=== PATIENT | male | born 1955 | race Caucasian/White ===

== ENCOUNTER 2018-07-11 18:06 | Inpatient (IN) | payer MEDICARE, MEDICAID ==
[2018-07-11 19:40] LABS: % BASOPHILS 0.4 % (0.0-2.0); % EOSINOPHILS 0.9 % (0.0-5.0); % LYMPHOCYTES 12.8 % (20.0-50.0); % MONOCYTES 5.5 % (2.0-10.0); % NEUTROPHILS 80.4 % (40.0-80.0); BASOPHILE ABSOLUTE 0.1 Th/cumm (0-0.2); EOSINOPHILE ABSOLUTE 0.1 Th/cmm (0.1-0.4); HEMOGLOBIN 13.6 gm/dL (12-16); MEAN CELL VOLUME 93.2 fl (80-99); MEAN CORPUSCULAR HEMOGLOBIN 30.8 pg (26.0-30.0); MEAN CORPUSCULAR HGB CONC 33.1 pg (28.0-36.0); MEAN PLATELET VOLUME 8.3 fl; MONOCYTE ABSOLUTE 0.9 Th/cmm (0.3-1.0); NEUTROPHILE ABSOLUTE 12.6 Th/cmm (1.8-8.0); PLATELET COUNT 205 Th/cmm (150-400); RED CELL DISTRIBUTION WIDTH 12.5 % (11.5-20.0)
[2018-07-11 19:54] LABS: WHITE BLOOD COUNT 15.7 Th/cmm (4.8-10.8)
--- NOTE | 2018-07-11 19:55 | ED Physician Chart ---
ED Chief Complaint/HPI - Patient Information Date Seen:: 07/11/18 Time Seen:: 18:45 Chief Complaint:: G-Tube Dysfunction History of Present Illness:: onset x one day of G-Tube Dysfunction with fever, cough, and congestion; Hx of COPD and Dyspagia; no report of trauma, LOC, ALOC, AMS, H/As, S/T, neck pain, C/ P, SOB, Abd. Pain, A/N/V/D/C, chills, or urinary s/s Allergies:: Allergies Allergy/AdvReac Type Severity Reaction Status Date / Time divalproex sodium Allergy Verified 07/11/18 18:46 [[facility] Vitals:: Vital Signs - 8 hr 07/11/18 07/11/18 18:46 19:36 Temp 97.3 F 98.9 F HR 107 69 RR 17 21 BP 134/72 115/64 O2 Sat % 94 98 Historian:: Patient, EMS Review:: Nurse's Note Reviewed, Old Chart Reviewed, EMS run form Reviewed ED Review of Systems - Review of Systems General/Constitutional: Fever, No chills, No weight loss, No weakness, No diaphoresis, No edema, No loss of appetite Skin: No skin lesions, No rash, No bruising Head: No headache, No light-headedness Eyes: No loss of vision, No pain, No diplopia ENT: No earache, Nasal drainage, No sore throat, No tinnitus Neck: No neck pain, No swelling, No thyromegaly, No stiffness, No mass noted Cardio Vascular: No chest pain, No palpitations, No PND, No orthopnea, No edema Pulmonary: SOB, Cough, No sputum, No wheezing GI: Nausea, Vomiting, Diarrhea, Pain, No melena, No hematochezia, No constipation, No hematemesis G/U: No dysuria, No frequency, No hematuria, No nacturia Musculoskeletal: No bone or joint pain, No back pain, No muscle pain Endocrine: No polyuria, No polydipsia Psychiatric: Prior psych history, Depression, Anxiety, No suicidal ideation, No homicidal ideation, No auditory hallucination, No visual hallucination Hematopoietic: No bruising, No lymphadenopathy Allergic/Immuno: No urticaria, No angioedema Neurological: No syncope, No focal symptoms, No weakness, No paresthesia, No headache, Seizure, No dizziness, Confusion, No vertigo ED Past Medical History - Past Medical History Obtainable: Yes Past Medical History: HTN, Asthma/COPD, PUD/GERD, Seizures, Thyroid disorder, Dementia Family History: HTN Social History: Non Smoker, No Alcohol, No Drug Use, Single, Care Facility Surgical History: PEG/GTube Psychiatricy History: Depression, Bipolar, Dementia Medication: Reviewed Family Medical History - Family Member Mother History Unknown: Yes ED Physical Exam - Physical Examination General/Constitutional: Awake, Well-developed, well-nourished, Alert, No distress, GCS 15, Non-toxic appearing, Ambulatory Head: Atraumatic Eyes: Lids, conjuctiva normal, PERRL, EOMI Skin: Nl inspection, No rash, No skin lesions, No ecchymosis, Well hydrated, No lymphadenopathy ENMT: External ears, nose nl, TM canals nl, Nasal exam nl, Lips, teeth, gums nl , Oropharynx nl, Tonsils nl Neck: Nontender, Full ROM w/o pain, No JVD, No nuchal rigidity, No bruit, No mass, No stridor Respiratory: Nl effort/Exclusion Other Respiratory comments:: Lungs: + Rales and Rhonchi Cardio Vascular: RRR, No murmur, gallop, rubs, NL S1 S2, Carotid/Femoral/Distal pulses equal bilaterally GI: No tenderness/rebounding/guarding, No organomegaly, No hernia, Normal BS's, Nondistended, No mass/bruits, No McBurney tenderness, Rectum exam nl Other GI comments:: + G-Tube Malfunction; no pulsatile masses : No CVA tenderness Extremities: No tenderness or effusion, Full ROM, normal strength in all extremities, No edema, Normal digits & nails Neuro/Psych: Alert/oriented, DTR's symmetric, Normal sensory exam, Normal motor strength, Judgement/insight normal, Mood normal, Normal gait, No focal deficits Misc: Normal back, No paraspinal tenderness ED Labs/Radiology/EKG Results - Lab Results Comments:: Reviewed - Radiology Results Comments:: CXR: + COPD; + Patchy Infiltrates ED Septic Shock - . Is Septic Shock (SBP<90, OR Lactate>4 mmol\L) present?: No - <6hrs of presentation: Vital Signs: Vital Signs - 8 hr 07/11/18 07/11/18 18:46 19:36 Temp 97.3 F 98.9 F HR 107 69 RR 17 21 BP 134/72 115/64 O2 Sat % 94 98 ED Reassessment (Disposition) - Reassessment Reassessment Condition:: Improved - Diagnosis Diagnosis:: G-Tube Dysfunction; Tachycardia; Leukocytosis; PNA; Sepsis; Hypercalcemia - Aftercare/Follow up Instructions Aftercare/Follow-Up Instructions:: Counseled pt regarding lab results/diagnosis & need follow up, Counseled pt & family regarding lab results/diagnosis & need follow up - Patient Disposition Discharge/Transfer:: Acute Care w/in this hosp Accepting Physician:: Dr. Nelson Time Called:: 2034 Time Responded:: 20:35 Admitted to:: Telemetry Spoke to:: Dr. Nelson Admitting Medical Physician:: Dr. Nelson Condition at Disposition:: Stable, Improved
[2018-07-11 19:58] LABS: ALB/GLOB RATIO 1.1 (1.0-1.8); ALBUMIN 3.7 gm/dL (4.2-5.5); ALKALINE PHOSPHATASE 76 U/L (34-104); ANION GAP 9.8 (7.0-16.0); BILIRUBIN,TOTAL 0.5 mg/dL (0.3-1.0); BUN - UREA NITROGEN 21 mg/dL (7-25); CALCIUM SERUM 11.7 mg/dL (8.6-10.3); CARBON DIOXIDE 25.8 mEq/L (21.0-31.0); CHLORIDE 113 mEq/L (98-107); CREATININE - SERUM 0.7 mg/dL (0.7-1.3); GFR AFRICAN-AMERICAN > 60.0 ml/min (>90); GFR NON AFRICAN-AMERICAN > 60.0 ml/min; GLUCOSE 90 mg/dL (70-105); POTASSIUM SERUM 3.6 mEq/L (3.5-5.1); SGOT 12 U/L (13-39); SGPT/ALT 12 U/L (7-52); SODIUM SERUM 145 mEq/L (136-145); TOTAL PROTEIN,SERUM 7.2 gm/dL (6.0-8.3)
[2018-07-11] MEDS ORDERED: Levofloxacin 500mg/100mL 500 MG/100 ML BAG IV ONE ×2 (20:08→20:23)
[2018-07-11] MEDS ORDERED: Sodium Chloride 0.9% 1,000 ML IV ONE (20:13)
[2018-07-11 20:30] LABS: URINE SOURCE CATH
[2018-07-11 20:32] LABS: URINE BILIRUBIN NEGATIVE (NEGATIVE); URINE BLOOD NEGATIVE (NEGATIVE); URINE GLUCOSE (UA) NEGATIVE (NEGATIVE); URINE KETONE NEGATIVE (NEGATIVE); URINE LEUKOCYTE ESTERASE NEGATIVE (NEGATIVE); URINE NITRATE NEGATIVE (NEGATIVE); URINE PROTEIN NEGATIVE (NEGATIVE); URINE UROBILINOGEN 0.2 E.U./dL (0.2 - 1.0)
[2018-07-11 20:46] LABS: URINE CLARITY CLEAR (CLEAR); URINE COLOR YELLOW; URINE MICROSCOPIC INDICATED? NO
[2018-07-11] MEDS ORDERED: Magnesium Hydroxide (MOM) 30 mL UDC GT PRN (21:00)
[2018-07-11] MEDS ORDERED: Non-Formulary Item 1 EA (Acetaminophen [Tylenol] 650 MG) GT PRN (21:00)
[2018-07-11] MEDS ORDERED: POLYETHYLENE GLYCOL 17 GM GT PRN (21:00)
[2018-07-11] MEDS ORDERED: Fleet Enema 135 mL RC PRN (21:00)
[2018-07-11] MEDS ORDERED: THIORIDAZINE HCL GT SCH (21:00)
[2018-07-11] MEDS ORDERED: guaiFENesin 200 MG/10 ML UDC PO PRN (21:02)
--- NOTE | 2018-07-11 21:58 | History & Physical ---
ADMIT DATE: 07/12/2018 CHIEF COMPLAINT: Malfunctioning G-tube, ingestion. HISTORY OF PRESENT ILLNESS: This is a 61-year-old male with history of COPD, dysphagia with G-tube, seizure disorder, hypertension, thyroid disorder, dementia, admitted from nursing facility secondary to report of clotted G-tube. The patient was also to be congested. The patient was evaluated by Dr. Tavares in the Emergency Room and noted to have elevated white count and also chest x-ray consistent with infiltrate. The patient is being admitted for further management. PAST MEDICAL HISTORY: As mentioned in history present illness. PAST SURGICAL HISTORY: G-tube. ALLERGIES: DEPAKOTE. MEDICATIONS: Tylenol, albuterol, Benadryl, Proscar, Robinul, Keppra, Synthroid, milk of magnesia, Zyprexa, MiraLax, Topamax. FAMILY HISTORY: Noncontributory. SOCIAL HISTORY: The patient is a snf patient. REVIEW OF SYSTEMS: This is limited secondary to the patient's current mental state. We will try to obtain more detailed review of system at a later date from family members as well as from the primary care physician at rehabilitation. PHYSICAL EXAMINATION: VITAL SIGNS: Blood pressure ____ 134/70, respirations 17, pulse 107, temperature 97.3, ____. GENERAL: Elderly male, appears stated age, appears chronically ill. NECK: Supple. LUNGS: Equal breath sounds, few rhonchi. HEART: Regular rate and rhythm without appreciable murmur. ABDOMEN: Soft, globular, positive. EXTREMITIES: Positive excoriation. NEUROLOGIC: Limited. LABORATORY DATA: Noted WBC 15, hemoglobin 13, platelets 507. Sodium 140, potassium 3.6, BUN 21, creatinine 0.7, blood sugar 127. Albumin 3.7. UA is negative. ASSESSMENT AND PLAN: Possible pneumonia, G-tube malfunction, leukocytosis, possible sepsis, hyperglycemia, chronic obstructive pulmonary disease, dysphagia with G-tube, seizure, BPH, hypertension, dementia. PLAN: We will continue the patient on oxygen and bronchodilator treatment. We will send for sputum Gram stain and C and S. We will follow the patient's blood culture. We will review the patient's chest x-ray. We will have GI to also take a look at a G-tube with report of malfunctioning. We will monitor the patient closely in the telemetry unit. JOB# [id number]
[2018-07-11] MEDS: D5-0.9%NS 1,000 ML IV SCH (22:10)
[2018-07-12 02:05] VITALS: BP 119/67
[2018-07-12] MEDS: methylPREDNISolone SS 40 mg Vial IVP SCH ×3 (06:07→21:21)
[2018-07-12] MEDS: Albuterol Nebulizer 2.5mg/3mL HHN SCH ×4 (07:16→19:37)
[2018-07-12] MEDS: Ipratropium Neb 0.5 mg/2.5 mL UD HHN SCH ×4 (07:16→19:37)
[2018-07-12] MEDS ORDERED: POLYETHYLENE GLYCOL 3350 17 GM PACK PO PRN (08:04)
[2018-07-12] MEDS ORDERED: TOPIRAMATE 200 MG GT SCH (09:00)
[2018-07-12] MEDS: Levothyroxine 0.05 Mg Tab GT SCH (09:36)
--- NOTE | 2018-07-12 10:33 | Diagnostic Imaging Report ---
Portable chest x-ray HISTORY: Cough Heart size is normal. Suggestion of faint infiltrate within the left lower lobe. Pneumonia cannot be excluded. Clinical correlation needed. No hilar or mediastinal abnormalities. Severe chronic deformity about the left humeral head and proximal shaft. IMPRESSION: 1. Faint left lower lobe infiltrate. Findings suggest pneumonia. Clinical correlation is needed.
--- NOTE | 2018-07-12 13:20 | Internal Medicine Prog Note ---
Internal Medicine Subjective - Subjective Patient seen and examined:: with staff, chart reviewed, other (caretake r at bedside) Patient is:: awake, verbal, interactive, in bed, talking, agitated, confused Per staff patient has:: no adverse event, no episodes of fall, gagging, agitated , tolerating meds Internal Medicine Objective - Results Result Diagrams: 07/11/18 19:30 07/11/18 19: Recent Labs: Laboratory Last Values WBC 15.7 Th/cmm (4.8-10.8) H 07/11/18: RBC 4.40 Mil/cmm (4.30-5.70) 07/11/18: Hgb 13.6 gm/dL (12-16) 07/11/18: Hct 41.0 % (41.0-60) 07/11/18: MCV 93.2 fl (80-99) 07/11/18: MCH 30.8 pg (26.0-30.0) H 07/11/18 MCHC Differential 33.1 pg (28.0-36.0) 07/11/18: RDW 12.5 % (11.5-20.0) 07/11/18: Plt Count 205 Th/cmm (150-400) 07/11/18: MPV 8.3 fl 07/11/18: Neutrophils % 80.4 % (40.0-80.0) H 07/11/18: Lymphocytes % 12.8 % (20.0-50.0) L 07/11/18: Monocytes % 5.5 % (2.0-10.0) 07/11/18: Eosinophils % 0.9 % (0.0-5.0) 07/11/18: Basophils % 0.4 % (0.0-2.0) 07/11/18: Sodium 145 mEq/L (136-145) 07/11/18: Potassium 3.6 mEq/L (3.5-5.1) 07/11/18: Chloride 113 mEq/L (98-107) H 07/11/18: Carbon Dioxide 25.8 mEq/L (21.0-31.0) 07/11/18 19:30 Anion Gap 9.8 (7.0-16.0) 07/11/18 19:30 BUN 21 mg/dL (7-25) 07/11/18 19:30 Creatinine 0.7 mg/dL (0.7-1.3) 07/11/18 19:30 Est GFR ( Amer) > 60.0 ml/min (>90) 07/11/18 19:30 Est GFR (Non-Af Amer) > 60.0 ml/min 07/11/18 19:30 BUN/Creatinine Ratio 30.0 07/11/18 19:30 Glucose 90 mg/dL (70-105) 07/11/18 19:30 Whole Bld Lactic Acid 0.88 mmol/L (0.60-1.99) 07/11/18 19:30 Calcium 11.7 mg/dL (8.6-10.3) H 07/11/18 19:30 Total Bilirubin 0.5 mg/dL (0.3-1.0) 07/11/18 19:30 AST 12 U/L (13-39) L 07/11/18 19:30 ALT 12 U/L (7-52) 07/11/18 19:30 Alkaline Phosphatase 76 U/L (34-104) 07/11/18 19:30 Total Protein 7.2 gm/dL (6.0-8.3) 07/11/18 19:30 Albumin 3.7 gm/dL (4.2-5.5) L 07/11/18 19:30 Globulin 3.5 gm/dL 07/11/18 19:30 Albumin/Globulin Ratio 1.1 (1.0-1.8) 07/11/18 19:30 Urine Source CATH 07/11/18 20:15 Urine Color YELLOW 07/11/18 20:15 Urine Clarity CLEAR (CLEAR) 07/11/18 20:15 Urine pH 6.0 (4.6 - 8.0) 07/11/18 20:15 Ur Specific [place] 1.015 (1.005-1.030) 07/11/18 20:15 Urine Protein NEGATIVE mg/dL (NEGATIVE) 07/11/18 20:15 Urine Glucose (UA) NEGATIVE mg/dL (NEGATIVE) 07/11/18 20:15 Urine Ketones NEGATIVE mg/dL (NEGATIVE) 07/11/18 20:15 Urine Blood NEGATIVE (NEGATIVE) 07/11/18 20:15 Urine Nitrate NEGATIVE (NEGATIVE) 07/11/18 20:15 Urine Bilirubin NEGATIVE (NEGATIVE) 07/11/18 20:15 Urine Urobilinogen 0.2 E.U./dL (0.2 - 1.0) 07/11/18 20:15 Ur Leukocyte Esterase NEGATIVE (NEGATIVE) 07/11/18 20:15 - Physical Exam Vitals and I&O: Vital Signs Temp 98.6 F 07/12/18 12:00 Pulse 83 07/12/18 12:00 Resp 18 07/12/18 12:00 BP 104/62 07/12/18 12:00 Pulse Ox 97 07/12/18 12:00 Intake & Output 07/11/18 07/12/18 07/12/18 18:59 06:59 18:59 Intake Total 50 400 Balance 50 400 Weight (lbs) 70.307 kg 51.211 kg 51.211 kg Intake: Intake, IV Amount 50 Cefepime 1 gm In Dextrose 50 5% 50 ml @ 100 mls/hr IV Q12H [facility] Rx#:[id number] Oral 0 Tube Feeding 400 Other: # Voids 1 2 # Bowel Movements 0 Weight Source Estimated Bedscale Bedscale Active Medications: Current Medications Acetaminophen (Tylenol) 650 mg PO Q4H PRN PRN Reason: Pain Or Fever above 101 Stop: 09/09/18 21:01 Last Admin: 07/12/18 09:56 Dose: 650 mg Acetaminophen (Tylenol) 650 mg PO Q6H PRN PRN Reason: PAIN Stop: 09/10/18 08:02 Albuterol Sulfate (Albuterol 2.5mg/3ml Neb Ud) 2.5 mg HHN QIDRT [facility] Stop: 09/10/18 06:59 Last Admin: 07/12/18 10:51 Dose: 2.5 mg Bisacodyl (Dulcolax 10 Mg Supp) 10 mg RC DAILY PRN PRN Reason: IF MOM INEFFECTIVE Stop: 09/09/18 20:59 Finasteride (Proscar) 5 mg GT DAILY [facility]; Protocol Stop: 09/10/18 08:59 Last Admin: 07/12/18 09:36 Dose: 5 mg Glycopyrrolate (Robinul) 2 mg GT TID [facility] Stop: 09/09/18 20:59 Last Admin: 07/12/18 09:35 Dose: Not Given Guaifenesin (Robitussin) 200 mg PO Q4HR PRN PRN Reason: Cough or Congestion Stop: 09/09/18 21:01 Heparin Sodium (Porcine) (Heparin) 5,000 units SUBQ Q12HR [facility] Stop: 09/10/18 08:59 Last Admin: 07/12/18 09:35 Dose: 5,000 units Cefepime HCl 1 gm/ Dextrose 50 mls @ 100 mls/hr IV Q12H [facility] Stop: 09/09/18 21:14 Last Admin: 07/12/18 09:35 Dose: 100 mls/hr Dextrose/Sodium Chloride (D5-0.9%Ns) 1,000 mls @ 80 mls/hr IV .[id number] [facility] Stop: 09/09/18 21:14 Last Admin: 07/11/18 22:10 Dose: 80 mls/hr Ipratropium [place] (Atrovent Neb 0.5mg/2.5ml) 0.5 mg HHN QIDRT [facility] Stop: 09/10/18 06:59 Last Admin: 07/12/18 10:51 Dose: 0.5 mg Levetiracetam (Keppra) 750 mg PO HS [facility] Stop: 09/09/18 20:59 Last Admin: 07/11/18 22:04 Dose: 750 mg Levothyroxine Sodium (Synthroid) 0.05 mg GT DAILY [facility] Stop: 09/10/18 08:59 Last Admin: 07/12/18 09:36 Dose: 0.05 mg Lorazepam (Ativan) 0.5 mg GT Q6H PRN; Protocol PRN Reason: Anxiety Stop: 09/09/18 20:59 Lorazepam (Ativan) 1 mg IV Q4H PRN; Protocol PRN Reason: Seizure Stop: 09/09/18 21:01 Magnesium Hydroxide (Milk Of Magnesia) 30 ml GT DAILY PRN PRN Reason: Constipation Stop: 09/09/18 20:59 Methylprednisolone Sodium Succinate (Solu-Medrol) 80 mg IVP Q8HR [facility] Stop: 09/10/18 04:59 Last Admin: 07/12/18 06:07 Dose: Not Given Mirtazapine (Remeron) 15 mg GT HS [facility]; Protocol Stop: 09/09/18 20:59 Olanzapine (Zyprexa) 15 mg PO HS [facility] Stop: 09/10/18 20:59 Ondansetron HCl (Zofran) 4 mg IV Q8H PRN PRN Reason: Nausea / Vomiting Stop: 09/09/18 21:01 Phenobarbital (Phenobarbital) 129.6 mg GT [facility] Stop: 09/09/18 20:59 Last Admin: 07/11/18 22:04 Dose: 129.6 mg Polyethylene Glycol (Miralax) 17 gm PO DAILY PRN PRN Reason: STOMACH Stop: 09/10/18 08:03 Sodium Phosphate (Fleet Enema) 135 ml RC DAILY PRN PRN Reason: IF DULCOLAX INEFFECTIVE Stop: 09/09/18 20:59 Tamsulosin HCl (Flomax) 0.4 mg GT QPM [facility] Stop: 09/10/18 16:59 Thioridazine HCl (Mellaril) 50 mg PO [facility] Stop: 09/10/18 20:59 Topiramate (Topamax) 100 mg GT [facility] Stop: 09/09/18 20:59 Last Admin: 07/11/18 22:04 Dose: 100 mg Topiramate (Topamax) 200 mg GT BID [facility] Stop: 09/10/18 08:59 Last Admin: 07/12/18 09:36 Dose: 200 mg General: congested, demented, bilateral temporal wasting, cachectic, appears older HEENT: NC/AT, PERRLA, EOMI, thinning hair, poor dentition Neck: Supple, No JVD, deformity Lungs: congested, rales, ronchi Cardiovascular: RRR, Normal S1, Normal S2, without murmur Abdomen: soft, globular, non-distended, +GT, positive bowel sound Extremities: excoriation, contracture, deformity - Procedures Procedures: Procedures Procedure Code Date BARIUM SWALLOW 87.61 04/05/95 C.A.T. SCAN OF HEAD 87.03 04/05/95 CLOSURE SKIN & SUBCUTANEOUS NEC 86.59 04/05/95 ELECTROENCEPHALOGRAM 89.14 04/05/95 HEAD SOFT TISS X-RAY NEC 87.09 04/05/95 LINEAR REP LID LACER 08.81 11/06/95 RPR F/E/E/N/L/M 2.5 CM/< 16481 11/06/95 Internal Medicine Assmt/Plan - Assessment Assessment: ASSESSMENT AND PLAN: Possible pneumonia, G-tube malfunction, leukocytosis, possible sepsis, hyperglycemia, chronic obstructive pulmonary disease, dysphagia with G-tube, seizure, BPH, hypertension, dementia. - Plan Plan: PLAN: We will continue the patient on oxygen and bronchodilator treatment. We will send for sputum Gram stain and C and S. We will follow the patient's blood culture. We will review the patient's chest x-ray. We will have GI to also take a look at a G-tube with report of malfunctioning. We will monitor the patient closely in the telemetry unit. ronal gomez and dylan
--- NOTE | 2018-07-12 13:56 | Diagnostic Imaging Report ---
Upper GI (Limited) HISTORY: Gastrostomy tube placement Water-soluble contrast was instilled through patient's gastrostomy tube. The exam demonstrates opacification of the gastric lumen. IMPRESSION: 1. Confirmation of gastrostomy tube within the gastric lumen
[2018-07-12] MEDS: Thioridazine Hydrochloride 25 MG TAB PO SCH (21:35)
--- NOTE | 2018-07-13 00:02 | Consultation ---
DATE OF CONSULTATION: 07/12/2018 PSYCHIATRIC CONSULTATION CHIEF COMPLAINT: Psychotic illness. HISTORY OF PRESENT ILLNESS: The patient is a 63-year-old male with a history of mental retardation, schizoaffective disorder, seen at his senior living facility [facility], was anxious, agitated, striking out. The patient also has a possible infection around his G-tube. He was sent to the ER, now he is admitted on medical floor. The patient was seen and he had his caregiver from his long-term by the bedside. The patient most of the time is nonverbal, was smiling as long as his caregiver was next to him. The patient is absent on episodes of agitation. The patient is not communicating well. The patient, however, is awake. PAST PSYCHIATRIC HISTORY: Schizoaffective disorder and mental retardation. PAST MEDICAL HISTORY: Refer to H and P. PSYCHOSOCIAL HISTORY: The patient resides in a long-term, requires care. MENTAL STATUS EXAMINATION: The patient is superficial, made fair eye contact, responding to internal stimuli. Insight is poor. Judgment is impaired. The patient is somewhat irritable at times. ASSESSMENT: Schizoaffective disorder and mental retardation. PLAN: We will continue lorazepam p.r.n. Continue mirtazapine, olanzapine. Monitor condition closely. The patient is also on Mellaril and Topamax. The patient has been on these medications for a while. We will follow while in the medical floor. Thank you for the consultation. JOB# [id number]
--- NOTE | 2018-07-13 02:24 | Consultation ---
DATE OF CONSULTATION: 07/12/2018 GASTROINTESTINAL CONSULTATION REFERRING PHYSICIAN: Dr. Nelson. REASON FOR CONSULTATION: Malfunctioning G-tube. HISTORY OF PRESENT ILLNESS: This is a 63-year-old male who was brought to the hospital because his G-tube was malfunctioning. Therefore, I was asked to see the patient. The patient is not a good historian. He has underlying history of COPD, dysphagia. He apparently had a G-tube that was placed approximately 6 days ago over at [facility] by Dr. Hoskins. PAST MEDICAL HISTORY: Dysphagia, seizure disorder, hypertension, thyroid disorder, dementia. PAST SURGICAL HISTORY: PEG tube placement. FAMILY HISTORY: Noncontributory. SOCIAL HISTORY: Resident of [facility] facility. ALLERGIES: Depakote. CURRENT MEDICATIONS: Tylenol, cefepime, Proscar, Robinul, Robitussin, heparin, Keppra, Synthroid, Ativan, milk of magnesia, Solu-Medrol, Remeron, Zyprexa, Zofran, phenobarbital, MiraLax, Flomax, Topamax. REVIEW OF SYSTEMS: Unobtainable. PHYSICAL EXAMINATION: VITAL SIGNS: Temperature is 98.6, breathing 18, pulse of 83, blood pressure 104/62, satting 97%. GENERAL: In no apparent distress. EYES: Anicteric. Normal conjunctivae. HEENT: Normocephalic, atraumatic. Moist mucous membranes. NECK: Soft, supple. CHEST: Clear. No effort. CARDIOVASCULAR: Regular rate and rhythm. ABDOMEN: Soft, nontender, nondistended with a G-tube. SKIN: Warm, dry. EXTREMITIES: Reveal no cyanosis. PSYCHOLOGICAL: Awake. LABORATORY DATA: Show hemoglobin 13.6, platelets of 205. LFTs within normal limits. IMPRESSION: A 63-year-old male with dysphagia, has a G-tube that was placed approximately 6 days ago, apparently was malfunctioning, it was clogged and looking at it, the G-tube looks remarkably new, clean and intact, does not appear to be any defects and the nurse at bedside was able to flush it and it is now working. Therefore, I do not think that it needs to be changed, especially since it was recently placed. They should flush it regularly and they may begin using it. PLAN: 1. Check a KUB to confirm adequate placement of the G-tube. 2. If it is in good place, may flush every 6 hours with 50 mL of water once it is in use. 3. Check residual every 6 hours and hold if greater than 100 mL. Thank you for allowing me to participate. Please call me if any questions. JOB# [id number]
[2018-07-13] MEDS: methylPREDNISolone SS 40 mg Vial IVP SCH ×3 (04:51→21:23)
[2018-07-13 05:52] LABS: % BASOPHILS 0.1 % (0.0-2.0); % EOSINOPHILS 0.2 % (0.0-5.0); % LYMPHOCYTES 10.6 % (20.0-50.0); % MONOCYTES 3.8 % (2.0-10.0); % NEUTROPHILS 85.3 % (40.0-80.0); HEMATOCRIT 37.4 % (41.0-60); HEMOGLOBIN 12.7 gm/dL (12-16); LYMPHOCYTE ABSOLUTE 0.7 Th/cmm (1.5-3.0); MEAN CELL VOLUME 92.5 fl (80-99); MEAN CORPUSCULAR HEMOGLOBIN 31.5 pg (26.0-30.0); MEAN PLATELET VOLUME 8.1 fl; MONOCYTE ABSOLUTE 0.2 Th/cmm (0.3-1.0); NEUTROPHILE ABSOLUTE 5.4 Th/cmm (1.8-8.0); PLATELET COUNT 173 Th/cmm (150-400); RED BLOOD COUNT 4.04 Mil/cmm (4.30-5.70); WHITE BLOOD COUNT 6.3 Th/cmm (4.8-10.8)
[2018-07-13 06:01] LABS: ANION GAP 9.7 (7.0-16.0); BUN - UREA NITROGEN 17 mg/dL (7-25); CALCIUM SERUM 11.4 mg/dL (8.6-10.3); CARBON DIOXIDE 24.9 mEq/L (21.0-31.0); CHLORIDE 115 mEq/L (98-107); CREATININE - SERUM 0.7 mg/dL (0.7-1.3); GFR AFRICAN-AMERICAN > 60.0 ml/min (>90); GFR NON AFRICAN-AMERICAN > 60.0 ml/min; GLUCOSE 163 mg/dL (70-105); MAGNESIUM 2.4 mg/dL (1.9-2.7); POTASSIUM SERUM 3.6 mEq/L (3.5-5.1); SODIUM SERUM 146 mEq/L (136-145)
[2018-07-13] MEDS: Ipratropium Neb 0.5 mg/2.5 mL UD HHN SCH ×4 (07:06→19:05)
[2018-07-13] MEDS: Albuterol Nebulizer 2.5mg/3mL HHN SCH ×4 (07:06→19:05)
[2018-07-13] MEDS: Levothyroxine 0.05 Mg Tab GT SCH (08:48)
--- NOTE | 2018-07-13 10:34 | GI Progress Note ---
Subjective - Review of Systems Subjective: SHIVAM TUBE FEEDS Objective - Results Result Diagrams: 07/13/18 05:33 07/13/18 05:33 Recent Labs: Laboratory Last Values WBC 6.3 Th/cmm (4.8-10.8) 07/13/18 05:33 RBC 4.04 Mil/cmm (4.30-5.70) L 07/13/18 05:33 Hgb 12.7 gm/dL (12-16) 07/13/18 05:33 Hct 37.4 % (41.0-60) L 07/13/18 05:33 MCV 92.5 fl (80-99) 07/13/18 05:33 MCH 31.5 pg (26.0-30.0) H 07/13/18 05:33 MCHC Differential 34.0 pg (28.0-36.0) 07/13/18 05:33 RDW 13.0 % (11.5-20.0) 07/13/18 05:33 Plt Count 173 Th/cmm (150-400) 07/13/18 05:33 MPV 8.1 fl 07/13/18 05:33 Neutrophils % 85.3 % (40.0-80.0) H 07/13/18 05:33 Lymphocytes % 10.6 % (20.0-50.0) L 07/13/18 05:33 Monocytes % 3.8 % (2.0-10.0) 07/13/18 05:33 Eosinophils % 0.2 % (0.0-5.0) 07/13/18 05:33 Basophils % 0.1 % (0.0-2.0) 07/13/18 05:33 Sodium 146 mEq/L (136-145) H 07/13/18 05:33 Potassium 3.6 mEq/L (3.5-5.1) 07/13/18 05:33 Chloride 115 mEq/L (98-107) H 07/13/18 05:33 Carbon Dioxide 24.9 mEq/L (21.0-31.0) 07/13/18 05:33 Anion Gap 9.7 (7.0-16.0) 07/13/18 05:33 BUN 17 mg/dL (7-25) 07/13/18 05:33 Creatinine 0.7 mg/dL (0.7-1.3) 07/13/18 05:33 Est GFR ( Amer) > 60.0 ml/min (>90) 07/13/18 05:33 Est GFR (Non-Af Amer) > 60.0 ml/min 07/13/18 05:33 BUN/Creatinine Ratio 24.3 07/13/18 05:33 Glucose 163 mg/dL (70-105) H 07/13/18 05:33 Whole Bld Lactic Acid 0.88 mmol/L (0.60-1.99) 07/11/18 19:30 Calcium 11.4 mg/dL (8.6-10.3) H 07/13/18 05:33 Magnesium 2.4 mg/dL (1.9-2.7) 07/13/18 05:33 Total Bilirubin 0.5 mg/dL (0.3-1.0) 07/11/18 19:30 AST 12 U/L (13-39) L 07/11/18 19:30 ALT 12 U/L (7-52) 07/11/18 19:30 Alkaline Phosphatase 76 U/L (34-104) 07/11/18 19:30 Total Protein 7.2 gm/dL (6.0-8.3) 07/11/18 19:30 Albumin 3.7 gm/dL (4.2-5.5) L 07/11/18 19:30 Globulin 3.5 gm/dL 07/11/18 19:30 Albumin/Globulin Ratio 1.1 (1.0-1.8) 07/11/18 19:30 Urine Source CATH 07/11/18 20:15 Urine Color YELLOW 07/11/18 20:15 Urine Clarity CLEAR (CLEAR) 07/11/18 20:15 Urine pH 6.0 (4.6 - 8.0) 07/11/18 20:15 Ur Specific [place] 1.015 (1.005-1.030) 07/11/18 20:15 Urine Protein NEGATIVE mg/dL (NEGATIVE) 07/11/18 20:15 Urine Glucose (UA) NEGATIVE mg/dL (NEGATIVE) 07/11/18 20:15 Urine Ketones NEGATIVE mg/dL (NEGATIVE) 07/11/18 20:15 Urine Blood NEGATIVE (NEGATIVE) 07/11/18 20:15 Urine Nitrate NEGATIVE (NEGATIVE) 07/11/18 20:15 Urine Bilirubin NEGATIVE (NEGATIVE) 07/11/18 20:15 Urine Urobilinogen 0.2 E.U./dL (0.2 - 1.0) 07/11/18 20:15 Ur Leukocyte Esterase NEGATIVE (NEGATIVE) 07/11/18 20:15 - Physical Exam Vitals and I&O: Vital Signs Temp 98.5 F 07/13/18 08:27 Pulse 77 07/13/18 08:27 Resp 20 07/13/18 10:10 BP 130/72 07/13/18 08:27 Pulse Ox 99 07/13/18 08:27 Intake & Output 07/12/18 07/13/18 07/13/18 18:59 06:59 18:59 Intake Total 450 650 Balance 450 650 Weight (lbs) 51.211 kg 50.712 kg Intake: Intake, IV Amount 50 50 Cefepime 1 gm In Dextrose 50 50 5% 50 ml @ 100 mls/hr IV Q12H [facility] Rx#:[id number] Oral 0 Tube Feeding 400 600 Other: # Voids 2 2 # Bowel Movements 0 Weight Source Bedscale Bedscale Active Medications: Current Medications Acetaminophen (Tylenol) 650 mg PO Q4H PRN PRN Reason: Pain Or Fever above 101 Stop: 09/09/18 21:01 Last Admin: 07/12/18 09:56 Dose: 650 mg Acetaminophen (Tylenol) 650 mg PO Q6H PRN PRN Reason: PAIN Stop: 09/10/18 08:02 Albuterol Sulfate (Albuterol 2.5mg/3ml Neb Ud) 2.5 mg HHN QIDRT [facility] Stop: 09/10/18 06:59 Last Admin: 07/13/18 07:06 Dose: 2.5 mg Bisacodyl (Dulcolax 10 Mg Supp) 10 mg RC DAILY PRN PRN Reason: IF MOM INEFFECTIVE Stop: 09/09/18 20:59 Finasteride (Proscar) 5 mg GT DAILY [facility]; Protocol Stop: 09/10/18 08:59 Last Admin: 07/13/18 08:49 Dose: 5 mg Glycopyrrolate (Robinul) 2 mg GT TID [facility] Stop: 09/09/18 20:59 Last Admin: 07/13/18 08:45 Dose: 2 mg Guaifenesin (Robitussin) 200 mg PO Q4HR PRN PRN Reason: Cough or Congestion Stop: 09/09/18 21:01 Heparin Sodium (Porcine) (Heparin) 5,000 units SUBQ Q12HR [facility] Stop: 09/10/18 08:59 Last Admin: 07/13/18 08:51 Dose: 5,000 units Cefepime HCl 1 gm/ Dextrose 50 mls @ 100 mls/hr IV Q12H [facility] Stop: 09/09/18 21:14 Last Admin: 07/13/18 08:49 Dose: 100 mls/hr Dextrose/Sodium Chloride (D5-0.9%Ns) 1,000 mls @ 80 mls/hr IV .[id number] [facility] Stop: 09/09/18 21:14 Last Admin: 07/11/18 22:10 Dose: 80 mls/hr Ipratropium [place] (Atrovent Neb 0.5mg/2.5ml) 0.5 mg HHN QIDRT [facility] Stop: 09/10/18 06:59 Last Admin: 07/13/18 07:06 Dose: 0.5 mg Levetiracetam (Keppra) 750 mg PO HS [facility] Stop: 09/09/18 20:59 Last Admin: 07/12/18 21:21 Dose: 750 mg Levothyroxine Sodium (Synthroid) 0.05 mg GT DAILY [facility] Stop: 09/10/18 08:59 Last Admin: 07/13/18 08:48 Dose: 0.05 mg Lorazepam (Ativan) 0.5 mg GT Q6H PRN; Protocol PRN Reason: Anxiety Stop: 09/09/18 20:59 Lorazepam (Ativan) 1 mg IV Q4H PRN; Protocol PRN Reason: Seizure Stop: 09/09/18 21:01 Last Admin: 07/12/18 17:18 Dose: 1 mg Magnesium Hydroxide (Milk Of Magnesia) 30 ml GT DAILY PRN PRN Reason: Constipation Stop: 09/09/18 20:59 Methylprednisolone Sodium Succinate (Solu-Medrol) 80 mg IVP Q8HR [facility] Stop: 09/11/18 12:59 Mirtazapine (Remeron) 15 mg GT HS [facility]; Protocol Stop: 09/09/18 20:59 Last Admin: 07/12/18 21:21 Dose: 15 mg Mupirocin (Bactroban Oint) 1 appl NS BID [facility] Stop: 07/17/18 17:01 Last Admin: 07/13/18 09:59 Dose: 1 appl Olanzapine (Zyprexa) 15 mg PO HS [facility] Stop: 09/10/18 20:59 Last Admin: 07/12/18 21:21 Dose: 15 mg Ondansetron HCl (Zofran) 4 mg IV Q8H PRN PRN Reason: Nausea / Vomiting Stop: 09/09/18 21:01 Phenobarbital (Phenobarbital) 129.6 mg GT [facility] Stop: 09/09/18 20:59 Last Admin: 07/12/18 21:21 Dose: 129.6 mg Polyethylene Glycol (Miralax) 17 gm PO DAILY PRN PRN Reason: STOMACH Stop: 09/10/18 08:03 Sodium Phosphate (Fleet Enema) 135 ml RC DAILY PRN PRN Reason: IF DULCOLAX INEFFECTIVE Stop: 09/09/18 20:59 Tamsulosin HCl (Flomax) 0.4 mg GT QPM [facility] Stop: 09/10/18 16:59 Last Admin: 07/12/18 17:18 Dose: 0.4 mg Thioridazine HCl (Mellaril) 50 mg PO [facility] Stop: 09/10/18 20:59 Last Admin: 07/12/18 21:35 Dose: 50 mg Topiramate (Topamax) 100 mg GT [facility] Stop: 09/09/18 20:59 Last Admin: 07/12/18 21:21 Dose: 100 mg Topiramate (Topamax) 200 mg GT BID [facility] Stop: 09/10/18 08:59 Last Admin: 07/13/18 08:48 Dose: 200 mg - Procedures Procedures: Procedures Procedure Code Date BARIUM SWALLOW 87.61 04/05/95 C.A.T. SCAN OF HEAD 87.03 04/05/95 CLOSURE SKIN & SUBCUTANEOUS NEC 86.59 04/05/95 ELECTROENCEPHALOGRAM 89.14 04/05/95 HEAD SOFT TISS X-RAY NEC 87.09 04/05/95 LINEAR REP LID LACER 08.81 11/06/95 RPR F/E/E/N/L/M 2.5 CM/< 87085 11/06/95 Assessment/Plan - Problem List Patient Problems: All Active Problems GASTRIC FEEDING TUBE MALFUNCTION (Acute) - Assessment Assessment: 63 YO MALE WITH RECENT PEG DONE ELSEWHERE KUB SHOWS THE GT IN THE STOMACH SHIVAM TUBE FEEDS 1.CONT TUBE FEEDS 2.CONT SUPP CARE 3.WILL SEE NEEDED; CALL IF QUESTIONS
[2018-07-13] MEDS: D5-0.9%NS 1,000 ML IV SCH (11:58)
--- NOTE | 2018-07-13 12:32 | Internal Medicine Prog Note ---
Internal Medicine Subjective - Subjective Patient seen and examined:: with staff, chart reviewed, other (cardiac technologist at bedside) Patient is:: awake, verbal, interactive, in bed, talking, agitated, confused Per staff patient has:: no adverse event, no episodes of fall, gagging, agitated , tolerating meds Internal Medicine Objective - Results Result Diagrams: 07/13/18 05:33 07/13/18 05:33 Recent Labs: Laboratory Last Values WBC 6.3 Th/cmm (4.8-10.8) 07/13/18 05:33 RBC 4.04 Mil/cmm (4.30-5.70) L 07/13/18 05:33 Hgb 12.7 gm/dL (12-16) 07/13/18 05:33 Hct 37.4 % (41.0-60) L 07/13/18 05:33 MCV 92.5 fl (80-99) 07/13/18 05:33 MCH 31.5 pg (26.0-30.0) H 07/13/18 05:33 MCHC Differential 34.0 pg (28.0-36.0) 07/13/18 05:33 RDW 13.0 % (11.5-20.0) 07/13/18 05:33 Plt Count 173 Th/cmm (150-400) 07/13/18 05:33 MPV 8.1 fl 07/13/18 05:33 Neutrophils % 85.3 % (40.0-80.0) H 07/13/18 05:33 Lymphocytes % 10.6 % (20.0-50.0) L 07/13/18 05:33 Monocytes % 3.8 % (2.0-10.0) 07/13/18 05:33 Eosinophils % 0.2 % (0.0-5.0) 07/13/18 05:33 Basophils % 0.1 % (0.0-2.0) 07/13/18 05:33 Sodium 146 mEq/L (136-145) H 07/13/18 05:33 Potassium 3.6 mEq/L (3.5-5.1) 07/13/18 05:33 Chloride 115 mEq/L (98-107) H 07/13/18 05:33 Carbon Dioxide 24.9 mEq/L (21.0-31.0) 07/13/18 05:33 Anion Gap 9.7 (7.0-16.0) 07/13/18 05:33 BUN 17 mg/dL (7-25) 07/13/18 05:33 Creatinine 0.7 mg/dL (0.7-1.3) 07/13/18 05:33 Est GFR ( Amer) > 60.0 ml/min (>90) 07/13/18 05:33 Est GFR (Non-Af Amer) > 60.0 ml/min 07/13/18 05:33 BUN/Creatinine Ratio 24.3 07/13/18 05:33 Glucose 163 mg/dL (70-105) H 07/13/18 05:33 Whole Bld Lactic Acid 0.88 mmol/L (0.60-1.99) 07/11/18 19:30 Calcium 11.4 mg/dL (8.6-10.3) H 07/13/18 05:33 Magnesium 2.4 mg/dL (1.9-2.7) 07/13/18 05:33 Total Bilirubin 0.5 mg/dL (0.3-1.0) 07/11/18 19:30 AST 12 U/L (13-39) L 07/11/18 19:30 ALT 12 U/L (7-52) 07/11/18 19:30 Alkaline Phosphatase 76 U/L (34-104) 07/11/18 19:30 Total Protein 7.2 gm/dL (6.0-8.3) 07/11/18 19:30 Albumin 3.7 gm/dL (4.2-5.5) L 07/11/18 19:30 Globulin 3.5 gm/dL 07/11/18 19:30 Albumin/Globulin Ratio 1.1 (1.0-1.8) 07/11/18 19:30 Urine Source CATH 07/11/18 20:15 Urine Color YELLOW 07/11/18 20:15 Urine Clarity CLEAR (CLEAR) 07/11/18 20:15 Urine pH 6.0 (4.6 - 8.0) 07/11/18 20:15 Ur Specific [place] 1.015 (1.005-1.030) 07/11/18 20:15 Urine Protein NEGATIVE mg/dL (NEGATIVE) 07/11/18 20:15 Urine Glucose (UA) NEGATIVE mg/dL (NEGATIVE) 07/11/18 20:15 Urine Ketones NEGATIVE mg/dL (NEGATIVE) 07/11/18 20:15 Urine Blood NEGATIVE (NEGATIVE) 07/11/18 20:15 Urine Nitrate NEGATIVE (NEGATIVE) 07/11/18 20:15 Urine Bilirubin NEGATIVE (NEGATIVE) 07/11/18 20:15 Urine Urobilinogen 0.2 E.U./dL (0.2 - 1.0) 07/11/18 20:15 Ur Leukocyte Esterase NEGATIVE (NEGATIVE) 07/11/18 20:15 - Physical Exam Vitals and I&O: Vital Signs Temp 97.8 F 07/13/18 11:35 Pulse 82 07/13/18 11:46 Resp 18 07/13/18 11:46 BP 124/56 07/13/18 11:35 Pulse Ox 98 07/13/18 11:46 Intake & Output 07/12/18 07/13/18 07/13/18 18:59 06:59 18:59 Intake Total 1450 650 Balance 1450 650 Weight (lbs) 51.211 kg 50.712 kg Intake: Intake, IV Amount 1050 50 Cefepime 1 gm In Dextrose 50 50 5% 50 ml @ 100 mls/hr IV Q12H [facility] Rx#:[id number] D5-0.9%Ns 1,000 ml @ 80 1000 mls/hr IV .[id number] [facility] Rx #:[id number] Oral 0 Tube Feeding 400 600 Other: # Voids 2 2 # Bowel Movements 0 Weight Source Bedscale Bedscale Active Medications: Current Medications Acetaminophen (Tylenol) 650 mg PO Q4H PRN PRN Reason: Pain Or Fever above 101 Stop: 09/09/18 21:01 Last Admin: 07/12/18 09:56 Dose: 650 mg Acetaminophen (Tylenol) 650 mg PO Q6H PRN PRN Reason: PAIN Stop: 09/10/18 08:02 Albuterol Sulfate (Albuterol 2.5mg/3ml Neb Ud) 2.5 mg HHN QIDRT [facility] Stop: 09/10/18 06:59 Last Admin: 07/13/18 11:43 Dose: 2.5 mg Bisacodyl (Dulcolax 10 Mg Supp) 10 mg RC DAILY PRN PRN Reason: IF MOM INEFFECTIVE Stop: 09/09/18 20:59 Finasteride (Proscar) 5 mg GT DAILY [facility]; Protocol Stop: 09/10/18 08:59 Last Admin: 07/13/18 08:49 Dose: 5 mg Glycopyrrolate (Robinul) 2 mg GT TID [facility] Stop: 09/09/18 20:59 Last Admin: 07/13/18 08:45 Dose: 2 mg Guaifenesin (Robitussin) 200 mg PO Q4HR PRN PRN Reason: Cough or Congestion Stop: 09/09/18 21:01 Heparin Sodium (Porcine) (Heparin) 5,000 units SUBQ Q12HR [facility] Stop: 09/10/18 08:59 Last Admin: 07/13/18 08:51 Dose: 5,000 units Cefepime HCl 1 gm/ Dextrose 50 mls @ 100 mls/hr IV Q12H [facility] Stop: 09/09/18 21:14 Last Admin: 07/13/18 08:49 Dose: 100 mls/hr Dextrose/Sodium Chloride (D5-0.45ns) 1,000 mls @ 60 mls/hr IV .[id number] [facility] Stop: 09/11/18 12:29 Ipratropium [place] (Atrovent Neb 0.5mg/2.5ml) 0.5 mg HHN QIDRT [facility] Stop: 09/10/18 06:59 Last Admin: 07/13/18 11:43 Dose: 0.5 mg Levetiracetam (Keppra) 750 mg PO HS [facility] Stop: 09/09/18 20:59 Last Admin: 07/12/18 21:21 Dose: 750 mg Levothyroxine Sodium (Synthroid) 0.05 mg GT DAILY [facility] Stop: 09/10/18 08:59 Last Admin: 07/13/18 08:48 Dose: 0.05 mg Lorazepam (Ativan) 0.5 mg GT Q6H PRN; Protocol PRN Reason: Anxiety Stop: 09/09/18 20:59 Lorazepam (Ativan) 1 mg IV Q4H PRN; Protocol PRN Reason: Seizure Stop: 09/09/18 21:01 Last Admin: 07/12/18 17:18 Dose: 1 mg Magnesium Hydroxide (Milk Of Magnesia) 30 ml GT DAILY PRN PRN Reason: Constipation Stop: 09/09/18 20:59 Mirtazapine (Remeron) 15 mg GT [facility]; Protocol Stop: 09/09/18 20:59 Last Admin: 07/12/18 21:21 Dose: 15 mg Mupirocin (Bactroban Oint) 1 appl NS BID [facility] Stop: 07/17/18 17:01 Last Admin: 07/13/18 09:59 Dose: 1 appl Olanzapine (Zyprexa) 15 mg PO [facility] Stop: 09/10/18 20:59 Last Admin: 07/12/18 21:21 Dose: 15 mg Ondansetron HCl (Zofran) 4 mg IV Q8H PRN PRN Reason: Nausea / Vomiting Stop: 09/09/18 21:01 Phenobarbital (Phenobarbital) 129.6 mg GT [facility] Stop: 09/09/18 20:59 Last Admin: 07/12/18 21:21 Dose: 129.6 mg Polyethylene Glycol (Miralax) 17 gm PO DAILY PRN PRN Reason: STOMACH Stop: 09/10/18 08:03 Sodium Phosphate (Fleet Enema) 135 ml RC DAILY PRN PRN Reason: IF DULCOLAX INEFFECTIVE Stop: 09/09/18 20:59 Tamsulosin HCl (Flomax) 0.4 mg GT QPM [facility] Stop: 09/10/18 16:59 Last Admin: 07/12/18 17:18 Dose: 0.4 mg Thioridazine HCl (Mellaril) 50 mg PO [facility] Stop: 09/10/18 20:59 Last Admin: 07/12/18 21:35 Dose: 50 mg Topiramate (Topamax) 100 mg GT [facility] Stop: 09/09/18 20:59 Last Admin: 07/12/18 21:21 Dose: 100 mg Topiramate (Topamax) 200 mg GT BID [facility] Stop: 09/10/18 08:59 Last Admin: 07/13/18 08:48 Dose: 200 mg General: congested, demented, bilateral temporal wasting, cachectic, appears older HEENT: NC/AT, PERRLA, EOMI, thinning hair, poor dentition Neck: Supple, No JVD, deformity Lungs: congested, rales, ronchi Cardiovascular: RRR, Normal S1, Normal S2, without murmur Abdomen: soft, globular, non-distended, +GT, positive bowel sound Extremities: excoriation, contracture, deformity - Procedures Procedures: Procedures Procedure Code Date BARIUM SWALLOW 87.61 04/05/95 C.A.T. SCAN OF HEAD 87.03 04/05/95 CLOSURE SKIN & SUBCUTANEOUS NEC 86.59 04/05/95 ELECTROENCEPHALOGRAM 89.14 04/05/95 HEAD SOFT TISS X-RAY NEC 87.09 04/05/95 LINEAR REP LID LACER 08.81 11/06/95 RPR F/E/E/N/L/M 2.5 CM/< 44445 11/06/95 Internal Medicine Assmt/Plan - Assessment Assessment: ASSESSMENT AND PLAN: Possible pneumonia, G-tube malfunction, leukocytosis, possible sepsis, hyperglycemia, chronic obstructive pulmonary disease, dysphagia with G-tube, seizure, BPH, hypertension, dementia. - Plan Plan: PLAN: We will continue the patient on oxygen and bronchodilator treatment. We will send for sputum Gram stain and C and S. We will follow the patient's blood culture. We will review the patient's chest x-ray. We will have GI to also take a look at a G-tube with report of malfunctioning. We will monitor the patient closely in the telemetry unit. ronal gomez and rn Nutritional Asmnt/Malnutr-PDOC - Dietary Evaluation Malnutrition Findings (Please click <Entered> for more info): Nutritional Asmnt/Malnutrition Start: 07/12/18 14: 12 Text: Status: Active Freq: Protocol: Document 07/12/18 14:12 [email or web address] (Rec: 07/12/18 14:31 [email or web address]) Nutritional Asmnt/Malnutrition Patient General Information Nutritional Screening High Risk Diagnosis pneumonia, g-tube malfunction Pertinent Medical Hx/Surgical Hx g-tube, seizure, HTN, thyroid disorder, dementia Subjective Information Pt was seen resting in bed at time of visit, currently NPO. Previous TF order found in chart was Jevity 1.2 at 60ml/ hr x20hrs, providing 1200ml, 1440 kcal, 66g protein. Ok to use Gtube if upper GI series comes back normal, per nurse note. Current Diet Order/ Nutrition Support NPO Pertinent Medications d5-0.9%ns, heparin, synthroid, remeron, zofran, miralax, sodium phosphate Pertinent Labs 07/11 cl 113, alb 3.7 Nutritional Hx/Data Height 1.78 m Height (Calculated Centimeters) 177.8 Current Weight (lbs) 50.802 kg Weight (Calculated Kilograms) 50.8 Weight (Calculated Grams) 45313.3 [place] Body Weight 166 Body Mass Index (BMI) 16.0 Weight Status Underweight GI Symptoms GI Symptoms None Last BM not indicated Difficult in: None Food Allergies No Skin Integrity/Comment: pressure area to ernesto evans 14 Estimated Nutritional Goals BEE in Kcals: Using Current wt Calories/Kcals/Kg 30-35 Kcals Calculated 9003-5186 Protein: Using Current wt Protein g/k.2-1.4 Protein Calculated 61-72 Fluid: ml 3992-5028 (1ml/kcal) Nutritional Problem No current Nutrition Prob Problem N/A Malnutrition Alert Is there a minimum of two criteria No selected? Query Text:Check all the applicable criteria. A minimum of two criteria are recommended for diagnosis of either severe or non-severe malnutrition. Malnutrition Related to Morbid Obesity Malnutrition related to morbid obesity No Intervention/Recommendation Comments 1. Resume Jevity 1.2 at 60ml/ hr x20 hrs when medically appropriate. It provides 1440kcal, 66g protein, 968ml free water, meeting 94% of calorie needs and 100% of protein needs. 2. Monitor TF rate, tolerance, wt, skin integrity and labs 3. F/U as high risk in 2-3 days Expected Outcomes/Goals Expected Outcomes/Goals 1. Pt to meet at least 90% of nutritional needs via nutrition support with tolerance 2. Wt stability, skin to remain intact, labs to approach WNL. Reviewed by Hetal Bonner RD
[2018-07-13] MEDS: D5-0.45NS 1,000 ML IV SCH (13:12)
[2018-07-13] MEDS: Thioridazine Hydrochloride 25 MG TAB PO SCH (21:21)
[2018-07-14] MEDS: D5-0.45NS 1,000 ML IV SCH (03:41)
[2018-07-14] MEDS: methylPREDNISolone SS 40 mg Vial IVP SCH (04:38)
[2018-07-14 06:40] LABS: HEMATOCRIT 34.4 % (41.0-60); HEMOGLOBIN 11.6 gm/dL (12-16); MEAN CELL VOLUME 94.7 fl (80-99); MEAN CORPUSCULAR HEMOGLOBIN 31.8 pg (26.0-30.0); MEAN CORPUSCULAR HGB CONC 33.6 pg (28.0-36.0); MEAN PLATELET VOLUME 8.2 fl; PLATELET COUNT 187 Th/cmm (150-400); RED BLOOD COUNT 3.63 Mil/cmm (4.30-5.70); RED CELL DISTRIBUTION WIDTH 12.8 % (11.5-20.0); WHITE BLOOD COUNT 11.2 Th/cmm (4.8-10.8)
[2018-07-14 06:55] LABS: ANION GAP 7.7 (7.0-16.0); BUN - UREA NITROGEN 16 mg/dL (7-25); CALCIUM SERUM 10.7 mg/dL (8.6-10.3); CARBON DIOXIDE 27.4 mEq/L (21.0-31.0); CHLORIDE 119 mEq/L (98-107); CREATININE - SERUM 0.6 mg/dL (0.7-1.3); GFR AFRICAN-AMERICAN > 60.0 ml/min (>90); GFR NON AFRICAN-AMERICAN > 60.0 ml/min; GLUCOSE 117 mg/dL (70-105); POTASSIUM SERUM 4.1 mEq/L (3.5-5.1); SODIUM SERUM 150 mEq/L (136-145)
[2018-07-14 07:31] LABS: BAND NEUTROPHILE 0 % (0-10); BASOPHIL 0 % (0-3); EOSINOPHIL 0 % (0-5); LYMPHOCYTE 6 % (20-50); MONOCYTE 2 % (2-10); NEUTROPHILS 92 % (40-80)
[2018-07-14] MEDS: Albuterol Nebulizer 2.5mg/3mL HHN SCH ×4 (07:41→19:30)
[2018-07-14] MEDS: Ipratropium Neb 0.5 mg/2.5 mL UD HHN SCH ×4 (07:41→19:30)
[2018-07-14] MEDS: Levothyroxine 0.05 Mg Tab GT SCH (09:19)
--- NOTE | 2018-07-14 10:19 | Internal Medicine Prog Note ---
Internal Medicine Subjective - Subjective Patient seen and examined:: with staff, chart reviewed Patient is:: awake, verbal, interactive, in bed, talking, agitated, confused Per staff patient has:: no adverse event, no episodes of fall, gagging, agitated , tolerating meds Internal Medicine Objective - Results Result Diagrams: 07/14/18 06:24 07/14/18 06:24 Recent Labs: Laboratory Last Values WBC 11.2 Th/cmm (4.8-10.8) H 07/14/18 06:24 RBC 3.63 Mil/cmm (4.30-5.70) L 07/14/18 06:24 Hgb 11.6 gm/dL (12-16) L 07/14/18 06:24 Hct 34.4 % (41.0-60) L 07/14/18 06:24 MCV 94.7 fl (80-99) 07/14/18 06:24 MCH 31.8 pg (26.0-30.0) H 07/14/18 06:24 MCHC Differential 33.6 pg (28.0-36.0) 07/14/18 06:24 RDW 12.8 % (11.5-20.0) 07/14/18 06:24 Plt Count 187 Th/cmm (150-400) 07/14/18 06:24 MPV 8.2 fl 07/14/18 06:24 Add Manual Diff YES 07/14/18 06:24 Neutrophils % 85.3 % (40.0-80.0) H 07/13/18 05:33 Band Neutrophils % 0 % (0-10) 07/14/18 06:24 Lymphocytes % 10.6 % (20.0-50.0) L 07/13/18 05:33 Monocytes % 3.8 % (2.0-10.0) 07/13/18 05:33 Eosinophils % 0.2 % (0.0-5.0) 07/13/18 05:33 Basophils % 0.1 % (0.0-2.0) 07/13/18 05:33 Neutrophils (Manual) 92 % (40-80) H 07/14/18 06:24 Lymphocytes 6 % (20-50) L 07/14/18 06:24 Monocytes 2 % (2-10) 07/14/18 06:24 Eosinophils 0 % (0-5) 07/14/18 06:24 Basophils 0 % (0-3) 07/14/18 06:24 Sodium 150 mEq/L (136-145) H 07/14/18 06:24 Potassium 4.1 mEq/L (3.5-5.1) 07/14/18 06:24 Chloride 119 mEq/L (98-107) H 07/14/18 06:24 Carbon Dioxide 27.4 mEq/L (21.0-31.0) 07/14/18 06:24 Anion Gap 7.7 (7.0-16.0) 07/14/18 06:24 BUN 16 mg/dL (7-25) 07/14/18 06:24 Creatinine 0.6 mg/dL (0.7-1.3) L 07/14/18 06:24 Est GFR ( Amer) > 60.0 ml/min (>90) 07/14/18 06:24 Est GFR (Non-Af Amer) > 60.0 ml/min 07/14/18 06:24 BUN/Creatinine Ratio 26.7 07/14/18 06:24 Glucose 117 mg/dL (70-105) H 07/14/18 06:24 Whole Bld Lactic Acid 0.88 mmol/L (0.60-1.99) 07/11/18 19:30 Calcium 10.7 mg/dL (8.6-10.3) H 07/14/18 06:24 Magnesium 2.4 mg/dL (1.9-2.7) 07/13/18 05:33 Total Bilirubin 0.5 mg/dL (0.3-1.0) 07/11/18 19:30 AST 12 U/L (13-39) L 07/11/18 19:30 ALT 12 U/L (7-52) 07/11/18 19:30 Alkaline Phosphatase 76 U/L (34-104) 07/11/18 19:30 B-Natriuretic Peptide 23.8 pg/mL (5.0-100.0) 07/14/18 06:24 Total Protein 7.2 gm/dL (6.0-8.3) 07/11/18 19:30 Albumin 3.7 gm/dL (4.2-5.5) L 07/11/18 19:30 Globulin 3.5 gm/dL 07/11/18 19:30 Albumin/Globulin Ratio 1.1 (1.0-1.8) 07/11/18 19:30 Urine Source CATH 07/11/18 20:15 Urine Color YELLOW 07/11/18 20:15 Urine Clarity CLEAR (CLEAR) 07/11/18 20:15 Urine pH 6.0 (4.6 - 8.0) 07/11/18 20:15 Ur Specific [place] 1.015 (1.005-1.030) 07/11/18 20:15 Urine Protein NEGATIVE mg/dL (NEGATIVE) 07/11/18 20:15 Urine Glucose (UA) NEGATIVE mg/dL (NEGATIVE) 07/11/18 20:15 Urine Ketones NEGATIVE mg/dL (NEGATIVE) 07/11/18 20:15 Urine Blood NEGATIVE (NEGATIVE) 07/11/18 20:15 Urine Nitrate NEGATIVE (NEGATIVE) 07/11/18 20:15 Urine Bilirubin NEGATIVE (NEGATIVE) 07/11/18 20:15 Urine Urobilinogen 0.2 E.U./dL (0.2 - 1.0) 07/11/18 20:15 Ur Leukocyte Esterase NEGATIVE (NEGATIVE) 07/11/18 20:15 - Physical Exam Vitals and I&O: Vital Signs Temp 98.3 F 07/14/18 08:29 Pulse 86 07/14/18 08:29 Resp 18 07/14/18 08:29 BP 102/57 07/14/18 08:29 Pulse Ox 95 07/14/18 08:29 Intake & Output 07/13/18 07/14/18 07/14/18 18:59 06:59 18:59 Intake Total 930 1799 Balance 930 1799 Weight (lbs) 50.712 kg 54.885 kg Intake: Intake, IV Amount 50 919 Cefepime 1 gm In Dextrose 50 50 5% 50 ml @ 100 mls/hr IV Q12H [facility] Rx#:[id number] D5-0.45NS 1,000 ml @ 60 869 mls/hr IV .[id number] [facility]LLERMO Rx #:[id number] Oral 0 Tube Feeding 780 780 Albumin 100 Other 100 Other: # Voids 3 1 # Bowel Movements 1 0 Stool Characteristics Soft Formed Weight Source Bedscale Bedscale Active Medications: Current Medications Acetaminophen (Tylenol) 650 mg PO Q4H PRN PRN Reason: Pain Or Fever above 101 Stop: 09/09/18 21:01 Last Admin: 07/12/18 09:56 Dose: 650 mg Acetaminophen (Tylenol) 650 mg PO Q6H PRN PRN Reason: PAIN Stop: 09/10/18 08:02 Albuterol Sulfate (Albuterol 2.5mg/3ml Neb Ud) 2.5 mg HHN QIDRT [facility] Stop: 09/10/18 06:59 Last Admin: 07/14/18 07:41 Dose: 2.5 mg Bisacodyl (Dulcolax 10 Mg Supp) 10 mg RC DAILY PRN PRN Reason: IF MOM INEFFECTIVE Stop: 09/09/18 20:59 Finasteride (Proscar) 5 mg GT DAILY [facility]; Protocol Stop: 09/10/18 08:59 Last Admin: 07/14/18 09:19 Dose: 5 mg Glycopyrrolate (Robinul) 2 mg GT TID [facility] Stop: 09/09/18 20:59 Last Admin: 07/14/18 09:18 Dose: 2 mg Guaifenesin (Robitussin) 200 mg PO Q4HR PRN PRN Reason: Cough or Congestion Stop: 09/09/18 21:01 Heparin Sodium (Porcine) (Heparin) 5,000 units SUBQ Q12HR [facility] Stop: 09/10/18 08:59 Last Admin: 07/14/18 09:20 Dose: 5,000 units Cefepime HCl 1 gm/ Dextrose 50 mls @ 100 mls/hr IV Q12H [facility] Stop: 09/09/18 21:14 Last Admin: 07/14/18 09:18 Dose: 100 mls/hr Dextrose (D5w) 1,000 mls @ 75 mls/hr IV .[id number] [facility] Stop: 09/12/18 10:29 Ipratropium [place] (Atrovent Neb 0.5mg/2.5ml) 0.5 mg N QIDRT [facility] Stop: 09/10/18 06:59 Last Admin: 07/14/18 07:41 Dose: 0.5 mg Levetiracetam (Keppra) 750 mg PO HS [facility] Stop: 09/09/18 20:59 Last Admin: 07/13/18 21:29 Dose: 750 mg Levothyroxine Sodium (Synthroid) 0.05 mg GT DAILY [facility] Stop: 09/10/18 08:59 Last Admin: 07/14/18 09:19 Dose: 0.05 mg Lorazepam (Ativan) 0.5 mg GT Q6H PRN; Protocol PRN Reason: Anxiety Stop: 09/09/18 20:59 Last Admin: 07/13/18 16:34 Dose: 0.5 mg Lorazepam (Ativan) 1 mg IV Q4H PRN; Protocol PRN Reason: Seizure Stop: 09/09/18 21:01 Last Admin: 07/13/18 17:14 Dose: 1 mg Magnesium Hydroxide (Milk Of Magnesia) 30 ml GT DAILY PRN PRN Reason: Constipation Stop: 09/09/18 20:59 Methylprednisolone Sodium Succinate (Solu-Medrol) 40 mg IVP Q12HR [facility] Stop: 09/12/18 20:59 Mirtazapine (Remeron) 15 mg GT HS [facility]; Protocol Stop: 09/09/18 20:59 Last Admin: 07/13/18 21:22 Dose: 15 mg Mupirocin (Bactroban Oint) 1 appl NS BID [facility] Stop: 07/17/18 17:01 Last Admin: 07/14/18 09:19 Dose: 1 appl Olanzapine (Zyprexa) 15 mg PO HS [facility] Stop: 09/10/18 20:59 Last Admin: 07/13/18 21:23 Dose: 15 mg Ondansetron HCl (Zofran) 4 mg IV Q8H PRN PRN Reason: Nausea / Vomiting Stop: 09/09/18 21:01 Phenobarbital (Phenobarbital) 129.6 mg GT HS [facility] Stop: 09/09/18 20:59 Last Admin: 07/13/18 21:30 Dose: 129.6 mg Polyethylene Glycol (Miralax) 17 gm PO DAILY PRN PRN Reason: STOMACH Stop: 09/10/18 08:03 Sodium Phosphate (Fleet Enema) 135 ml RC DAILY PRN PRN Reason: IF DULCOLAX INEFFECTIVE Stop: 09/09/18 20:59 Tamsulosin HCl (Flomax) 0.4 mg GT QPM [facility] Stop: 09/10/18 16:59 Last Admin: 07/13/18 16:34 Dose: 0.4 mg Thioridazine HCl (Mellaril) 50 mg PO HS [facility] Stop: 09/10/18 20:59 Last Admin: 07/13/18 21:21 Dose: 50 mg Topiramate (Topamax) 100 mg GT HS [facility] Stop: 09/09/18 20:59 Last Admin: 07/13/18 21:22 Dose: 100 mg Topiramate (Topamax) 200 mg GT BID [facility] Stop: 09/10/18 08:59 Last Admin: 07/14/18 09:19 Dose: 200 mg General: congested, demented, bilateral temporal wasting, cachectic, appears older HEENT: NC/AT, PERRLA, EOMI, thinning hair, poor dentition Neck: Supple, No JVD, deformity Lungs: congested, rales, ronchi Cardiovascular: RRR, Normal S1, Normal S2, without murmur Abdomen: soft, globular, non-distended, +GT, positive bowel sound Extremities: excoriation, contracture, deformity - Procedures Procedures: Procedures Procedure Code Date BARIUM SWALLOW 87.61 04/05/95 C.A.T. SCAN OF HEAD 87.03 04/05/95 CLOSURE SKIN & SUBCUTANEOUS NEC 86.59 04/05/95 ELECTROENCEPHALOGRAM 89.14 04/05/95 HEAD SOFT TISS X-RAY NEC 87.09 04/05/95 LINEAR REP LID LACER 08.81 11/06/95 RPR F/E/E/N/L/M 2.5 CM/< 18358 11/06/95 Internal Medicine Assmt/Plan - Assessment Assessment: ASSESSMENT AND PLAN: Possible pneumonia, G-tube malfunction, leukocytosis, possible sepsis, hyperglycemia, chronic obstructive pulmonary disease, dysphagia with G-tube, seizure, BPH, hypertension, dementia. hypernatremia - Plan Plan: PLAN: We will continue the patient on oxygen and bronchodilator treatment. We will send for sputum Gram stain and C and S. We will follow the patient's blood culture. We will review the patient's chest x-ray. We will have GI to also take a look at a G-tube with report of malfunctioning. We will monitor the patient closely in the telemetry unit. ronal gomez and rn Nutritional Asmnt/Malnutr-PDOC - Dietary Evaluation Malnutrition Findings (Please click <Entered> for more info): Nutritional Asmnt/Malnutrition Start: 07/12/18 14: 12 Text: Status: Active Freq: Protocol: Document 07/12/18 14:12 [email or web address] (Rec: 07/12/18 14:31 [email or web address]) Nutritional Asmnt/Malnutrition Patient General Information Nutritional Screening High Risk Diagnosis pneumonia, g-tube malfunction Pertinent Medical Hx/Surgical Hx g-tube, seizure, HTN, thyroid disorder, dementia Subjective Information Pt was seen resting in bed at time of visit, currently NPO. Previous TF order found in chart was Jevity 1.2 at 60ml/ hr x20hrs, providing 1200ml, 1440 kcal, 66g protein. Ok to use Gtube if upper GI series comes back normal, per nurse note. Current Diet Order/ Nutrition Support NPO Pertinent Medications d5-0.9%ns, heparin, synthroid, remeron, zofran, miralax, sodium phosphate Pertinent Labs 07/11 cl 113, alb 3.7 Nutritional Hx/Data Height 1.78 m Height (Calculated Centimeters) 177.8 Current Weight (lbs) 50.802 kg Weight (Calculated Kilograms) 50.8 Weight (Calculated Grams) 32759.3 [place] Body Weight 166 Body Mass Index (BMI) 16.0 Weight Status Underweight GI Symptoms GI Symptoms None Last BM not indicated Difficult in: None Food Allergies No Skin Integrity/Comment: pressure area to ernesto evans 14 Estimated Nutritional Goals BEE in Kcals: Using Current wt Calories/Kcals/Kg 30-35 Kcals Calculated 6424-2654 Protein: Using Current wt Protein g/k.2-1.4 Protein Calculated 61-72 Fluid: ml 5849-4275 (1ml/kcal) Nutritional Problem No current Nutrition Prob Problem N/A Malnutrition Alert Is there a minimum of two criteria No selected? Query Text:Check all the applicable criteria. A minimum of two criteria are recommended for diagnosis of either severe or non-severe malnutrition. Malnutrition Related to Morbid Obesity Malnutrition related to morbid obesity No Intervention/Recommendation Comments 1. Resume Jevity 1.2 at 60ml/ hr x20 hrs when medically appropriate. It provides 1440kcal, 66g protein, 968ml free water, meeting 94% of calorie needs and 100% of protein needs. 2. Monitor TF rate, tolerance, wt, skin integrity and labs 3. F/U as high risk in 2-3 days Expected Outcomes/Goals Expected Outcomes/Goals 1. Pt to meet at least 90% of nutritional needs via nutrition support with tolerance 2. Wt stability, skin to remain intact, labs to approach WNL. Reviewed by Hetal Bonner RD
--- NOTE | 2018-07-14 10:34 | Diagnostic Imaging Report ---
Portable chest x-ray HISTORY: Cough The heart size is normal. No parenchymal density seen within the left lung base. Pneumonia cannot be excluded. Clinical correlation is needed. No hilar or mediastinal abnormalities. IMPRESSION: 1. New parenchymal density left lower lobe. Pneumonia cannot be excluded. Clinical correlation is needed.
[2018-07-14] MEDS: Dextrose 5% 1,000 ML IV SCH (12:32)
[2018-07-14] MEDS ORDERED: Probiotic Screen MC PRN (15:08)
--- NOTE | 2018-07-14 15:13 | Consultation ---
DATE OF CONSULTATION: 07/14/2018 REQUESTING PHYSICIAN: Dr. Nelson. REASON FOR CONSULTATION: Agitation and aggressive behavior towards the staff. HISTORY OF PRESENT ILLNESS: This patient is a 63-year-old male resident of [facility]. Information directly obtained by interviewing the patient as well as talking to the staff members. The patient at this time is selectively mute and is not providing much of information and the patient has been reported to have been getting out of control, screaming and yelling and trying to be combative towards the staff. Review of the chart indicates the patient is currently on Zyprexa and has been able to tolerate the medication. The patient has initially been admitted for a malfunction of the G-tube. The patient has multiple medical problems such as COPD, dysphagia with G-tube, seizure disorder, hypertension, thyroid disorder and the patient could not be able to ____ and the patient has been reluctant to comply with the treatment and hence the patient has been admitted over here for stabilization. PAST PSYCHIATRIC HISTORY: Details are not known. SOCIAL HISTORY: The patient is a resident of the [facility]. MENTAL STATUS EXAMINATION: The patient is a 63-year-old, looking his stated age, superficially cooperative. Eye contact is poor. Mood is noted to be irritable. Affect is constricted. The patient is getting easily agitated when I am asking questions. The patient is not able to provide much of any information. The patient, however, is noted to be alert and awake. DIAGNOSTIC IMPRESSION: AXIS I: Psychotic disorder, not otherwise specified. PLAN: To continue the patient with Zyprexa and follow the patient up as needed. Thank you, Dr. Nelson for allowing me to participate in the care of the patient. JOB# [id number]
[2018-07-14] MEDS: Thioridazine Hydrochloride 25 MG TAB PO SCH (20:22)
[2018-07-14] MEDS ORDERED: methylPREDNISolone SS 40 mg Vial IVP SCH (21:00)
[2018-07-15] MEDS: Dextrose 5% 1,000 ML IV SCH (06:27)
[2018-07-15 06:59] LABS: % BASOPHILS 0.9 % (0.0-2.0); % EOSINOPHILS 0.4 % (0.0-5.0); % LYMPHOCYTES 10.6 % (20.0-50.0); % MONOCYTES 3.1 % (2.0-10.0); BASOPHILE ABSOLUTE 0.1 Th/cumm (0-0.2); HEMATOCRIT 37.8 % (41.0-60); HEMOGLOBIN 12.6 gm/dL (12-16); LYMPHOCYTE ABSOLUTE 0.9 Th/cmm (1.5-3.0); MEAN CELL VOLUME 94.2 fl (80-99); MEAN CORPUSCULAR HEMOGLOBIN 31.4 pg (26.0-30.0); MEAN CORPUSCULAR HGB CONC 33.3 pg (28.0-36.0); MEAN PLATELET VOLUME 8.3 fl; MONOCYTE ABSOLUTE 0.3 Th/cmm (0.3-1.0); NEUTROPHILE ABSOLUTE 7.5 Th/cmm (1.8-8.0); PLATELET COUNT 174 Th/cmm (150-400); RED BLOOD COUNT 4.01 Mil/cmm (4.30-5.70); RED CELL DISTRIBUTION WIDTH 12.6 % (11.5-20.0); WHITE BLOOD COUNT 8.8 Th/cmm (4.8-10.8)
[2018-07-15 07:13] LABS: ANION GAP 8.9 (7.0-16.0); BUN - UREA NITROGEN 10 mg/dL (7-25); CALCIUM SERUM 10.7 mg/dL (8.6-10.3); CHLORIDE 109 mEq/L (98-107); GLUCOSE 160 mg/dL (70-105); POTASSIUM SERUM 3.9 mEq/L (3.5-5.1); SODIUM SERUM 141 mEq/L (136-145)
[2018-07-15 08:29] LABS: CREATININE - SERUM 0.5 mg/dL (0.7-1.3); GFR AFRICAN-AMERICAN > 60.0 ml/min (>90); GFR NON AFRICAN-AMERICAN > 60.0 ml/min
[2018-07-15] MEDS ORDERED: predniSONE 5 mg/5 mL UDC PO SCH (09:00)
--- NOTE | 2018-07-15 10:30 | Discharge Summary ---
DATE OF DISCHARGE: 07/15/2018 CHIEF COMPLAINT: Malfunctioning G-tube, ingestion. FINAL DIAGNOSES: Pneumonia, G-tube malfunction, ____ leukocytosis, sepsis, hyperglycemia, COPD, dysphagia with G-tube, seizure, BPH, hypertension, dementia. HISTORY: This is a 63-year-old male with history of COPD, seizure disorder, mental retardation, thyroid disorder, admitted from nursing facility secondary to a clotted G-tube. The patient was also noted to have an elevated white count with ____ chest x-ray and admitted for further management. PHYSICAL EXAMINATION: VITAL SIGNS: Blood pressure 140/60, respiration 18, pulse 86, temperature 98.0. GENERAL: Elderly male, appears chronically ill. NECK: Supple, nontender. LUNGS: Clear breath sounds, few rhonchi. HEART: Regular rate and rhythm without appreciable murmur. ABDOMEN: Soft, globular. EXTREMITIES: Positive excoriations. NEUROLOGIC: Limited. HOSPITAL COURSE: The patient was admitted to telemetry. Continue oxygen for further treatment and IV hydration, antibiotic. The patient referred to Dr. Downey for psych, Dr. Arreola for G-tube was corrected. The patient tolerated IV antibiotic ____ treatments and IV steroids. The patient's condition has improved and cleared for discharge. CONDITION ON DISCHARGE: Fair. DISCHARGE INSTRUCTIONS: The patient to be admitted [facility] for continued care and treatment. JOB# [id number]
[2018-07-15] MEDS: Levothyroxine 0.05 Mg Tab GT SCH (10:44)
[2018-07-15] MEDS ORDERED: Albuterol/Ipratropium Neb 3 ML AERS HHN SCH (11:00)
--- NOTE | 2018-07-15 17:27 | Progress Notes ---
DATE: 07/15/2018 SUBJECTIVE: Staff was spoken to. The patient is interviewed. Mood is noted to be irritable. Affect is constricted. The patient is still reported to be screaming and yelling, but the patient is both on as well as the olanzapine and the patient has been able to tolerate. The patient's coping skills at this time are noted to be still impaired. The patient has not been able to verbalize his concerns. ASSESSMENT: The patient is still impulsive. PLAN: To continue the patient with the current medications and followup. JOB# [id number]
== END 2018-07-15 12:15 | DRG 393 ==
LOC: ER 18:06 → TELE 21:08
PROVIDERS: ADMIT Internal Medicine; ATTEND Internal Medicine
DX: K94.23 Gastrostomy malfunction (principal); A41.9 Sepsis, unspecified organism; J18.9 Pneumonia, unspecified organism; J44.0 Chronic obstructive pulmonary disease with (acute) lower respiratory infection; I10 Essential (primary) hypertension; R13.10 Dysphagia, unspecified; K21.9 Gastro-esophageal reflux disease without esophagitis; F03.90 Unspecified dementia, unspecified severity, without behavioral disturbance, psychotic disturbance, mood disturbance, and anxiety; E83.52 Hypercalcemia; G40.909 Epilepsy, unspecified, not intractable, without status epilepticus; R73.9 Hyperglycemia, unspecified; N40.0 Benign prostatic hyperplasia without lower urinary tract symptoms; F25.9 Schizoaffective disorder, unspecified; F79 Unspecified intellectual disabilities; F29 Unspecified psychosis not due to a substance or known physiological condition; Y83.3 Surgical operation with formation of external stoma as the cause of abnormal reaction of the patient, or of later complication, without mention of misadventure at the time of the procedure; Y92.89 Other specified places as the place of occurrence of the external cause; Z88.8 Allergy status to other drugs, medicaments and biological substances; Z82.49 Family history of ischemic heart disease and other diseases of the circulatory system
CPT/HCPCS: 36415-UA; 71045-TC; 80048-TC; 80053-TC; 81003-TC; 83605; 83735-TC; 83880-TC; 85007-TC; 85025-TC; 87070; 90779; 94760; 96375; J0692; J1644; J1956; J2060; J2920; J7030; J7042; J7070; J7512; J7613; X7704; Z7610

== ENCOUNTER 2018-07-18 02:13 | Inpatient (IN) | payer MEDICARE, MEDICAID ==
[2018-07-18 02:57] LABS: % LYMPHOCYTES 10.3 % (20.0-50.0); % MONOCYTES 5.8 % (2.0-10.0); % NEUTROPHILS 82.9 % (40.0-80.0); EOSINOPHILE ABSOLUTE 0.1 Th/cmm (0.1-0.4); HEMATOCRIT 40.7 % (41.0-60); HEMOGLOBIN 13.2 gm/dL (12-16); LYMPHOCYTE ABSOLUTE 1.3 Th/cmm (1.5-3.0); MEAN CORPUSCULAR HEMOGLOBIN 30.2 pg (26.0-30.0); MEAN CORPUSCULAR HGB CONC 32.5 pg (28.0-36.0); MEAN PLATELET VOLUME 8.3 fl; MONOCYTE ABSOLUTE 0.7 Th/cmm (0.3-1.0); NEUTROPHILE ABSOLUTE 10.5 Th/cmm (1.8-8.0); PLATELET COUNT 233 Th/cmm (150-400); RED BLOOD COUNT 4.37 Mil/cmm (4.30-5.70); RED CELL DISTRIBUTION WIDTH 12.5 % (11.5-20.0); WHITE BLOOD COUNT 12.6 Th/cmm (4.8-10.8)
[2018-07-18 03:14] LABS: ALB/GLOB RATIO 1.1 (1.0-1.8); ALBUMIN 3.7 gm/dL (4.2-5.5); ALKALINE PHOSPHATASE 84 U/L (34-104); ANION GAP 9.8 (7.0-16.0); BILIRUBIN,TOTAL 0.4 mg/dL (0.3-1.0); BUN - UREA NITROGEN 20 mg/dL (7-25); CALCIUM SERUM 11.6 mg/dL (8.6-10.3); CARBON DIOXIDE 27.7 mEq/L (21.0-31.0); CHLORIDE 104 mEq/L (98-107); CREATININE - SERUM 0.7 mg/dL (0.7-1.3); GFR AFRICAN-AMERICAN > 60.0 ml/min (>90); GFR NON AFRICAN-AMERICAN > 60.0 ml/min; GLUCOSE 110 mg/dL (70-105); POTASSIUM SERUM 3.5 mEq/L (3.5-5.1); SGOT 31 U/L (13-39); SGPT/ALT 23 U/L (7-52); SODIUM SERUM 138 mEq/L (136-145)
[2018-07-18 03:40] LABS: URINE SOURCE RANDOM
[2018-07-18 03:42] LABS: URINE BILIRUBIN NEGATIVE (NEGATIVE); URINE BLOOD NEGATIVE (NEGATIVE); URINE GLUCOSE (UA) NEGATIVE (NEGATIVE); URINE KETONE NEGATIVE (NEGATIVE); URINE LEUKOCYTE ESTERASE NEGATIVE (NEGATIVE); URINE NITRATE NEGATIVE (NEGATIVE); URINE PH 7.5 (4.6 - 8.0); URINE PROTEIN NEGATIVE (NEGATIVE)
[2018-07-18 03:47] LABS: URINE CLARITY CLEAR (CLEAR); URINE COLOR YELLOW
[2018-07-18 03:48] LABS: URINE MICROSCOPIC INDICATED? NO
--- NOTE | 2018-07-18 04:00 | ED Physician Chart ---
ED Chief Complaint/HPI - Patient Information Date Seen:: 07/18/18 Time Seen:: 03:59 Chief Complaint:: Increased agitation History of Present Illness:: 63 yo male with history of bipolar, schizophrenia, G-tube and pneumonia was brought from SNF to ER for evaluation of increased agitation with aggressive and combative behavior. At ER, pt was noted to have productive cough. Labs showed leukocytosis with left shift. UA was negative. CXR showed no focal consolidation. Allergies:: Allergies Allergy/AdvReac Type Severity Reaction Status Date / Time divalproex sodium Allergy Verified 07/11/18 18:46 [From Depakote] Vitals:: Vital Signs - 8 hr 07/18/18 07/18/18 02:13 03:57 Temp 97.8 F HR 100 96 RR 19 18 BP 153/85 141/74 O2 Sat % 97 96 ED Review of Systems - Review of Systems General/Constitutional: No fever Skin: No rash Head: No headache Eyes: No pain ENT: No nasal drainage Neck: No neck pain Cardio Vascular: No chest pain Pulmonary: Cough, Sputum GI: No nausea, No vomiting Musculoskeletal: No bone or joint pain Psychiatric: Prior psych history Neurological: No focal symptoms ED Past Medical History - Past Medical History Past Medical History: Other (Pneumonia) Social History: Non Smoker, No Alcohol, No Drug Use Surgical History: other (G-tube) Psychiatricy History: Schizophrenia, Bipolar, Other Family Medical History - Family Member Mother History Unknown: Yes ED Physical Exam - Physical Examination General/Constitutional: Awake, Alert Other Gen/Cons comments:: cachectic Head: Atraumatic Eyes: PERRL Skin: No ecchymosis ENMT: Nasal exam nl Neck: No nuchal rigidity Other Respiratory comments:: Cough and rhonchi Cardio Vascular: RRR, No murmur, gallop, rubs, NL S1 S2 GI: No tenderness/rebounding/guarding Extremities: normal strength in all extremities ED Labs/Radiology/EKG Results - Lab Results Results: Laboratory Tests 07/18/18 07/18/18 07/18/18 02:48 02:48 02:48 WBC 12.6 H RBC 4.37 Hgb 13.2 Hct 40.7 L MCV 93.0 MCH 30.2 H MCHC Differential 32.5 RDW 12.5 Plt Count 233 MPV 8.3 Neutrophils % 82.9 H Lymphocytes % 10.3 L Monocytes % 5.8 Eosinophils % 1.0 Basophils % 0.0 Sodium 138 Potassium 3.5 Chloride 104 Carbon Dioxide 27.7 Anion Gap 9.8 BUN 20 Creatinine 0.7 Est GFR ( Amer) > 60.0 Est GFR (Non-Af Amer) > 60.0 BUN/Creatinine Ratio 28.6 Glucose 110 H Calcium 11.6 H Total Bilirubin 0.4 AST 31 ALT 23 Alkaline Phosphatase 84 Total Protein 7.0 Albumin 3.7 L Globulin 3.3 Albumin/Globulin Ratio 1.1 TSH 2.08 Urine Source Urine Color Urine Clarity Urine pH Ur Specific [place] Urine Protein Urine Glucose (UA) Urine Ketones Urine Blood Urine Nitrate Urine Bilirubin Urine Urobilinogen Ur Leukocyte Esterase 07/18/18 03:35 WBC RBC Hgb Hct MCV MCH MCHC Differential RDW Plt Count MPV Neutrophils % Lymphocytes % Monocytes % Eosinophils % Basophils % Sodium Potassium Chloride Carbon Dioxide Anion Gap BUN Creatinine Est GFR ( Amer) Est GFR (Non-Af Amer) BUN/Creatinine Ratio Glucose Calcium Total Bilirubin AST ALT Alkaline Phosphatase Total Protein Albumin Globulin Albumin/Globulin Ratio TSH Urine Source RANDOM Urine Color YELLOW Urine Clarity CLEAR Urine pH 7.5 Ur Specific [place] 1.010 Urine Protein NEGATIVE Urine Glucose (UA) NEGATIVE Urine Ketones NEGATIVE Urine Blood NEGATIVE Urine Nitrate NEGATIVE Urine Bilirubin NEGATIVE Urine Urobilinogen 1.0 Ur Leukocyte Esterase NEGATIVE - Radiology Results Results: CXR: no focal consolidation ED Assessment - Assessment General Assessment: Cachexia Leukocytosis Bipolar disorder Schizophrenia Psychosis Assessment/Comments:: CBC, CMP, UA EKG, CXR ED Septic Shock - . Is Septic Shock (SBP<90, OR Lactate>4 mmol\L) present?: No - <6hrs of presentation: Vital Signs: Vital Signs - 8 hr 07/18/18 07/18/18 02:13 03:57 Temp 97.8 F HR 100 96 RR 19 18 BP 153/85 141/74 O2 Sat % 97 96 ED Reassessment (Disposition) - Reassessment Reassessment:: It is likely that pt has bronchitis or early stage of CAP. Empirical rocephin IM and Azithromycin PO were given. Admit to [facility] for further evaluation and management. Leukocytosis to be followed by Dr. Vallejo. Continue oral antibiotics Reassessment Condition:: Improved - Patient Disposition Discharge/Transfer:: [facility] w/in this hosp Admitting Medical Physician:: Norah Vallejo Admitting Psych Physician:: Rory Suazo
[2018-07-18 04:25] VITALS: BP 136/65
[2018-07-18] MEDS ORDERED: guaiFENesin 200 MG/10 ML UDC GT PRN (04:42)
[2018-07-18] MEDS ORDERED: Fleet Enema 135 mL RC PRN (04:42)
[2018-07-18] MEDS ORDERED: Magnesium Hydroxide (MOM) 30 mL UDC GT PRN (04:42)
[2018-07-18] MEDS: Albuterol/Ipratropium Neb 3 ML AERS HHN SCH ×4 (07:55→19:27)
[2018-07-18 09:05] LABS: CHOLESTEROL 116 mg/dL (<200); HDL -HIGH DENSITY LIPOPROTEIN 50 mg/dL (23-92); TRIGLYCERIDES 84 mg/dL (<150)
--- NOTE | 2018-07-18 09:05 | Diagnostic Imaging Report ---
Portable chest x-ray HISTORY: Cough Compared with prior exam of 07/14/2018, previously noted parenchymal density in the left lung base is not appreciated at this time. No other acute focal pulmonary processes. The heart size is normal. IMPRESSION: 1. Parenchymal density left lung base 07/14/2018 not seen at this time. No other focal processes.
[2018-07-18] MEDS ORDERED: Non-Formulary Item 1 EA (Acetaminophen [Tylenol] 650 MG) GT PRN (09:06)
[2018-07-18] MEDS: Levothyroxine 0.05 Mg Tab GT SCH (09:45)
--- NOTE | 2018-07-18 12:20 | Psychiatric Evaluation ---
DATE OF SERVICE: 07/18/2018 IDENTIFYING DATA: The patient is a 63-year-old male, resident of [facility]. Information obtained by directly interviewing the patient as well as reviewing the admission papers. JUSTIFICATION FOR HOSPITALIZATION: The patient is admitted to the unit because of his agitation, screaming and yelling behavior and being out of control. CHIEF COMPLAINT: The patient is not able to verbalize much, but the patient has been making some gestures. During the interview, the patient has been getting out of control and has been trying to get out of the bed and then pulled the catheter and has been walking into the hallway. reported to have been mentally challenged and the patient has a G-tube. The patient had been admitted to the medical unit for stabilization of his multiple medical problems such as COPD, seizure disorder, hypertension and a thyroid disorder and the patient has been transferred to the geropsychiatric unit to take care of his agitation. PAST PSYCHIATRIC HISTORY: Please refer to the above. SOCIAL HISTORY: The patient is a resident of [facility]. SUBSTANCE ABUSE HISTORY: None. PHYSICAL OR SEXUAL ABUSE HISTORY: None. LEGAL PROBLEMS: None at this time. MENTAL STATUS EXAMINATION: The patient is a 63-year-old thin built, superficially cooperative. Eye contact is poor. Mood is noted to be irritable. Affect is constricted. Insight and judgment at this time are very much impaired. Impulse control is noted to be poor. The patient is getting easily agitated. The patient needs to be redirected. The patient has been on Zyprexa and plan to continue the patient with the current medication and the patient is very difficult to redirect at this time. The patient is alert and awake, but attention span and concentration are noted to be poor. The patient is not able to articulate much. The patient seems to be very agitated and paranoid. DIAGNOSTIC IMPRESSION: AXIS I: Psychotic disorder, not otherwise specified. AXIS II: None. AXIS III: As per Dr. Vallejo. IMMEDIATE TREATMENT PLAN: The patient is going to be continued on the Zyprexa that has been ordered and the patient is going to be given the mirtazapine 15 mg via the G-tube. The patient is also going to be continued on the Ativan as ordered. ESTIMATED LENGTH OF STAY: 3-5 days. DISCHARGE CRITERIA: When the patient is no longer a threat to self or others and be able to cope up with the stress. JOB# [id number]
[2018-07-18] MEDS: predniSONE 5 mg/5 mL UDC PO SCH (17:39)
[2018-07-18] MEDS ORDERED: Diatrizoate Meglumine/Diatri 30 mL Sol ONE (18:50)
[2018-07-18] MEDS: Levetiracetam 500 mg/5mL 5mL UDSyr *for ORAL USE ONLY GT SCH (21:35)
[2018-07-18] MEDS: Thioridazine Hydrochloride 25 MG TAB GT SCH (21:39)
[2018-07-19] MEDS: Levothyroxine 0.05 Mg Tab GT SCH (06:38)
[2018-07-19] MEDS: Albuterol/Ipratropium Neb 3 ML AERS HHN SCH ×7 (07:38→20:04)
--- NOTE | 2018-07-19 08:34 | Diagnostic Imaging Report ---
Exam: Gastrostomy tube placement. Findings: Upon injection of contrast material into gastrostomy tube there is normal opacification stomach. IMPRESSION: Gastrostomy tube in the stomach.
[2018-07-19] MEDS: predniSONE 5 mg/5 mL UDC PO SCH ×2 (10:35→16:41)
--- NOTE | 2018-07-19 17:07 | Progress Notes ---
DATE: 07/19/2018 SUBJECTIVE: Staff was spoken to. The patient is interviewed. Mood is noted to be irritable. Affect is constricted. The patient has no insight into his illness. The patient is trying to get out of the bed unassisted and the patient also has been trying to grab the staff members. The patient needs to be redirected at this time. No side effects to the medications are noted. ASSESSMENT: The patient is still impulsive and paranoid. PLAN: To continue the patient with the current medications and follow. JOB# [id number]
[2018-07-19] MEDS: Levetiracetam 500 mg/5mL 5mL UDSyr *for ORAL USE ONLY GT SCH (21:19)
[2018-07-19] MEDS: Thioridazine Hydrochloride 25 MG TAB GT SCH (21:21)
[2018-07-20] MEDS: Levothyroxine 0.05 Mg Tab GT SCH (06:44)
[2018-07-20] MEDS: Albuterol/Ipratropium Neb 3 ML AERS HHN SCH ×4 (07:22→19:34)
[2018-07-20] MEDS: predniSONE 5 mg/5 mL UDC PO SCH ×2 (09:11→16:50)
[2018-07-20] MEDS: Thioridazine Hydrochloride 25 MG TAB GT SCH (20:48)
[2018-07-20] MEDS: Levetiracetam 500 mg/5mL 5mL UDSyr *for ORAL USE ONLY GT SCH (20:48)
--- NOTE | 2018-07-21 01:19 | Consultation ---
DATE OF CONSULTATION: 07/20/2018 REFERRING PHYSICIAN: Rory Suazo M.D. TYPE OF CONSULTATION: Psychology. HISTORY OF PRESENT ILLNESS: The patient is a 63-year-old male. The patient is a resident of [facility]. The following is by review of the medical record and by patient's self-report. The patient is being admitted due to agitation as well as yelling episodes and uncontainable behavior. The staff at the patient's facility reports that the patient was resistive to care and that the patient was not responding to behavioral redirection. The patient did not answer questions about experiencing any suicidal ideation, plan or intention. The patient presents as quite confused. The record indicates the patient has been impulsive during medical care. PAST MEDICAL HISTORY: Please see history and physical by Dr. Vallejo. PAST PSYCHIATRIC HISTORY: Records are unavailable. Details are unknown. The patient is being seen by psychiatry at his placement. SUBSTANCE ABUSE HISTORY: The patient did not answer these questions. PSYCHOSOCIAL HISTORY: The patient did not answer any of the questions regarding educational or occupational history or synagogue affiliation. The patient did not answer questions about history of physical or sexual abuse or current legal problems. The patient did not answer any questions about demographics, family relationships, others involved in his care or any type of support system other than the staff at his prison facility. MENTAL STATUS EXAMINATION: The patient appears to be his stated age. The patient's attitude is superficially cooperative. Eye contact is poor. Speech is pressured and loud. Mood is irritable. Affect is constricted. Thought process shows to be confused and defensive. The patient denied any suicidal or homicidal ideation, plan, or intention. The patient denies any auditory or visual hallucinations. The patient may be experiencing paranoid ideation. The patient's behavior has been easily agitated and difficult to redirect. Impulse control is inadequate. Concentration is poor. Sensorium is alert and oriented to self and place only. The patient did not participate in the memory assessment. The patient did not participate in the interpretation of proverbs. The patient is having difficulty articulating answers to the clinical interview questions as well as a diminished ability to sustain focus and attention. This needs further evaluation. The patient did not participate in the interpretation of proverbs. Insight is poor. Judgment is impaired. DIAGNOSTIC IMPRESSION: AXIS I: Psychotic disorder, not otherwise specified. AXIS II: Deferred. AXIS III: Per Dr. Wilder. PLAN: The patient has been seen by Dr. Suazo for psychiatric evaluation and for the management of the patient's psychotropic medications. The treatment record indicates the attending psychiatrist is continuing the patient's Zyprexa and will be started on mirtazapine 15 mg via G-tube. The patient is also continued on Ativan. We will provide supportive psychotherapy to include reality orientation, differentiation, and integration. We will provide de-escalation and limit setting. We will encourage the patient to demonstrate emotional and self-regulation. We will provide motivational enhancement for the patient to become compliant and stay compliant with all aspects of his care and treatment. We will provide coping strategies for phase of life issues as well as for chronic illness. We will provide stress management to assist the patient to increase his frustration tolerance. We will continue to provide supportive psychotherapy throughout the patient's hospital stay. We will encourage the patient on a daily basis to verbally contract for safety including no harm to others. Thank you, Dr. Sauzo, for this consult and the opportunity to participate in this patient's care. JOB# [id number] [place]
[2018-07-21] MEDS: Levothyroxine 0.05 Mg Tab GT SCH (06:44)
[2018-07-21] MEDS: Albuterol/Ipratropium Neb 3 ML AERS HHN SCH ×4 (08:19→18:49)
[2018-07-21] MEDS: predniSONE 5 mg/5 mL UDC PO SCH ×2 (09:24→16:37)
--- NOTE | 2018-07-21 12:57 | Progress Notes ---
DATE: 07/20/2018 PSYCHIATRIC PROGRESS NOTE SUBJECTIVE: Staff was spoken to. The patient is interviewed. Mood is noted to be irritable. Affect is constricted. Insight and judgment at this time is noted to be still impaired. Impulse control is noted to be poor. The patient is currently on Mellaril as well as the olanzapine. The patient has been having difficult time to cope with the stress. The patient is very impulsive. No side effects to the medications are noted. The patient is being closely monitored at this time. ASSESSMENT: The patient is psychotic and impulsive. PLAN: To continue the patient with the supportive therapy and followup. JOB# [id number]
--- NOTE | 2018-07-21 13:51 | Progress Notes ---
DATE: 07/21/2018 PSYCHOLOGY PROGRESS NOTE SUBJECTIVE: The patient is seen and interviewed. Case is discussed with staff. The patient presents as guarded and irritable. The staff reports the patient's impulse control is still problematic and is poorly redirectable on the unit. The patient was somewhat resistant to the clinical questions being presented. The patient states his appetite is okay and sleep is fair. OBJECTIVE: Mood is irritable. Affect is constricted. Thought process shows to be perseverating on the staff's behavior towards him. There is some paranoid ideation present. The patient continues to be impulsive. ASSESSMENT AND PLAN: The patient is still psychotic and impulsive. We provided de-escalation and limit setting. We provided remotivation for the patient to become compliant and stay compliant with all aspects of his care and treatment as well as to follow through with staff direction. We encouraged the patient to demonstrate emotional and self-regulation and to verbalize his concerns in an appropriate manner. We provided stress management for the patient to increase his frustration tolerance and to increase his capacity for coping. We provided reality integration. We will follow up in 2-3 days to continue the present treatment if the patient is still admitted. Prognosis is fair. JOB# [id number] [place]
--- NOTE | 2018-07-21 16:47 | Progress Notes ---
DATE: 07/21/2018 PSYCHIATRIC PROGRESS NOTE SUBJECTIVE: Staff was spoken to. The patient is interviewed. Mood is noted to be irritable. Affect is constricted. Insight and judgment at this time are noted to be very much impaired. Impulse control is noted to be limited. Coping skills are noted to be limited. The patient has been having difficult time to cope with the stress. ASSESSMENT: The patient is still impulsive. PLAN: To continue the patient with the current medications and follow. [facility]# [id number]
[2018-07-21] MEDS: Levetiracetam 500 mg/5mL 5mL UDSyr *for ORAL USE ONLY GT SCH (21:44)
[2018-07-21] MEDS: Thioridazine Hydrochloride 25 MG TAB GT SCH (21:45)
[2018-07-22] MEDS: Levothyroxine 0.05 Mg Tab GT SCH (06:53)
[2018-07-22] MEDS: Albuterol/Ipratropium Neb 3 ML AERS HHN SCH ×4 (07:04→19:15)
--- NOTE | 2018-07-22 17:22 | Progress Notes ---
DATE: 07/22/2018 PSYCHIATRIC PROGRESS NOTE PROGRESS ON THE UNIT: Staff was spoken to. The patient is interviewed. Mood is noted to be irritable. Affect is constricted. Insight and judgment at this time are noted to be still impaired. Impulse control is noted to be poor. Coping skills are also noted to be very poor. The patient is reported to have been very agitated and has pulled the G-tube out, and we are waiting for the insertion of the G-tube back so that the medication can be continued. The patient at this time is not able to contract for safety. No side effects to the medications are noted. ASSESSMENT: The patient is still impulsive. PLAN: To continue the patient with supportive therapy. Encouraged the patient to verbalize the concerns rather than to act out. [facility]# [id number]
[2018-07-22] MEDS: predniSONE 5 mg/5 mL UDC PO SCH (17:28)
[2018-07-22] MEDS ORDERED: Diatrizoate Meglumine/Diatri 30 mL Sol ONE (21:33)
[2018-07-22] MEDS: Thioridazine Hydrochloride 25 MG TAB GT SCH (21:54)
[2018-07-22] MEDS: Levetiracetam 500 mg/5mL 5mL UDSyr *for ORAL USE ONLY GT SCH (22:00)
[2018-07-23] MEDS: Albuterol/Ipratropium Neb 3 ML AERS HHN SCH ×4 (06:44→18:38)
[2018-07-23] MEDS: Levothyroxine 0.05 Mg Tab GT SCH (06:50)
--- NOTE | 2018-07-23 07:51 | Diagnostic Imaging Report ---
Exam: Gastrostomy tube placement. Findings: Portable injection of contrast material gastrostomy tube there is normal opacification stomach. IMPRESSION: Gastrostomy tube in the stomach. Large amount of residual contrast material throughout the colon with fecal impaction.
[2018-07-23] MEDS: predniSONE 5 mg/5 mL UDC PO SCH ×2 (09:19→18:35)
[2018-07-23] MEDS: POLYETHYLENE GLYCOL 3350 17 GM PACK PO SCH ×2 (09:21→18:34)
--- NOTE | 2018-07-23 12:03 | Consultation ---
DATE OF CONSULTATION: 07/23/2018 INPATIENT GASTROINTESTINAL CONSULTATION CONSULTING PHYSICIAN: Dr. Vallejo. REASON FOR CONSULTATION: G-tube malfunction. HISTORY OF PRESENT ILLNESS: The patient is a 63-year-old male with past medical history significant for dysphagia with a G-tube, COPD, seizure disorder, hypertension, thyroid disorder, dementia and behavioral disorder, who was admitted to the hospital on 07/12/2018 for G-tube issues. Apparently, the patient has been increasingly agitated at his facility and has pulled out his G-tube a number of times. Here, the patient has pulled out his G-tube twice as witnessed by the nursing staff and it was replaced both times by the nursing staff. He has an abdominal binder on, but he is able to pull off the abdominal binder and then pull out his G-tube. He has had his new G-tubes confirmed by [facility] and Gastrografin injection and he has been able to be fed. GI consult is placed for this issue. PAST MEDICAL HISTORY: COPD, seizure disorder, hypertension, thyroid disorder, behavioral disorder, dysphagia. PAST SURGICAL HISTORY: Placement of G-tube. FAMILY HISTORY: Unobtainable. SOCIAL HISTORY: The patient lives at a intermediate. No documented history of illicit drug use. ALLERGIES: There is reported allergy to Depakote. REVIEW OF SYSTEMS: Review of systems is not possible at this current time as the patient was not cooperative in the interview. CURRENT MEDICATIONS: Include Tylenol, bisacodyl as needed, Proscar, glycopyrrolate, Robitussin, Keppra, Levaquin, Ativan, milk of magnesia, Remeron, Zyprexa, phenobarbital, MiraLax, prednisone, Fleet enema as needed, Flomax, topiramate. PHYSICAL EXAMINATION: VITAL SIGNS: Blood pressure is 129/79, pulse is 104 beats per minute, temperature 98.9, and oximetry 93%. GENERAL: The patient is sitting upright in a chair. He is alert and oriented x 1. He is agitated. HEAD, EARS, EYES, NOSE AND THROAT: Normocephalic and atraumatic appearing head. There is some temporal wasting. Pupils are equal and reactive. He appears to have moist mucous membranes. NECK: No obvious JVD or thyromegaly. CHEST: No crackles are auscultated. CARDIOVASCULAR: S1 and S2 are present. Tachycardic. ABDOMEN: Soft. There is an abdominal binder in place with the G-tube in gastrocutaneous fistula without inflammation. EXTREMITIES: No pitting edema is noted. Pulses are present. SKIN: No obvious jaundice. LABORATORY DATA: White blood cell count 12.6, hemoglobin 13.2, platelet count 233. Sodium 138, BUN 20, creatinine 0.7. White blood cell count 12.6, hemoglobin 13.2, platelet count is 233. Sodium is 138, BUN 20, creatinine 0.7. AST 31, ALT 23, total bilirubin 0.4. IMAGING: Abdominal upper GI series was performed on 07/22/2018, this shows placement of the G-tube within the stomach as well as evidence of fecal impaction. IMPRESSION: This is a 63-year-old male with history of chronic obstructive pulmonary disease, seizure disorder and behavioral disorder, admitted to the Geropsych unit for increased agitation as well as G-tube malfunction. 1. G-tube malfunction. 2. Chronic obstructive pulmonary disease. 3. Behavioral disorder. 4. Seizure disorder. DISCUSSION: This is essentially a behavioral issue as the patient is pulling out his G-tube despite the abdominal binder. The G-tube has been replaced twice and has been confirmed twice. Unfortunately, there is no intervention that I can perform that will prevent this patient from pulling out a new tube. It does not matter to the size of the internal balloon; if he pulls on it hard enough, it is going to come out through the gastrocutaneous fistula. I have instructed the nurses that they can over inflate the balloon a little bit, although they should watch for it for signs of any popping. I think that this patient will likely just have to be watched carefully to ensure that he does not grab the tube and pull it out as I do not see any other intervention that will help with the issue as this is behavioral. In terms of the fecal impaction, I will order him to have MiraLax through the G-tube at twice a day dosing. He is having bowel movements, so I do not think he is obstructed and MiraLax regimen should help him evacuate stool more regularly. RECOMMENDATIONS: 1. The patient should be watched closely as I think this is the only thing that will prevent him from pulling out his tube. There is no endoscopic or other intervention that I can do to prevent him from pulling out his tube. 2. Continue tube feeds as tolerated. 3. Okay to over inflate the internal balloon by 4-5 mL. 4. MiraLax is ordered at twice a day dosing. 5. Management of the patient's psychiatric and other medical issues as per primary. Thank you for allowing us to participate in his care. Please call with any further questions. We will follow peripherally. JOB# [id number]
[2018-07-23] MEDS: Thioridazine Hydrochloride 25 MG TAB GT SCH (20:55)
[2018-07-23] MEDS: Levetiracetam 500 mg/5mL 5mL UDSyr *for ORAL USE ONLY GT SCH (20:55)
--- NOTE | 2018-07-24 03:02 | Progress Notes ---
DATE: 07/23/2018 PSYCHIATRIC PROGRESS NOTE SUBJECTIVE: Staff was spoken to. The patient is interviewed. Mood is noted to be irritable. Affect is constricted. Insight and judgment are noted to be still impaired. Impulse control is noted to be limited. Coping skills are noted to be limited. The patient has been having difficult time to cope with the stress. The patient is getting easily agitated. The patient has to be redirected. The patient is very impulsive and has not been able to keep the G-tube. ASSESSMENT: The patient is still impulsive. PLAN: To continue the patient with the current medications. I encouraged the patient to verbalize the concerns rather than to act out. JOB# [id number]
--- NOTE | 2018-07-24 05:15 | Progress Notes ---
DATE: 07/23/2018 SUBJECTIVE: The patient is seen and interviewed. Case is discussed with staff. The patient presents as irritable. The patient's impulse control continues to be problematic. The staff reports that the patient gets easily agitated and has pulled his G-tube out. Staff is aware that the G-tube needs to be replaced, so that medication can be provided. The patient is unable to contract for safety. OBJECTIVE: Mood is irritable. Affect is constricted. Thought process shows to be confused and argumentative. The patient denied any auditory or visual hallucinations or delusions. The patient's impulse control is poor and the patient is not able to contract for safety or follow through with staff direction. ASSESSMENT AND PLAN: The patient continues to be impulsive. We provided with supportive psychotherapy and included limit setting. We provided remotivation for the patient to become compliant and stay compliant with his care and treatment, i.e., leaving his G-tube intact. We encouraged the patient to verbalize his concerns versus acting out and encouraged him to demonstrate emotional and self-regulation. We provided coping strategies for adjustment to his current medical condition. We will follow up in 2-3 days to continue the present treatment. Prognosis is fair to poor. JOB# [id number] [place]
[2018-07-24] MEDS: Levothyroxine 0.05 Mg Tab GT SCH (06:45)
[2018-07-24] MEDS: Albuterol/Ipratropium Neb 3 ML AERS HHN SCH ×4 (07:00→18:53)
[2018-07-24] MEDS: predniSONE 5 mg/5 mL UDC PO SCH ×2 (08:04→16:31)
[2018-07-24] MEDS: POLYETHYLENE GLYCOL 3350 17 GM PACK PO SCH ×2 (08:04→16:31)
[2018-07-24] MEDS: Thioridazine Hydrochloride 25 MG TAB GT SCH (20:52)
[2018-07-24] MEDS: Levetiracetam 500 mg/5mL 5mL UDSyr *for ORAL USE ONLY GT SCH (20:52)
--- NOTE | 2018-07-25 03:57 | Progress Notes ---
DATE: 07/24/2018 PSYCHIATRIC PROGRESS NOTE SUBJECTIVE: Staff was spoken to. The patient is interviewed. Mood is noted to be irritable. Affect is constricted. Insight and judgment at this time are noted to be still impaired. Impulse control is noted to be poor. The patient has been very disruptive and has been trying to not let the G-tube stay in place. ASSESSMENT: The patient is still impulsive. PLAN: To continue the patient with the supportive therapy and followup. JOB# [id number]
[2018-07-25] MEDS: Levothyroxine 0.05 Mg Tab GT SCH (06:40)
[2018-07-25] MEDS: Albuterol/Ipratropium Neb 3 ML AERS HHN SCH ×4 (07:01→19:40)
[2018-07-25] MEDS: predniSONE 5 mg/5 mL UDC PO SCH ×2 (09:10→16:03)
[2018-07-25] MEDS: POLYETHYLENE GLYCOL 3350 17 GM PACK PO SCH ×2 (09:11→16:03)
[2018-07-25] MEDS: Levetiracetam 500 mg/5mL 5mL UDSyr *for ORAL USE ONLY GT SCH (22:27)
[2018-07-25] MEDS: Thioridazine Hydrochloride 25 MG TAB GT SCH (22:30)
--- NOTE | 2018-07-26 01:49 | Progress Notes ---
DATE: 07/25/2018 SUBJECTIVE: Staff was spoken to. The patient is interviewed. Mood is noted to be irritable. Affect is constricted. Insight and judgment are noted to be still impaired. Impulse control is noted to be poor. Coping skills are noted to be poor. The patient has been very impulsive and has been trying to pull the G-tube out and the patient has to be closely monitored. ASSESSMENT: The patient is still impulsive and agitated. PLAN: To continue the patient with the current medications. I encouraged the patient to verbalize the concerns rather than to act out. The patient is not ready to be discharged to a lower level of care in view of the impulsive behavior. JOB# [id number]
[2018-07-26] MEDS: Levothyroxine 0.05 Mg Tab GT SCH (06:32)
--- NOTE | 2018-07-26 06:54 | Progress Notes ---
DATE: 07/25/2018 PSYCHOLOGY PROGRESS NOTE SUBJECTIVE: The patient is seen and interviewed. Case is discussed with staff. The patient presents as irritable and guarded. The staff indicates the patient's impulse control continues to be problematic and that the patient has disruptive episodes. The patient also has been trying to pull out his G-tube. Staff indicates this has been difficult to monitor. OBJECTIVE: Mood is irritable. Affect is constricted. Thought process shows to be confused and oppositional. The patient denied any auditory or visual hallucinations. Possible delusions are present. This needs further evaluation. The patient's behavior has been difficult to monitor. The patient has had several disruptive episodes as well as attempts to pull out his G-tube. ASSESSMENT: The patient continues to be impulsive and poorly responsive to behavioral redirection. PLAN: We will continue to provide limit setting as well as remotivation for the patient to become compliant and stay compliant with all aspects of his care and treatment. We will provide reality integration. We will continue to encourage the patient to verbalize his concerns versus acting out. We will follow up in 2-3 days to continue the present treatment. JOB# [id number] [place]
[2018-07-26] MEDS: Albuterol/Ipratropium Neb 3 ML AERS HHN SCH ×4 (07:03→18:59)
[2018-07-26] MEDS: POLYETHYLENE GLYCOL 3350 17 GM PACK PO SCH (09:58)
[2018-07-26] MEDS: predniSONE 5 mg/5 mL UDC PO SCH ×2 (09:58→16:53)
[2018-07-26] MEDS: POLYETHYLENE GLYCOL 3350 17 GM PACK PO PRN ×2 (09:58→16:53)
--- NOTE | 2018-07-26 13:41 | Internal Medicine Prog Note ---
Internal Medicine Subjective - Subjective Service Date: 07/26/17 Patient is:: awake Per staff patient has:: no adverse event, confused Internal Medicine Objective - Results Result Diagrams: 07/18/18 02:48 07/18/18 02:48 Recent Labs: Laboratory Last Values WBC 12.6 Th/cmm (4.8-10.8) H 07/18/18 02:48 RBC 4.37 Mil/cmm (4.30-5.70) 07/18/18 02:48 Hgb 13.2 gm/dL (12-16) 07/18/18 02:48 Hct 40.7 % (41.0-60) L 07/18/18 02:48 MCV 93.0 fl (80-99) 07/18/18 02:48 MCH 30.2 pg (26.0-30.0) H 07/18/18 02:48 MCHC Differential 32.5 pg (28.0-36.0) 07/18/18 02:48 RDW 12.5 % (11.5-20.0) 07/18/18 02:48 Plt Count 233 Th/cmm (150-400) 07/18/18 02:48 MPV 8.3 fl 07/18/18 02:48 Neutrophils % 82.9 % (40.0-80.0) H 07/18/18 02:48 Lymphocytes % 10.3 % (20.0-50.0) L 07/18/18 02:48 Monocytes % 5.8 % (2.0-10.0) 07/18/18 02:48 Eosinophils % 1.0 % (0.0-5.0) 07/18/18 02:48 Basophils % 0.0 % (0.0-2.0) 07/18/18 02:48 Sodium 138 mEq/L (136-145) 07/18/18 02:48 Potassium 3.5 mEq/L (3.5-5.1) 07/18/18 02:48 Chloride 104 mEq/L (98-107) 07/18/18 02:48 Carbon Dioxide 27.7 mEq/L (21.0-31.0) 07/18/18 02:48 Anion Gap 9.8 (7.0-16.0) 07/18/18 02:48 BUN 20 mg/dL (7-25) 07/18/18 02:48 Creatinine 0.7 mg/dL (0.7-1.3) 07/18/18 02:48 Est GFR ( Amer) > 60.0 ml/min (>90) 07/18/18 02:48 Est GFR (Non-Af Amer) > 60.0 ml/min 07/18/18 02:48 BUN/Creatinine Ratio 28.6 07/18/18 02:48 Glucose 110 mg/dL (70-105) H 07/18/18 02:48 Calcium 11.6 mg/dL (8.6-10.3) H 07/18/18 02:48 Total Bilirubin 0.4 mg/dL (0.3-1.0) 07/18/18 02:48 AST 31 U/L (13-39) 07/18/18 02:48 ALT 23 U/L (7-52) 07/18/18 02:48 Alkaline Phosphatase 84 U/L (34-104) 07/18/18 02:48 Total Protein 7.0 gm/dL (6.0-8.3) 07/18/18 02:48 Albumin 3.7 gm/dL (4.2-5.5) L 07/18/18 02:48 Globulin 3.3 gm/dL 07/18/18 02:48 Albumin/Globulin Ratio 1.1 (1.0-1.8) 07/18/18 02:48 Triglycerides 84 mg/dL (<150) 07/18/18 02:48 Cholesterol 116 mg/dL (<200) 07/18/18 02:48 LDL Cholesterol Direct 62 mg/dL (75-193) L 07/18/18 02:48 HDL Cholesterol 50 mg/dL (23-92) 07/18/18 02:48 TSH 2.08 uIU/ml (0.34-5.60) 07/18/18 02:48 Urine Source RANDOM 07/18/18 03:35 Urine Color YELLOW 07/18/18 03:35 Urine Clarity CLEAR (CLEAR) 07/18/18 03:35 Urine pH 7.5 (4.6 - 8.0) 07/18/18 03:35 Ur Specific [place] 1.010 (1.005-1.030) 07/18/18 03:35 Urine Protein NEGATIVE mg/dL (NEGATIVE) 07/18/18 03:35 Urine Glucose (UA) NEGATIVE mg/dL (NEGATIVE) 07/18/18 03:35 Urine Ketones NEGATIVE mg/dL (NEGATIVE) 07/18/18 03:35 Urine Blood NEGATIVE (NEGATIVE) 07/18/18 03:35 Urine Nitrate NEGATIVE (NEGATIVE) 07/18/18 03:35 Urine Bilirubin NEGATIVE (NEGATIVE) 07/18/18 03:35 Urine Urobilinogen 1.0 E.U./dL (0.2 - 1.0) 07/18/18 03:35 Ur Leukocyte Esterase NEGATIVE (NEGATIVE) 07/18/18 03:35 RPR NONREACTIVE (NONREACTIVE) 07/18/18 02:48 - Physical Exam Vitals and I&O: Vital Signs Temp 98.1 F 07/26/18 06:41 Pulse 92 07/26/18 10:26 Resp 18 07/26/18 10:26 BP 111/63 07/26/18 06:41 Pulse Ox 94 07/26/18 10:26 Intake & Output 07/25/18 07/26/18 07/26/18 18:59 06:59 18:59 Other: # Voids 3 # Bowel Movements 1 Active Medications: Current Medications Acetaminophen (Tylenol 650mg/20.3ml Suspension) 650 mg GT Q4H PRN PRN Reason: Pain Or Fever above 101 Stop: 09/16/18 09:05 Albuterol/Ipratropium (Duoneb Neb) 3 ml HHN QIDRT [facility] Stop: 09/16/18 06:59 Last Admin: 07/26/18 10:26 Dose: 3 ml Bisacodyl (Dulcolax 10 Mg Supp) 10 mg RC DAILY PRN PRN Reason: IF MOM INEFFECTIVE Stop: 09/16/18 04:41 Finasteride (Proscar) 5 mg GT DAILY [facility]; Protocol Stop: 09/16/18 08:59 Last Admin: 07/26/18 09:59 Dose: 5 mg Glycopyrrolate (Robinul) 2 mg GT TID [facility] Stop: 09/16/18 08:59 Last Admin: 07/26/18 09:58 Dose: 2 mg Guaifenesin (Robitussin) 200 mg GT Q4HR PRN PRN Reason: Cough or Congestion Stop: 09/16/18 04:41 Levetiracetam (Keppra) 750 mg GT HS [facility] Stop: 09/16/18 20:59 Last Admin: 07/25/18 22:27 Dose: 750 mg Levofloxacin (Levaquin) 500 mg GT DAILY [facility] Stop: 09/16/18 10:29 Last Admin: 07/26/18 09:58 Dose: 500 mg Levothyroxine Sodium (Synthroid) 0.05 mg GT QDAC [facility] Stop: 09/16/18 08:59 Last Admin: 07/26/18 06:32 Dose: 0.05 mg Lorazepam (Ativan) 0.5 mg GT Q6H PRN; Protocol PRN Reason: Anxiety Stop: 09/16/18 04:41 Last Admin: 07/25/18 23:57 Dose: 0.5 mg Magnesium Hydroxide (Milk Of Magnesia) 30 ml GT DAILY PRN PRN Reason: Constipation Stop: 09/16/18 04:41 Mirtazapine (Remeron) 15 mg GT HS [facility]; Protocol Stop: 09/16/18 20:59 Last Admin: 07/25/18 22:28 Dose: 15 mg Olanzapine (Zyprexa) 15 mg GT HS [facility]; Protocol Stop: 09/16/18 20:59 Last Admin: 07/25/18 22:27 Dose: 15 mg Phenobarbital (Phenobarbital) 129.6 mg GT HS [facility] Stop: 09/16/18 20:59 Last Admin: 07/25/18 22:29 Dose: 129.6 mg Polyethylene Glycol (Miralax) 17 gm PO DAILY PRN PRN Reason: Constipation Stop: 09/16/18 04:41 Last Admin: 07/26/18 09:58 Dose: 17 gm Polyethylene Glycol (Miralax) 17 gm PO BID [facility] Stop: 09/21/18 08:59 Last Admin: 07/25/18 16:03 Dose: 17 gm Prednisone (Prednisone) 10 mg PO BID [facility] Stop: 09/16/18 16:59 Last Admin: 07/26/18 09:58 Dose: 10 mg Sodium Phosphate (Fleet Enema) 135 ml RC DAILY PRN PRN Reason: IF DULCOLAX INEFFECTIVE Stop: 09/16/18 04:41 Tamsulosin HCl (Flomax) 0.4 mg GT QPM [facility] Stop: 09/16/18 16:59 Last Admin: 07/25/18 16:03 Dose: 0.4 mg Thioridazine HCl (Mellaril) 50 mg GT HS [facility]; Protocol Stop: 09/16/18 20:59 Last Admin: 07/25/18 22:30 Dose: 50 mg Topiramate (Topamax) 200 mg GT BID [facility] Stop: 09/16/18 10:59 Last Admin: 07/26/18 09:59 Dose: 200 mg Topiramate (Topamax) 100 mg GT HS [facility] Stop: 09/16/18 20:59 Last Admin: 07/25/18 22:30 Dose: 100 mg General: demented, thin HEENT: PERRLA, EOMI Neck: Supple, No JVD Lungs: CTAB Cardiovascular: RRR, Normal S1, Normal S2 Abdomen: soft, non-tender, +GT Extremities: clear - Procedures Procedures: Procedures Procedure Code Date BARIUM SWALLOW 87.61 04/05/95 C.A.T. SCAN OF HEAD 87.03 04/05/95 CLOSURE SKIN & SUBCUTANEOUS NEC 86.59 04/05/95 ELECTROENCEPHALOGRAM 89.14 04/05/95 HEAD SOFT TISS X-RAY NEC 87.09 04/05/95 LINEAR REP LID LACER 08.81 11/06/95 RPR F/E/E/N/L/M 2.5 CM/< 36967 11/06/95 Internal Medicine Assmt/Plan - Assessment Assessment: 1. ACUTE PSYCH DECOMPENSATION 2. HX OF PEG 2RY TO DYSPAHGIA WITH RECENT REPLACEMENT 3. HX OF RECENT LEFT BASAL PNA-CLINICALLY STABLE 4. HX OF HYPOTHYROIDISM 5. HX OF SEIZURE D/O-ASYMTOMATIC. - Plan Plan: CONT WITH CURRENT INPT PSYCH SUPPORT CONT WITH PO LEVAQUIN AND PULMONATY TOILET CONT WITH OTHER MEDS SCHEDULED Nutritional Asmnt/Malnutr-PDOC - Dietary Evaluation Malnutrition Findings (Please click <Entered> for more info): Nutritional Asmnt/Malnutrition Start: 07/18/18 10: 29 Text: Status: Complete Freq: Protocol: Document 07/18/18 10:29 AIDE (Rec: 07/18/18 11:02 RHLOUIS [email or web address]) Nutritional Asmnt/Malnutrition Patient General Information Nutritional Screening High Risk Consult Diagnosis Increased Agitation Pertinent Medical Hx/Surgical Hx Bipolar, Schizophrenia, G-tube , Pneumonia, COPD, Seizure disorder Subjective Information Pt unable to communicate d/t confusion. Admitted from [facility] on voluntary status. Prev TF order was Fibersource HN 250cc Bolus Q4 hrs to provide 1500cc/1800kCal in 24hrs. G tube insertion stoma showed no bleeding or discharge. Current TF order is excessive, as 1500 ml/day of Two Bruno TF gives him 166% Kcal needs ( 3000kCal) and 151% of Prtn needs (125 gm). Current Diet Order/ Nutrition Support Two Bruno HN 250ml Q4hrs Patient / S.O Not Indicated Pertinent Medications Dulcolax, Keppra, Synthroid, MOM, Prednisone, Fleet Enema, Pertinent Labs (07/18) Gluc 110 H, Ca++ 11.6 H , Alb 3.7 L Nutritional Hx/Data Height 1.78 m Height (Calculated Centimeters) 177.8 Current Weight (lbs) 56.699 kg Weight (Calculated Kilograms) 56.7 Weight (Calculated Grams) 43838.0 [place] Body Weight 166 % [place] Body Weight 75 Body Mass Index (BMI) 17.9 Weight Status Underweight GI Symptoms GI Symptoms None Last BM None noted. Difficult in: None Food Allergies No: None noted Cultural/Ethnic/Voodoo Belief None noted. Skin Integrity/Comment: Vishnu Iniguez Estimated Nutritional Goals BEE in Kcals: Using Current wt Calories/Kcals/Kg 31-33 Kcals Calculated 3058-4851 Protein: Using Current wt Protein g/k.3-1.5 Protein Calculated 74-86 Fluid: ml 3461-4026 Nutritional Problem 1. Problem Problem Pt has excessive intake from enteral nutrition aeb Etiology current TF order Signs/Symptoms: 1500 ml/day of Two Bruno TF gives him 166% Kcal needs ( 3000kCal) and 151% of Prtn needs (125 gm) Malnutrition Alert Protein-Calorie Malnutrition Non-Severe Is there a minimum of two criteria No selected? Query Text:Check all the applicable criteria. A minimum of two criteria are recommended for diagnosis of either severe or non-severe malnutrition. Intervention/Recommendation Comments Recommend changing TF order to Jevity 1.2 Bruno 250 ml Q 4hrs which will provide him with 1500ml/ day, 1800 kCal/day, 83 gm Prtn, 1211 ml H2O. Expected Outcomes/Goals Expected Outcomes/Goals 1. TF provides nutrition within recommended needs 2. BMI returns to WNL 3. F/U as MR in 3-5 days
[2018-07-26] MEDS: Levetiracetam 500 mg/5mL 5mL UDSyr *for ORAL USE ONLY GT SCH (21:00)
[2018-07-26] MEDS: Thioridazine Hydrochloride 25 MG TAB GT SCH (21:55)
--- NOTE | 2018-07-27 02:16 | Progress Notes ---
DATE: 07/26/2018 PSYCHIATRIC PROGRESS NOTE SUBJECTIVE: Staff was spoken to. The patient is interviewed. Mood is noted to be irritable. Affect is constricted. Insight and judgment are noted to be still impaired. The patient is very impulsive and needs to be redirected constantly. The patient has no insight into his illness. The patient so far has been able to tolerate the medications. No side effects to the medications are noted. The patient has been having difficult time to cope with the stress. PLAN: The patient, at this time, has been getting 15 mg of olanzapine through the G-tube, it is decided to increase the dose on that medication to 20 mg and continue the patient with the supportive therapy. I encouraged the patient to verbalize the concerns rather than to act out. JOB# [id number]
[2018-07-27] MEDS: Levothyroxine 0.05 Mg Tab GT SCH (06:43)
[2018-07-27] MEDS: Albuterol/Ipratropium Neb 3 ML AERS HHN SCH ×4 (07:16→20:59)
--- NOTE | 2018-07-27 09:30 | Internal Medicine Prog Note ---
Internal Medicine Subjective - Subjective Service Date: 07/27/18 Patient is:: awake Per staff patient has:: no adverse event, confused Internal Medicine Objective - Results Result Diagrams: 07/18/18 02:48 07/18/18 02:48 Recent Labs: Laboratory Last Values WBC 12.6 Th/cmm (4.8-10.8) H 07/18/18 02:48 RBC 4.37 Mil/cmm (4.30-5.70) 07/18/18 02:48 Hgb 13.2 gm/dL (12-16) 07/18/18 02:48 Hct 40.7 % (41.0-60) L 07/18/18 02:48 MCV 93.0 fl (80-99) 07/18/18 02:48 MCH 30.2 pg (26.0-30.0) H 07/18/18 02:48 MCHC Differential 32.5 pg (28.0-36.0) 07/18/18 02:48 RDW 12.5 % (11.5-20.0) 07/18/18 02:48 Plt Count 233 Th/cmm (150-400) 07/18/18 02:48 MPV 8.3 fl 07/18/18 02:48 Neutrophils % 82.9 % (40.0-80.0) H 07/18/18 02:48 Lymphocytes % 10.3 % (20.0-50.0) L 07/18/18 02:48 Monocytes % 5.8 % (2.0-10.0) 07/18/18 02:48 Eosinophils % 1.0 % (0.0-5.0) 07/18/18 02:48 Basophils % 0.0 % (0.0-2.0) 07/18/18 02:48 Sodium 138 mEq/L (136-145) 07/18/18 02:48 Potassium 3.5 mEq/L (3.5-5.1) 07/18/18 02:48 Chloride 104 mEq/L (98-107) 07/18/18 02:48 Carbon Dioxide 27.7 mEq/L (21.0-31.0) 07/18/18 02:48 Anion Gap 9.8 (7.0-16.0) 07/18/18 02:48 BUN 20 mg/dL (7-25) 07/18/18 02:48 Creatinine 0.7 mg/dL (0.7-1.3) 07/18/18 02:48 Est GFR ( Amer) > 60.0 ml/min (>90) 07/18/18 02:48 Est GFR (Non-Af Amer) > 60.0 ml/min 07/18/18 02:48 BUN/Creatinine Ratio 28.6 07/18/18 02:48 Glucose 110 mg/dL (70-105) H 07/18/18 02:48 Calcium 11.6 mg/dL (8.6-10.3) H 07/18/18 02:48 Total Bilirubin 0.4 mg/dL (0.3-1.0) 07/18/18 02:48 AST 31 U/L (13-39) 07/18/18 02:48 ALT 23 U/L (7-52) 07/18/18 02:48 Alkaline Phosphatase 84 U/L (34-104) 07/18/18 02:48 Total Protein 7.0 gm/dL (6.0-8.3) 07/18/18 02:48 Albumin 3.7 gm/dL (4.2-5.5) L 07/18/18 02:48 Globulin 3.3 gm/dL 07/18/18 02:48 Albumin/Globulin Ratio 1.1 (1.0-1.8) 07/18/18 02:48 Triglycerides 84 mg/dL (<150) 07/18/18 02:48 Cholesterol 116 mg/dL (<200) 07/18/18 02:48 LDL Cholesterol Direct 62 mg/dL (75-193) L 07/18/18 02:48 HDL Cholesterol 50 mg/dL (23-92) 07/18/18 02:48 TSH 2.08 uIU/ml (0.34-5.60) 07/18/18 02:48 Urine Source RANDOM 07/18/18 03:35 Urine Color YELLOW 07/18/18 03:35 Urine Clarity CLEAR (CLEAR) 07/18/18 03:35 Urine pH 7.5 (4.6 - 8.0) 07/18/18 03:35 Ur Specific [place] 1.010 (1.005-1.030) 07/18/18 03:35 Urine Protein NEGATIVE mg/dL (NEGATIVE) 07/18/18 03:35 Urine Glucose (UA) NEGATIVE mg/dL (NEGATIVE) 07/18/18 03:35 Urine Ketones NEGATIVE mg/dL (NEGATIVE) 07/18/18 03:35 Urine Blood NEGATIVE (NEGATIVE) 07/18/18 03:35 Urine Nitrate NEGATIVE (NEGATIVE) 07/18/18 03:35 Urine Bilirubin NEGATIVE (NEGATIVE) 07/18/18 03:35 Urine Urobilinogen 1.0 E.U./dL (0.2 - 1.0) 07/18/18 03:35 Ur Leukocyte Esterase NEGATIVE (NEGATIVE) 07/18/18 03:35 RPR NONREACTIVE (NONREACTIVE) 07/18/18 02:48 - Physical Exam Vitals and I&O: Vital Signs Temp 97.1 F 07/27/18 06:25 Pulse 91 07/27/18 07:16 Resp 18 07/27/18 07:16 BP 96/56 07/27/18 06:25 Pulse Ox 94 07/27/18 07:16 Intake & Output 07/26/18 07/27/18 07/27/18 18:59 06:59 18:59 Intake Total 120 Output Total 1 Balance 119 Intake: Oral 120 Output: Urine/Stool Mix 1 Other: # Voids 1 Active Medications: Current Medications Acetaminophen (Tylenol 650mg/20.3ml Suspension) 650 mg GT Q4H PRN PRN Reason: Pain Or Fever above 101 Stop: 09/16/18 09:05 Albuterol/Ipratropium (Duoneb Neb) 3 ml HHN QIDRT [facility] Stop: 09/16/18 06:59 Last Admin: 07/27/18 07:16 Dose: 3 ml Bisacodyl (Dulcolax 10 Mg Supp) 10 mg RC DAILY PRN PRN Reason: IF MOM INEFFECTIVE Stop: 09/16/18 04:41 Finasteride (Proscar) 5 mg GT DAILY [facility]; Protocol Stop: 09/16/18 08:59 Last Admin: 07/26/18 09:59 Dose: 5 mg Glycopyrrolate (Robinul) 2 mg GT TID [facility] Stop: 09/16/18 08:59 Last Admin: 07/26/18 22:10 Dose: 2 mg Guaifenesin (Robitussin) 200 mg GT Q4HR PRN PRN Reason: Cough or Congestion Stop: 09/16/18 04:41 Levetiracetam (Keppra) 750 mg GT HS [facility] Stop: 09/16/18 20:59 Last Admin: 07/26/18 21:00 Dose: 750 mg Levofloxacin (Levaquin) 500 mg GT DAILY [facility] Stop: 09/16/18 10:29 Last Admin: 07/26/18 09:58 Dose: 500 mg Levothyroxine Sodium (Synthroid) 0.05 mg GT QDAC [facility] Stop: 09/16/18 08:59 Last Admin: 07/27/18 06:43 Dose: 0.05 mg Lorazepam (Ativan) 0.5 mg GT Q6H PRN; Protocol PRN Reason: Anxiety Stop: 09/16/18 04:41 Last Admin: 07/26/18 21:55 Dose: 0.5 mg Magnesium Hydroxide (Milk Of Magnesia) 30 ml GT DAILY PRN PRN Reason: Constipation Stop: 09/16/18 04:41 Mirtazapine (Remeron) 15 mg GT HS [facility]; Protocol Stop: 09/16/18 20:59 Last Admin: 07/26/18 21:56 Dose: 15 mg Olanzapine (Zyprexa) 20 mg GT HS [facility]; Protocol Stop: 09/24/18 20:59 Last Admin: 07/26/18 21:56 Dose: 20 mg Phenobarbital (Phenobarbital) 129.6 mg GT HS [facility] Stop: 09/16/18 20:59 Last Admin: 07/26/18 21:00 Dose: 129.6 mg Polyethylene Glycol (Miralax) 17 gm PO DAILY PRN PRN Reason: Constipation Stop: 09/16/18 04:41 Last Admin: 07/26/18 16:53 Dose: 17 gm Polyethylene Glycol (Miralax) 17 gm PO BID [facility] Stop: 09/21/18 08:59 Last Admin: 07/26/18 09:58 Dose: 17 gm Prednisone (Prednisone) 10 mg PO BID [facility] Stop: 09/16/18 16:59 Last Admin: 07/26/18 16:53 Dose: 10 mg Sodium Phosphate (Fleet Enema) 135 ml RC DAILY PRN PRN Reason: IF DULCOLAX INEFFECTIVE Stop: 09/16/18 04:41 Tamsulosin HCl (Flomax) 0.4 mg GT QPM [facility] Stop: 09/16/18 16:59 Last Admin: 07/26/18 16:53 Dose: 0.4 mg Thioridazine HCl (Mellaril) 50 mg GT HS [facility]; Protocol Stop: 09/16/18 20:59 Last Admin: 07/26/18 21:55 Dose: 50 mg Topiramate (Topamax) 200 mg GT BID [facility] Stop: 09/16/18 10:59 Last Admin: 07/26/18 16:52 Dose: 200 mg Topiramate (Topamax) 100 mg GT HS [facility] Stop: 09/16/18 20:59 Last Admin: 07/26/18 22:28 Dose: 100 mg General: demented, thin HEENT: PERRLA, EOMI Neck: Supple, No JVD Lungs: CTAB Cardiovascular: RRR, Normal S1, Normal S2 Abdomen: soft, non-tender, +GT Extremities: clear - Procedures Procedures: Procedures Procedure Code Date BARIUM SWALLOW 87.61 04/05/95 C.A.T. SCAN OF HEAD 87.03 04/05/95 CLOSURE SKIN & SUBCUTANEOUS NEC 86.59 04/05/95 ELECTROENCEPHALOGRAM 89.14 04/05/95 HEAD SOFT TISS X-RAY NEC 87.09 04/05/95 LINEAR REP LID LACER 08.81 11/06/95 RPR F/E/E/N/L/M 2.5 CM/< 32912 11/06/95 Internal Medicine Assmt/Plan - Assessment Assessment: 1. ACUTE PSYCH DECOMPENSATION 2. HX OF PEG 2RY TO DYSPAHGIA WITH RECENT REPLACEMENT 3. HX OF RECENT LEFT BASAL PNA-CLINICALLY STABLE 4. HX OF HYPOTHYROIDISM 5. HX OF SEIZURE D/O-ASYMTOMATIC. - Plan Plan: CONT WITH CURRENT INPT PSYCH SUPPORT CONT WITH PO LEVAQUIN AND PULMONATY TOILET CONT WITH OTHER MEDS SCHEDULED Nutritional Asmnt/Malnutr-PDOC - Dietary Evaluation Malnutrition Findings (Please click <Entered> for more info): Nutritional Asmnt/Malnutrition Start: 07/18/18 10: 29 Text: Status: Complete Freq: Protocol: Document 07/18/18 10:29 AIDE (Rec: 07/18/18 11:02 AIDE [email or web address]) Nutritional Asmnt/Malnutrition Patient General Information Nutritional Screening High Risk Consult Diagnosis Increased Agitation Pertinent Medical Hx/Surgical Hx Bipolar, Schizophrenia, G-tube , Pneumonia, COPD, Seizure disorder Subjective Information Pt unable to communicate d/t confusion. Admitted from [facility] on voluntary status. Prev TF order was Fibersource HN 250cc Bolus Q4 hrs to provide 1500cc/1800kCal in 24hrs. G tube insertion stoma showed no bleeding or discharge. Current TF order is excessive, as 1500 ml/day of Two Bruno TF gives him 166% Kcal needs ( 3000kCal) and 151% of Prtn needs (125 gm). Current Diet Order/ Nutrition Support Two Bruno HN 250ml Q4hrs Patient / S.O Not Indicated Pertinent Medications Dulcolax, Keppra, Synthroid, MOM, Prednisone, Fleet Enema, Pertinent Labs (07/18) Gluc 110 H, Ca++ 11.6 H , Alb 3.7 L Nutritional Hx/Data Height 1.78 m Height (Calculated Centimeters) 177.8 Current Weight (lbs) 56.699 kg Weight (Calculated Kilograms) 56.7 Weight (Calculated Grams) 18922.0 [place] Body Weight 166 % [place] Body Weight 75 Body Mass Index (BMI) 17.9 Weight Status Underweight GI Symptoms GI Symptoms None Last BM None noted. Difficult in: None Food Allergies No: None noted Cultural/Ethnic/Faith Belief None noted. Skin Integrity/Comment: Vishnu Iniguez Estimated Nutritional Goals BEE in Kcals: Using Current wt Calories/Kcals/Kg 31-33 Kcals Calculated 4426-8736 Protein: Using Current wt Protein g/k.3-1.5 Protein Calculated 74-86 Fluid: ml 9142-1517 Nutritional Problem 1. Problem Problem Pt has excessive intake from enteral nutrition aeb Etiology current TF order Signs/Symptoms: 1500 ml/day of Two Bruno TF gives him 166% Kcal needs ( 3000kCal) and 151% of Prtn needs (125 gm) Malnutrition Alert Protein-Calorie Malnutrition Non-Severe Is there a minimum of two criteria No selected? Query Text:Check all the applicable criteria. A minimum of two criteria are recommended for diagnosis of either severe or non-severe malnutrition. Intervention/Recommendation Comments Recommend changing TF order to Jevity 1.2 [place] 250 ml Q 4hrs which will provide him with 1500ml/ day, 1800 kCal/day, 83 gm Prtn, 1211 ml H2O. Expected Outcomes/Goals Expected Outcomes/Goals 1. TF provides nutrition within recommended needs 2. BMI returns to WNL 3. F/U as MR in 3-5 days
[2018-07-27] MEDS: predniSONE 5 mg/5 mL UDC PO SCH ×2 (10:03→17:26)
[2018-07-27] MEDS: POLYETHYLENE GLYCOL 3350 17 GM PACK PO SCH ×2 (10:14→17:23)
[2018-07-27] MEDS: Levetiracetam 500 mg/5mL 5mL UDSyr *for ORAL USE ONLY GT SCH (20:00)
[2018-07-27] MEDS: Thioridazine Hydrochloride 25 MG TAB GT SCH (21:00)
[2018-07-28] MEDS: Levothyroxine 0.05 Mg Tab GT SCH (06:50)
[2018-07-28] MEDS: Albuterol/Ipratropium Neb 3 ML AERS HHN SCH ×4 (07:06→19:14)
[2018-07-28] MEDS ORDERED: Diatrizoate Meglumine/Diatri 30 mL Sol PO ONE (07:45)
[2018-07-28] MEDS: POLYETHYLENE GLYCOL 3350 17 GM PACK PO SCH ×2 (08:58→16:22)
[2018-07-28] MEDS: predniSONE 5 mg/5 mL UDC PO SCH ×2 (08:58→16:23)
--- NOTE | 2018-07-28 09:36 | Diagnostic Imaging Report ---
Exam: Gastrostomy tube placement. After injection of contrast material into gastrostomy tube there is normal opacification of the stomach. IMPRESSION: Gastrostomy tube in stomach
--- NOTE | 2018-07-28 09:38 | Progress Notes ---
DATE: 07/27/2018 SUBJECTIVE: Staff was spoken to. The patient is interviewed. Mood is noted to be less irritable. Affect is appropriate. The patient is not suicidal or homicidal today. The patient's insight and judgment are improving. No major behavioral problems. The patient could be redirected at this time. ASSESSMENT: The patient's impulsivity is resolving. PLAN: To continue the patient with the supportive therapy and followup. [facility]# [id number]
--- NOTE | 2018-07-28 14:17 | Progress Notes ---
DATE: 07/28/2018 SUBJECTIVE: Staff was spoken to. The patient is interviewed. Mood is noted to be irritable. Affect is constricted. Insight and judgment at this time are noted to be still impaired. Impulse control is noted to be limited. The patient has been constantly trying to pull the G-tube out and has been becoming for the staff to ____ him today. ASSESSMENT: The patient is still impulsive and is not able to care for self. PLAN: To continue the patient with the current medications. I encouraged the patient to verbalize the concerns rather than to act out. JOB# [id number]
--- NOTE | 2018-07-28 14:48 | General Progress Note ---
Subjective - Review of Systems Service Date: 07/28/18 Subjective: awake, quiet today Objective - Results Result Diagrams: 07/18/18 02:48 07/18/18 02:48 Recent Labs: Laboratory Last Values WBC 12.6 Th/cmm (4.8-10.8) H 07/18/18 02:48 RBC 4.37 Mil/cmm (4.30-5.70) 07/18/18 02:48 Hgb 13.2 gm/dL (12-16) 07/18/18 02:48 Hct 40.7 % (41.0-60) L 07/18/18 02:48 MCV 93.0 fl (80-99) 07/18/18 02:48 MCH 30.2 pg (26.0-30.0) H 07/18/18 02:48 MCHC Differential 32.5 pg (28.0-36.0) 07/18/18 02:48 RDW 12.5 % (11.5-20.0) 07/18/18 02:48 Plt Count 233 Th/cmm (150-400) 07/18/18 02:48 MPV 8.3 fl 07/18/18 02:48 Neutrophils % 82.9 % (40.0-80.0) H 07/18/18 02:48 Lymphocytes % 10.3 % (20.0-50.0) L 07/18/18 02:48 Monocytes % 5.8 % (2.0-10.0) 07/18/18 02:48 Eosinophils % 1.0 % (0.0-5.0) 07/18/18 02:48 Basophils % 0.0 % (0.0-2.0) 07/18/18 02:48 Sodium 138 mEq/L (136-145) 07/18/18 02:48 Potassium 3.5 mEq/L (3.5-5.1) 07/18/18 02:48 Chloride 104 mEq/L (98-107) 07/18/18 02:48 Carbon Dioxide 27.7 mEq/L (21.0-31.0) 07/18/18 02:48 Anion Gap 9.8 (7.0-16.0) 07/18/18 02:48 BUN 20 mg/dL (7-25) 07/18/18 02:48 Creatinine 0.7 mg/dL (0.7-1.3) 07/18/18 02:48 Est GFR ( Amer) > 60.0 ml/min (>90) 07/18/18 02:48 Est GFR (Non-Af Amer) > 60.0 ml/min 07/18/18 02:48 BUN/Creatinine Ratio 28.6 07/18/18 02:48 Glucose 110 mg/dL (70-105) H 07/18/18 02:48 Calcium 11.6 mg/dL (8.6-10.3) H 07/18/18 02:48 Total Bilirubin 0.4 mg/dL (0.3-1.0) 07/18/18 02:48 AST 31 U/L (13-39) 07/18/18 02:48 ALT 23 U/L (7-52) 07/18/18 02:48 Alkaline Phosphatase 84 U/L (34-104) 07/18/18 02:48 Total Protein 7.0 gm/dL (6.0-8.3) 07/18/18 02:48 Albumin 3.7 gm/dL (4.2-5.5) L 07/18/18 02:48 Globulin 3.3 gm/dL 07/18/18 02:48 Albumin/Globulin Ratio 1.1 (1.0-1.8) 07/18/18 02:48 Triglycerides 84 mg/dL (<150) 07/18/18 02:48 Cholesterol 116 mg/dL (<200) 07/18/18 02:48 LDL Cholesterol Direct 62 mg/dL (75-193) L 07/18/18 02:48 HDL Cholesterol 50 mg/dL (23-92) 07/18/18 02:48 TSH 2.08 uIU/ml (0.34-5.60) 07/18/18 02:48 Urine Source RANDOM 07/18/18 03:35 Urine Color YELLOW 07/18/18 03:35 Urine Clarity CLEAR (CLEAR) 07/18/18 03:35 Urine pH 7.5 (4.6 - 8.0) 07/18/18 03:35 Ur Specific [place] 1.010 (1.005-1.030) 07/18/18 03:35 Urine Protein NEGATIVE mg/dL (NEGATIVE) 07/18/18 03:35 Urine Glucose (UA) NEGATIVE mg/dL (NEGATIVE) 07/18/18 03:35 Urine Ketones NEGATIVE mg/dL (NEGATIVE) 07/18/18 03:35 Urine Blood NEGATIVE (NEGATIVE) 07/18/18 03:35 Urine Nitrate NEGATIVE (NEGATIVE) 07/18/18 03:35 Urine Bilirubin NEGATIVE (NEGATIVE) 07/18/18 03:35 Urine Urobilinogen 1.0 E.U./dL (0.2 - 1.0) 07/18/18 03:35 Ur Leukocyte Esterase NEGATIVE (NEGATIVE) 07/18/18 03:35 RPR NONREACTIVE (NONREACTIVE) 07/18/18 02:48 - Physical Exam Vitals and I&O: Vital Signs Temp 98.6 F 07/27/18 20:05 Pulse 70 07/28/18 11:48 Resp 18 07/28/18 11:48 BP 113/67 07/27/18 20:05 Pulse Ox 97 07/28/18 11:48 Intake & Output 07/27/18 07/28/18 07/28/18 18:59 06:59 18:59 Other: # Voids 3 2 # Bowel Movements 0 Active Medications: Current Medications Acetaminophen (Tylenol 650mg/20.3ml Suspension) 650 mg GT Q4H PRN PRN Reason: Pain Or Fever above 101 Stop: 09/16/18 09:05 Albuterol/Ipratropium (Duoneb Neb) 3 ml HHN QIDRT [facility] Stop: 09/16/18 06:59 Last Admin: 07/28/18 11:48 Dose: 3 ml Bisacodyl (Dulcolax 10 Mg Supp) 10 mg RC DAILY PRN PRN Reason: IF MOM INEFFECTIVE Stop: 09/16/18 04:41 Finasteride (Proscar) 5 mg GT DAILY [facility]; Protocol Stop: 09/16/18 08:59 Last Admin: 07/28/18 08:57 Dose: 5 mg Glycopyrrolate (Robinul) 2 mg GT TID [facility] Stop: 09/16/18 08:59 Last Admin: 07/28/18 13:42 Dose: 2 mg Guaifenesin (Robitussin) 200 mg GT Q4HR PRN PRN Reason: Cough or Congestion Stop: 09/16/18 04:41 Levetiracetam (Keppra) 750 mg GT HS [facility] Stop: 09/16/18 20:59 Last Admin: 07/27/18 20:00 Dose: 750 mg Levofloxacin (Levaquin) 500 mg GT DAILY [facility] Stop: 09/16/18 10:29 Last Admin: 07/28/18 08:57 Dose: 500 mg Levothyroxine Sodium (Synthroid) 0.05 mg GT QDAC [facility] Stop: 09/16/18 08:59 Last Admin: 07/28/18 06:50 Dose: Not Given Lorazepam (Ativan) 0.5 mg GT Q6H PRN; Protocol PRN Reason: Anxiety Stop: 09/16/18 04:41 Last Admin: 07/27/18 21:00 Dose: 0.5 mg Magnesium Hydroxide (Milk Of Magnesia) 30 ml GT DAILY PRN PRN Reason: Constipation Stop: 09/16/18 04:41 Mirtazapine (Remeron) 15 mg GT [facility]; Protocol Stop: 09/16/18 20:59 Last Admin: 07/27/18 21:00 Dose: 15 mg Olanzapine (Zyprexa) 20 mg GT [facility]; Protocol Stop: 09/24/18 20:59 Last Admin: 07/27/18 21:01 Dose: 20 mg Phenobarbital (Phenobarbital) 129.6 mg GT [facility] Stop: 09/16/18 20:59 Last Admin: 07/27/18 20:00 Dose: 129.6 mg Polyethylene Glycol (Miralax) 17 gm PO DAILY PRN PRN Reason: Constipation Stop: 09/16/18 04:41 Last Admin: 07/26/18 16:53 Dose: 17 gm Polyethylene Glycol (Miralax) 17 gm PO BID [facility] Stop: 09/21/18 08:59 Last Admin: 07/28/18 08:58 Dose: 17 gm Prednisone (Prednisone) 10 mg PO BID [facility] Stop: 09/16/18 16:59 Last Admin: 07/28/18 08:58 Dose: 10 mg Sodium Phosphate (Fleet Enema) 135 ml RC DAILY PRN PRN Reason: IF DULCOLAX INEFFECTIVE Stop: 09/16/18 04:41 Tamsulosin HCl (Flomax) 0.4 mg GT QPM [facility] Stop: 09/16/18 16:59 Last Admin: 07/27/18 17:21 Dose: 0.4 mg Thioridazine HCl (Mellaril) 50 mg GT HS [facility]; Protocol Stop: 09/16/18 20:59 Last Admin: 07/27/18 21:00 Dose: 50 mg Topiramate (Topamax) 200 mg GT BID [facility] Stop: 09/16/18 10:59 Last Admin: 07/28/18 08:57 Dose: 200 mg Topiramate (Topamax) 100 mg GT HS [facility] Stop: 09/16/18 20:59 Last Admin: 07/27/18 21:00 Dose: 100 mg General: Alert, No acute distress HEENT: Atraumatic, Mucous membr. moist/pink Neck: Supple, +2 carotid pulse wo bruit Cardiovascular: Regular rate, Normal S1, Normal S2 Lungs: Clear to auscultation Abdomen: Bowel sounds, Soft, Other (binder) Extremities: no Edema Neurological: Sensation intact Skin: no Rash Psych/Mental Status: Other (psych) - Procedures Procedures: Procedures Procedure Code Date BARIUM SWALLOW 87.61 04/05/95 C.A.T. 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 Epilepsy S/P reinsertion of GT tube - Plan Plan: Lab - Result Diagrams 07/18/18 02:48 07/18/18 02:48 Current Medications Acetaminophen (Tylenol 650mg/20.3ml Suspension) 650 mg GT Q4H PRN PRN Reason: Pain Or Fever above 101 Stop: 09/16/18 09:05 Albuterol/Ipratropium (Duoneb Neb) 3 ml HHN QIDRT [facility] Stop: 09/16/18 06:59 Last Admin: 07/28/18 11:48 Dose: 3 ml Bisacodyl (Dulcolax 10 Mg Supp) 10 mg RC DAILY PRN PRN Reason: IF MOM INEFFECTIVE Stop: 09/16/18 04:41 Finasteride (Proscar) 5 mg GT DAILY [facility]; Protocol Stop: 09/16/18 08:59 Last Admin: 07/28/18 08:57 Dose: 5 mg Glycopyrrolate (Robinul) 2 mg GT TID [facility] Stop: 09/16/18 08:59 Last Admin: 07/28/18 13:42 Dose: 2 mg Guaifenesin (Robitussin) 200 mg GT Q4HR PRN PRN Reason: Cough or Congestion Stop: 09/16/18 04:41 Levetiracetam (Keppra) 750 mg GT HS [facility] Stop: 09/16/18 20:59 Last Admin: 07/27/18 20:00 Dose: 750 mg Levofloxacin (Levaquin) 500 mg GT DAILY [facility] Stop: 09/16/18 10:29 Last Admin: 07/28/18 08:57 Dose: 500 mg Levothyroxine Sodium (Synthroid) 0.05 mg GT QDAC [facility] Stop: 09/16/18 08:59 Last Admin: 07/28/18 06:50 Dose: Not Given Lorazepam (Ativan) 0.5 mg GT Q6H PRN; Protocol PRN Reason: Anxiety Stop: 09/16/18 04:41 Last Admin: 07/27/18 21:00 Dose: 0.5 mg Magnesium Hydroxide (Milk Of Magnesia) 30 ml GT DAILY PRN PRN Reason: Constipation Stop: 09/16/18 04:41 Mirtazapine (Remeron) 15 mg GT HS [facility]; Protocol Stop: 09/16/18 20:59 Last Admin: 07/27/18 21:00 Dose: 15 mg Olanzapine (Zyprexa) 20 mg GT HS [facility]; Protocol Stop: 09/24/18 20:59 Last Admin: 07/27/18 21:01 Dose: 20 mg Phenobarbital (Phenobarbital) 129.6 mg GT HS [facility] Stop: 09/16/18 20:59 Last Admin: 07/27/18 20:00 Dose: 129.6 mg Polyethylene Glycol (Miralax) 17 gm PO DAILY PRN PRN Reason: Constipation Stop: 09/16/18 04:41 Last Admin: 07/26/18 16:53 Dose: 17 gm Polyethylene Glycol (Miralax) 17 gm PO BID [facility] Stop: 09/21/18 08:59 Last Admin: 07/28/18 08:58 Dose: 17 gm Prednisone (Prednisone) 10 mg PO BID [facility] Stop: 09/16/18 16:59 Last Admin: 07/28/18 08:58 Dose: 10 mg Sodium Phosphate (Fleet Enema) 135 ml RC DAILY PRN PRN Reason: IF DULCOLAX INEFFECTIVE Stop: 09/16/18 04:41 Tamsulosin HCl (Flomax) 0.4 mg GT QPM [facility] Stop: 09/16/18 16:59 Last Admin: 07/27/18 17:21 Dose: 0.4 mg Thioridazine HCl (Mellaril) 50 mg GT HS [facility]; Protocol Stop: 09/16/18 20:59 Last Admin: 07/27/18 21:00 Dose: 50 mg Topiramate (Topamax) 200 mg GT BID [facility] Stop: 09/16/18 10:59 Last Admin: 07/28/18 08:57 Dose: 200 mg Topiramate (Topamax) 100 mg GT HS [facility] Stop: 09/16/18 20:59 Last Admin: 07/27/18 21:00 Dose: 100 mg continue Psych meds maintian abd binder decrease frequency of feeding q 6 hrs but increase volume to provide enough bob Nutritional Asmnt/Malnutr-PDOC - Dietary Evaluation Malnutrition Findings (Please click <Entered> for more info): Nutritional Asmnt/Malnutrition Start: 07/18/18 10: 29 Text: Status: Complete Freq: Protocol: Document 07/18/18 10:29 AIDE (Rec: 07/18/18 11:02 AIDE [email or web address]) Nutritional Asmnt/Malnutrition Patient General Information Nutritional Screening High Risk Consult Diagnosis Increased Agitation Pertinent Medical Hx/Surgical Hx Bipolar, Schizophrenia, G-tube , Pneumonia, COPD, Seizure disorder Subjective Information Pt unable to communicate d/t confusion. Admitted from [facility] on voluntary status. Prev TF order was Fibersource HN 250cc Bolus Q4 hrs to provide 1500cc/1800kCal in 24hrs. G tube insertion stoma showed no bleeding or discharge. Current TF order is excessive, as 1500 ml/day of Two Bob TF gives him 166% Kcal needs ( 3000kCal) and 151% of Prtn needs (125 gm). Current Diet Order/ Nutrition Support Two Bob HN 250ml Q4hrs Patient / S.O Not Indicated Pertinent Medications Dulcolax, Keppra, Synthroid, MOM, Prednisone, Fleet Enema, Pertinent Labs (07/18) Gluc 110 H, Ca++ 11.6 H , Alb 3.7 L Nutritional Hx/Data Height 1.78 m Height (Calculated Centimeters) 177.8 Current Weight (lbs) 56.699 kg Weight (Calculated Kilograms) 56.7 Weight (Calculated Grams) 34472.0 [place] Body Weight 166 % [place] Body Weight 75 Body Mass Index (BMI) 17.9 Weight Status Underweight GI Symptoms GI Symptoms None Last BM None noted. Difficult in: None Food Allergies No: None noted Cultural/Ethnic/M[employer]on Belief None noted. Skin Integrity/Comment: Vishnu 19 Estimated Nutritional Goals BEE in Kcals: Using Current wt Calories/Kcals/Kg 31-33 Kcals Calculated 9136-7130 Protein: Using Current wt Protein g/k.3-1.5 Protein Calculated 74-86 Fluid: ml 6460-3378 Nutritional Problem 1. Problem Problem Pt has excessive intake from enteral nutrition aeb Etiology current TF order Signs/Symptoms: 1500 ml/day of Two Bob TF gives him 166% Kcal needs ( 3000kCal) and 151% of Prtn needs (125 gm) Malnutrition Alert Protein-Calorie Malnutrition Non-Severe Is there a minimum of two criteria No selected? Query Text:Check all the applicable criteria. A minimum of two criteria are recommended for diagnosis of either severe or non-severe malnutrition. Intervention/Recommendation Comments Recommend changing TF order to Jevity 1.2 Bob 250 ml Q 4hrs which will provide him with 1500ml/ day, 1800 kCal/day, 83 gm Prtn, 1211 ml H2O. Expected Outcomes/Goals Expected Outcomes/Goals 1. TF provides nutrition within recommended needs 2. BMI returns to WNL 3. F/U as MR in 3-5 days
[2018-07-28] MEDS: Levetiracetam 500 mg/5mL 5mL UDSyr *for ORAL USE ONLY GT SCH (21:26)
[2018-07-28] MEDS: Thioridazine Hydrochloride 25 MG TAB GT SCH (21:26)
[2018-07-29] MEDS: Albuterol/Ipratropium Neb 3 ML AERS HHN SCH ×4 (06:47→20:06)
[2018-07-29] MEDS: Levothyroxine 0.05 Mg Tab GT SCH (07:04)
[2018-07-29] MEDS: predniSONE 5 mg/5 mL UDC PO SCH ×2 (09:34→17:26)
[2018-07-29] MEDS: POLYETHYLENE GLYCOL 3350 17 GM PACK PO SCH ×2 (09:35→17:25)
[2018-07-29] MEDS ORDERED: Triple Antibiotic 0.94 gm Pkt TP ONE (10:28)
--- NOTE | 2018-07-29 16:27 | General Progress Note ---
Subjective - Review of Systems Service Date: 07/29/18 Subjective: awake, remains quiet Objective - Results Result Diagrams: 07/18/18 02:48 07/18/18 02:48 Recent Labs: Laboratory Last Values WBC 12.6 Th/cmm (4.8-10.8) H 07/18/18 02:48 RBC 4.37 Mil/cmm (4.30-5.70) 07/18/18 02:48 Hgb 13.2 gm/dL (12-16) 07/18/18 02:48 Hct 40.7 % (41.0-60) L 07/18/18 02:48 MCV 93.0 fl (80-99) 07/18/18 02:48 MCH 30.2 pg (26.0-30.0) H 07/18/18 02:48 MCHC Differential 32.5 pg (28.0-36.0) 07/18/18 02:48 RDW 12.5 % (11.5-20.0) 07/18/18 02:48 Plt Count 233 Th/cmm (150-400) 07/18/18 02:48 MPV 8.3 fl 07/18/18 02:48 Neutrophils % 82.9 % (40.0-80.0) H 07/18/18 02:48 Lymphocytes % 10.3 % (20.0-50.0) L 07/18/18 02:48 Monocytes % 5.8 % (2.0-10.0) 07/18/18 02:48 Eosinophils % 1.0 % (0.0-5.0) 07/18/18 02:48 Basophils % 0.0 % (0.0-2.0) 07/18/18 02:48 Sodium 138 mEq/L (136-145) 07/18/18 02:48 Potassium 3.5 mEq/L (3.5-5.1) 07/18/18 02:48 Chloride 104 mEq/L (98-107) 07/18/18 02:48 Carbon Dioxide 27.7 mEq/L (21.0-31.0) 07/18/18 02:48 Anion Gap 9.8 (7.0-16.0) 07/18/18 02:48 BUN 20 mg/dL (7-25) 07/18/18 02:48 Creatinine 0.7 mg/dL (0.7-1.3) 07/18/18 02:48 Est GFR ( Amer) > 60.0 ml/min (>90) 07/18/18 02:48 Est GFR (Non-Af Amer) > 60.0 ml/min 07/18/18 02:48 BUN/Creatinine Ratio 28.6 07/18/18 02:48 Glucose 110 mg/dL (70-105) H 07/18/18 02:48 Calcium 11.6 mg/dL (8.6-10.3) H 07/18/18 02:48 Total Bilirubin 0.4 mg/dL (0.3-1.0) 07/18/18 02:48 AST 31 U/L (13-39) 07/18/18 02:48 ALT 23 U/L (7-52) 07/18/18 02:48 Alkaline Phosphatase 84 U/L (34-104) 07/18/18 02:48 Total Protein 7.0 gm/dL (6.0-8.3) 07/18/18 02:48 Albumin 3.7 gm/dL (4.2-5.5) L 07/18/18 02:48 Globulin 3.3 gm/dL 07/18/18 02:48 Albumin/Globulin Ratio 1.1 (1.0-1.8) 07/18/18 02:48 Triglycerides 84 mg/dL (<150) 07/18/18 02:48 Cholesterol 116 mg/dL (<200) 07/18/18 02:48 LDL Cholesterol Direct 62 mg/dL (75-193) L 07/18/18 02:48 HDL Cholesterol 50 mg/dL (23-92) 07/18/18 02:48 TSH 2.08 uIU/ml (0.34-5.60) 07/18/18 02:48 Urine Source RANDOM 07/18/18 03:35 Urine Color YELLOW 07/18/18 03:35 Urine Clarity CLEAR (CLEAR) 07/18/18 03:35 Urine pH 7.5 (4.6 - 8.0) 07/18/18 03:35 Ur Specific [place] 1.010 (1.005-1.030) 07/18/18 03:35 Urine Protein NEGATIVE mg/dL (NEGATIVE) 07/18/18 03:35 Urine Glucose (UA) NEGATIVE mg/dL (NEGATIVE) 07/18/18 03:35 Urine Ketones NEGATIVE mg/dL (NEGATIVE) 07/18/18 03:35 Urine Blood NEGATIVE (NEGATIVE) 07/18/18 03:35 Urine Nitrate NEGATIVE (NEGATIVE) 07/18/18 03:35 Urine Bilirubin NEGATIVE (NEGATIVE) 07/18/18 03:35 Urine Urobilinogen 1.0 E.U./dL (0.2 - 1.0) 07/18/18 03:35 Ur Leukocyte Esterase NEGATIVE (NEGATIVE) 07/18/18 03:35 RPR NONREACTIVE (NONREACTIVE) 07/18/18 02:48 - Physical Exam Vitals and I&O: Vital Signs Temp 98.3 F 07/29/18 13:55 Pulse 85 07/29/18 14:30 Resp 14 07/29/18 14:30 BP 115/61 07/29/18 13:55 Pulse Ox 95 07/29/18 14:30 Intake & Output 07/28/18 07/29/18 07/29/18 18:59 06:59 18:59 Output Total 1 Balance -1 Output: Urine/Stool Mix 1 Other: # Voids 2 # Bowel Movements 1 Active Medications: Current Medications Acetaminophen (Tylenol 650mg/20.3ml Suspension) 650 mg GT Q4H PRN PRN Reason: Pain Or Fever above 101 Stop: 09/16/18 09:05 Albuterol/Ipratropium (Duoneb Neb) 3 ml HHN QIDRT [facility] Stop: 09/16/18 06:59 Last Admin: 07/29/18 14:27 Dose: 3 ml Bisacodyl (Dulcolax 10 Mg Supp) 10 mg RC DAILY PRN PRN Reason: IF MOM INEFFECTIVE Stop: 09/16/18 04:41 Finasteride (Proscar) 5 mg GT DAILY [facility]; Protocol Stop: 09/16/18 08:59 Last Admin: 07/29/18 09:36 Dose: 5 mg Glycopyrrolate (Robinul) 2 mg GT TID [facility] Stop: 09/16/18 08:59 Last Admin: 07/29/18 09:35 Dose: 2 mg Guaifenesin (Robitussin) 200 mg GT Q4HR PRN PRN Reason: Cough or Congestion Stop: 09/16/18 04:41 Levetiracetam (Keppra) 750 mg GT HS [facility] Stop: 09/16/18 20:59 Last Admin: 07/28/18 21:26 Dose: 750 mg Levofloxacin (Levaquin) 500 mg GT DAILY [facility] Stop: 09/16/18 10:29 Last Admin: 07/29/18 09:35 Dose: 500 mg Levothyroxine Sodium (Synthroid) 0.05 mg GT QDAC [facility] Stop: 09/16/18 08:59 Last Admin: 07/29/18 07:04 Dose: 0.05 mg Lorazepam (Ativan) 0.5 mg GT Q6H PRN; Protocol PRN Reason: Anxiety Stop: 09/16/18 04:41 Last Admin: 07/28/18 18:46 Dose: 0.5 mg Magnesium Hydroxide (Milk Of Magnesia) 30 ml GT DAILY PRN PRN Reason: Constipation Stop: 09/16/18 04:41 Mirtazapine (Remeron) 15 mg GT HS [facility]; Protocol Stop: 09/16/18 20:59 Last Admin: 07/28/18 21:24 Dose: 15 mg Neomycin/Polymyxin/Bacitracin (Triple Antibiotic Pkt) 1 pkt TP DAILY [facility] Stop: 09/27/18 10:54 Olanzapine (Zyprexa) 20 mg GT HS [facility]; Protocol Stop: 09/24/18 20:59 Last Admin: 07/28/18 21:27 Dose: 20 mg Phenobarbital (Phenobarbital) 129.6 mg GT HS [facility] Stop: 09/16/18 20:59 Last Admin: 07/28/18 21:25 Dose: 129.6 mg Polyethylene Glycol (Miralax) 17 gm PO DAILY PRN PRN Reason: Constipation Stop: 09/16/18 04:41 Last Admin: 07/26/18 16:53 Dose: 17 gm Polyethylene Glycol (Miralax) 17 gm PO BID [facility] Stop: 09/21/18 08:59 Last Admin: 07/29/18 09:35 Dose: 17 gm Prednisone (Prednisone) 10 mg PO BID [facility] Stop: 09/16/18 16:59 Last Admin: 07/29/18 09:34 Dose: 10 mg Sodium Phosphate (Fleet Enema) 135 ml RC DAILY PRN PRN Reason: IF DULCOLAX INEFFECTIVE Stop: 09/16/18 04:41 Tamsulosin HCl (Flomax) 0.4 mg GT QPM [facility] Stop: 09/16/18 16:59 Last Admin: 07/28/18 16:21 Dose: 0.4 mg Thioridazine HCl (Mellaril) 50 mg GT HS [facility]; Protocol Stop: 09/16/18 20:59 Last Admin: 07/28/18 21:26 Dose: 50 mg Topiramate (Topamax) 200 mg GT BID [facility] Stop: 09/16/18 10:59 Last Admin: 07/29/18 09:35 Dose: 200 mg Topiramate (Topamax) 100 mg GT HS [facility] Stop: 09/16/18 20:59 Last Admin: 07/28/18 21:25 Dose: 100 mg General: Alert, No acute distress HEENT: Atraumatic, Mucous membr. moist/pink Neck: Supple, +2 carotid pulse wo bruit Cardiovascular: Regular rate, Normal S1, Normal S2 Lungs: Clear to auscultation Abdomen: Bowel sounds, Soft, Other (binder) Extremities: no Edema Neurological: Sensation intact Skin: no Rash Psych/Mental Status: Other (psych decompensation) - Procedures Procedures: Procedures Procedure Code Date BARIUM SWALLOW 87.61 04/05/95 C.A.T. 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 Epilepsy S/P reinsertion of GT tube - Plan Plan: Lab - Result Diagrams 07/18/18 02:48 07/18/18 02:48 Current Medications Acetaminophen (Tylenol 650mg/20.3ml Suspension) 650 mg GT Q4H PRN PRN Reason: Pain Or Fever above 101 Stop: 09/16/18 09:05 Albuterol/Ipratropium (Duoneb Neb) 3 ml HHN QIDRT [facility] Stop: 09/16/18 06:59 Last Admin: 07/28/18 11:48 Dose: 3 ml Bisacodyl (Dulcolax 10 Mg Supp) 10 mg RC DAILY PRN PRN Reason: IF MOM INEFFECTIVE Stop: 09/16/18 04:41 Finasteride (Proscar) 5 mg GT DAILY [facility]; Protocol Stop: 09/16/18 08:59 Last Admin: 07/28/18 08:57 Dose: 5 mg Glycopyrrolate (Robinul) 2 mg GT TID [facility] Stop: 09/16/18 08:59 Last Admin: 07/28/18 13:42 Dose: 2 mg Guaifenesin (Robitussin) 200 mg GT Q4HR PRN PRN Reason: Cough or Congestion Stop: 09/16/18 04:41 Levetiracetam (Keppra) 750 mg GT HS [facility] Stop: 09/16/18 20:59 Last Admin: 07/27/18 20:00 Dose: 750 mg Levofloxacin (Levaquin) 500 mg GT DAILY [facility] Stop: 09/16/18 10:29 Last Admin: 07/28/18 08:57 Dose: 500 mg Levothyroxine Sodium (Synthroid) 0.05 mg GT QDAC [facility] Stop: 09/16/18 08:59 Last Admin: 07/28/18 06:50 Dose: Not Given Lorazepam (Ativan) 0.5 mg GT Q6H PRN; Protocol PRN Reason: Anxiety Stop: 09/16/18 04:41 Last Admin: 07/27/18 21:00 Dose: 0.5 mg Magnesium Hydroxide (Milk Of Magnesia) 30 ml GT DAILY PRN PRN Reason: Constipation Stop: 09/16/18 04:41 Mirtazapine (Remeron) 15 mg GT HS [facility]; Protocol Stop: 09/16/18 20:59 Last Admin: 07/27/18 21:00 Dose: 15 mg Olanzapine (Zyprexa) 20 mg GT HS [facility]; Protocol Stop: 09/24/18 20:59 Last Admin: 07/27/18 21:01 Dose: 20 mg Phenobarbital (Phenobarbital) 129.6 mg GT HS [facility] Stop: 09/16/18 20:59 Last Admin: 07/27/18 20:00 Dose: 129.6 mg Polyethylene Glycol (Miralax) 17 gm PO DAILY PRN PRN Reason: Constipation Stop: 09/16/18 04:41 Last Admin: 07/26/18 16:53 Dose: 17 gm Polyethylene Glycol (Miralax) 17 gm PO BID [facility] Stop: 09/21/18 08:59 Last Admin: 07/28/18 08:58 Dose: 17 gm Prednisone (Prednisone) 10 mg PO BID [facility] Stop: 09/16/18 16:59 Last Admin: 07/28/18 08:58 Dose: 10 mg Sodium Phosphate (Fleet Enema) 135 ml RC DAILY PRN PRN Reason: IF DULCOLAX INEFFECTIVE Stop: 09/16/18 04:41 Tamsulosin HCl (Flomax) 0.4 mg GT QPM [facility] Stop: 09/16/18 16:59 Last Admin: 07/27/18 17:21 Dose: 0.4 mg Thioridazine HCl (Mellaril) 50 mg GT HS [facility]; Protocol Stop: 09/16/18 20:59 Last Admin: 07/27/18 21:00 Dose: 50 mg Topiramate (Topamax) 200 mg GT BID [facility] Stop: 09/16/18 10:59 Last Admin: 07/28/18 08:57 Dose: 200 mg Topiramate (Topamax) 100 mg GT HS [facility] Stop: 09/16/18 20:59 Last Admin: 07/27/18 21:00 Dose: 100 mg continue Psych meds maintian abd binder decrease frequency of feeding q 6 hrs but increase volume to provide enough bob Nutritional Asmnt/Malnutr-PDOC - Dietary Evaluation Malnutrition Findings (Please click <Entered> for more info): Nutritional Asmnt/Malnutrition Start: 07/18/18 10: 29 Text: Status: Complete Freq: Protocol: Document 07/18/18 10:29 AIDE (Rec: 07/18/18 11:02 AIDE [email or web address]) Nutritional Asmnt/Malnutrition Patient General Information Nutritional Screening High Risk Consult Diagnosis Increased Agitation Pertinent Medical Hx/Surgical Hx Bipolar, Schizophrenia, G-tube , Pneumonia, COPD, Seizure disorder Subjective Information Pt unable to communicate d/t confusion. Admitted from [facility] on voluntary status. Prev TF order was Fibersource HN 250cc Bolus Q4 hrs to provide 1500cc/1800kCal in 24hrs. G tube insertion stoma showed no bleeding or discharge. Current TF order is excessive, as 1500 ml/day of Two Bob TF gives him 166% Kcal needs ( 3000kCal) and 151% of Prtn needs (125 gm). Current Diet Order/ Nutrition Support Two Bob HN 250ml Q4hrs Patient / S.O Not Indicated Pertinent Medications Dulcolax, Keppra, Synthroid, MOM, Prednisone, Fleet Enema, Pertinent Labs (07/18) Gluc 110 H, Ca++ 11.6 H , Alb 3.7 L Nutritional Hx/Data Height 1.78 m Height (Calculated Centimeters) 177.8 Current Weight (lbs) 56.699 kg Weight (Calculated Kilograms) 56.7 Weight (Calculated Grams) 84589.0 [place] Body Weight 166 % [place] Body Weight 75 Body Mass Index (BMI) 17.9 Weight Status Underweight GI Symptoms GI Symptoms None Last BM None noted. Difficult in: None Food Allergies No: None noted Cultural/Ethnic/Jew Belief None noted. Skin Integrity/Comment: Vishnu Iniguez Estimated Nutritional Goals BEE in Kcals: Using Current wt Calories/Kcals/Kg 31-33 Kcals Calculated 0087-2309 Protein: Using Current wt Protein g/k.3-1.5 Protein Calculated 74-86 Fluid: ml 6788-8935 Nutritional Problem 1. Problem Problem Pt has excessive intake from enteral nutrition aeb Etiology current TF order Signs/Symptoms: 1500 ml/day of Two Bob TF gives him 166% Kcal needs ( 3000kCal) and 151% of Prtn needs (125 gm) Malnutrition Alert Protein-Calorie Malnutrition Non-Severe Is there a minimum of two criteria No selected? Query Text:Check all the applicable criteria. A minimum of two criteria are recommended for diagnosis of either severe or non-severe malnutrition. Intervention/Recommendation Comments [facility].2 Bob 250 ml Q 4hrs which will provide him with 1500ml/ day, 1800 kCal/day, 83 gm Prtn, 1211 ml H2O. Expected Outcomes/Goals Expected Outcomes/Goals 1. TF provides nutrition within recommended needs 2. BMI returns to WNL 3. F/U as MR in 3-5 days
[2018-07-29] MEDS: Levetiracetam 500 mg/5mL 5mL UDSyr *for ORAL USE ONLY GT SCH (20:35)
[2018-07-29] MEDS: Thioridazine Hydrochloride 25 MG TAB GT SCH (20:36)
--- NOTE | 2018-07-29 23:09 | Progress Notes ---
DATE: 07/29/2018 SUBJECTIVE: Staff was spoken to. The patient is interviewed. Mood is noted to be less irritable. Affect is appropriate. Today insight and judgment are noted to be improving. Impulse control is noted to be fair. Coping skills are noted to be fair. No side effects to the medications are noted. The patient is redirectable today. ASSESSMENT: The patient's impulsivity is coming under control. PLAN: To continue the patient with the current medications and followup. JOB# [id number]
[2018-07-30] MEDS: Levothyroxine 0.05 Mg Tab GT SCH (06:29)
[2018-07-30] MEDS: Albuterol/Ipratropium Neb 3 ML AERS HHN SCH ×4 (07:37→19:55)
--- NOTE | 2018-07-30 10:06 | Internal Medicine Prog Note ---
Internal Medicine Subjective - Subjective Service Date: 07/30/18 Patient is:: awake Per staff patient has:: no adverse event, confused Internal Medicine Objective - Results Result Diagrams: 07/18/18 02:48 07/18/18 02:48 Recent Labs: Laboratory Last Values WBC 12.6 Th/cmm (4.8-10.8) H 07/18/18 02:48 RBC 4.37 Mil/cmm (4.30-5.70) 07/18/18 02:48 Hgb 13.2 gm/dL (12-16) 07/18/18 02:48 Hct 40.7 % (41.0-60) L 07/18/18 02:48 MCV 93.0 fl (80-99) 07/18/18 02:48 MCH 30.2 pg (26.0-30.0) H 07/18/18 02:48 MCHC Differential 32.5 pg (28.0-36.0) 07/18/18 02:48 RDW 12.5 % (11.5-20.0) 07/18/18 02:48 Plt Count 233 Th/cmm (150-400) 07/18/18 02:48 MPV 8.3 fl 07/18/18 02:48 Neutrophils % 82.9 % (40.0-80.0) H 07/18/18 02:48 Lymphocytes % 10.3 % (20.0-50.0) L 07/18/18 02:48 Monocytes % 5.8 % (2.0-10.0) 07/18/18 02:48 Eosinophils % 1.0 % (0.0-5.0) 07/18/18 02:48 Basophils % 0.0 % (0.0-2.0) 07/18/18 02:48 Sodium 138 mEq/L (136-145) 07/18/18 02:48 Potassium 3.5 mEq/L (3.5-5.1) 07/18/18 02:48 Chloride 104 mEq/L (98-107) 07/18/18 02:48 Carbon Dioxide 27.7 mEq/L (21.0-31.0) 07/18/18 02:48 Anion Gap 9.8 (7.0-16.0) 07/18/18 02:48 BUN 20 mg/dL (7-25) 07/18/18 02:48 Creatinine 0.7 mg/dL (0.7-1.3) 07/18/18 02:48 Est GFR ( Amer) > 60.0 ml/min (>90) 07/18/18 02:48 Est GFR (Non-Af Amer) > 60.0 ml/min 07/18/18 02:48 BUN/Creatinine Ratio 28.6 07/18/18 02:48 Glucose 110 mg/dL (70-105) H 07/18/18 02:48 Calcium 11.6 mg/dL (8.6-10.3) H 07/18/18 02:48 Total Bilirubin 0.4 mg/dL (0.3-1.0) 07/18/18 02:48 AST 31 U/L (13-39) 07/18/18 02:48 ALT 23 U/L (7-52) 07/18/18 02:48 Alkaline Phosphatase 84 U/L (34-104) 07/18/18 02:48 Total Protein 7.0 gm/dL (6.0-8.3) 07/18/18 02:48 Albumin 3.7 gm/dL (4.2-5.5) L 07/18/18 02:48 Globulin 3.3 gm/dL 07/18/18 02:48 Albumin/Globulin Ratio 1.1 (1.0-1.8) 07/18/18 02:48 Triglycerides 84 mg/dL (<150) 07/18/18 02:48 Cholesterol 116 mg/dL (<200) 07/18/18 02:48 LDL Cholesterol Direct 62 mg/dL (75-193) L 07/18/18 02:48 HDL Cholesterol 50 mg/dL (23-92) 07/18/18 02:48 TSH 2.08 uIU/ml (0.34-5.60) 07/18/18 02:48 Urine Source RANDOM 07/18/18 03:35 Urine Color YELLOW 07/18/18 03:35 Urine Clarity CLEAR (CLEAR) 07/18/18 03:35 Urine pH 7.5 (4.6 - 8.0) 07/18/18 03:35 Ur Specific [place] 1.010 (1.005-1.030) 07/18/18 03:35 Urine Protein NEGATIVE mg/dL (NEGATIVE) 07/18/18 03:35 Urine Glucose (UA) NEGATIVE mg/dL (NEGATIVE) 07/18/18 03:35 Urine Ketones NEGATIVE mg/dL (NEGATIVE) 07/18/18 03:35 Urine Blood NEGATIVE (NEGATIVE) 07/18/18 03:35 Urine Nitrate NEGATIVE (NEGATIVE) 07/18/18 03:35 Urine Bilirubin NEGATIVE (NEGATIVE) 07/18/18 03:35 Urine Urobilinogen 1.0 E.U./dL (0.2 - 1.0) 07/18/18 03:35 Ur Leukocyte Esterase NEGATIVE (NEGATIVE) 07/18/18 03:35 RPR NONREACTIVE (NONREACTIVE) 07/18/18 02:48 - Physical Exam Vitals and I&O: Vital Signs Temp 98.9 F 07/29/18 21:11 Pulse 86 07/30/18 07:38 Resp 18 07/30/18 07:38 BP 105/63 07/29/18 21:11 Pulse Ox 94 07/30/18 07:38 Intake & Output 07/29/18 07/30/18 07/30/18 18:59 06:59 18:59 Other: # Voids 2 2 # Bowel Movements 2 1 Active Medications: Current Medications Acetaminophen (Tylenol 650mg/20.3ml Suspension) 650 mg GT Q4H PRN PRN Reason: Pain Or Fever above 101 Stop: 09/16/18 09:05 Albuterol/Ipratropium (Duoneb Neb) 3 ml HHN QIDRT [facility] Stop: 09/16/18 06:59 Last Admin: 07/30/18 07:37 Dose: 3 ml Bisacodyl (Dulcolax 10 Mg Supp) 10 mg RC DAILY PRN PRN Reason: IF MOM INEFFECTIVE Stop: 09/16/18 04:41 Finasteride (Proscar) 5 mg GT DAILY [facility]; Protocol Stop: 09/16/18 08:59 Last Admin: 07/29/18 09:36 Dose: 5 mg Glycopyrrolate (Robinul) 2 mg GT TID [facility] Stop: 09/16/18 08:59 Last Admin: 07/29/18 20:34 Dose: 2 mg Guaifenesin (Robitussin) 200 mg GT Q4HR PRN PRN Reason: Cough or Congestion Stop: 09/16/18 04:41 Levetiracetam (Keppra) 750 mg GT HS [facility] Stop: 09/16/18 20:59 Last Admin: 07/29/18 20:35 Dose: 750 mg Levofloxacin (Levaquin) 500 mg GT DAILY [facility] Stop: 09/16/18 10:29 Last Admin: 07/29/18 09:35 Dose: 500 mg Levothyroxine Sodium (Synthroid) 0.05 mg GT QDAC [facility] Stop: 09/16/18 08:59 Last Admin: 07/30/18 06:29 Dose: 0.05 mg Lorazepam (Ativan) 0.5 mg GT Q6H PRN; Protocol PRN Reason: Anxiety Stop: 09/16/18 04:41 Last Admin: 07/28/18 18:46 Dose: 0.5 mg Magnesium Hydroxide (Milk Of Magnesia) 30 ml GT DAILY PRN PRN Reason: Constipation Stop: 09/16/18 04:41 Mirtazapine (Remeron) 15 mg GT HS [facility]; Protocol Stop: 09/16/18 20:59 Last Admin: 07/29/18 20:35 Dose: 15 mg Neomycin/Polymyxin/Bacitracin (Triple Antibiotic Pkt) 1 pkt TP DAILY [facility] Stop: 09/27/18 10:54 Olanzapine (Zyprexa) 20 mg GT HS [facility]; Protocol Stop: 09/24/18 20:59 Last Admin: 07/29/18 20:33 Dose: 20 mg Phenobarbital (Phenobarbital) 129.6 mg GT HS [facility] Stop: 09/16/18 20:59 Last Admin: 07/29/18 20:34 Dose: 129.6 mg Polyethylene Glycol (Miralax) 17 gm PO DAILY PRN PRN Reason: Constipation Stop: 09/16/18 04:41 Last Admin: 07/26/18 16:53 Dose: 17 gm Polyethylene Glycol (Miralax) 17 gm PO BID [facility] Stop: 09/21/18 08:59 Last Admin: 07/29/18 17:25 Dose: Not Given Prednisone (Prednisone) 10 mg PO BID [facility] Stop: 09/16/18 16:59 Last Admin: 07/29/18 17:26 Dose: 10 mg Sodium Phosphate (Fleet Enema) 135 ml RC DAILY PRN PRN Reason: IF DULCOLAX INEFFECTIVE Stop: 09/16/18 04:41 Tamsulosin HCl (Flomax) 0.4 mg GT QPM [facility] Stop: 09/16/18 16:59 Last Admin: 07/29/18 17:26 Dose: 0.4 mg Thioridazine HCl (Mellaril) 50 mg GT HS [facility]; Protocol Stop: 09/16/18 20:59 Last Admin: 07/29/18 20:36 Dose: 50 mg Topiramate (Topamax) 200 mg GT BID [facility] Stop: 09/16/18 10:59 Last Admin: 07/29/18 17:26 Dose: 200 mg Topiramate (Topamax) 100 mg GT HS [facility] Stop: 09/16/18 20:59 Last Admin: 07/29/18 20:37 Dose: 100 mg General: demented, thin HEENT: PERRLA, EOMI Neck: Supple, No JVD Lungs: CTAB Cardiovascular: RRR, Normal S1, Normal S2 Abdomen: soft, non-tender, +GT Extremities: clear - Procedures Procedures: Procedures Procedure Code Date BARIUM SWALLOW 87.61 04/05/95 C.A.T. SCAN OF HEAD 87.03 04/05/95 CLOSURE SKIN & SUBCUTANEOUS NEC 86.59 04/05/95 ELECTROENCEPHALOGRAM 89.14 04/05/95 HEAD SOFT TISS X-RAY NEC 87.09 04/05/95 LINEAR REP LID LACER 08.81 11/06/95 RPR F/E/E/N/L/M 2.5 CM/< 76392 11/06/95 Internal Medicine Assmt/Plan - Assessment Assessment: 1. ACUTE PSYCH DECOMPENSATION 2. HX OF PEG 2RY TO DYSPAHGIA WITH RECENT REPLACEMENT 3. HX OF RECENT LEFT BASAL PNA-CLINICALLY STABLE 4. HX OF HYPOTHYROIDISM 5. HX OF SEIZURE D/O-ASYMTOMATIC. - Plan Plan: CONT WITH CURRENT INPT PSYCH SUPPORT CONT WITH PO LEVAQUIN AND PULMONARY TOILET CONT WITH OTHER MEDS SCHEDULED Nutritional Asmnt/Malnutr-PDOC - Dietary Evaluation Malnutrition Findings (Please click <Entered> for more info): Nutritional Asmnt/Malnutrition Start: 07/18/18 10: 29 Text: Status: Complete Freq: Protocol: Document 07/18/18 10:29 AIDE (Rec: 07/18/18 11:02 AIDE [email or web address]) Nutritional Asmnt/Malnutrition Patient General Information Nutritional Screening High Risk Consult Diagnosis Increased Agitation Pertinent Medical Hx/Surgical Hx Bipolar, Schizophrenia, G-tube , Pneumonia, COPD, Seizure disorder Subjective Information Pt unable to communicate d/t confusion. Admitted from [facility] on voluntary status. Prev TF order was Fibersource HN 250cc Bolus Q4 hrs to provide 1500cc/1800kCal in 24hrs. G tube insertion stoma showed no bleeding or discharge. Current TF order is excessive, as 1500 ml/day of Two Bruno TF gives him 166% Kcal needs ( 3000kCal) and 151% of Prtn needs (125 gm). Current Diet Order/ Nutrition Support Two Bruno HN 250ml Q4hrs Patient / S.O Not Indicated Pertinent Medications Dulcolax, Keppra, Synthroid, MOM, Prednisone, Fleet Enema, Pertinent Labs (07/18) Gluc 110 H, Ca++ 11.6 H , Alb 3.7 L Nutritional Hx/Data Height 1.78 m Height (Calculated Centimeters) 177.8 Current Weight (lbs) 56.699 kg Weight (Calculated Kilograms) 56.7 Weight (Calculated Grams) 85139.0 [place] Body Weight 166 % [place] Body Weight 75 Body Mass Index (BMI) 17.9 Weight Status Underweight GI Symptoms GI Symptoms None Last BM None noted. Difficult in: None Food Allergies No: None noted Cultural/Ethnic/Jew Belief None noted. Skin Integrity/Comment: Vishnu Iniguez Estimated Nutritional Goals BEE in Kcals: Using Current wt Calories/Kcals/Kg 31-33 Kcals Calculated 9892-9987 Protein: Using Current wt Protein g/k.3-1.5 Protein Calculated 74-86 Fluid: ml 9461-6444 Nutritional Problem 1. Problem Problem Pt has excessive intake from enteral nutrition aeb Etiology current TF order Signs/Symptoms: 1500 ml/day of Two Bruno TF gives him 166% Kcal needs ( 3000kCal) and 151% of Prtn needs (125 gm) Malnutrition Alert Protein-Calorie Malnutrition Non-Severe Is there a minimum of two criteria No selected? Query Text:Check all the applicable criteria. A minimum of two criteria are recommended for diagnosis of either severe or non-severe malnutrition. Intervention/Recommendation Comments Recommend changing TF order to Jevity 1.2 Bruno 250 ml Q 4hrs which will provide him with 1500ml/ day, 1800 kCal/day, 83 gm Prtn, 1211 ml H2O. Expected Outcomes/Goals Expected Outcomes/Goals 1. TF provides nutrition within recommended needs 2. BMI returns to WNL 3. F/U as MR in 3-5 days
[2018-07-30] MEDS ORDERED: Albuterol/Ipratropium Neb 3 ML AERS HHN ONE (10:17)
[2018-07-30] MEDS: predniSONE 5 mg/5 mL UDC PO SCH ×2 (10:23→17:17)
[2018-07-30] MEDS: POLYETHYLENE GLYCOL 3350 17 GM PACK PO SCH ×2 (10:23→17:19)
[2018-07-30] MEDS: Triple Antibiotic 0.94 gm Pkt TP SCH (10:24)
--- NOTE | 2018-07-30 20:36 | Progress Notes ---
DATE: 07/30/2018 PSYCHOLOGY PROGRESS NOTE SUBJECTIVE: The patient is seen and interviewed. Case is discussed with staff. The patient presents as less irritable on this visit. The patient is responding to the clinical interview questions. Staff reports the patient's impulse control is improving. OBJECTIVE: Mood is less irritable. Affect is appropriate. Thought process shows to be more goal oriented. The patient denied any hallucinations or delusions. The patient's behavior is more redirectable. ASSESSMENT AND PLAN: The patient's impulsivity is coming under control. The patient has become more compliant with his care and treatment. We provided positive reinforcement for this as well as remotivation. We provided review of coping strategies for phase of life issues. We encouraged the patient to demonstrate emotional and self-regulation and to follow through with staff direction at his facility. No followup is indicated. We will revisit this patient in 2-3 days if the patient is still on the unit to continue the present treatment. JOB# [id number] TERENCE
[2018-07-30] MEDS: Thioridazine Hydrochloride 25 MG TAB GT SCH (21:08)
[2018-07-30] MEDS: Levetiracetam 500 mg/5mL 5mL UDSyr *for ORAL USE ONLY GT SCH (21:09)
--- NOTE | 2018-07-31 00:27 | Progress Notes ---
DATE: 07/30/2018 SUBJECTIVE: Staff was spoken to. The patient is interviewed. Mood is noted to be less irritable. Affect is appropriate. The patient's insight and judgment are noted to be improving. Impulse control is noted to be fair today. No side effects to medications are noted. The patient has been able to follow the directions. The patient has been able to stay away from pulling the G-tube out. ASSESSMENT: The patient is stabilizing. PLAN: To discharge the patient when placement is available. JOB# [id number]
[2018-07-31] MEDS: Levothyroxine 0.05 Mg Tab GT SCH (06:37)
[2018-07-31] MEDS: Albuterol/Ipratropium Neb 3 ML AERS HHN SCH ×2 (07:33→11:37)
[2018-07-31] MEDS: POLYETHYLENE GLYCOL 3350 17 GM PACK PO SCH (09:45)
[2018-07-31] MEDS: predniSONE 5 mg/5 mL UDC PO SCH (09:45)
--- NOTE | 2018-07-31 10:11 | Internal Medicine Prog Note ---
Internal Medicine Subjective - Subjective Patient is:: awake Per staff patient has:: no adverse event, confused Internal Medicine Objective - Results Result Diagrams: 07/18/18 02:48 07/18/18 02:48 Recent Labs: Laboratory Last Values WBC 12.6 Th/cmm (4.8-10.8) H 07/18/18 02:48 RBC 4.37 Mil/cmm (4.30-5.70) 07/18/18 02:48 Hgb 13.2 gm/dL (12-16) 07/18/18 02:48 Hct 40.7 % (41.0-60) L 07/18/18 02:48 MCV 93.0 fl (80-99) 07/18/18 02:48 MCH 30.2 pg (26.0-30.0) H 07/18/18 02:48 MCHC Differential 32.5 pg (28.0-36.0) 07/18/18 02:48 RDW 12.5 % (11.5-20.0) 07/18/18 02:48 Plt Count 233 Th/cmm (150-400) 07/18/18 02:48 MPV 8.3 fl 07/18/18 02:48 Neutrophils % 82.9 % (40.0-80.0) H 07/18/18 02:48 Lymphocytes % 10.3 % (20.0-50.0) L 07/18/18 02:48 Monocytes % 5.8 % (2.0-10.0) 07/18/18 02:48 Eosinophils % 1.0 % (0.0-5.0) 07/18/18 02:48 Basophils % 0.0 % (0.0-2.0) 07/18/18 02:48 Sodium 138 mEq/L (136-145) 07/18/18 02:48 Potassium 3.5 mEq/L (3.5-5.1) 07/18/18 02:48 Chloride 104 mEq/L (98-107) 07/18/18 02:48 Carbon Dioxide 27.7 mEq/L (21.0-31.0) 07/18/18 02:48 Anion Gap 9.8 (7.0-16.0) 07/18/18 02:48 BUN 20 mg/dL (7-25) 07/18/18 02:48 Creatinine 0.7 mg/dL (0.7-1.3) 07/18/18 02:48 Est GFR ( Amer) > 60.0 ml/min (>90) 07/18/18 02:48 Est GFR (Non-Af Amer) > 60.0 ml/min 07/18/18 02:48 BUN/Creatinine Ratio 28.6 07/18/18 02:48 Glucose 110 mg/dL (70-105) H 07/18/18 02:48 Calcium 11.6 mg/dL (8.6-10.3) H 07/18/18 02:48 Total Bilirubin 0.4 mg/dL (0.3-1.0) 07/18/18 02:48 AST 31 U/L (13-39) 07/18/18 02:48 ALT 23 U/L (7-52) 07/18/18 02:48 Alkaline Phosphatase 84 U/L (34-104) 07/18/18 02:48 Total Protein 7.0 gm/dL (6.0-8.3) 07/18/18 02:48 Albumin 3.7 gm/dL (4.2-5.5) L 07/18/18 02:48 Globulin 3.3 gm/dL 07/18/18 02:48 Albumin/Globulin Ratio 1.1 (1.0-1.8) 07/18/18 02:48 Triglycerides 84 mg/dL (<150) 07/18/18 02:48 Cholesterol 116 mg/dL (<200) 07/18/18 02:48 LDL Cholesterol Direct 62 mg/dL (75-193) L 07/18/18 02:48 HDL Cholesterol 50 mg/dL (23-92) 07/18/18 02:48 TSH 2.08 uIU/ml (0.34-5.60) 07/18/18 02:48 Urine Source RANDOM 07/18/18 03:35 Urine Color YELLOW 07/18/18 03:35 Urine Clarity CLEAR (CLEAR) 07/18/18 03:35 Urine pH 7.5 (4.6 - 8.0) 07/18/18 03:35 Ur Specific [place] 1.010 (1.005-1.030) 07/18/18 03:35 Urine Protein NEGATIVE mg/dL (NEGATIVE) 07/18/18 03:35 Urine Glucose (UA) NEGATIVE mg/dL (NEGATIVE) 07/18/18 03:35 Urine Ketones NEGATIVE mg/dL (NEGATIVE) 07/18/18 03:35 Urine Blood NEGATIVE (NEGATIVE) 07/18/18 03:35 Urine Nitrate NEGATIVE (NEGATIVE) 07/18/18 03:35 Urine Bilirubin NEGATIVE (NEGATIVE) 07/18/18 03:35 Urine Urobilinogen 1.0 E.U./dL (0.2 - 1.0) 07/18/18 03:35 Ur Leukocyte Esterase NEGATIVE (NEGATIVE) 07/18/18 03:35 RPR NONREACTIVE (NONREACTIVE) 07/18/18 02:48 - Physical Exam Vitals and I&O: Vital Signs Temp 97.7 F 07/31/18 06:13 Pulse 80 07/31/18 07:33 Resp 18 07/31/18 07:33 BP 122/67 07/31/18 06:13 Pulse Ox 94 07/31/18 07:33 Intake & Output 07/30/18 07/31/18 07/31/18 18:59 06:59 18:59 Intake Total 0 Balance 0 Intake: Oral 0 Other: # Voids 3 1 # Bowel Movements 1 0 Active Medications: Current Medications Acetaminophen (Tylenol 650mg/20.3ml Suspension) 650 mg GT Q4H PRN PRN Reason: Pain Or Fever above 101 Stop: 09/16/18 09:05 Albuterol/Ipratropium (Duoneb Neb) 3 ml HHN QIDRT [facility] Stop: 09/16/18 06:59 Last Admin: 07/31/18 07:33 Dose: 3 ml Bisacodyl (Dulcolax 10 Mg Supp) 10 mg RC DAILY PRN PRN Reason: IF MOM INEFFECTIVE Stop: 09/16/18 04:41 Finasteride (Proscar) 5 mg GT DAILY [facility]; Protocol Stop: 09/16/18 08:59 Last Admin: 07/31/18 09:45 Dose: 5 mg Glycopyrrolate (Robinul) 2 mg GT TID [facility] Stop: 09/16/18 08:59 Last Admin: 07/31/18 09:45 Dose: 2 mg Guaifenesin (Robitussin) 200 mg GT Q4HR PRN PRN Reason: Cough or Congestion Stop: 09/16/18 04:41 Levetiracetam (Keppra) 750 mg GT HS [facility] Stop: 09/16/18 20:59 Last Admin: 07/30/18 21:09 Dose: 750 mg Levofloxacin (Levaquin) 500 mg GT DAILY [facility] Stop: 09/16/18 10:29 Last Admin: 07/31/18 09:45 Dose: 500 mg Levothyroxine Sodium (Synthroid) 0.05 mg GT QDAC [facility] Stop: 09/16/18 08:59 Last Admin: 07/31/18 06:37 Dose: 0.05 mg Lorazepam (Ativan) 0.5 mg GT Q6H PRN; Protocol PRN Reason: Anxiety Stop: 09/16/18 04:41 Last Admin: 07/30/18 10:24 Dose: 0.5 mg Magnesium Hydroxide (Milk Of Magnesia) 30 ml GT DAILY PRN PRN Reason: Constipation Stop: 09/16/18 04:41 Mirtazapine (Remeron) 15 mg GT HS [facility]; Protocol Stop: 09/16/18 20:59 Last Admin: 07/30/18 20:45 Dose: 15 mg Neomycin/Polymyxin/Bacitracin (Triple Antibiotic Pkt) 1 pkt TP DAILY [facility] Stop: 09/27/18 10:54 Last Admin: 07/30/18 10:24 Dose: 1 pkt Olanzapine (Zyprexa) 20 mg GT HS [facility]; Protocol Stop: 09/24/18 20:59 Last Admin: 07/30/18 21:07 Dose: 20 mg Phenobarbital (Phenobarbital) 129.6 mg GT [facility] Stop: 09/16/18 20:59 Last Admin: 07/30/18 21:08 Dose: 129.6 mg Polyethylene Glycol (Miralax) 17 gm PO DAILY PRN PRN Reason: Constipation Stop: 09/16/18 04:41 Last Admin: 07/26/18 16:53 Dose: 17 gm Polyethylene Glycol (Miralax) 17 gm PO BID [facility] Stop: 09/21/18 08:59 Last Admin: 07/31/18 09:45 Dose: 17 gm Prednisone (Prednisone) 10 mg PO BID [facility] Stop: 09/16/18 16:59 Last Admin: 07/31/18 09:45 Dose: 10 mg Sodium Phosphate (Fleet Enema) 135 ml RC DAILY PRN PRN Reason: IF DULCOLAX INEFFECTIVE Stop: 09/16/18 04:41 Tamsulosin HCl (Flomax) 0.4 mg GT QPM [facility] Stop: 09/16/18 16:59 Last Admin: 07/30/18 17:18 Dose: 0.4 mg Thioridazine HCl (Mellaril) 50 mg GT HS [facility]; Protocol Stop: 09/16/18 20:59 Last Admin: 07/30/18 21:08 Dose: 50 mg Topiramate (Topamax) 200 mg GT BID [facility] Stop: 09/16/18 10:59 Last Admin: 07/31/18 09:45 Dose: 200 mg Topiramate (Topamax) 100 mg GT HS [facility] Stop: 09/16/18 20:59 Last Admin: 07/30/18 21:08 Dose: 100 mg General: demented, thin HEENT: PERRLA, EOMI Neck: Supple, No JVD Lungs: CTAB Cardiovascular: RRR, Normal S1, Normal S2 Abdomen: soft, non-tender, +GT Extremities: clear - Procedures Procedures: Procedures Procedure Code Date BARIUM SWALLOW 87.61 04/05/95 C.A.T. SCAN OF HEAD 87.03 04/05/95 CLOSURE SKIN & SUBCUTANEOUS NEC 86.59 04/05/95 ELECTROENCEPHALOGRAM 89.14 04/05/95 HEAD SOFT TISS X-RAY NEC 87.09 04/05/95 LINEAR REP LID LACER 08.81 11/06/95 RPR F/E/E/N/L/M 2.5 CM/< 17604 11/06/95 Internal Medicine Assmt/Plan - Assessment Assessment: 1. ACUTE PSYCH DECOMPENSATION 2. HX OF PEG 2RY TO DYSPAHGIA WITH RECENT REPLACEMENT 3. HX OF RECENT LEFT BASAL PNA-CLINICALLY STABLE 4. HX OF HYPOTHYROIDISM 5. HX OF SEIZURE D/O-ASYMTOMATIC. - Plan Plan: CONT WITH CURRENT INPT PSYCH SUPPORT CONT WITH PO LEVAQUIN AND PULMONARY TOILET CONT WITH OTHER MEDS SCHEDULED Nutritional Asmnt/Malnutr-PDOC - Dietary Evaluation Malnutrition Findings (Please click <Entered> for more info): Nutritional Asmnt/Malnutrition Start: 07/18/18 10: 29 Text: Status: Complete Freq: Protocol: Document 07/18/18 10:29 RHLOUIS (Rec: 07/18/18 11:02 AIDE [email or web address]) Nutritional Asmnt/Malnutrition Patient General Information Nutritional Screening High Risk Consult Diagnosis Increased Agitation Pertinent Medical Hx/Surgical Hx Bipolar, Schizophrenia, G-tube , Pneumonia, COPD, Seizure disorder Subjective Information Pt unable to communicate d/t confusion. Admitted from [facility] on voluntary status. Prev TF order was Fibersource HN 250cc Bolus Q4 hrs to provide 1500cc/1800kCal in 24hrs. G tube insertion stoma showed no bleeding or discharge. Current TF order is excessive, as 1500 ml/day of Two Bruno TF gives him 166% Kcal needs ( 3000kCal) and 151% of Prtn needs (125 gm). Current Diet Order/ Nutrition Support Two Bruno HN 250ml Q4hrs Patient / S.O Not Indicated Pertinent Medications Dulcolax, Keppra, Synthroid, MOM, Prednisone, Fleet Enema, Pertinent Labs (07/18) Gluc 110 H, Ca++ 11.6 H , Alb 3.7 L Nutritional Hx/Data Height 1.78 m Height (Calculated Centimeters) 177.8 Current Weight (lbs) 56.699 kg Weight (Calculated Kilograms) 56.7 Weight (Calculated Grams) 72141.0 [place] Body Weight 166 % [place] Body Weight 75 Body Mass Index (BMI) 17.9 Weight Status Underweight GI Symptoms GI Symptoms None Last BM None noted. Difficult in: None Food Allergies No: None noted Cultural/Ethnic/Episcopalian Belief None noted. Skin Integrity/Comment: Vishnu Iniguez Estimated Nutritional Goals BEE in Kcals: Using Current wt Calories/Kcals/Kg 31-33 Kcals Calculated 5098-5918 Protein: Using Current wt Protein g/k.3-1.5 Protein Calculated 74-86 Fluid: ml 0937-6493 Nutritional Problem 1. Problem Problem Pt has excessive intake from enteral nutrition aeb Etiology current TF order Signs/Symptoms: 1500 ml/day of Two Bruno TF gives him 166% Kcal needs ( 3000kCal) and 151% of Prtn needs (125 gm) Malnutrition Alert Protein-Calorie Malnutrition Non-Severe Is there a minimum of two criteria No selected? Query Text:Check all the applicable criteria. A minimum of two criteria are recommended for diagnosis of either severe or non-severe malnutrition. Intervention/Recommendation Comments Recommend changing TF order to Jevity 1.2 Bruno 250 ml Q 4hrs which will provide him with 1500ml/ day, 1800 kCal/day, 83 gm Prtn, 1211 ml H2O. Expected Outcomes/Goals Expected Outcomes/Goals 1. TF provides nutrition within recommended needs 2. BMI returns to WNL 3. F/U as MR in 3-5 days
[2018-07-31] MEDS: Triple Antibiotic 0.94 gm Pkt TP SCH (10:48)
== END 2018-07-31 11:45 | DRG 885 ==
LOC: ER 02:13 → GERO 04:00
PROVIDERS: ADMIT Psychiatry & Neurology Psychiatry; ATTEND Psychiatry & Neurology Psychiatry
DX: F23 Brief psychotic disorder (principal); F79 Unspecified intellectual disabilities; J18.9 Pneumonia, unspecified organism; K94.23 Gastrostomy malfunction; E44.1 Mild protein-calorie malnutrition; R64 Cachexia; Z68.1 Body mass index [BMI] 19.9 or less, adult; F03.91 Unspecified dementia, unspecified severity, with behavioral disturbance; J44.0 Chronic obstructive pulmonary disease with (acute) lower respiratory infection; E03.9 Hypothyroidism, unspecified; G40.909 Epilepsy, unspecified, not intractable, without status epilepticus; Y83.8 Other surgical procedures as the cause of abnormal reaction of the patient, or of later complication, without mention of misadventure at the time of the procedure; Y92.89 Other specified places as the place of occurrence of the external cause; Y95 Nosocomial condition; Z88.8 Allergy status to other drugs, medicaments and biological substances
CPT/HCPCS: 36415-UA; 71045-TC; 80053-TC; 80061-TC; 81003-TC; 83036-90; 84443-TC; 85025-TC; 86592-TC; 93005; 94760; G0410; J0696; J2060; J7512; Z7610

== ENCOUNTER 2018-09-03 20:37 | Inpatient (IN) | payer MEDICARE, MEDICAID ==
--- NOTE | 2018-09-03 20:52 | ED Physician Chart ---
ED Chief Complaint/HPI - Patient Information Date Seen:: 09/03/18 Time Seen:: 20:49 Chief Complaint:: agitation History of Present Illness:: 63 yr old male from the correction with agitation psychosis hx of schizophrenia no trauma no ams no nvdc no fever cough or s/t Allergies:: Allergies Allergy/AdvReac Type Severity Reaction Status Date / Time divalproex sodium Allergy Verified 07/11/18 18:46 [From [facility]] ED Review of Systems - Review of Systems General/Constitutional: No fever, No chills, No weight loss, No weakness, No diaphoresis, No edema, No loss of appetite Skin: No skin lesions, No rash, No bruising Head: No headache, No light-headedness Eyes: No loss of vision, No pain, No diplopia ENT: No earache, No nasal drainage, No sore throat, No tinnitus Neck: No neck pain, No swelling, No thyromegaly, No stiffness, No mass noted Cardio Vascular: No chest pain, No palpitations, No PND, No orthopnea, No edema Pulmonary: No SOB, No cough, No sputum, No wheezing GI: No nausea, No vomiting, No diarrhea, No pain, No melena, No hematochezia, No constipation, No hematemesis G/U: No dysuria, No frequency, No hematuria Musculoskeletal: No bone or joint pain, No back pain, No muscle pain Endocrine: No polyuria, No polydipsia Psychiatric: Prior psych history Hematopoietic: No bruising, No lymphadenopathy Allergic/Immuno: No urticaria, No angioedema Neurological: No syncope, No focal symptoms, No weakness, No paresthesia, No headache, No seizure, No dizziness, No confusion, No vertigo ED Past Medical History - Past Medical History Past Medical History: Other (see notes) Family Medical History - Family Member Mother History Unknown: Yes ED Physical Exam - Physical Examination General/Constitutional: Awake, Well-developed, well-nourished, Alert, No distress, GCS 15, Non-toxic appearing, Ambulatory Head: Atraumatic Eyes: Lids, conjuctiva normal, PERRL, EOMI Skin: Nl inspection, No rash, No skin lesions, No ecchymosis, Well hydrated, No lymphadenopathy ENMT: External ears, nose nl, Nasal exam nl, Lips, teeth, gums nl Other ENMT comments:: decayed teeth Neck: Nontender, Full ROM w/o pain, No JVD, No nuchal rigidity, No bruit, No mass, No stridor Respiratory: Nl effort/Exclusion, Clear to Auscultation, No Wheeze/Rhonchi/Rales Cardio Vascular: RRR, No murmur, gallop, rubs, NL S1 S2 GI: No tenderness/rebounding/guarding, No organomegaly, No hernia, Normal BS's, Nondistended, No mass/bruits, No McBurney tenderness : No CVA tenderness Extremities: No tenderness or effusion, Full ROM, normal strength in all extremities, No edema, Normal digits & nails Neuro/Psych: Alert/oriented, DTR's symmetric, Normal sensory exam, Normal motor strength, Judgement/insight normal, Mood normal, Normal gait, No focal deficits Misc: Normal back, No paraspinal tenderness ED Assessment - Assessment General Assessment: schizophrenia agitation ED Septic Shock - . Is Septic Shock (SBP<90, OR Lactate>4 mmol\L) present?: No ED Reassessment (Disposition) - Reassessment Reassessment:: schizophrenia agitation - Diagnosis Diagnosis:: schizophrenia agitation - Patient Disposition Discharge/Transfer:: Acute Care w/in this hosp Admitted to:: Med/Surg Condition at Disposition:: Stable
[2018-09-03 21:58] LABS: % BASOPHILS 0.2 % (0.0-2.0); % EOSINOPHILS 2.6 % (0.0-5.0); % LYMPHOCYTES 15.3 % (20.0-50.0); % MONOCYTES 5.8 % (2.0-10.0); % NEUTROPHILS 76.1 % (40.0-80.0); EOSINOPHILE ABSOLUTE 0.3 Th/cmm (0.1-0.4); HEMATOCRIT 37.8 % (41.0-60); HEMOGLOBIN 12.5 gm/dL (12-16); MEAN CELL VOLUME 96.1 fl (80-99); MEAN CORPUSCULAR HEMOGLOBIN 31.7 pg (26.0-30.0); MEAN PLATELET VOLUME 6.7 fl; MONOCYTE ABSOLUTE 0.8 Th/cmm (0.3-1.0); NEUTROPHILE ABSOLUTE 9.9 Th/cmm (1.8-8.0); PLATELET COUNT 332 Th/cmm (150-400); RED BLOOD COUNT 3.93 Mil/cmm (4.30-5.70); RED CELL DISTRIBUTION WIDTH 13.5 % (11.5-20.0)
[2018-09-03 22:16] LABS: ALB/GLOB RATIO 1.1 (1.0-1.8); ALBUMIN 3.6 gm/dL (4.2-5.5); ALKALINE PHOSPHATASE 66 U/L (34-104); BILIRUBIN,TOTAL 0.2 mg/dL (0.3-1.0); BUN - UREA NITROGEN 14 mg/dL (7-25); CALCIUM SERUM 10.5 mg/dL (8.6-10.3); CARBON DIOXIDE 25.9 mEq/L (21.0-31.0); CHLORIDE 103 mEq/L (98-107); CREATININE - SERUM 0.6 mg/dL (0.7-1.3); GFR AFRICAN-AMERICAN > 60.0 ml/min (>90); GFR NON AFRICAN-AMERICAN > 60.0 ml/min; GLUCOSE 115 mg/dL (70-105); POTASSIUM SERUM 3.9 mEq/L (3.5-5.1); SGOT 29 U/L (13-39); SGPT/ALT 40 U/L (7-52); SODIUM SERUM 136 mEq/L (136-145); TOTAL PROTEIN,SERUM 6.8 gm/dL (6.0-8.3)
[2018-09-03] MEDS ORDERED: Haloperidol Lactate 5 mg/mL 1mL Vial ONE (22:20)
[2018-09-03] MEDS ORDERED: Haloperidol Lactate 5 mg/mL 1mL Vial IM PRN (22:25)
[2018-09-04 01:40] VITALS: BP 132/78
[2018-09-04 03:39] LABS: CHOLESTEROL 139 mg/dL (<200); HDL -HIGH DENSITY LIPOPROTEIN 53 mg/dL (23-92); TRIGLYCERIDES 113 mg/dL (<150)
[2018-09-04] MEDS ORDERED: Fleet Enema 135 mL RC PRN (11:45)
[2018-09-04] MEDS ORDERED: Magnesium Hydroxide (MOM) 30 mL UDC GT PRN (11:45)
[2018-09-04] MEDS ORDERED: guaiFENesin 200 MG/10 ML UDC GT PRN (11:45)
--- NOTE | 2018-09-04 12:29 | History & Physical ---
ADMIT DATE: 09/04/2018 CHIEF COMPLAINT: Agitated behavior. HISTORY OF PRESENT ILLNESS: This is a 63-year-old male with history of seizure, dysphagia, hypertension, COPD, previous G-tube removed, BPH, hypothyroidism, and psych disorder, admitted under service of Dr. Downey. The patient is a poor historian. Denies chest pain, shortness of breath. Able to swallow. PAST MEDICAL HISTORY: As mentioned in history of present illness. PAST SURGICAL HISTORY: Status post previous G-tube. ALLERGIES: DEPAKOTE. MEDICATIONS: Lorazepam, mirtazapine, olanzapine, Levaquin, MiraLax, Tylenol, albuterol, finasteride, Synthroid, Keppra, phenobarbital, prednisone, tamsulosin, Topamax. FAMILY HISTORY: Noncontributory. SOCIAL HISTORY: The patient is in a halfway, the patient requiring 24-hour total care. REVIEW OF SYSTEMS: This is limited secondary to pain, comatose. We will try to obtain more detailed review of system at a later date by talking to family members. There is a ____, , Mary Lou Garcia, . We will also try to get information from nursing staff at [facility], as well as from Dr. Moore, follows the patient. PHYSICAL EXAMINATION: VITAL SIGNS: Blood pressure 141/76, respirations 18, pulse 78, and temperature 98.7. GENERAL: Elderly male, appears stated age. NECK: Supple. No mass. LUNGS: Equal breath sounds, few rhonchi. HEART: Regular rate and rhythm. Systolic ejection murmur. ABDOMEN: Soft, globular, old G-tube site. EXTREMITIES: Positive excoriation atrophy contractures. NEUROLOGIC: Limited. LABORATORY DATA: WBC 13, hemoglobin 12.5, platelets are in normal range. BUN 14, creatinine 0.6, glucose 117, calcium 10.5, albumin 3.6. ASSESSMENT AND PLAN: Leukocytosis of unclear etiology, anemia, seizure, dysphagia, hypertension, chronic obstructive pulmonary disease, benign prostatic hypertrophy, hypothyroidism, schizoaffective disorder, and low albumin. Continue the patient on antiepileptic medication. We will check the patient's level. We will continue on aspiration precaution. We will continue on oxygen bronchodilator treatments. Continue with current care. We will continue to follow with you Dr. Downey. JOB# [id number]
[2018-09-04] MEDS: Albuterol/Ipratropium Neb 3 ML AERS HHN SCH ×2 (14:13→18:53)
[2018-09-04] MEDS: POLYETHYLENE GLYCOL 3350 17 GM PACK PO SCH (17:49)
[2018-09-04] MEDS: Levetiracetam 500 mg/5mL 5mL UDSyr *for ORAL USE ONLY GT SCH (20:03)
[2018-09-04] MEDS ORDERED: Thioridazine Hydrochloride 25 MG TAB GT SCH (21:00)
[2018-09-04] MEDS ORDERED: Haloperidol Lactate 5 mg/mL 1mL Vial IM ONE (21:28)
--- NOTE | 2018-09-05 01:22 | Psychiatric Evaluation ---
DATE OF SERVICE: 09/04/2018 IDENTIFYING DATA: The patient is a 63-year-old male, resident of [facility]. Information was obtained by directly interviewing the patient as well as reviewing the admission papers and they are reliable. JUSTIFICATION OF HOSPITALIZATION: The patient is admitted here on a voluntary basis in view of his agitation and aggressive behavior. CHIEF COMPLAINT: "I am okay." HISTORY OF PRESENT ILLNESS: This is one of multiple psychiatric hospitalizations for this patient, who had been under my care in 06/2018. The patient has been very agitated and has been pacing on the unit. Sleep and appetite prior to the hospitalization are reported to be poor. The patient has been reported to have multiple medical problems such as COPD, seizure disorder, and hypertension. The patient has been noted to be very disruptive. PAST PSYCHIATRIC HISTORY: Please refer to the above. SOCIAL HISTORY: The patient is a resident of a nursing home facility. PHYSICAL OR SEXUAL ABUSE HISTORY: None. MENTAL STATUS EXAMINATION: The patient is a 63-year-old, superficially cooperative. Eye contact is ____. The patient is getting easily agitated and is need to be redirected. The patient appears to be of below average intelligence. The patient is very perseverative and is very concrete in his approach. Attention span and concentration are noted to be poor at this time. The patient is very agitated. The patient needs to be redirected and the patient is extremely paranoid. DIAGNOSTIC IMPRESSION: AXIS I: Psychotic disorder, not otherwise specified. AXIS II: None. AXIS III: As per Dr. Nelson. IMMEDIATE TREATMENT PLAN: The patient is going to be observed on the inpatient unit. Provided with supportive psychotherapy. The patient is going to be closely monitored. I encouraged to participate in the groups and verbalize the concerns. The patient is going to be continued on the olanzapine at 20 mg at bedtime and the patient is going to be also on thioridazine. ESTIMATED LENGTH OF STAY: 3-5 days. DISCHARGE CRITERIA: When the patient is no longer a threat to self or others and be able to cope up with the stress. JOB# [id number]
[2018-09-05] MEDS: Levothyroxine 0.05 Mg Tab GT SCH (06:35)
[2018-09-05] MEDS: Albuterol/Ipratropium Neb 3 ML AERS HHN SCH ×4 (07:11→19:50)
[2018-09-05] MEDS: POLYETHYLENE GLYCOL 3350 17 GM PACK PO SCH ×2 (08:51→17:47)
--- NOTE | 2018-09-05 10:35 | Progress Notes ---
DATE: 09/05/2018 PSYCHIATRIC PROGRESS NOTE SUBJECTIVE: Staff was spoken to. The patient is interviewed. Mood is noted to be irritable. Affect is constricted. Coping skills are noted to be poor at this time. No side effects to the medications are noted. The patient has been having difficult time to cope with the stress at this time. The patient is very irritable and needs to be redirected constantly. ASSESSMENT: The patient is still impulsive. PLAN: To continue the patient with the current medications. I encouraged the patient to verbalize the concerns. The patient is developmentally delayed, mentally challenged, and most of the responses are concrete from this patient. JOB# [id number]
--- NOTE | 2018-09-05 11:39 | Internal Medicine Prog Note ---
Internal Medicine Subjective - Subjective Patient seen and examined:: with staff, chart reviewed Patient is:: awake, verbal, interactive, paul chair, denies any new complaints Per staff patient has:: no adverse event, no episodes of fall, poor appetite, tolerating meds Internal Medicine Objective - Results Result Diagrams: 09/03/18 21:54 09/03/18 21:54 Recent Labs: Laboratory Last Values WBC 13.0 Th/cmm (4.8-10.8) H 09/03/18 21:54 RBC 3.93 Mil/cmm (4.30-5.70) L 09/03/18 21:54 Hgb 12.5 gm/dL (12-16) 09/03/18 21:54 Hct 37.8 % (41.0-60) L 09/03/18 21:54 MCV 96.1 fl (80-99) 09/03/18 21:54 MCH 31.7 pg (26.0-30.0) H 09/03/18 21:54 MCHC Differential 33.0 pg (28.0-36.0) 09/03/18 21:54 RDW 13.5 % (11.5-20.0) 09/03/18 21:54 Plt Count 332 Th/cmm (150-400) 09/03/18 21:54 MPV 6.7 fl 09/03/18 21:54 Neutrophils % 76.1 % (40.0-80.0) 09/03/18 21:54 Lymphocytes % 15.3 % (20.0-50.0) L 09/03/18 21:54 Monocytes % 5.8 % (2.0-10.0) 09/03/18 21:54 Eosinophils % 2.6 % (0.0-5.0) 09/03/18 21:54 Basophils % 0.2 % (0.0-2.0) 09/03/18 21:54 Sodium 136 mEq/L (136-145) 09/03/18 21:54 Potassium 3.9 mEq/L (3.5-5.1) 09/03/18 21:54 Chloride 103 mEq/L (98-107) 09/03/18 21:54 Carbon Dioxide 25.9 mEq/L (21.0-31.0) 09/03/18 21:54 Anion Gap 11.0 (7.0-16.0) 09/03/18 21:54 BUN 14 mg/dL (7-25) 09/03/18 21:54 Creatinine 0.6 mg/dL (0.7-1.3) L 09/03/18 21:54 Est GFR ( Amer) > 60.0 ml/min (>90) 09/03/18 21:54 Est GFR (Non-Af Amer) > 60.0 ml/min 09/03/18 21:54 BUN/Creatinine Ratio 23.3 09/03/18 21:54 Glucose 115 mg/dL (70-105) H 09/03/18 21:54 Calcium 10.5 mg/dL (8.6-10.3) H 09/03/18 21:54 Total Bilirubin 0.2 mg/dL (0.3-1.0) L 09/03/18 21:54 AST 29 U/L (13-39) 09/03/18 21:54 ALT 40 U/L (7-52) 09/03/18 21:54 Alkaline Phosphatase 66 U/L (34-104) 09/03/18 21:54 Total Protein 6.8 gm/dL (6.0-8.3) 09/03/18 21:54 Albumin 3.6 gm/dL (4.2-5.5) L 09/03/18 21:54 Globulin 3.2 gm/dL 09/03/18 21:54 Albumin/Globulin Ratio 1.1 (1.0-1.8) 09/03/18 21:54 Triglycerides 113 mg/dL (<150) 09/04/18 02:57 Cholesterol 139 mg/dL (<200) 09/04/18 02:57 LDL Cholesterol Direct 81 mg/dL (75-193) 09/04/18 02:57 HDL Cholesterol 53 mg/dL (23-92) 09/04/18 02:57 - Physical Exam Vitals and I&O: Vital Signs Temp 98.0 F 09/04/18 20:00 Pulse 97 09/05/18 10:11 Resp 18 09/05/18 10:11 BP 148/78 09/05/18 06:38 Pulse Ox 96 09/05/18 10:11 Intake & Output 09/04/18 09/05/18 09/05/18 18:59 06:59 18:59 Intake Total 400 Balance 400 Intake: Oral 400 Other: # Voids 2 Active Medications: Current Medications Acetaminophen (Tylenol) 650 mg PO Q4HR PRN PRN Reason: Mild Pain / Temp above 100 Stop: 11/02/18 23:14 Acetaminophen (Tylenol 650mg/20.3ml Suspension) 650 mg GT Q4H PRN PRN Reason: Pain Or Fever above 101 Stop: 11/03/18 11:44 Albuterol/Ipratropium (Duoneb Neb) 3 ml HHN QIDRT [facility] Stop: 11/03/18 14:59 Last Admin: 09/05/18 10:11 Dose: 3 ml Bisacodyl (Dulcolax 10 Mg Supp) 10 mg RC DAILY PRN PRN Reason: IF MOM INEFFECTIVE Stop: 11/03/18 11:44 Buspirone HCl (Buspar) 5 mg PO TID [facility]; Protocol Stop: 11/03/18 08:59 Last Admin: 09/05/18 08:56 Dose: Not Given Finasteride (Proscar) 5 mg GT DAILY [facility]; Protocol Stop: 11/04/18 08:59 Last Admin: 09/05/18 08:51 Dose: 5 mg Glycopyrrolate (Robinul) 2 mg GT TID [facility] Stop: 11/03/18 13:59 Last Admin: 09/05/18 08:55 Dose: 2 mg Guaifenesin (Robitussin) 200 mg GT Q4HR PRN PRN Reason: Cough or Congestion Stop: 11/03/18 11:44 Levetiracetam (Keppra) 750 mg GT HS [facility] Stop: 11/03/18 20:59 Last Admin: 09/04/18 20:03 Dose: 750 mg Levothyroxine Sodium (Synthroid) 0.05 mg GT QDAC [facility] Stop: 11/04/18 07:29 Last Admin: 09/05/18 06:35 Dose: 0.05 mg Lorazepam (Ativan) 0.5 mg PO Q4HR PRN; Protocol PRN Reason: Anxiety Stop: 10/03/18 23:14 Last Admin: 09/05/18 08:52 Dose: 0.5 mg Magnesium Hydroxide (Milk Of Magnesia) 30 ml GT DAILY PRN PRN Reason: Constipation Stop: 11/03/18 11:44 Mirtazapine (Remeron) 15 mg PO HS [facility]; Protocol Stop: 11/03/18 20:59 Last Admin: 09/04/18 20:02 Dose: 15 mg Olanzapine (Zyprexa) 20 mg PO HS [facility]; Protocol Stop: 11/03/18 20:59 Last Admin: 09/04/18 20:02 Dose: 20 mg Phenobarbital (Phenobarbital) 129.6 mg GT HS [facility] Stop: 11/03/18 20:59 Last Admin: 09/04/18 20:02 Dose: 129.6 mg Polyethylene Glycol (Miralax) 17 gm PO BID [facility] Stop: 11/03/18 16:59 Last Admin: 09/05/18 08:51 Dose: Not Given Prednisone (Deltasone) 10 mg PO BID [facility] Stop: 11/03/18 16:59 Last Admin: 09/05/18 08:51 Dose: 10 mg Sodium Phosphate (Fleet Enema) 135 ml RC DAILY PRN PRN Reason: IF DULCOLAX INEFFECTIVE Stop: 11/03/18 11:44 Tamsulosin HCl (Flomax) 0.4 mg GT QPM [facility] Stop: 11/03/18 16:59 Last Admin: 09/04/18 17:50 Dose: 0.4 mg Topiramate (Topamax) 200 mg GT BID [facility] Stop: 11/03/18 16:59 Last Admin: 09/05/18 08:51 Dose: 200 mg Topiramate (Topamax) 100 mg GT HS [facility] Stop: 11/03/18 20:59 Last Admin: 09/04/18 20:02 Dose: 100 mg Zolpidem Tartrate (Ambien) 5 mg PO HS PRN PRN Reason: Insomnia Stop: 11/02/18 23:14 General: demented, disheveled HEENT: NC/AT, PERRLA, EOMI Neck: Supple, No JVD Lungs: CTAB Cardiovascular: RRR, Normal S1, Normal S2 Abdomen: soft, non-tender, thin, non-distended, positive bowel sound Extremities: excoriation, contracture Neurological: no change - Procedures Procedures: Procedures Procedure Code Date BARIUM SWALLOW 87.61 04/05/95 C.A.T. SCAN OF HEAD 87.03 04/05/95 CLOSURE SKIN & SUBCUTANEOUS NEC 86.59 04/05/95 ELECTROENCEPHALOGRAM 89.14 04/05/95 HEAD SOFT TISS X-RAY NEC 87.09 04/05/95 LINEAR REP LID LACER 08.81 11/06/95 RPR F/E/E/N/L/M 2.5 CM/< 50300 11/06/95 Internal Medicine Assmt/Plan - Assessment Assessment: ASSESSMENT AND PLAN: Leukocytosis of unclear etiology, anemia, seizure, dysphagia, hypertension, chronic obstructive pulmonary disease, benign prostatic hypertrophy, hypothyroidism, schizoaffective disorder, and low albumin. - Plan Plan: PLAN: Continue the patient on antiepileptic medication. We will check the patient's level. We will continue on aspiration precaution. We will continue on oxygen bronchodilator treatments. Continue with current care. We will continue to follow with you Dr. Downey.
[2018-09-05] MEDS: Levetiracetam 500 mg/5mL 5mL UDSyr *for ORAL USE ONLY GT SCH (21:40)
--- NOTE | 2018-09-06 05:02 | Consultation ---
DATE OF CONSULTATION: 09/05/2018 REFERRING PHYSICIAN: Rory Suazo MD TYPE OF CONSULTATION: Psychology. HISTORY OF PRESENT ILLNESS: The patient is a 63-year-old male. The patient is a resident of [facility]. The following is by record review and by the patient's self-report. The patient has been seen by this magnetic tape typewriter operator from a previous hospitalization. The patient is being admitted due to acute agitation and aggressive behavior. Upon interview, the patient stated that he is okay. The staff at the patient's facility reports that he had become easily agitated and un-redirectable. The patient denied any suicidal ideation, plan or intention at the time of this clinical interview. PAST MEDICAL HISTORY: Please see history and physical by Dr. Nelson. PAST PSYCHIATRIC HISTORY: The patient has a history of mental retardation as well as psychosis. The patient is under the care of a psychiatrist at his placement which is [facility]. The patient has multiple previous hospitalizations. SUBSTANCE ABUSE HISTORY: The patient declined to answer these questions. PSYCHOSOCIAL HISTORY: The patient did not answer questions about occupational or educational history or mu-ism affiliation. The patient did not answer questions about history of physical or sexual abuse. The patient did not answer questions about any current legal problems. The patient is single and has never been , with no children. The patient has two friends, Estefani and Mary, he reports to be involved in his care. The patient expects to return to his placement. MENTAL STATUS EXAMINATION: The patient appears to be his stated age. The patient's attitude is guarded and suspicious and generally uncooperative. Speech is loud with intermittent episodes of verbal abuse. Eye contact is poor. The patient is getting easily agitated and needs to be redirected. During the clinical interview, the patient did not answer questions about experiencing auditory or visual hallucinations or delusions. Thought includes paranoid ideation. Staff reports the patient is pounding on his Kelsey chair every few minutes. Impulse control is inadequate. Concentration is poor. The patient needs constant redirection. The patient did not participate in the memory assessment. He did not participate in the interpretation of proverbs. Sensorium is alert and oriented to self only. DIAGNOSTIC IMPRESSION: AXIS I: Psychotic disorder, not otherwise specified; impulse control disorder, not otherwise specified. AXIS II: Deferred. AXIS III: Per Dr. Nelson. TREATMENT PLAN: The patient has been seen by Dr. Suazo for psychiatric evaluation and for the management of the patient's psychotropic medications. We will provide de-escalation and limit setting. We will encourage the patient to demonstrate emotional and self-regulation. We will provide motivational enhancement for the patient to become compliant and stay compliant with all aspects of his care and treatment. We will provide coping strategies for phase of life issues. We will provide reality orientation, differentiation and integration. Followup for psychology services is to be determined contingent on the assessment of the patient's capacity to benefit from this type of treatment. Thank you, Dr. Suazo, for this consult and the opportunity to participate in this patient's care. [facility]# [id number] [place]
[2018-09-06] MEDS: Levothyroxine 0.05 Mg Tab GT SCH (06:47)
[2018-09-06] MEDS: Albuterol/Ipratropium Neb 3 ML AERS HHN SCH ×4 (06:57→19:38)
[2018-09-06] MEDS: POLYETHYLENE GLYCOL 3350 17 GM PACK PO SCH ×2 (09:45→17:25)
--- NOTE | 2018-09-06 12:02 | Internal Medicine Prog Note ---
Internal Medicine Subjective - Subjective Patient seen and examined:: with staff, chart reviewed Patient is:: awake, verbal, interactive, paul chair, denies any new complaints Per staff patient has:: no adverse event, no episodes of fall, poor appetite, tolerating meds Internal Medicine Objective - Results Result Diagrams: 09/03/18 21:54 09/03/18 21:54 Recent Labs: Laboratory Last Values WBC 13.0 Th/cmm (4.8-10.8) H 09/03/18 21:54 RBC 3.93 Mil/cmm (4.30-5.70) L 09/03/18 21:54 Hgb 12.5 gm/dL (12-16) 09/03/18 21:54 Hct 37.8 % (41.0-60) L 09/03/18 21:54 MCV 96.1 fl (80-99) 09/03/18 21:54 MCH 31.7 pg (26.0-30.0) H 09/03/18 21:54 MCHC Differential 33.0 pg (28.0-36.0) 09/03/18 21:54 RDW 13.5 % (11.5-20.0) 09/03/18 21:54 Plt Count 332 Th/cmm (150-400) 09/03/18 21:54 MPV 6.7 fl 09/03/18 21:54 Neutrophils % 76.1 % (40.0-80.0) 09/03/18 21:54 Lymphocytes % 15.3 % (20.0-50.0) L 09/03/18 21:54 Monocytes % 5.8 % (2.0-10.0) 09/03/18 21:54 Eosinophils % 2.6 % (0.0-5.0) 09/03/18 21:54 Basophils % 0.2 % (0.0-2.0) 09/03/18 21:54 Sodium 136 mEq/L (136-145) 09/03/18 21:54 Potassium 3.9 mEq/L (3.5-5.1) 09/03/18 21:54 Chloride 103 mEq/L (98-107) 09/03/18 21:54 Carbon Dioxide 25.9 mEq/L (21.0-31.0) 09/03/18 21:54 Anion Gap 11.0 (7.0-16.0) 09/03/18 21:54 BUN 14 mg/dL (7-25) 09/03/18 21:54 Creatinine 0.6 mg/dL (0.7-1.3) L 09/03/18 21:54 Est GFR ( Amer) > 60.0 ml/min (>90) 09/03/18 21:54 Est GFR (Non-Af Amer) > 60.0 ml/min 09/03/18 21:54 BUN/Creatinine Ratio 23.3 09/03/18 21:54 Glucose 115 mg/dL (70-105) H 09/03/18 21:54 Calcium 10.5 mg/dL (8.6-10.3) H 09/03/18 21:54 Total Bilirubin 0.2 mg/dL (0.3-1.0) L 09/03/18 21:54 AST 29 U/L (13-39) 09/03/18 21:54 ALT 40 U/L (7-52) 09/03/18 21:54 Alkaline Phosphatase 66 U/L (34-104) 09/03/18 21:54 Total Protein 6.8 gm/dL (6.0-8.3) 09/03/18 21:54 Albumin 3.6 gm/dL (4.2-5.5) L 09/03/18 21:54 Globulin 3.2 gm/dL 09/03/18 21:54 Albumin/Globulin Ratio 1.1 (1.0-1.8) 09/03/18 21:54 Triglycerides 113 mg/dL (<150) 09/04/18 02:57 Cholesterol 139 mg/dL (<200) 09/04/18 02:57 LDL Cholesterol Direct 81 mg/dL (75-193) 09/04/18 02:57 HDL Cholesterol 53 mg/dL (23-92) 09/04/18 02:57 - Physical Exam Vitals and I&O: Vital Signs Temp 98.3 F 09/06/18 06:18 Pulse 89 09/06/18 11:10 Resp 18 09/06/18 11:10 BP 114/66 09/06/18 06:18 Pulse Ox 97 09/06/18 11:10 Intake & Output 09/05/18 09/06/18 09/06/18 18:59 06:59 18:59 Intake Total 370 Balance 370 Intake: Oral 370 Other: # Voids 1 Active Medications: Current Medications Acetaminophen (Tylenol) 650 mg PO Q4HR PRN PRN Reason: Mild Pain / Temp above 100 Stop: 11/02/18 23:14 Last Admin: 09/05/18 15:11 Dose: 650 mg Acetaminophen (Tylenol 650mg/20.3ml Suspension) 650 mg GT Q4H PRN PRN Reason: Pain Or Fever above 101 Stop: 11/03/18 11:44 Albuterol/Ipratropium (Duoneb Neb) 3 ml HHN QIDRT [facility] Stop: 11/03/18 14:59 Last Admin: 09/06/18 11:09 Dose: 3 ml Bisacodyl (Dulcolax 10 Mg Supp) 10 mg RC DAILY PRN PRN Reason: IF MOM INEFFECTIVE Stop: 11/03/18 11:44 Finasteride (Proscar) 5 mg GT DAILY [facility]; Protocol Stop: 11/04/18 08:59 Last Admin: 09/06/18 10:00 Dose: 5 mg Glycopyrrolate (Robinul) 2 mg GT TID [facility] Stop: 11/03/18 13:59 Last Admin: 09/06/18 10:00 Dose: 2 mg Guaifenesin (Robitussin) 200 mg GT Q4HR PRN PRN Reason: Cough or Congestion Stop: 11/03/18 11:44 Levetiracetam (Keppra) 750 mg GT HS [facility] Stop: 11/03/18 20:59 Last Admin: 09/05/18 21:40 Dose: 750 mg Levothyroxine Sodium (Synthroid) 0.05 mg GT QDAC [facility] Stop: 11/04/18 07:29 Last Admin: 09/06/18 06:47 Dose: 0.05 mg Lorazepam (Ativan) 0.5 mg PO Q4HR PRN; Protocol PRN Reason: Anxiety Stop: 10/03/18 23:14 Last Admin: 09/05/18 15:08 Dose: 0.5 mg Magnesium Hydroxide (Milk Of Magnesia) 30 ml GT DAILY PRN PRN Reason: Constipation Stop: 11/03/18 11:44 Mirtazapine (Remeron) 15 mg PO HS [facility]; Protocol Stop: 11/03/18 20:59 Last Admin: 09/05/18 21:41 Dose: 15 mg Miscellaneous (Misc Oral Tab) 0.5 tab PO TID [facility] Stop: 11/05/18 10:29 Last Admin: 09/06/18 11:30 Dose: Not Given Mupirocin (Bactroban Oint) 1 appl NS BID [facility] Stop: 09/11/18 09:01 Olanzapine (Zyprexa) 20 mg PO HS [facility]; Protocol Stop: 11/03/18 20:59 Last Admin: 09/05/18 21:41 Dose: 20 mg Phenobarbital (Phenobarbital) 129.6 mg GT HS [facility] Stop: 11/03/18 20:59 Last Admin: 09/05/18 21:40 Dose: 129.6 mg Polyethylene Glycol (Miralax) 17 gm PO BID [facility] Stop: 11/03/18 16:59 Last Admin: 09/06/18 09:45 Dose: Not Given Prednisone (Deltasone) 10 mg PO BID [facility] Stop: 11/03/18 16:59 Last Admin: 09/06/18 10:00 Dose: 10 mg Sodium Phosphate (Fleet Enema) 135 ml RC DAILY PRN PRN Reason: IF DULCOLAX INEFFECTIVE Stop: 11/03/18 11:44 Tamsulosin HCl (Flomax) 0.4 mg GT QPM [facility] Stop: 11/03/18 16:59 Last Admin: 09/05/18 17:47 Dose: 0.4 mg Topiramate (Topamax) 200 mg GT BID [facility] Stop: 11/03/18 16:59 Last Admin: 09/06/18 10:00 Dose: 200 mg Topiramate (Topamax) 100 mg GT HS [facility] Stop: 11/03/18 20:59 Last Admin: 09/05/18 21:43 Dose: 100 mg Zolpidem Tartrate (Ambien) 5 mg PO HS PRN PRN Reason: Insomnia Stop: 11/02/18 23:14 General: demented, disheveled HEENT: NC/AT, PERRLA, EOMI Neck: Supple, No JVD Lungs: CTAB Cardiovascular: RRR, Normal S1, Normal S2 Abdomen: soft, non-tender, thin, non-distended, positive bowel sound Extremities: excoriation, contracture Neurological: no change - Procedures Procedures: Procedures Procedure Code Date BARIUM SWALLOW 87.61 04/05/95 C.A.T. SCAN OF HEAD 87.03 04/05/95 CLOSURE SKIN & SUBCUTANEOUS NEC 86.59 04/05/95 ELECTROENCEPHALOGRAM 89.14 04/05/95 HEAD SOFT TISS X-RAY NEC 87.09 04/05/95 LINEAR REP LID LACER 08.81 11/06/95 RPR F/E/E/N/L/M 2.5 CM/< 97533 11/06/95 Internal Medicine Assmt/Plan - Assessment Assessment: ASSESSMENT AND PLAN: Leukocytosis of unclear etiology, anemia, seizure, dysphagia, hypertension, chronic obstructive pulmonary disease, benign prostatic hypertrophy, hypothyroidism, schizoaffective disorder, and low albumin. - Plan Plan: PLAN: Continue the patient on antiepileptic medication. We will check the patient's level. We will continue on aspiration precaution. We will continue on oxygen bronchodilator treatments. Continue with current care. We will continue to follow with you Dr. Downey.
[2018-09-06] MEDS: Levetiracetam 500 mg/5mL 5mL UDSyr *for ORAL USE ONLY GT SCH (21:18)
--- NOTE | 2018-09-07 03:01 | Progress Notes ---
DATE: 09/06/2018 PSYCHIATRIC PROGRESS NOTE PROGRESS ON THE UNIT: Staff was spoken to. The patient is interviewed. Mood is noted to be irritable. Affect is constricted. The patient has been getting easily irritable and angry and has been trying to hurt other people, and the patient has to be given a dose of Ativan IM to contain the patient's behavior. ASSESSMENT: The patient is still grossly psychotic and impulsive. PLAN: To continue the patient with supportive therapy and followup. JOB# [id number]
[2018-09-07] MEDS: Levothyroxine 0.05 Mg Tab GT SCH (06:38)
[2018-09-07] MEDS: Albuterol/Ipratropium Neb 3 ML AERS HHN SCH ×4 (07:25→18:51)
[2018-09-07] MEDS: POLYETHYLENE GLYCOL 3350 17 GM PACK PO SCH ×2 (08:28→16:23)
--- NOTE | 2018-09-07 11:50 | Internal Medicine Prog Note ---
Internal Medicine Subjective - Subjective Patient seen and examined:: with staff, chart reviewed Patient is:: awake, verbal, interactive, paul chair, denies any new complaints Per staff patient has:: no adverse event, no episodes of fall, poor appetite, tolerating meds Internal Medicine Objective - Results Result Diagrams: 09/03/18 21:54 09/03/18 21:54 Recent Labs: Laboratory Last Values WBC 13.0 Th/cmm (4.8-10.8) H 09/03/18 21:54 RBC 3.93 Mil/cmm (4.30-5.70) L 09/03/18 21:54 Hgb 12.5 gm/dL (12-16) 09/03/18 21:54 Hct 37.8 % (41.0-60) L 09/03/18 21:54 MCV 96.1 fl (80-99) 09/03/18 21:54 MCH 31.7 pg (26.0-30.0) H 09/03/18 21:54 MCHC Differential 33.0 pg (28.0-36.0) 09/03/18 21:54 RDW 13.5 % (11.5-20.0) 09/03/18 21:54 Plt Count 332 Th/cmm (150-400) 09/03/18 21:54 MPV 6.7 fl 09/03/18 21:54 Neutrophils % 76.1 % (40.0-80.0) 09/03/18 21:54 Lymphocytes % 15.3 % (20.0-50.0) L 09/03/18 21:54 Monocytes % 5.8 % (2.0-10.0) 09/03/18 21:54 Eosinophils % 2.6 % (0.0-5.0) 09/03/18 21:54 Basophils % 0.2 % (0.0-2.0) 09/03/18 21:54 Sodium 136 mEq/L (136-145) 09/03/18 21:54 Potassium 3.9 mEq/L (3.5-5.1) 09/03/18 21:54 Chloride 103 mEq/L (98-107) 09/03/18 21:54 Carbon Dioxide 25.9 mEq/L (21.0-31.0) 09/03/18 21:54 Anion Gap 11.0 (7.0-16.0) 09/03/18 21:54 BUN 14 mg/dL (7-25) 09/03/18 21:54 Creatinine 0.6 mg/dL (0.7-1.3) L 09/03/18 21:54 Est GFR ( Amer) > 60.0 ml/min (>90) 09/03/18 21:54 Est GFR (Non-Af Amer) > 60.0 ml/min 09/03/18 21:54 BUN/Creatinine Ratio 23.3 09/03/18 21:54 Glucose 115 mg/dL (70-105) H 09/03/18 21:54 Calcium 10.5 mg/dL (8.6-10.3) H 09/03/18 21:54 Total Bilirubin 0.2 mg/dL (0.3-1.0) L 09/03/18 21:54 AST 29 U/L (13-39) 09/03/18 21:54 ALT 40 U/L (7-52) 09/03/18 21:54 Alkaline Phosphatase 66 U/L (34-104) 09/03/18 21:54 Total Protein 6.8 gm/dL (6.0-8.3) 09/03/18 21:54 Albumin 3.6 gm/dL (4.2-5.5) L 09/03/18 21:54 Globulin 3.2 gm/dL 09/03/18 21:54 Albumin/Globulin Ratio 1.1 (1.0-1.8) 09/03/18 21:54 Triglycerides 113 mg/dL (<150) 09/04/18 02:57 Cholesterol 139 mg/dL (<200) 09/04/18 02:57 LDL Cholesterol Direct 81 mg/dL (75-193) 09/04/18 02:57 HDL Cholesterol 53 mg/dL (23-92) 09/04/18 02:57 - Physical Exam Vitals and I&O: Vital Signs Temp 98 F 09/07/18 06:29 Pulse 90 09/07/18 07:25 Resp 18 09/07/18 07:25 BP 98/56 09/07/18 06:29 Pulse Ox 96 09/07/18 07:25 Intake & Output 09/06/18 09/07/18 09/07/18 18:59 06:59 18:59 Intake Total 480 Output Total 1 Balance 479 Intake: Oral 480 Output: Urine/Stool Mix 1 Other: # Voids 1 # Bowel Movements 1 Active Medications: Current Medications Acetaminophen (Tylenol) 650 mg PO Q4HR PRN PRN Reason: Mild Pain / Temp above 100 Stop: 11/02/18 23:14 Last Admin: 09/05/18 15:11 Dose: 650 mg Acetaminophen (Tylenol 650mg/20.3ml Suspension) 650 mg GT Q4H PRN PRN Reason: Pain Or Fever above 101 Stop: 11/03/18 11:44 Albuterol/Ipratropium (Duoneb Neb) 3 ml HHN QIDRT [facility] Stop: 11/03/18 14:59 Last Admin: 09/07/18 10:56 Dose: Not Given Bisacodyl (Dulcolax 10 Mg Supp) 10 mg RC DAILY PRN PRN Reason: IF MOM INEFFECTIVE Stop: 11/03/18 11:44 Finasteride (Proscar) 5 mg GT DAILY [facility]; Protocol Stop: 11/04/18 08:59 Last Admin: 09/07/18 08:28 Dose: 5 mg Glycopyrrolate (Robinul) 2 mg GT TID [facility] Stop: 11/03/18 13:59 Last Admin: 09/07/18 08:30 Dose: 2 mg Guaifenesin (Robitussin) 200 mg GT Q4HR PRN PRN Reason: Cough or Congestion Stop: 11/03/18 11:44 Levetiracetam (Keppra) 750 mg GT HS [facility] Stop: 11/03/18 20:59 Last Admin: 09/06/18 21:18 Dose: 750 mg Levothyroxine Sodium (Synthroid) 0.05 mg GT QDAC [facility] Stop: 11/04/18 07:29 Last Admin: 09/07/18 06:38 Dose: 0.05 mg Lorazepam (Ativan) 0.5 mg PO Q4HR PRN; Protocol PRN Reason: Anxiety Stop: 10/03/18 23:14 Last Admin: 09/07/18 08:28 Dose: 0.5 mg Magnesium Hydroxide (Milk Of Magnesia) 30 ml GT DAILY PRN PRN Reason: Constipation Stop: 11/03/18 11:44 Mirtazapine (Remeron) 15 mg PO HS [facility]; Protocol Stop: 11/03/18 20:59 Last Admin: 09/06/18 21:13 Dose: 15 mg Miscellaneous (Misc Oral Tab) 0.5 tab PO TID [facility] Stop: 11/05/18 10:29 Last Admin: 09/07/18 08:31 Dose: 0.5 tab Mupirocin (Bactroban Oint) 1 appl NS BID [facility] Stop: 09/11/18 09:01 Last Admin: 09/07/18 08:30 Dose: 1 appl Olanzapine (Zyprexa) 20 mg PO HS [facility]; Protocol Stop: 11/03/18 20:59 Last Admin: 09/06/18 21:13 Dose: 20 mg Phenobarbital (Phenobarbital) 129.6 mg GT [facility] Stop: 11/03/18 20:59 Last Admin: 09/06/18 21:12 Dose: 129.6 mg Polyethylene Glycol (Miralax) 17 gm PO BID [facility] Stop: 11/03/18 16:59 Last Admin: 09/07/18 08:28 Dose: 17 gm Prednisone (Deltasone) 10 mg PO BID [facility] Stop: 11/03/18 16:59 Last Admin: 09/07/18 08:30 Dose: 10 mg Sodium Phosphate (Fleet Enema) 135 ml RC DAILY PRN PRN Reason: IF DULCOLAX INEFFECTIVE Stop: 11/03/18 11:44 Tamsulosin HCl (Flomax) 0.4 mg GT QPM [facility] Stop: 11/03/18 16:59 Last Admin: 09/05/18 17:47 Dose: 0.4 mg Topiramate (Topamax) 200 mg GT BID [facility] Stop: 11/03/18 16:59 Last Admin: 09/07/18 08:29 Dose: 200 mg Topiramate (Topamax) 100 mg GT HS [facility] Stop: 11/03/18 20:59 Last Admin: 09/06/18 21:12 Dose: 100 mg Zolpidem Tartrate (Ambien) 5 mg PO HS PRN PRN Reason: Insomnia Stop: 11/02/18 23:14 General: demented, disheveled HEENT: NC/AT, PERRLA, EOMI Neck: Supple, No JVD Lungs: CTAB Cardiovascular: RRR, Normal S1, Normal S2 Abdomen: soft, non-tender, thin, non-distended, positive bowel sound Extremities: excoriation, contracture Neurological: no change - Procedures Procedures: Procedures Procedure Code Date BARIUM SWALLOW 87.61 04/05/95 C.A.T. SCAN OF HEAD 87.03 04/05/95 CLOSURE SKIN & SUBCUTANEOUS NEC 86.59 04/05/95 ELECTROENCEPHALOGRAM 89.14 04/05/95 HEAD SOFT TISS X-RAY NEC 87.09 04/05/95 LINEAR REP LID LACER 08.81 11/06/95 RPR F/E/E/N/L/M 2.5 CM/< [id number] 11/06/95 Internal Medicine Assmt/Plan - Assessment Assessment: ASSESSMENT AND PLAN: Leukocytosis of unclear etiology, anemia, seizure, dysphagia, hypertension, chronic obstructive pulmonary disease, benign prostatic hypertrophy, hypothyroidism, schizoaffective disorder, and low albumin. - Plan Plan: PLAN: Continue the patient on antiepileptic medication. We will check the patient's level. We will continue on aspiration precaution. We will continue on oxygen bronchodilator treatments. Continue with current care. We will continue to follow with you Dr. Downey.
[2018-09-07] MEDS: Levetiracetam 500 mg/5mL 5mL UDSyr *for ORAL USE ONLY GT SCH (20:38)
--- NOTE | 2018-09-07 21:18 | Progress Notes ---
DATE: 09/07/2018 PSYCHIATRIC PROGRESS NOTE PROGRESS ON THE UNIT: Staff was spoken to. The patient is interviewed. Mood is noted to be irritable. Affect is constricted. Coping skills at this time are noted to be very poor. Insight and judgment are also noted to very poor. The patient has been having difficult time to cope with the stress. The patient is very irritable, angry, and has been going up to the other patients. The patient is very aggressive. ASSESSMENT: The patient is still psychotic and impulsive. PLAN: To continue the patient with supportive therapy and followup. JOB# [id number]
[2018-09-08] MEDS: Levothyroxine 0.05 Mg Tab GT SCH (06:32)
[2018-09-08] MEDS: Albuterol/Ipratropium Neb 3 ML AERS HHN SCH ×4 (06:46→19:30)
[2018-09-08] MEDS: POLYETHYLENE GLYCOL 3350 17 GM PACK PO SCH ×2 (08:44→16:36)
--- NOTE | 2018-09-08 12:12 | Internal Medicine Prog Note ---
Internal Medicine Subjective - Subjective Patient seen and examined:: with staff, chart reviewed Patient is:: awake, verbal, interactive, paul chair, denies any new complaints Per staff patient has:: no adverse event, no episodes of fall, poor appetite, tolerating meds Internal Medicine Objective - Results Result Diagrams: 09/03/18 21:54 09/03/18 21:54 Recent Labs: Laboratory Last Values WBC 13.0 Th/cmm (4.8-10.8) H 09/03/18 21:54 RBC 3.93 Mil/cmm (4.30-5.70) L 09/03/18 21:54 Hgb 12.5 gm/dL (12-16) 09/03/18 21:54 Hct 37.8 % (41.0-60) L 09/03/18 21:54 MCV 96.1 fl (80-99) 09/03/18 21:54 MCH 31.7 pg (26.0-30.0) H 09/03/18 21:54 MCHC Differential 33.0 pg (28.0-36.0) 09/03/18 21:54 RDW 13.5 % (11.5-20.0) 09/03/18 21:54 Plt Count 332 Th/cmm (150-400) 09/03/18 21:54 MPV 6.7 fl 09/03/18 21:54 Neutrophils % 76.1 % (40.0-80.0) 09/03/18 21:54 Lymphocytes % 15.3 % (20.0-50.0) L 09/03/18 21:54 Monocytes % 5.8 % (2.0-10.0) 09/03/18 21:54 Eosinophils % 2.6 % (0.0-5.0) 09/03/18 21:54 Basophils % 0.2 % (0.0-2.0) 09/03/18 21:54 Sodium 136 mEq/L (136-145) 09/03/18 21:54 Potassium 3.9 mEq/L (3.5-5.1) 09/03/18 21:54 Chloride 103 mEq/L (98-107) 09/03/18 21:54 Carbon Dioxide 25.9 mEq/L (21.0-31.0) 09/03/18 21:54 Anion Gap 11.0 (7.0-16.0) 09/03/18 21:54 BUN 14 mg/dL (7-25) 09/03/18 21:54 Creatinine 0.6 mg/dL (0.7-1.3) L 09/03/18 21:54 Est GFR ( Amer) > 60.0 ml/min (>90) 09/03/18 21:54 Est GFR (Non-Af Amer) > 60.0 ml/min 09/03/18 21:54 BUN/Creatinine Ratio 23.3 09/03/18 21:54 Glucose 115 mg/dL (70-105) H 09/03/18 21:54 Calcium 10.5 mg/dL (8.6-10.3) H 09/03/18 21:54 Total Bilirubin 0.2 mg/dL (0.3-1.0) L 09/03/18 21:54 AST 29 U/L (13-39) 09/03/18 21:54 ALT 40 U/L (7-52) 09/03/18 21:54 Alkaline Phosphatase 66 U/L (34-104) 09/03/18 21:54 Total Protein 6.8 gm/dL (6.0-8.3) 09/03/18 21:54 Albumin 3.6 gm/dL (4.2-5.5) L 09/03/18 21:54 Globulin 3.2 gm/dL 09/03/18 21:54 Albumin/Globulin Ratio 1.1 (1.0-1.8) 09/03/18 21:54 Triglycerides 113 mg/dL (<150) 09/04/18 02:57 Cholesterol 139 mg/dL (<200) 09/04/18 02:57 LDL Cholesterol Direct 81 mg/dL (75-193) 09/04/18 02:57 HDL Cholesterol 53 mg/dL (23-92) 09/04/18 02:57 - Physical Exam Vitals and I&O: Vital Signs Temp 98.4 F 09/08/18 07:03 Pulse 77 09/08/18 10:17 Resp 18 09/08/18 10:17 BP 119/56 09/07/18 14:00 Pulse Ox 95 09/08/18 10:17 Intake & Output 09/07/18 09/08/18 09/08/18 18:59 06:59 18:59 Intake Total 120 Balance 120 Intake: Oral 120 Active Medications: Current Medications Acetaminophen (Tylenol) 650 mg PO Q4HR PRN PRN Reason: Mild Pain / Temp above 100 Stop: 11/02/18 23:14 Last Admin: 09/05/18 15:11 Dose: 650 mg Acetaminophen (Tylenol 650mg/20.3ml Suspension) 650 mg GT Q4H PRN PRN Reason: Pain Or Fever above 101 Stop: 11/03/18 11:44 Albuterol/Ipratropium (Duoneb Neb) 3 ml HHN QIDRT [facility] Stop: 11/03/18 14:59 Last Admin: 09/08/18 10:17 Dose: 3 ml Bisacodyl (Dulcolax 10 Mg Supp) 10 mg RC DAILY PRN PRN Reason: IF MOM INEFFECTIVE Stop: 11/03/18 11:44 Finasteride (Proscar) 5 mg GT DAILY [facility]; Protocol Stop: 11/04/18 08:59 Last Admin: 09/08/18 08:44 Dose: 5 mg Glycopyrrolate (Robinul) 2 mg GT TID [facility] Stop: 11/03/18 13:59 Last Admin: 09/08/18 08:44 Dose: 2 mg Guaifenesin (Robitussin) 200 mg GT Q4HR PRN PRN Reason: Cough or Congestion Stop: 11/03/18 11:44 Levetiracetam (Keppra) 750 mg GT [facility] Stop: 11/03/18 20:59 Last Admin: 09/07/18 20:38 Dose: 750 mg Levothyroxine Sodium (Synthroid) 0.05 mg GT QDAC [facility] Stop: 11/04/18 07:29 Last Admin: 09/08/18 06:32 Dose: 0.05 mg Lorazepam (Ativan) 0.5 mg PO Q4HR PRN; Protocol PRN Reason: Anxiety Stop: 10/03/18 23:14 Last Admin: 09/07/18 14:04 Dose: 0.5 mg Magnesium Hydroxide (Milk Of Magnesia) 30 ml GT DAILY PRN PRN Reason: Constipation Stop: 11/03/18 11:44 Mirtazapine (Remeron) 15 mg PO HS [facility]; Protocol Stop: 11/03/18 20:59 Last Admin: 03/22/19 20:40 Dose: 15 mg Miscellaneous (Misc Oral Tab) 0.5 tab PO TID [facility] Stop: 11/05/18 10:29 Last Admin: 09/08/18 08:44 Dose: 0.5 tab Mupirocin (Bactroban Oint) 1 appl NS BID [facility] Stop: 09/11/18 09:01 Last Admin: 09/08/18 08:43 Dose: 1 appl Olanzapine (Zyprexa) 20 mg PO HS [facility]; Protocol Stop: 11/03/18 20:59 Last Admin: 09/07/18 20:40 Dose: 20 mg Phenobarbital (Phenobarbital) 129.6 mg GT HS [facility] Stop: 11/03/18 20:59 Last Admin: 09/07/18 20:49 Dose: 129.6 mg Polyethylene Glycol (Miralax) 17 gm PO BID [facility] Stop: 11/03/18 16:59 Last Admin: 09/08/18 08:44 Dose: 17 gm Prednisone (Deltasone) 10 mg PO BID [facility] Stop: 11/03/18 16:59 Last Admin: 09/08/18 08:44 Dose: 10 mg Sodium Phosphate (Fleet Enema) 135 ml RC DAILY PRN PRN Reason: IF DULCOLAX INEFFECTIVE Stop: 11/03/18 11:44 Tamsulosin HCl (Flomax) 0.4 mg GT QPM [facility] Stop: 11/03/18 16:59 Last Admin: 09/07/18 16:22 Dose: 0.4 mg Topiramate (Topamax) 200 mg GT BID [facility] Stop: 11/03/18 16:59 Last Admin: 09/08/18 08:44 Dose: 200 mg Topiramate (Topamax) 100 mg GT HS [facility] Stop: 11/03/18 20:59 Last Admin: 09/07/18 20:40 Dose: 100 mg Zolpidem Tartrate (Ambien) 5 mg PO HS PRN PRN Reason: Insomnia Stop: 11/02/18 23:14 General: demented, disheveled HEENT: NC/AT, PERRLA, EOMI Neck: Supple, No JVD Lungs: CTAB Cardiovascular: RRR, Normal S1, Normal S2 Abdomen: soft, non-tender, thin, non-distended, positive bowel sound Extremities: excoriation, contracture Neurological: no change - Procedures Procedures: Procedures Procedure Code Date BARIUM SWALLOW 87.61 04/05/95 C.A.T. SCAN OF HEAD 87.03 04/05/95 CLOSURE SKIN & SUBCUTANEOUS NEC 86.59 04/05/95 ELECTROENCEPHALOGRAM 89.14 04/05/95 HEAD SOFT TISS X-RAY NEC 87.09 04/05/95 LINEAR REP LID LACER 08.81 11/06/95 RPR F/E/E/N/L/M 2.5 CM/< 65639 11/06/95 Internal Medicine Assmt/Plan - Assessment Assessment: ASSESSMENT AND PLAN: Leukocytosis of unclear etiology, anemia, seizure, dysphagia, hypertension, chronic obstructive pulmonary disease, benign prostatic hypertrophy, hypothyroidism, schizoaffective disorder, and low albumin. - Plan Plan: PLAN: Continue the patient on antiepileptic medication. We will check the patient's level. We will continue on aspiration precaution. We will continue on oxygen bronchodilator treatments. Continue with current care. We will continue to follow with you Dr. Downey.
--- NOTE | 2018-09-08 15:33 | Progress Notes ---
DATE: 09/08/2018 SUBJECTIVE: Staff was spoken to. The patient is interviewed. Mood is noted to be irritable. Affect is constricted. Insight and judgment at this time are noted to be still impaired. Impulse control is noted to be limited. Coping skills are not to be limited. The patient is still testing the limits. The patient has no insight into his illness. ASSESSMENT: The patient is still impulsive and psychotic. PLAN: To continue the patient with the supportive therapy and followup. [facility]# [id number]
[2018-09-08] MEDS: Levetiracetam 500 mg/5mL 5mL UDSyr *for ORAL USE ONLY GT SCH (20:33)
--- NOTE | 2018-09-08 22:19 | Progress Notes ---
DATE: 09/07/2018 PSYCHOLOGY PROGRESS NOTE DATE OF SERVICE: 09/07/2018 SUBJECTIVE: The patient is seen in the timeout room. The patient is pounding on his Kelsey chair. The patient is not responding to behavioral management, i.e., redirection, limit setting, or de-escalation. The patient is irritable and angry and is intrusive with other patients on the unit. The patient remains very aggressive and impulsive. OBJECTIVE: Mood is irritable. Affect is constricted. Thought process is confused and concrete. The patient did not answer questions about experiencing any auditory or visual hallucinations or delusions. The patient's behavior is aggressive with other patients and unresponsive to limit setting and behavioral management. The patient's impulse control is very poor. ASSESSMENT AND PLAN: The patient's psychosis and high impulsivity persist. This internal communications writer provided de-escalation and limit setting with very little response. We provided cognitive and behavioral redirection with remotivation for the patient to become compliant with his care and treatment. The patient is not responding well. It appears the patient is not demonstrating the capacity to benefit from psychotherapeutic or behavioral therapeutic interventions. No followup is indicated as the patient is not benefitting from psychology services. This internal communications writer is discharging this patient from this type of treatment on this date. Prognosis is poor. JOB# [id number] [place]
[2018-09-09] MEDS: Albuterol/Ipratropium Neb 3 ML AERS HHN SCH ×3 (06:35→19:07)
[2018-09-09] MEDS: Levothyroxine 0.05 Mg Tab GT SCH (06:35)
[2018-09-09] MEDS ORDERED: guaiFENesin 200 MG/10 ML UDC PO PRN (08:00)
[2018-09-09] MEDS ORDERED: Magnesium Hydroxide (MOM) 30 mL UDC PO PRN (08:01)
[2018-09-09] MEDS: POLYETHYLENE GLYCOL 3350 17 GM PACK PO SCH ×2 (09:50→17:37)
--- NOTE | 2018-09-09 12:09 | Internal Medicine Prog Note ---
Internal Medicine Subjective - Subjective Patient seen and examined:: with staff, chart reviewed Patient is:: awake, verbal, interactive, paul chair, denies any new complaints Per staff patient has:: no adverse event, no episodes of fall, poor appetite, tolerating meds Internal Medicine Objective - Results Result Diagrams: 09/03/18 21:54 09/03/18 21:54 Recent Labs: Laboratory Last Values WBC 13.0 Th/cmm (4.8-10.8) H 09/03/18 21:54 RBC 3.93 Mil/cmm (4.30-5.70) L 09/03/18 21:54 Hgb 12.5 gm/dL (12-16) 09/03/18 21:54 Hct 37.8 % (41.0-60) L 09/03/18 21:54 MCV 96.1 fl (80-99) 09/03/18 21:54 MCH 31.7 pg (26.0-30.0) H 09/03/18 21:54 MCHC Differential 33.0 pg (28.0-36.0) 09/03/18 21:54 RDW 13.5 % (11.5-20.0) 09/03/18 21:54 Plt Count 332 Th/cmm (150-400) 09/03/18 21:54 MPV 6.7 fl 09/03/18 21:54 Neutrophils % 76.1 % (40.0-80.0) 09/03/18 21:54 Lymphocytes % 15.3 % (20.0-50.0) L 09/03/18 21:54 Monocytes % 5.8 % (2.0-10.0) 09/03/18 21:54 Eosinophils % 2.6 % (0.0-5.0) 09/03/18 21:54 Basophils % 0.2 % (0.0-2.0) 09/03/18 21:54 Sodium 136 mEq/L (136-145) 09/03/18 21:54 Potassium 3.9 mEq/L (3.5-5.1) 09/03/18 21:54 Chloride 103 mEq/L (98-107) 09/03/18 21:54 Carbon Dioxide 25.9 mEq/L (21.0-31.0) 09/03/18 21:54 Anion Gap 11.0 (7.0-16.0) 09/03/18 21:54 BUN 14 mg/dL (7-25) 09/03/18 21:54 Creatinine 0.6 mg/dL (0.7-1.3) L 09/03/18 21:54 Est GFR ( Amer) > 60.0 ml/min (>90) 09/03/18 21:54 Est GFR (Non-Af Amer) > 60.0 ml/min 09/03/18 21:54 BUN/Creatinine Ratio 23.3 09/03/18 21:54 Glucose 115 mg/dL (70-105) H 09/03/18 21:54 Calcium 10.5 mg/dL (8.6-10.3) H 09/03/18 21:54 Total Bilirubin 0.2 mg/dL (0.3-1.0) L 09/03/18 21:54 AST 29 U/L (13-39) 09/03/18 21:54 ALT 40 U/L (7-52) 09/03/18 21:54 Alkaline Phosphatase 66 U/L (34-104) 09/03/18 21:54 Total Protein 6.8 gm/dL (6.0-8.3) 09/03/18 21:54 Albumin 3.6 gm/dL (4.2-5.5) L 09/03/18 21:54 Globulin 3.2 gm/dL 09/03/18 21:54 Albumin/Globulin Ratio 1.1 (1.0-1.8) 09/03/18 21:54 Triglycerides 113 mg/dL (<150) 09/04/18 02:57 Cholesterol 139 mg/dL (<200) 09/04/18 02:57 LDL Cholesterol Direct 81 mg/dL (75-193) 09/04/18 02:57 HDL Cholesterol 53 mg/dL (23-92) 09/04/18 02:57 - Physical Exam Vitals and I&O: Vital Signs Temp 98.4 F 09/09/18 06:25 Pulse 83 09/09/18 12:06 Resp 18 09/09/18 12:06 BP 121/71 09/09/18 06:25 Pulse Ox 95 09/09/18 12:06 Intake & Output 09/08/18 09/09/18 09/09/18 18:59 06:59 18:59 Intake Total 800 240 Balance 800 240 Intake: Oral 800 240 Other: # Voids 3 3 # Bowel Movements 0 Active Medications: Current Medications Acetaminophen (Tylenol) 650 mg PO Q4HR PRN PRN Reason: Mild Pain / Temp above 100 Stop: 11/02/18 23:14 Last Admin: 09/05/18 15:11 Dose: 650 mg Acetaminophen (Tylenol 650mg/20.3ml Suspension) 650 mg PO Q4H PRN PRN Reason: Pain Or Fever above 101 Stop: 11/03/18 11:44 Albuterol/Ipratropium (Duoneb Neb) 3 ml HHN [id number] [facility] Stop: 11/08/18 12:59 Last Admin: 09/09/18 12:04 Dose: 3 ml Bisacodyl (Dulcolax 10 Mg Supp) 10 mg RC DAILY PRN PRN Reason: IF MOM INEFFECTIVE Stop: 11/03/18 11:44 Finasteride (Proscar) 5 mg PO DAILY [facility]; Protocol Stop: 11/04/18 08:59 Last Admin: 09/09/18 09:49 Dose: 5 mg Glycopyrrolate (Robinul) 2 mg PO TID [facility] Stop: 11/03/18 13:59 Last Admin: 09/09/18 09:49 Dose: 2 mg Guaifenesin (Robitussin) 200 mg PO Q4HR PRN PRN Reason: Cough or Congestion Stop: 11/03/18 11:44 Levetiracetam (Keppra) 750 mg PO HS [facility] Stop: 11/03/18 20:59 Levothyroxine Sodium (Synthroid) 0.05 mg PO QDAC [facility] Stop: 11/04/18 07:29 Lorazepam (Ativan) 0.5 mg PO Q4HR PRN; Protocol PRN Reason: Anxiety Stop: 10/03/18 23:14 Last Admin: 09/09/18 09:03 Dose: 0.5 mg Magnesium Hydroxide (Milk Of Magnesia) 30 ml PO DAILY PRN PRN Reason: Constipation Stop: 11/03/18 11:44 Mirtazapine (Remeron) 15 mg PO HS [facility]; Protocol Stop: 11/03/18 20:59 Last Admin: 09/08/18 20:31 Dose: 15 mg Miscellaneous (Misc Oral Tab) 0.5 tab PO TID [facility] Stop: 11/05/18 10:29 Last Admin: 09/09/18 09:50 Dose: 0.5 tab Mupirocin (Bactroban Oint) 1 appl NS BID [facility] Stop: 09/11/18 09:01 Last Admin: 09/09/18 09:48 Dose: 1 appl Olanzapine (Zyprexa) [address] [facility]; Protocol Stop: 11/03/18 20:59 Last Admin: 09/08/18 20:32 Dose: 20 mg Phenobarbital (Phenobarbital) 129.[address] [facility] Stop: 11/03/18 20:59 Polyethylene Glycol (Miralax) 17 gm PO BID [facility] Stop: 11/03/18 16:59 Last Admin: 09/09/18 09:50 Dose: 17 gm Prednisone (Deltasone) 10 mg PO BID [facility] Stop: 11/03/18 16:59 Last Admin: 09/09/18 09:50 Dose: 10 mg Sodium Phosphate (Fleet Enema) 135 ml RC DAILY PRN PRN Reason: IF DULCOLAX INEFFECTIVE Stop: 11/03/18 11:44 Tamsulosin HCl (Flomax) 0.4 mg PO QPM [facility] Stop: 11/03/18 16:59 Topiramate (Topamax) 200 mg PO BID [facility] Stop: 11/03/18 16:59 Last Admin: 09/09/18 09:50 Dose: 200 mg Topiramate (Topamax) [address] [facility] Stop: 11/03/18 20:59 Zolpidem Tartrate (Ambien) 5 mg PO HS PRN PRN Reason: Insomnia Stop: 11/02/18 23:14 General: demented, disheveled HEENT: NC/AT, PERRLA, EOMI Neck: Supple, No JVD Lungs: CTAB Cardiovascular: RRR, Normal S1, Normal S2 Abdomen: soft, non-tender, thin, non-distended, positive bowel sound Extremities: excoriation, contracture Neurological: no change - Procedures Procedures: Procedures Procedure Code Date BARIUM SWALLOW 87.61 04/05/95 C.A.T. SCAN OF HEAD 87.03 04/05/95 CLOSURE SKIN & SUBCUTANEOUS NEC 86.59 04/05/95 ELECTROENCEPHALOGRAM 89.14 04/05/95 HEAD SOFT TISS X-RAY NEC 87.09 04/05/95 LINEAR REP LID LACER 08.81 11/06/95 RPR F/E/E/N/L/M 2.5 CM/< 17637 11/06/95 Internal Medicine Assmt/Plan - Assessment Assessment: ASSESSMENT AND PLAN: Leukocytosis of unclear etiology, anemia, seizure, dysphagia, hypertension, chronic obstructive pulmonary disease, benign prostatic hypertrophy, hypothyroidism, schizoaffective disorder, and low albumin. - Plan Plan: PLAN: Continue the patient on antiepileptic medication. We will check the patient's level. We will continue on aspiration precaution. We will continue on oxygen bronchodilator treatments. Continue with current care. We will continue to follow with you Dr. Downey.
--- NOTE | 2018-09-09 17:34 | Progress Notes ---
DATE: 09/09/2018 SUBJECTIVE: Staff was spoken to. The patient is interviewed. Mood is noted to be irritable. Affect is constricted. The patient is still testing the limits. Insight and judgment at this time are noted to be still impaired. Impulse control is noted to be poor. Coping skills are also noted to be very poor. The patient is currently on the mirtazapine 15 mg at bedtime and has been able to tolerate the medication. The patient is also getting 220 mg of the 30 mg of the olanzapine at night time. ASSESSMENT: The patient is still impulsive. She has a tendency to be screaming and yelling. PLAN: To continue the patient with the above medications and followup. [facility]# [id number]
[2018-09-09] MEDS: Levetiracetam 500 mg/5mL 5mL UDSyr *for ORAL USE ONLY PO SCH (20:43)
[2018-09-10] MEDS: Levothyroxine 0.05 Mg Tab PO SCH (06:30)
[2018-09-10] MEDS: Albuterol/Ipratropium Neb 3 ML AERS HHN SCH ×3 (06:43→20:10)
[2018-09-10] MEDS: POLYETHYLENE GLYCOL 3350 17 GM PACK PO SCH ×2 (09:13→17:59)
--- NOTE | 2018-09-10 11:43 | Internal Medicine Prog Note ---
Internal Medicine Subjective - Subjective Patient seen and examined:: with staff, chart reviewed Patient is:: awake, verbal, interactive, paul chair, denies any new complaints Per staff patient has:: no adverse event, no episodes of fall, poor appetite, tolerating meds Internal Medicine Objective - Results Result Diagrams: 09/03/18 21:54 09/03/18 21:54 Recent Labs: Laboratory Last Values WBC 13.0 Th/cmm (4.8-10.8) H 09/03/18 21:54 RBC 3.93 Mil/cmm (4.30-5.70) L 09/03/18 21:54 Hgb 12.5 gm/dL (12-16) 09/03/18 21:54 Hct 37.8 % (41.0-60) L 09/03/18 21:54 MCV 96.1 fl (80-99) 09/03/18 21:54 MCH 31.7 pg (26.0-30.0) H 09/03/18 21:54 MCHC Differential 33.0 pg (28.0-36.0) 09/03/18 21:54 RDW 13.5 % (11.5-20.0) 09/03/18 21:54 Plt Count 332 Th/cmm (150-400) 09/03/18 21:54 MPV 6.7 fl 09/03/18 21:54 Neutrophils % 76.1 % (40.0-80.0) 09/03/18 21:54 Lymphocytes % 15.3 % (20.0-50.0) L 09/03/18 21:54 Monocytes % 5.8 % (2.0-10.0) 09/03/18 21:54 Eosinophils % 2.6 % (0.0-5.0) 09/03/18 21:54 Basophils % 0.2 % (0.0-2.0) 09/03/18 21:54 Sodium 136 mEq/L (136-145) 09/03/18 21:54 Potassium 3.9 mEq/L (3.5-5.1) 09/03/18 21:54 Chloride 103 mEq/L (98-107) 09/03/18 21:54 Carbon Dioxide 25.9 mEq/L (21.0-31.0) 09/03/18 21:54 Anion Gap 11.0 (7.0-16.0) 09/03/18 21:54 BUN 14 mg/dL (7-25) 09/03/18 21:54 Creatinine 0.6 mg/dL (0.7-1.3) L 09/03/18 21:54 Est GFR ( Amer) > 60.0 ml/min (>90) 09/03/18 21:54 Est GFR (Non-Af Amer) > 60.0 ml/min 09/03/18 21:54 BUN/Creatinine Ratio 23.3 09/03/18 21:54 Glucose 115 mg/dL (70-105) H 09/03/18 21:54 Calcium 10.5 mg/dL (8.6-10.3) H 09/03/18 21:54 Total Bilirubin 0.2 mg/dL (0.3-1.0) L 09/03/18 21:54 AST 29 U/L (13-39) 09/03/18 21:54 ALT 40 U/L (7-52) 09/03/18 21:54 Alkaline Phosphatase 66 U/L (34-104) 09/03/18 21:54 Total Protein 6.8 gm/dL (6.0-8.3) 09/03/18 21:54 Albumin 3.6 gm/dL (4.2-5.5) L 09/03/18 21:54 Globulin 3.2 gm/dL 09/03/18 21:54 Albumin/Globulin Ratio 1.1 (1.0-1.8) 09/03/18 21:54 Triglycerides 113 mg/dL (<150) 09/04/18 02:57 Cholesterol 139 mg/dL (<200) 09/04/18 02:57 LDL Cholesterol Direct 81 mg/dL (75-193) 09/04/18 02:57 HDL Cholesterol 53 mg/dL (23-92) 09/04/18 02:57 - Physical Exam Vitals and I&O: Vital Signs Temp 97.3 F 09/10/18 06:12 Pulse 82 09/10/18 06:45 Resp 16 09/10/18 06:45 BP 122/67 09/10/18 06:12 Pulse Ox 95 09/10/18 06:45 Intake & Output 09/09/18 09/10/18 09/10/18 18:59 06:59 18:59 Intake Total 240 Balance 240 Intake: Oral 240 Other: # Voids 2 Active Medications: Current Medications Acetaminophen (Tylenol) 650 mg PO Q4HR PRN PRN Reason: Mild Pain / Temp above 100 Stop: 11/02/18 23:14 Last Admin: 09/10/18 09:11 Dose: 650 mg Acetaminophen (Tylenol 650mg/20.3ml Suspension) 650 mg PO Q4H PRN PRN Reason: Pain Or Fever above 101 Stop: 11/03/18 11:44 Albuterol/Ipratropium (Duoneb Neb) 3 ml HHN [id number] [facility] Stop: 11/08/18 12:59 Last Admin: 09/10/18 06:43 Dose: 3 ml Bisacodyl (Dulcolax 10 Mg Supp) 10 mg RC DAILY PRN PRN Reason: IF MOM INEFFECTIVE Stop: 11/03/18 11:44 Finasteride (Proscar) 5 mg PO DAILY [facility]; Protocol Stop: 11/04/18 08:59 Last Admin: 09/10/18 09:12 Dose: 5 mg Glycopyrrolate (Robinul) 2 mg PO TID [facility] Stop: 11/03/18 13:59 Last Admin: 09/10/18 09:15 Dose: 2 mg Guaifenesin (Robitussin) 200 mg PO Q4HR PRN PRN Reason: Cough or Congestion Stop: 11/03/18 11:44 Levetiracetam (Keppra) 750 mg PO [facility] Stop: 11/03/18 20:59 Last Admin: 09/09/18 20:43 Dose: Not Given Levothyroxine Sodium (Synthroid) 0.05 mg PO QDAC [facility] Stop: 11/04/18 07:29 Last Admin: 09/10/18 06:30 Dose: 0.05 mg Lorazepam (Ativan) 0.5 mg PO Q4HR PRN; Protocol PRN Reason: Anxiety Stop: 10/03/18 23:14 Last Admin: 09/10/18 09:12 Dose: 0.5 mg Magnesium Hydroxide (Milk Of Magnesia) 30 ml PO DAILY PRN PRN Reason: Constipation Stop: 11/03/18 11:44 Mirtazapine (Remeron) 15 mg PO HS [facility]; Protocol Stop: 11/03/18 20:59 Last Admin: 09/09/18 20:20 Dose: 15 mg Miscellaneous (Misc Oral Tab) 0.5 tab PO TID [facility] Stop: 11/05/18 10:29 Last Admin: 09/10/18 09:15 Dose: 0.5 tab Mupirocin (Bactroban Oint) 1 appl NS BID [facility] Stop: 09/11/18 09:01 Last Admin: 09/09/18 17:37 Dose: 1 appl Olanzapine (Zyprexa) 20 mg PO [facility]; Protocol Stop: 11/03/18 20:59 Last Admin: 09/09/18 20:21 Dose: 20 mg Phenobarbital (Phenobarbital) 129.6 mg PO [facility] Stop: 11/03/18 20:59 Last Admin: 09/09/18 20:20 Dose: 129.6 mg Polyethylene Glycol (Miralax) 17 gm PO BID [facility] Stop: 11/03/18 16:59 Last Admin: 09/10/18 09:13 Dose: Not Given Prednisone (Deltasone) 10 mg PO BID [facility] Stop: 11/03/18 16:59 Last Admin: 09/10/18 09:11 Dose: 10 mg Sodium Phosphate (Fleet Enema) 135 ml RC DAILY PRN PRN Reason: IF DULCOLAX INEFFECTIVE Stop: 11/03/18 11:44 Tamsulosin HCl (Flomax) 0.4 mg PO QPM [facility] Stop: 11/03/18 16:59 Last Admin: 09/09/18 17:37 Dose: 0.4 mg Topiramate (Topamax) 200 mg PO BID [facility] Stop: 11/03/18 16:59 Last Admin: 09/10/18 09:12 Dose: 200 mg Topiramate (Topamax) 100 mg PO HS [facility] Stop: 11/03/18 20:59 Last Admin: 09/09/18 20:22 Dose: 100 mg Zolpidem Tartrate (Ambien) 5 mg PO HS PRN PRN Reason: Insomnia Stop: 11/02/18 23:14 General: demented, disheveled HEENT: NC/AT, PERRLA, EOMI Neck: Supple, No JVD Lungs: CTAB Cardiovascular: RRR, Normal S1, Normal S2 Abdomen: soft, non-tender, thin, non-distended, positive bowel sound Extremities: excoriation, contracture Neurological: no change - Procedures Procedures: Procedures Procedure Code Date BARIUM SWALLOW 87.61 04/05/95 C.A.T. SCAN OF HEAD 87.03 04/05/95 CLOSURE SKIN & SUBCUTANEOUS NEC 86.59 04/05/95 ELECTROENCEPHALOGRAM 89.14 04/05/95 HEAD SOFT TISS X-RAY NEC 87.09 04/05/95 LINEAR REP LID LACER 08.81 11/06/95 RPR F/E/E/N/L/M 2.5 CM/< 46510 11/06/95 Internal Medicine Assmt/Plan - Assessment Assessment: ASSESSMENT AND PLAN: Leukocytosis of unclear etiology, anemia, seizure, dysphagia, hypertension, chronic obstructive pulmonary disease, benign prostatic hypertrophy, hypothyroidism, schizoaffective disorder, and low albumin. - Plan Plan: PLAN: Continue the patient on antiepileptic medication. We will check the patient's level. We will continue on aspiration precaution. We will continue on oxygen bronchodilator treatments. Continue with current care. We will continue to follow with you Dr. Downey.
--- NOTE | 2018-09-10 20:14 | Progress Notes ---
DATE: 09/10/2018 SUBJECTIVE: Staff was spoken to. The patient is interviewed. Mood is noted to be irritable. Affect is constricted. The patient continues to be upset and the patient has been seeking negative attention. No side effects to the medications are noted at this time. The patient is currently on mirtazapine 15 mg and olanzapine 20 mg ____ and has been able to tolerate the medication. No side effects to the medications are noted. ASSESSMENT: The patient is still impulsive. PLAN: To continue the patient with the supportive therapy. Encouraged the patient to verbalize the concerns rather than to act out. JOB# [id number]
[2018-09-10] MEDS: Levetiracetam 500 mg/5mL 5mL UDSyr *for ORAL USE ONLY PO SCH (20:54)
[2018-09-11] MEDS: Levothyroxine 0.05 Mg Tab PO SCH (06:36)
[2018-09-11] MEDS: Albuterol/Ipratropium Neb 3 ML AERS HHN SCH ×3 (06:55→20:48)
[2018-09-11] MEDS: POLYETHYLENE GLYCOL 3350 17 GM PACK PO SCH ×2 (08:22→17:46)
--- NOTE | 2018-09-11 11:53 | Internal Medicine Prog Note ---
Internal Medicine Subjective - Subjective Patient seen and examined:: with staff, chart reviewed Patient is:: awake, verbal, interactive, paul chair, denies any new complaints Per staff patient has:: no adverse event, no episodes of fall, poor appetite, tolerating meds Internal Medicine Objective - Results Result Diagrams: 09/03/18 21:54 09/03/18 21:54 Recent Labs: Laboratory Last Values WBC 13.0 Th/cmm (4.8-10.8) H 09/03/18 21:54 RBC 3.93 Mil/cmm (4.30-5.70) L 09/03/18 21:54 Hgb 12.5 gm/dL (12-16) 09/03/18 21:54 Hct 37.8 % (41.0-60) L 09/03/18 21:54 MCV 96.1 fl (80-99) 09/03/18 21:54 MCH 31.7 pg (26.0-30.0) H 09/03/18 21:54 MCHC Differential 33.0 pg (28.0-36.0) 09/03/18 21:54 RDW 13.5 % (11.5-20.0) 09/03/18 21:54 Plt Count 332 Th/cmm (150-400) 09/03/18 21:54 MPV 6.7 fl 09/03/18 21:54 Neutrophils % 76.1 % (40.0-80.0) 09/03/18 21:54 Lymphocytes % 15.3 % (20.0-50.0) L 09/03/18 21:54 Monocytes % 5.8 % (2.0-10.0) 09/03/18 21:54 Eosinophils % 2.6 % (0.0-5.0) 09/03/18 21:54 Basophils % 0.2 % (0.0-2.0) 09/03/18 21:54 Sodium 136 mEq/L (136-145) 09/03/18 21:54 Potassium 3.9 mEq/L (3.5-5.1) 09/03/18 21:54 Chloride 103 mEq/L (98-107) 09/03/18 21:54 Carbon Dioxide 25.9 mEq/L (21.0-31.0) 09/03/18 21:54 Anion Gap 11.0 (7.0-16.0) 09/03/18 21:54 BUN 14 mg/dL (7-25) 09/03/18 21:54 Creatinine 0.6 mg/dL (0.7-1.3) L 09/03/18 21:54 Est GFR ( Amer) > 60.0 ml/min (>90) 09/03/18 21:54 Est GFR (Non-Af Amer) > 60.0 ml/min 09/03/18 21:54 BUN/Creatinine Ratio 23.3 09/03/18 21:54 Glucose 115 mg/dL (70-105) H 09/03/18 21:54 Calcium 10.5 mg/dL (8.6-10.3) H 09/03/18 21:54 Total Bilirubin 0.2 mg/dL (0.3-1.0) L 09/03/18 21:54 AST 29 U/L (13-39) 09/03/18 21:54 ALT 40 U/L (7-52) 09/03/18 21:54 Alkaline Phosphatase 66 U/L (34-104) 09/03/18 21:54 Total Protein 6.8 gm/dL (6.0-8.3) 09/03/18 21:54 Albumin 3.6 gm/dL (4.2-5.5) L 09/03/18 21:54 Globulin 3.2 gm/dL 09/03/18 21:54 Albumin/Globulin Ratio 1.1 (1.0-1.8) 09/03/18 21:54 Triglycerides 113 mg/dL (<150) 09/04/18 02:57 Cholesterol 139 mg/dL (<200) 09/04/18 02:57 LDL Cholesterol Direct 81 mg/dL (75-193) 09/04/18 02:57 HDL Cholesterol 53 mg/dL (23-92) 09/04/18 02:57 - Physical Exam Vitals and I&O: Vital Signs Temp 97.2 F 09/11/18 04:53 Pulse 89 09/11/18 06:56 Resp 18 09/11/18 06:56 BP 119/62 09/11/18 04:53 Pulse Ox 96 09/11/18 06:56 Intake & Output 09/10/18 09/11/18 09/11/18 18:59 06:59 18:59 Intake Total 850 240 Balance 850 240 Intake: Oral 850 240 Other: # Voids 4 2 # Bowel Movements 2 Active Medications: Current Medications Acetaminophen (Tylenol) 650 mg PO Q4HR PRN PRN Reason: Mild Pain / Temp above 100 Stop: 11/02/18 23:14 Last Admin: 09/11/18 08:21 Dose: 650 mg Acetaminophen (Tylenol 650mg/20.3ml Suspension) 650 mg PO Q4H PRN PRN Reason: Pain Or Fever above 101 Stop: 11/03/18 11:44 Albuterol/Ipratropium (Duoneb Neb) 3 ml HHN [id number] [facility] Stop: 11/08/18 12:59 Last Admin: 09/11/18 06:55 Dose: 3 ml Bisacodyl (Dulcolax 10 Mg Supp) 10 mg RC DAILY PRN PRN Reason: IF MOM INEFFECTIVE Stop: 11/03/18 11:44 Finasteride (Proscar) 5 mg PO DAILY [facility]; Protocol Stop: 11/04/18 08:59 Last Admin: 09/11/18 08:20 Dose: 5 mg Glycopyrrolate (Robinul) 2 mg PO TID [facility] Stop: 11/03/18 13:59 Last Admin: 09/11/18 08:22 Dose: 2 mg Guaifenesin (Robitussin) 200 mg PO Q4HR PRN PRN Reason: Cough or Congestion Stop: 11/03/18 11:44 Levetiracetam (Keppra) 750 mg PO [facility] Stop: 11/03/18 20:59 Last Admin: 09/10/18 20:54 Dose: 750 mg Levothyroxine Sodium (Synthroid) 0.05 mg PO QDAC [facility] Stop: 11/04/18 07:29 Last Admin: 09/11/18 06:36 Dose: 0.05 mg Lorazepam (Ativan) 0.5 mg PO Q4HR PRN; Protocol PRN Reason: Anxiety Stop: 10/03/18 23:14 Last Admin: 09/11/18 08:20 Dose: 0.5 mg Magnesium Hydroxide (Milk Of Magnesia) 30 ml PO DAILY PRN PRN Reason: Constipation Stop: 11/03/18 11:44 Mirtazapine (Remeron) 15 mg PO [facility]; Protocol Stop: 11/03/18 20:59 Last Admin: 09/10/18 20:55 Dose: 15 mg Miscellaneous (Misc Oral Tab) 0.5 tab PO TID [facility] Stop: 11/05/18 10:29 Last Admin: 09/11/18 08:22 Dose: 0.5 tab Olanzapine (Zyprexa) 20 mg PO [facility]; Protocol Stop: 11/03/18 20:59 Last Admin: 09/10/18 20:56 Dose: 20 mg Phenobarbital (Phenobarbital) 129.6 mg PO HS [facility] Stop: 11/03/18 20:59 Last Admin: 09/10/18 20:54 Dose: 129.6 mg Polyethylene Glycol (Miralax) 17 gm PO BID [facility] Stop: 11/03/18 16:59 Last Admin: 09/11/18 08:22 Dose: Not Given Prednisone (Deltasone) 10 mg PO BID [facility] Stop: 11/03/18 16:59 Last Admin: 09/11/18 08:22 Dose: 10 mg Sodium Phosphate (Fleet Enema) 135 ml RC DAILY PRN PRN Reason: IF DULCOLAX INEFFECTIVE Stop: 11/03/18 11:44 Tamsulosin HCl (Flomax) 0.4 mg PO QPM [facility] Stop: 11/03/18 16:59 Last Admin: 09/10/18 17:54 Dose: 0.4 mg Topiramate (Topamax) 200 mg PO BID [facility] Stop: 11/03/18 16:59 Last Admin: 09/11/18 08:21 Dose: 200 mg Topiramate (Topamax) 100 mg PO HS [facility] Stop: 11/03/18 20:59 Last Admin: 09/10/18 20:56 Dose: 100 mg Zolpidem Tartrate (Ambien) 5 mg PO HS PRN PRN Reason: Insomnia Stop: 11/02/18 23:14 Last Admin: 09/10/18 20:56 Dose: 5 mg General: demented, disheveled HEENT: NC/AT, PERRLA, EOMI Neck: Supple, No JVD Lungs: CTAB Cardiovascular: RRR, Normal S1, Normal S2 Abdomen: soft, non-tender, thin, non-distended, positive bowel sound Extremities: excoriation, contracture Neurological: no change - Procedures Procedures: Procedures Procedure Code Date BARIUM SWALLOW 87.61 04/05/95 C.A.T. SCAN OF HEAD 87.03 04/05/95 CLOSURE SKIN & SUBCUTANEOUS NEC 86.59 04/05/95 ELECTROENCEPHALOGRAM 89.14 04/05/95 HEAD SOFT TISS X-RAY NEC 87.09 04/05/95 LINEAR REP LID LACER 08.81 11/06/95 RPR F/E/E/N/L/M 2.5 CM/< 88158 11/06/95 Internal Medicine Assmt/Plan - Assessment Assessment: ASSESSMENT AND PLAN: Leukocytosis of unclear etiology, anemia, seizure, dysphagia, hypertension, chronic obstructive pulmonary disease, benign prostatic hypertrophy, hypothyroidism, schizoaffective disorder, and low albumin. - Plan Plan: PLAN: Continue the patient on antiepileptic medication. We will check the patient's level. We will continue on aspiration precaution. We will continue on oxygen bronchodilator treatments. Continue with current care. We will continue to follow with you Dr. Downey. Nutritional Asmnt/Malnutr-PDOC - Dietary Evaluation Malnutrition Findings (Please click <Entered> for more info): Nutritional Asmnt/Malnutrition Start: 09/10/18 14: 01 Text: Status: Complete Freq: Protocol: Document 09/10/18 14:01 LCHENG (Rec: 09/10/18 14:04 PADMAJA [email or web address]) Nutritional Asmnt/Malnutrition Patient General Information Nutritional Screening Low Risk Diagnosis increased agitation, psychosis Pertinent Medical Hx/Surgical Hx seizure, dysphagia, HTN, COPD, previous Gtube removed, BPH, hypothyroidism, psych disorder Subjective Information Pt seen standing in his room, confused, not able to participate in conversation. Per EMR, PO intake 100% Current Diet Order/ Nutrition Support pureed, nectar thick Pertinent Medications synthroid, remeron Pertinent Labs 09/03 Cr 0.6, Glucose 115, Alb 3.6 Nutritional Hx/Data Height 1.78 m Height (Calculated Centimeters) 177.8 Current Weight (lbs) 56.699 kg Weight (Calculated Kilograms) 56.7 Weight (Calculated Grams) 31617.0 [place] Body Weight 166 Body Mass Index (BMI) 17.9 Weight Status Underweight GI Symptoms GI Symptoms None Last BM 09/07 Difficult in: None Skin Integrity/Comment: intact Current %PO Good (75-100%) Estimated Nutritional Goals BEE in Kcals: Using Current wt Calories/Kcals/Kg 27-32 Kcals Calculated 7272-5750 Protein: Using Current wt Protein g/k-1.2 Protein Calculated 67-80 Fluid: ml 1809-2144ml (1ml/kcal) Nutritional Problem No current Nutrition Prob Problem N/A Malnutrition Alert Is there a minimum of two criteria No selected? Query Text:Check all the applicable criteria. A minimum of two criteria are recommended for diagnosis of either severe or non-severe malnutrition. Malnutrition Related to Morbid Obesity Malnutrition related to morbid obesity No Intervention/Recommendation Comments 1. Continue with pureed, nectar thick liquid diet as ordered. 2. Monitor PO intake, wt, labs and skin integrity 3. F/U as low risk in 7 days Expected Outcomes/Goals Expected Outcomes/Goals 1. PO intake to meet at least 75% of nutritional needs. 2. Wt stability, skin to remain intact, labs to approach WNL.
[2018-09-11] MEDS: Levetiracetam 500 mg/5mL 5mL UDSyr *for ORAL USE ONLY PO SCH (21:07)
--- NOTE | 2018-09-12 03:15 | Progress Notes ---
DATE: 09/11/2018 PSYCHIATRIC PROGRESS NOTE SUBJECTIVE: Staff was spoken to. The patient is interviewed. Mood is noted to be irritable. Affect is constricted. Coping skills are noted to be still poor. Insight and judgment are also noted to be limited. The patient has been having difficult time to cope with the stress. The patient has been having difficult time at this time. No side effects to the medications are noted. ASSESSMENT: The patient is still impulsive. PLAN: Continue the patient with the supportive therapy and follow up. [facility]# [id number]
[2018-09-12] MEDS: Albuterol/Ipratropium Neb 3 ML AERS HHN SCH ×3 (06:55→19:42)
[2018-09-12] MEDS: Levothyroxine 0.05 Mg Tab PO SCH (07:00)
[2018-09-12] MEDS: POLYETHYLENE GLYCOL 3350 17 GM PACK PO SCH ×2 (09:49→17:29)
--- NOTE | 2018-09-12 12:02 | Internal Medicine Prog Note ---
Internal Medicine Subjective - Subjective Patient seen and examined:: with staff, chart reviewed Patient is:: awake, verbal, interactive, paul chair, denies any new complaints Per staff patient has:: no adverse event, no episodes of fall, poor appetite, tolerating meds Internal Medicine Objective - Results Result Diagrams: 09/03/18 21:54 09/03/18 21:54 Recent Labs: Laboratory Last Values WBC 13.0 Th/cmm (4.8-10.8) H 09/03/18 21:54 RBC 3.93 Mil/cmm (4.30-5.70) L 09/03/18 21:54 Hgb 12.5 gm/dL (12-16) 09/03/18 21:54 Hct 37.8 % (41.0-60) L 09/03/18 21:54 MCV 96.1 fl (80-99) 09/03/18 21:54 MCH 31.7 pg (26.0-30.0) H 09/03/18 21:54 MCHC Differential 33.0 pg (28.0-36.0) 09/03/18 21:54 RDW 13.5 % (11.5-20.0) 09/03/18 21:54 Plt Count 332 Th/cmm (150-400) 09/03/18 21:54 MPV 6.7 fl 09/03/18 21:54 Neutrophils % 76.1 % (40.0-80.0) 09/03/18 21:54 Lymphocytes % 15.3 % (20.0-50.0) L 09/03/18 21:54 Monocytes % 5.8 % (2.0-10.0) 09/03/18 21:54 Eosinophils % 2.6 % (0.0-5.0) 09/03/18 21:54 Basophils % 0.2 % (0.0-2.0) 09/03/18 21:54 Sodium 136 mEq/L (136-145) 09/03/18 21:54 Potassium 3.9 mEq/L (3.5-5.1) 09/03/18 21:54 Chloride 103 mEq/L (98-107) 09/03/18 21:54 Carbon Dioxide 25.9 mEq/L (21.0-31.0) 09/03/18 21:54 Anion Gap 11.0 (7.0-16.0) 09/03/18 21:54 BUN 14 mg/dL (7-25) 09/03/18 21:54 Creatinine 0.6 mg/dL (0.7-1.3) L 09/03/18 21:54 Est GFR ( Amer) > 60.0 ml/min (>90) 09/03/18 21:54 Est GFR (Non-Af Amer) > 60.0 ml/min 09/03/18 21:54 BUN/Creatinine Ratio 23.3 09/03/18 21:54 Glucose 115 mg/dL (70-105) H 09/03/18 21:54 Calcium 10.5 mg/dL (8.6-10.3) H 09/03/18 21:54 Total Bilirubin 0.2 mg/dL (0.3-1.0) L 09/03/18 21:54 AST 29 U/L (13-39) 09/03/18 21:54 ALT 40 U/L (7-52) 09/03/18 21:54 Alkaline Phosphatase 66 U/L (34-104) 09/03/18 21:54 Total Protein 6.8 gm/dL (6.0-8.3) 09/03/18 21:54 Albumin 3.6 gm/dL (4.2-5.5) L 09/03/18 21:54 Globulin 3.2 gm/dL 09/03/18 21:54 Albumin/Globulin Ratio 1.1 (1.0-1.8) 09/03/18 21:54 Triglycerides 113 mg/dL (<150) 09/04/18 02:57 Cholesterol 139 mg/dL (<200) 09/04/18 02:57 LDL Cholesterol Direct 81 mg/dL (75-193) 09/04/18 02:57 HDL Cholesterol 53 mg/dL (23-92) 09/04/18 02:57 - Physical Exam Vitals and I&O: Vital Signs Temp 98.6 F 09/12/18 05:56 Pulse 92 09/12/18 06:56 Resp 20 09/12/18 06:56 BP 110/61 09/12/18 05:56 Pulse Ox 95 09/12/18 06:56 Intake & Output 09/11/18 09/12/18 09/12/18 18:59 06:59 18:59 Intake Total 800 240 Output Total 1 Balance 800 239 Intake: Oral 800 240 Output: Urine/Stool Mix 1 Other: # Voids 3 2 # Bowel Movements 0 0 Active Medications: Current Medications Acetaminophen (Tylenol) 650 mg PO Q4HR PRN PRN Reason: Mild Pain / Temp above 100 Stop: 11/02/18 23:14 Last Admin: 09/11/18 08:21 Dose: 650 mg Acetaminophen (Tylenol 650mg/20.3ml Suspension) 650 mg PO Q4H PRN PRN Reason: Pain Or Fever above 101 Stop: 11/03/18 11:44 Albuterol/Ipratropium (Duoneb Neb) 3 ml HHN [id number] [facility] Stop: 11/08/18 12:59 Last Admin: 09/12/18 06:55 Dose: 3 ml Bisacodyl (Dulcolax 10 Mg Supp) 10 mg RC DAILY PRN PRN Reason: IF MOM INEFFECTIVE Stop: 11/03/18 11:44 Finasteride (Proscar) 5 mg PO DAILY [facility]; Protocol Stop: 11/04/18 08:59 Last Admin: 09/12/18 09:42 Dose: 5 mg Glycopyrrolate (Robinul) 2 mg PO TID [facility] Stop: 11/03/18 13:59 Last Admin: 09/11/18 21:09 Dose: 2 mg Guaifenesin (Robitussin) 200 mg PO Q4HR PRN PRN Reason: Cough or Congestion Stop: 11/03/18 11:44 Levetiracetam (Keppra) 750 mg PO HS [facility] Stop: 11/03/18 20:59 Last Admin: 09/11/18 21:07 Dose: 750 mg Levothyroxine Sodium (Synthroid) 0.05 mg PO QDAC [facility] Stop: 11/04/18 07:29 Last Admin: 09/12/18 07:00 Dose: 0.05 mg Lorazepam (Ativan) 0.5 mg PO Q4HR PRN; Protocol PRN Reason: Anxiety Stop: 10/03/18 23:14 Last Admin: 09/12/18 09:47 Dose: 0.5 mg Magnesium Hydroxide (Milk Of Magnesia) 30 ml PO DAILY PRN PRN Reason: Constipation Stop: 11/03/18 11:44 Mirtazapine (Remeron) 15 mg PO HS [facility]; Protocol Stop: 11/03/18 20:59 Last Admin: 09/11/18 21:09 Dose: 15 mg Miscellaneous (Misc Oral Tab) 0.5 tab PO TID [facility] Stop: 11/05/18 10:29 Last Admin: 09/12/18 09:43 Dose: 0.5 tab Olanzapine (Zyprexa) 20 mg PO HS [facility]; Protocol Stop: 11/03/18 20:59 Last Admin: 09/11/18 21:09 Dose: 20 mg Phenobarbital (Phenobarbital) 129.6 mg PO HS [facility] Stop: 11/03/18 20:59 Last Admin: 09/11/18 21:08 Dose: 129.6 mg Polyethylene Glycol (Miralax) 17 gm PO BID [facility] Stop: 11/03/18 16:59 Last Admin: 09/12/18 09:49 Dose: 17 gm Prednisone (Deltasone) 10 mg PO BID [facility] Stop: 11/03/18 16:59 Last Admin: 09/12/18 09:48 Dose: 10 mg Sodium Phosphate (Fleet Enema) 135 ml RC DAILY PRN PRN Reason: IF DULCOLAX INEFFECTIVE Stop: 11/03/18 11:44 Tamsulosin HCl (Flomax) 0.4 mg PO QPM [facility] Stop: 11/03/18 16:59 Last Admin: 09/11/18 17:46 Dose: 0.4 mg Topiramate (Topamax) 200 mg PO BID [facility] Stop: 11/03/18 16:59 Last Admin: 09/12/18 09:48 Dose: 200 mg Topiramate (Topamax) 100 mg PO HS [facility] Stop: 11/03/18 20:59 Last Admin: 09/11/18 21:09 Dose: 100 mg Zolpidem Tartrate (Ambien) 5 mg PO HS PRN PRN Reason: Insomnia Stop: 11/02/18 23:14 Last Admin: 09/11/18 22:30 Dose: 5 mg General: demented, disheveled HEENT: NC/AT, PERRLA, EOMI Neck: Supple, No JVD Lungs: CTAB Cardiovascular: RRR, Normal S1, Normal S2 Abdomen: soft, non-tender, thin, non-distended, positive bowel sound Extremities: excoriation, contracture Neurological: no change - Procedures Procedures: Procedures Procedure Code Date BARIUM SWALLOW 87.61 04/05/95 C.A.T. SCAN OF HEAD 87.03 04/05/95 CLOSURE SKIN & SUBCUTANEOUS NEC 86.59 04/05/95 ELECTROENCEPHALOGRAM 89.14 04/05/95 HEAD SOFT TISS X-RAY NEC 87.09 04/05/95 LINEAR REP LID LACER 08.81 11/06/95 RPR F/E/E/N/L/M 2.5 CM/< 76737 11/06/95 Internal Medicine Assmt/Plan - Assessment Assessment: ASSESSMENT AND PLAN: Leukocytosis of unclear etiology, anemia, seizure, dysphagia, hypertension, chronic obstructive pulmonary disease, benign prostatic hypertrophy, hypothyroidism, schizoaffective disorder, and low albumin. - Plan Plan: PLAN: Continue the patient on antiepileptic medication. We will check the patient's level. We will continue on aspiration precaution. We will continue on oxygen bronchodilator treatments. Continue with current care. We will continue to follow with you Dr. Downey. Nutritional Asmnt/Malnutr-PDOC - Dietary Evaluation Malnutrition Findings (Please click <Entered> for more info): Nutritional Asmnt/Malnutrition Start: 09/10/18 14: 01 Text: Status: Complete Freq: Protocol: Document 09/10/18 14:01 LCHENG (Rec: 09/10/18 14:04 LCHENG [email or web address]) Nutritional Asmnt/Malnutrition Patient General Information Nutritional Screening Low Risk Diagnosis increased agitation, psychosis Pertinent Medical Hx/Surgical Hx seizure, dysphagia, HTN, COPD, previous Gtube removed, BPH, hypothyroidism, psych disorder Subjective Information Pt seen standing in his room, confused, not able to participate in conversation. Per EMR, PO intake 100% Current Diet Order/ Nutrition Support pureed, nectar thick Pertinent Medications synthroid, remeron Pertinent Labs 09/03 Cr 0.6, Glucose 115, Alb 3.6 Nutritional Hx/Data Height 1.78 m Height (Calculated Centimeters) 177.8 Current Weight (lbs) 56.699 kg Weight (Calculated Kilograms) 56.7 Weight (Calculated Grams) 20667.0 [place] Body Weight 166 Body Mass Index (BMI) 17.9 Weight Status Underweight GI Symptoms GI Symptoms None Last BM 09/07 Difficult in: None Skin Integrity/Comment: intact Current %PO Good (75-100%) Estimated Nutritional Goals BEE in Kcals: Using Current wt Calories/Kcals/Kg 27-32 Kcals Calculated 3005-1464 Protein: Using Current wt Protein g/k-1.2 Protein Calculated 67-80 Fluid: ml 1809-2144ml (1ml/kcal) Nutritional Problem No current Nutrition Prob Problem N/A Malnutrition Alert Is there a minimum of two criteria No selected? Query Text:Check all the applicable criteria. A minimum of two criteria are recommended for diagnosis of either severe or non-severe malnutrition. Malnutrition Related to Morbid Obesity Malnutrition related to morbid obesity No Intervention/Recommendation Comments 1. Continue with pureed, nectar thick liquid diet as ordered. 2. Monitor PO intake, wt, labs and skin integrity 3. F/U as low risk in 7 days Expected Outcomes/Goals Expected Outcomes/Goals 1. PO intake to meet at least 75% of nutritional needs. 2. Wt stability, skin to remain intact, labs to approach WNL.
[2018-09-12] MEDS: Levetiracetam 500 mg/5mL 5mL UDSyr *for ORAL USE ONLY PO SCH (20:20)
[2018-09-13] MEDS: Levothyroxine 0.05 Mg Tab PO SCH (06:30)
[2018-09-13] MEDS: Albuterol/Ipratropium Neb 3 ML AERS HHN SCH ×3 (07:05→19:06)
--- NOTE | 2018-09-13 07:19 | Progress Notes ---
DATE: 09/12/2018 SUBJECTIVE: Staff was spoken to. The patient is interviewed. Mood is noted to be irritable. Affect is constricted. The patient's insight and judgment are noted to be still impaired. Impulse control is noted to be poor. Coping skills are also noted to be very poor. The patient has been having difficult time to cope with the stress. The patient has been still testing the limits. The patient is a developmentally disabled and the patient needs to be redirected constantly. ASSESSMENT: The patient is still impulsive. PLAN: To continue the patient with the supportive therapy and followup. JOB# [id number]
[2018-09-13] MEDS: POLYETHYLENE GLYCOL 3350 17 GM PACK PO SCH ×2 (10:14→17:49)
--- NOTE | 2018-09-13 11:49 | Internal Medicine Prog Note ---
Internal Medicine Subjective - Subjective Patient seen and examined:: with staff, chart reviewed Patient is:: awake, verbal, interactive, paul chair, denies any new complaints Per staff patient has:: no adverse event, no episodes of fall, poor appetite, tolerating meds Internal Medicine Objective - Results Result Diagrams: 09/03/18 21:54 09/03/18 21:54 Recent Labs: Laboratory Last Values WBC 13.0 Th/cmm (4.8-10.8) H 09/03/18 21:54 RBC 3.93 Mil/cmm (4.30-5.70) L 09/03/18 21:54 Hgb 12.5 gm/dL (12-16) 09/03/18 21:54 Hct 37.8 % (41.0-60) L 09/03/18 21:54 MCV 96.1 fl (80-99) 09/03/18 21:54 MCH 31.7 pg (26.0-30.0) H 09/03/18 21:54 MCHC Differential 33.0 pg (28.0-36.0) 09/03/18 21:54 RDW 13.5 % (11.5-20.0) 09/03/18 21:54 Plt Count 332 Th/cmm (150-400) 09/03/18 21:54 MPV 6.7 fl 09/03/18 21:54 Neutrophils % 76.1 % (40.0-80.0) 09/03/18 21:54 Lymphocytes % 15.3 % (20.0-50.0) L 09/03/18 21:54 Monocytes % 5.8 % (2.0-10.0) 09/03/18 21:54 Eosinophils % 2.6 % (0.0-5.0) 09/03/18 21:54 Basophils % 0.2 % (0.0-2.0) 09/03/18 21:54 Sodium 136 mEq/L (136-145) 09/03/18 21:54 Potassium 3.9 mEq/L (3.5-5.1) 09/03/18 21:54 Chloride 103 mEq/L (98-107) 09/03/18 21:54 Carbon Dioxide 25.9 mEq/L (21.0-31.0) 09/03/18 21:54 Anion Gap 11.0 (7.0-16.0) 09/03/18 21:54 BUN 14 mg/dL (7-25) 09/03/18 21:54 Creatinine 0.6 mg/dL (0.7-1.3) L 09/03/18 21:54 Est GFR ( Amer) > 60.0 ml/min (>90) 09/03/18 21:54 Est GFR (Non-Af Amer) > 60.0 ml/min 09/03/18 21:54 BUN/Creatinine Ratio 23.3 09/03/18 21:54 Glucose 115 mg/dL (70-105) H 09/03/18 21:54 Calcium 10.5 mg/dL (8.6-10.3) H 09/03/18 21:54 Total Bilirubin 0.2 mg/dL (0.3-1.0) L 09/03/18 21:54 AST 29 U/L (13-39) 09/03/18 21:54 ALT 40 U/L (7-52) 09/03/18 21:54 Alkaline Phosphatase 66 U/L (34-104) 09/03/18 21:54 Total Protein 6.8 gm/dL (6.0-8.3) 09/03/18 21:54 Albumin 3.6 gm/dL (4.2-5.5) L 09/03/18 21:54 Globulin 3.2 gm/dL 09/03/18 21:54 Albumin/Globulin Ratio 1.1 (1.0-1.8) 09/03/18 21:54 Triglycerides 113 mg/dL (<150) 09/04/18 02:57 Cholesterol 139 mg/dL (<200) 09/04/18 02:57 LDL Cholesterol Direct 81 mg/dL (75-193) 09/04/18 02:57 HDL Cholesterol 53 mg/dL (23-92) 09/04/18 02:57 - Physical Exam Vitals and I&O: Vital Signs Temp 98.5 F 09/12/18 20:56 Pulse 96 09/13/18 07:06 Resp 18 09/13/18 07:06 BP 133/70 09/12/18 20:56 Pulse Ox 97 09/13/18 07:06 Intake & Output 09/12/18 09/13/18 09/13/18 18:59 06:59 18:59 Intake Total 120 Balance 120 Intake: Oral 120 Other: # Voids 4 # Bowel Movements 0 Active Medications: Current Medications Acetaminophen (Tylenol) 650 mg PO Q4HR PRN PRN Reason: Mild Pain / Temp above 100 Stop: 11/02/18 23:14 Last Admin: 09/11/18 08:21 Dose: 650 mg Acetaminophen (Tylenol 650mg/20.3ml Suspension) 650 mg PO Q4H PRN PRN Reason: Pain Or Fever above 101 Stop: 11/03/18 11:44 Albuterol/Ipratropium (Duoneb Neb) 3 ml HHN [id number] [facility] Stop: 11/08/18 12:59 Last Admin: 09/13/18 07:05 Dose: 3 ml Bisacodyl (Dulcolax 10 Mg Supp) 10 mg RC DAILY PRN PRN Reason: IF MOM INEFFECTIVE Stop: 11/03/18 11:44 Finasteride (Proscar) 5 mg PO DAILY [facility]; Protocol Stop: 11/04/18 08:59 Last Admin: 09/13/18 10:12 Dose: 5 mg Glycopyrrolate (Robinul) 2 mg PO TID [facility] Stop: 11/03/18 13:59 Last Admin: 09/13/18 10:26 Dose: 2 mg Guaifenesin (Robitussin) 200 mg PO Q4HR PRN PRN Reason: Cough or Congestion Stop: 11/03/18 11:44 Levetiracetam (Keppra) 750 mg PO HS [facility] Stop: 11/03/18 20:59 Last Admin: 09/12/18 20:20 Dose: 750 mg Levothyroxine Sodium (Synthroid) 0.05 mg PO QDAC [facility] Stop: 11/04/18 07:29 Last Admin: 09/13/18 06:30 Dose: 0.05 mg Lorazepam (Ativan) 0.5 mg PO Q4HR PRN; Protocol PRN Reason: Anxiety Stop: 10/03/18 23:14 Last Admin: 09/12/18 19:56 Dose: 0.5 mg Magnesium Hydroxide (Milk Of Magnesia) 30 ml PO DAILY PRN PRN Reason: Constipation Stop: 11/03/18 11:44 Mirtazapine (Remeron) 15 mg PO HS [facility]; Protocol Stop: 11/03/18 20:59 Last Admin: 09/12/18 20:19 Dose: 15 mg Miscellaneous (Misc Oral Tab) 0.5 tab PO TID [facility] Stop: 11/05/18 10:29 Last Admin: 09/13/18 10:26 Dose: 0.5 tab Olanzapine (Zyprexa) 20 mg PO HS [facility]; Protocol Stop: 11/03/18 20:59 Last Admin: 09/12/18 20:19 Dose: 20 mg Phenobarbital (Phenobarbital) 129.6 mg PO HS [facility] Stop: 11/03/18 20:59 Last Admin: 09/12/18 20:18 Dose: 129.6 mg Polyethylene Glycol (Miralax) 17 gm PO BID [facility] Stop: 11/03/18 16:59 Last Admin: 09/13/18 10:14 Dose: 17 gm Prednisone (Deltasone) 10 mg PO BID [facility] Stop: 11/03/18 16:59 Last Admin: 09/13/18 10:12 Dose: 10 mg Sodium Phosphate (Fleet Enema) 135 ml RC DAILY PRN PRN Reason: IF DULCOLAX INEFFECTIVE Stop: 11/03/18 11:44 Tamsulosin HCl (Flomax) 0.4 mg PO QPM [facility] Stop: 11/03/18 16:59 Last Admin: 09/12/18 17:27 Dose: 0.4 mg Topiramate (Topamax) 200 mg PO BID [facility] Stop: 11/03/18 16:59 Last Admin: 09/13/18 10:14 Dose: 200 mg Topiramate (Topamax) 100 mg PO HS [facility] Stop: 11/03/18 20:59 Last Admin: 09/12/18 20:21 Dose: 100 mg Zolpidem Tartrate (Ambien) 5 mg PO HS PRN PRN Reason: Insomnia Stop: 11/02/18 23:14 Last Admin: 09/12/18 21:02 Dose: 5 mg General: demented, disheveled HEENT: NC/AT, PERRLA, EOMI Neck: Supple, No JVD Lungs: CTAB Cardiovascular: RRR, Normal S1, Normal S2 Abdomen: soft, non-tender, thin, non-distended, positive bowel sound Extremities: excoriation, contracture Neurological: no change - Procedures Procedures: Procedures Procedure Code Date BARIUM SWALLOW 87.61 04/05/95 C.A.T. SCAN OF HEAD 87.03 04/05/95 CLOSURE SKIN & SUBCUTANEOUS NEC 86.59 04/05/95 ELECTROENCEPHALOGRAM 89.14 04/05/95 HEAD SOFT TISS X-RAY NEC 87.09 04/05/95 LINEAR REP LID LACER 08.81 11/06/95 RPR F/E/E/N/L/M 2.5 CM/< 48613 11/06/95 Internal Medicine Assmt/Plan - Assessment Assessment: ASSESSMENT AND PLAN: Leukocytosis of unclear etiology, anemia, seizure, dysphagia, hypertension, chronic obstructive pulmonary disease, benign prostatic hypertrophy, hypothyroidism, schizoaffective disorder, and low albumin. - Plan Plan: PLAN: Continue the patient on antiepileptic medication. We will check the patient's level. We will continue on aspiration precaution. We will continue on oxygen bronchodilator treatments. Continue with current care. We will continue to follow with you Dr. Downey. Nutritional Asmnt/Malnutr-PDOC - Dietary Evaluation Malnutrition Findings (Please click <Entered> for more info): Nutritional Asmnt/Malnutrition Start: 09/10/18 14: 01 Text: Status: Complete Freq: Protocol: Document 09/10/18 14:01 LCHENG (Rec: 09/10/18 14:04 [email or web address] Nutritional Asmnt/Malnutrition Patient General Information Nutritional Screening Low Risk Diagnosis increased agitation, psychosis Pertinent Medical Hx/Surgical Hx seizure, dysphagia, HTN, COPD, previous Gtube removed, BPH, hypothyroidism, psych disorder Subjective Information Pt seen standing in his room, confused, not able to participate in conversation. Per EMR, PO intake 100% Current Diet Order/ Nutrition Support pureed, nectar thick Pertinent Medications synthroid, remeron Pertinent Labs 09/03 Cr 0.6, Glucose 115, Alb 3.6 Nutritional Hx/Data Height 1.78 m Height (Calculated Centimeters) 177.8 Current Weight (lbs) 56.699 kg Weight (Calculated Kilograms) 56.7 Weight (Calculated Grams) 69324.0 [place] Body Weight 166 Body Mass Index (BMI) 17.9 Weight Status Underweight GI Symptoms GI Symptoms None Last BM 09/07 Difficult in: None Skin Integrity/Comment: intact Current %PO Good (75-100%) Estimated Nutritional Goals BEE in Kcals: Using Current wt Calories/Kcals/Kg 27-32 Kcals Calculated 9879-5388 Protein: Using Current wt Protein g/k-1.2 Protein Calculated 67-80 Fluid: ml 1809-2144ml (1ml/kcal) Nutritional Problem No current Nutrition Prob Problem N/A Malnutrition Alert Is there a minimum of two criteria No selected? Query Text:Check all the applicable criteria. A minimum of two criteria are recommended for diagnosis of either severe or non-severe malnutrition. Malnutrition Related to Morbid Obesity Malnutrition related to morbid obesity No Intervention/Recommendation Comments 1. Continue with pureed, nectar thick liquid diet as ordered. 2. Monitor PO intake, wt, labs and skin integrity 3. F/U as low risk in 7 days Expected Outcomes/Goals Expected Outcomes/Goals 1. PO intake to meet at least 75% of nutritional needs. 2. Wt stability, skin to remain intact, labs to approach WNL.
[2018-09-13] MEDS: Levetiracetam 500 mg/5mL 5mL UDSyr *for ORAL USE ONLY PO SCH (20:43)
[2018-09-14] MEDS: Levothyroxine 0.05 Mg Tab PO SCH (06:42)
[2018-09-14] MEDS: Albuterol/Ipratropium Neb 3 ML AERS HHN SCH ×3 (07:34→20:00)
[2018-09-14] MEDS: POLYETHYLENE GLYCOL 3350 17 GM PACK PO SCH ×2 (09:18→16:50)
--- NOTE | 2018-09-14 12:10 | Internal Medicine Prog Note ---
Internal Medicine Subjective - Subjective Patient seen and examined:: with staff, chart reviewed Patient is:: awake, verbal, interactive, paul chair, denies any new complaints Per staff patient has:: no adverse event, no episodes of fall, poor appetite, tolerating meds Internal Medicine Objective - Results Result Diagrams: 09/03/18 21:54 09/03/18 21:54 Recent Labs: Laboratory Last Values WBC 13.0 Th/cmm (4.8-10.8) H 09/03/18 21:54 RBC 3.93 Mil/cmm (4.30-5.70) L 09/03/18 21:54 Hgb 12.5 gm/dL (12-16) 09/03/18 21:54 Hct 37.8 % (41.0-60) L 09/03/18 21:54 MCV 96.1 fl (80-99) 09/03/18 21:54 MCH 31.7 pg (26.0-30.0) H 09/03/18 21:54 MCHC Differential 33.0 pg (28.0-36.0) 09/03/18 21:54 RDW 13.5 % (11.5-20.0) 09/03/18 21:54 Plt Count 332 Th/cmm (150-400) 09/03/18 21:54 MPV 6.7 fl 09/03/18 21:54 Neutrophils % 76.1 % (40.0-80.0) 09/03/18 21:54 Lymphocytes % 15.3 % (20.0-50.0) L 09/03/18 21:54 Monocytes % 5.8 % (2.0-10.0) 09/03/18 21:54 Eosinophils % 2.6 % (0.0-5.0) 09/03/18 21:54 Basophils % 0.2 % (0.0-2.0) 09/03/18 21:54 Sodium 136 mEq/L (136-145) 09/03/18 21:54 Potassium 3.9 mEq/L (3.5-5.1) 09/03/18 21:54 Chloride 103 mEq/L (98-107) 09/03/18 21:54 Carbon Dioxide 25.9 mEq/L (21.0-31.0) 09/03/18 21:54 Anion Gap 11.0 (7.0-16.0) 09/03/18 21:54 BUN 14 mg/dL (7-25) 09/03/18 21:54 Creatinine 0.6 mg/dL (0.7-1.3) L 09/03/18 21:54 Est GFR ( Amer) > 60.0 ml/min (>90) 09/03/18 21:54 Est GFR (Non-Af Amer) > 60.0 ml/min 09/03/18 21:54 BUN/Creatinine Ratio 23.3 09/03/18 21:54 Glucose 115 mg/dL (70-105) H 09/03/18 21:54 Calcium 10.5 mg/dL (8.6-10.3) H 09/03/18 21:54 Total Bilirubin 0.2 mg/dL (0.3-1.0) L 09/03/18 21:54 AST 29 U/L (13-39) 09/03/18 21:54 ALT 40 U/L (7-52) 09/03/18 21:54 Alkaline Phosphatase 66 U/L (34-104) 09/03/18 21:54 Total Protein 6.8 gm/dL (6.0-8.3) 09/03/18 21:54 Albumin 3.6 gm/dL (4.2-5.5) L 09/03/18 21:54 Globulin 3.2 gm/dL 09/03/18 21:54 Albumin/Globulin Ratio 1.1 (1.0-1.8) 09/03/18 21:54 Triglycerides 113 mg/dL (<150) 09/04/18 02:57 Cholesterol 139 mg/dL (<200) 09/04/18 02:57 LDL Cholesterol Direct 81 mg/dL (75-193) 09/04/18 02:57 HDL Cholesterol 53 mg/dL (23-92) 09/04/18 02:57 - Physical Exam Vitals and I&O: Vital Signs Temp 97.6 F 09/14/18 06:34 Pulse 92 09/14/18 07:35 Resp 20 09/14/18 07:35 BP 113/66 09/14/18 06:34 Pulse Ox 97 09/14/18 07:35 Intake & Output 09/13/18 09/14/18 09/14/18 18:59 06:59 18:59 Intake Total 800 480 Balance 800 480 Intake: Oral 800 480 Other: # Voids 3 2 # Bowel Movements 0 Active Medications: Current Medications Acetaminophen (Tylenol) 650 mg PO Q4HR PRN PRN Reason: Mild Pain / Temp above 100 Stop: 11/02/18 23:14 Last Admin: 09/11/18 08:21 Dose: 650 mg Acetaminophen (Tylenol 650mg/20.3ml Suspension) 650 mg PO Q4H PRN PRN Reason: Pain Or Fever above 101 Stop: 11/03/18 11:44 Albuterol/Ipratropium (Duoneb Neb) 3 ml HHN [id number] [facility] Stop: 11/08/18 12:59 Last Admin: 09/14/18 07:34 Dose: 3 ml Bisacodyl (Dulcolax 10 Mg Supp) 10 mg RC DAILY PRN PRN Reason: IF MOM INEFFECTIVE Stop: 11/03/18 11:44 Finasteride (Proscar) 5 mg PO DAILY [facility]; Protocol Stop: 11/04/18 08:59 Last Admin: 09/14/18 09:16 Dose: 5 mg Glycopyrrolate (Robinul) 2 mg PO TID [facility] Stop: 11/03/18 13:59 Last Admin: 09/14/18 09:15 Dose: 2 mg Guaifenesin (Robitussin) 200 mg PO Q4HR PRN PRN Reason: Cough or Congestion Stop: 11/03/18 11:44 Levetiracetam (Keppra) [address] [facility] Stop: 11/03/18 20:59 Last Admin: 09/13/18 20:43 Dose: 750 mg Levothyroxine Sodium (Synthroid) 0.05 mg PO QDAC [facility] Stop: 11/04/18 07:29 Last Admin: 09/14/18 06:42 Dose: 0.05 mg Lorazepam (Ativan) 0.5 mg PO Q4HR PRN; Protocol PRN Reason: Anxiety Stop: 10/03/18 23:14 Last Admin: 09/13/18 17:14 Dose: 0.5 mg Magnesium Hydroxide (Milk Of Magnesia) 30 ml PO DAILY PRN PRN Reason: Constipation Stop: 11/03/18 11:44 Mirtazapine (Remeron) 15 mg PO [facility]; Protocol Stop: 11/03/18 20:59 Last Admin: 09/13/18 20:12 Dose: 15 mg Miscellaneous (Misc Oral Tab) 0.5 tab PO TID [facility] Stop: 11/05/18 10:29 Last Admin: 09/14/18 09:18 Dose: 0.5 tab Mupirocin (Bactroban Oint) 1 appl NS BID [facility] Stop: 09/18/18 09:01 Last Admin: 09/14/18 09:18 Dose: 1 appl Olanzapine (Zyprexa) 20 mg PO HS [facility]; Protocol Stop: 11/03/18 20:59 Last Admin: 09/13/18 20:12 Dose: 20 mg Phenobarbital (Phenobarbital) 129.[address] [facility] Stop: 11/03/18 20:59 Last Admin: 09/13/18 20:12 Dose: 129.6 mg Polyethylene Glycol (Miralax) 17 gm PO BID [facility] Stop: 11/03/18 16:59 Last Admin: 09/14/18 09:18 Dose: 17 gm Prednisone (Deltasone) 10 mg PO BID [facility] Stop: 11/03/18 16:59 Last Admin: 09/14/18 09:44 Dose: 10 mg Sodium Phosphate (Fleet Enema) 135 ml RC DAILY PRN PRN Reason: IF DULCOLAX INEFFECTIVE Stop: 11/03/18 11:44 Tamsulosin HCl (Flomax) 0.4 mg PO QPM [facility] Stop: 11/03/18 16:59 Last Admin: 09/13/18 17:56 Dose: 0.4 mg Topiramate (Topamax) 200 mg PO BID [facility] Stop: 11/03/18 16:59 Last Admin: 09/14/18 09:19 Dose: 200 mg Topiramate (Topamax) 100 mg PO HS [facility] Stop: 11/03/18 20:59 Last Admin: 09/13/18 20:12 Dose: 100 mg Zolpidem Tartrate (Ambien) 5 mg PO HS PRN PRN Reason: Insomnia Stop: 11/02/18 23:14 Last Admin: 09/13/18 20:11 Dose: 5 mg General: demented, disheveled HEENT: NC/AT, PERRLA, EOMI Neck: Supple, No JVD Lungs: CTAB Cardiovascular: RRR, Normal S1, Normal S2 Abdomen: soft, non-tender, thin, non-distended, positive bowel sound Extremities: excoriation, contracture Neurological: no change - Procedures Procedures: Procedures Procedure Code Date BARIUM SWALLOW 87.61 04/05/95 C.A.T. SCAN OF HEAD 87.03 04/05/95 CLOSURE SKIN & SUBCUTANEOUS NEC 86.59 04/05/95 ELECTROENCEPHALOGRAM 89.14 04/05/95 HEAD SOFT TISS X-RAY NEC 87.09 04/05/95 LINEAR REP LID LACER 08.81 11/06/95 RPR F/E/E/N/L/M 2.5 CM/< 85402 11/06/95 Internal Medicine Assmt/Plan - Assessment Assessment: ASSESSMENT AND PLAN: Leukocytosis of unclear etiology, anemia, seizure, dysphagia, hypertension, chronic obstructive pulmonary disease, benign prostatic hypertrophy, hypothyroidism, schizoaffective disorder, and low albumin. - Plan Plan: PLAN: Continue the patient on antiepileptic medication. We will check the patient's level. We will continue on aspiration precaution. We will continue on oxygen bronchodilator treatments. Continue with current care. We will continue to follow with you Dr. Downey. Nutritional Asmnt/Malnutr-PDOC - Dietary Evaluation Malnutrition Findings (Please click <Entered> for more info): Nutritional Asmnt/Malnutrition Start: 09/10/18 14: 01 Text: Status: Complete Freq: Protocol: Document 09/10/18 14:01 LCHENG (Rec: 09/10/18 14:04 LCHENG [email or web address]) Nutritional Asmnt/Malnutrition Patient General Information Nutritional Screening Low Risk Diagnosis increased agitation, psychosis Pertinent Medical Hx/Surgical Hx seizure, dysphagia, HTN, COPD, previous Gtube removed, BPH, hypothyroidism, psych disorder Subjective Information Pt seen standing in his room, confused, not able to participate in conversation. Per EMR, PO intake 100% Current Diet Order/ Nutrition Support pureed, nectar thick Pertinent Medications synthroid, remeron Pertinent Labs 09/03 Cr 0.6, Glucose 115, Alb 3.6 Nutritional Hx/Data Height 1.78 m Height (Calculated Centimeters) 177.8 Current Weight (lbs) 56.699 kg Weight (Calculated Kilograms) 56.7 Weight (Calculated Grams) 78947.0 [place] Body Weight 166 Body Mass Index (BMI) 17.9 Weight Status Underweight GI Symptoms GI Symptoms None Last BM 09/07 Difficult in: None Skin Integrity/Comment: intact Current %PO Good (75-100%) Estimated Nutritional Goals BEE in Kcals: Using Current wt Calories/Kcals/Kg 27-32 Kcals Calculated 6620-7205 Protein: Using Current wt Protein g/k-1.2 Protein Calculated 67-80 Fluid: ml 1809-2144ml (1ml/kcal) Nutritional Problem No current Nutrition Prob Problem N/A Malnutrition Alert Is there a minimum of two criteria No selected? Query Text:Check all the applicable criteria. A minimum of two criteria are recommended for diagnosis of either severe or non-severe malnutrition. Malnutrition Related to Morbid Obesity Malnutrition related to morbid obesity No Intervention/Recommendation Comments 1. Continue with pureed, nectar thick liquid diet as ordered. 2. Monitor PO intake, wt, labs and skin integrity 3. F/U as low risk in 7 days Expected Outcomes/Goals Expected Outcomes/Goals 1. PO intake to meet at least 75% of nutritional needs. 2. Wt stability, skin to remain intact, labs to approach WNL.
--- NOTE | 2018-09-14 12:17 | Progress Notes ---
DATE: 09/13/2018 SUBJECTIVE: Staff was spoken to. The patient is interviewed. Mood is noted to be irritable. Affect is constricted. The patient is very agitated and has been banging on the GD chair. Coping skills are noted to be extremely poor. Insight and judgment are also noted to be very much impaired. ASSESSMENT: The patient is still psychotic and impulsive. PLAN: To continue the patient on the current medications and try to give the Zyprexa earlier than it is scheduled. JOB# [id number]
[2018-09-14] MEDS: Levetiracetam 500 mg/5mL 5mL UDSyr *for ORAL USE ONLY PO SCH (20:23)
--- NOTE | 2018-09-15 03:20 | Progress Notes ---
DATE: 09/14/2018 SUBJECTIVE: Staff was spoken to. The patient is interviewed. The patient is very agitated and has been trying to pull the GD chair. ____ Insight and judgment at this time are noted to be still impaired. Impulse control is noted to be very limited. Coping skills are noted to be limited. The patient has been having difficult time to cope with the stress. No side effects to medications are noted. ASSESSMENT: The patient is still impulsive. PLAN: To continue the patient with Zyprexa ____ use the Ativan on a p.r.n. basis and follow the patient. The patient is currently on 20 mg of the Zyprexa and is able to tolerate the medication. JOB# [id number]
[2018-09-15] MEDS: Levothyroxine 0.05 Mg Tab PO SCH (06:42)
[2018-09-15] MEDS: Albuterol/Ipratropium Neb 3 ML AERS HHN SCH ×3 (07:06→20:09)
[2018-09-15] MEDS: POLYETHYLENE GLYCOL 3350 17 GM PACK PO SCH ×2 (09:44→17:03)
--- NOTE | 2018-09-15 14:33 | Internal Medicine Prog Note ---
Internal Medicine Subjective - Subjective Service Date: 09/15/18 Patient is:: awake, verbal, interactive, paul chair, denies any new complaints Per staff patient has:: no adverse event, no episodes of fall, poor appetite, tolerating meds Internal Medicine Objective - Results Result Diagrams: 09/03/18 21:54 09/03/18 21:54 Recent Labs: Laboratory Last Values WBC 13.0 Th/cmm (4.8-10.8) H 09/03/18 21:54 RBC 3.93 Mil/cmm (4.30-5.70) L 09/03/18 21:54 Hgb 12.5 gm/dL (12-16) 09/03/18 21:54 Hct 37.8 % (41.0-60) L 09/03/18 21:54 MCV 96.1 fl (80-99) 09/03/18 21:54 MCH 31.7 pg (26.0-30.0) H 09/03/18 21:54 MCHC Differential 33.0 pg (28.0-36.0) 09/03/18 21:54 RDW 13.5 % (11.5-20.0) 09/03/18 21:54 Plt Count 332 Th/cmm (150-400) 09/03/18 21:54 MPV 6.7 fl 09/03/18 21:54 Neutrophils % 76.1 % (40.0-80.0) 09/03/18 21:54 Lymphocytes % 15.3 % (20.0-50.0) L 09/03/18 21:54 Monocytes % 5.8 % (2.0-10.0) 09/03/18 21:54 Eosinophils % 2.6 % (0.0-5.0) 09/03/18 21:54 Basophils % 0.2 % (0.0-2.0) 09/03/18 21:54 Sodium 136 mEq/L (136-145) 09/03/18 21:54 Potassium 3.9 mEq/L (3.5-5.1) 09/03/18 21:54 Chloride 103 mEq/L (98-107) 09/03/18 21:54 Carbon Dioxide 25.9 mEq/L (21.0-31.0) 09/03/18 21:54 Anion Gap 11.0 (7.0-16.0) 09/03/18 21:54 BUN 14 mg/dL (7-25) 09/03/18 21:54 Creatinine 0.6 mg/dL (0.7-1.3) L 09/03/18 21:54 Est GFR ( Amer) > 60.0 ml/min (>90) 09/03/18 21:54 Est GFR (Non-Af Amer) > 60.0 ml/min 09/03/18 21:54 BUN/Creatinine Ratio 23.3 09/03/18 21:54 Glucose 115 mg/dL (70-105) H 09/03/18 21:54 Calcium 10.5 mg/dL (8.6-10.3) H 09/03/18 21:54 Total Bilirubin 0.2 mg/dL (0.3-1.0) L 09/03/18 21:54 AST 29 U/L (13-39) 09/03/18 21:54 ALT 40 U/L (7-52) 09/03/18 21:54 Alkaline Phosphatase 66 U/L (34-104) 09/03/18 21:54 Total Protein 6.8 gm/dL (6.0-8.3) 09/03/18 21:54 Albumin 3.6 gm/dL (4.2-5.5) L 09/03/18 21:54 Globulin 3.2 gm/dL 09/03/18 21:54 Albumin/Globulin Ratio 1.1 (1.0-1.8) 09/03/18 21:54 Triglycerides 113 mg/dL (<150) 09/04/18 02:57 Cholesterol 139 mg/dL (<200) 09/04/18 02:57 LDL Cholesterol Direct 81 mg/dL (75-193) 09/04/18 02:57 HDL Cholesterol 53 mg/dL (23-92) 09/04/18 02:57 - Physical Exam Vitals and I&O: Vital Signs Temp 98.8 F 09/15/18 14:00 Pulse 99 09/15/18 14:00 Resp 20 09/15/18 14:00 BP 136/60 09/15/18 14:00 Pulse Ox 98 09/15/18 14:00 Intake & Output 09/14/18 09/15/18 09/15/18 18:59 06:59 18:59 Intake Total 960 240 Balance 960 240 Intake: Oral 960 240 Other: # Voids 4 2 # Bowel Movements 0 Active Medications: Current Medications Acetaminophen (Tylenol) 650 mg PO Q4HR PRN PRN Reason: Mild Pain / Temp above 100 Stop: 11/02/18 23:14 Last Admin: 09/11/18 08:21 Dose: 650 mg Acetaminophen (Tylenol 650mg/20.3ml Suspension) 650 mg PO Q4H PRN PRN Reason: Pain Or Fever above 101 Stop: 11/03/18 11:44 Albuterol/Ipratropium (Duoneb Neb) 3 ml HHN [id number] [facility] Stop: 11/08/18 12:59 Last Admin: 09/15/18 13:49 Dose: 3 ml Bisacodyl (Dulcolax 10 Mg Supp) 10 mg RC DAILY PRN PRN Reason: IF MOM INEFFECTIVE Stop: 11/03/18 11:44 Finasteride (Proscar) 5 mg PO DAILY [facility]; Protocol Stop: 11/04/18 08:59 Last Admin: 09/15/18 09:42 Dose: 5 mg Glycopyrrolate (Robinul) 2 mg PO TID [facility] Stop: 11/03/18 13:59 Last Admin: 09/15/18 14:15 Dose: 2 mg Guaifenesin (Robitussin) 200 mg PO Q4HR PRN PRN Reason: Cough or Congestion Stop: 11/03/18 11:44 Levetiracetam (Keppra) 750 mg PO [facility] Stop: 11/03/18 20:59 Last Admin: 09/14/18 20:23 Dose: 750 mg Levothyroxine Sodium (Synthroid) 0.05 mg PO QDAC [facility] Stop: 11/04/18 07:29 Last Admin: 09/15/18 06:42 Dose: 0.05 mg Lorazepam (Ativan) 0.5 mg PO Q4HR PRN; Protocol PRN Reason: Anxiety Stop: 10/03/18 23:14 Last Admin: 09/15/18 14:20 Dose: 0.5 mg Magnesium Hydroxide (Milk Of Magnesia) 30 ml PO DAILY PRN PRN Reason: Constipation Stop: 11/03/18 11:44 Mirtazapine (Remeron) 15 mg PO [facility]; Protocol Stop: 11/03/18 20:59 Last Admin: 09/14/18 20:22 Dose: 15 mg Miscellaneous (Misc Oral Tab) 0.5 tab PO TID [facility] Stop: 11/05/18 10:29 Last Admin: 09/15/18 14:15 Dose: 0.5 tab Mupirocin (Bactroban Oint) 1 appl NS BID [facility] Stop: 09/18/18 09:01 Last Admin: 09/15/18 09:48 Dose: 1 appl Olanzapine (Zyprexa) 20 mg PO HS [facility]; Protocol Stop: 11/03/18 20:59 Last Admin: 09/14/18 20:22 Dose: 20 mg Phenobarbital (Phenobarbital) 129.6 mg PO [facility] Stop: 11/03/18 20:59 Last Admin: 09/14/18 20:22 Dose: 129.6 mg Polyethylene Glycol (Miralax) 17 gm PO BID [facility] Stop: 11/03/18 16:59 Last Admin: 09/15/18 09:44 Dose: 17 gm Prednisone (Deltasone) 10 mg PO BID [facility] Stop: 11/03/18 16:59 Last Admin: 09/15/18 09:42 Dose: 10 mg Sodium Phosphate (Fleet Enema) 135 ml RC DAILY PRN PRN Reason: IF DULCOLAX INEFFECTIVE Stop: 11/03/18 11:44 Tamsulosin HCl (Flomax) 0.4 mg PO QPM [facility] Stop: 11/03/18 16:59 Last Admin: 09/14/18 16:50 Dose: 0.4 mg Topiramate (Topamax) 200 mg PO BID [facility] Stop: 11/03/18 16:59 Last Admin: 09/15/18 09:43 Dose: 200 mg Topiramate (Topamax) 100 mg PO HS [facility] Stop: 11/03/18 20:59 Last Admin: 09/14/18 20:23 Dose: 100 mg Zolpidem Tartrate (Ambien) 5 mg PO HS PRN PRN Reason: Insomnia Stop: 11/02/18 23:14 Last Admin: 09/14/18 20:22 Dose: 5 mg General: demented, disheveled HEENT: NC/AT, PERRLA, EOMI Neck: Supple, No JVD Lungs: CTAB Cardiovascular: RRR, Normal S1, Normal S2 Abdomen: soft, non-tender, thin, non-distended, positive bowel sound Extremities: excoriation, contracture Neurological: no change - Procedures Procedures: Procedures Procedure Code Date BARIUM SWALLOW 87.61 04/05/95 C.A.T. SCAN OF HEAD 87.03 04/05/95 CLOSURE SKIN & SUBCUTANEOUS NEC 86.59 04/05/95 ELECTROENCEPHALOGRAM 89.14 04/05/95 HEAD SOFT TISS X-RAY NEC 87.09 04/05/95 LINEAR REP LID LACER 08.81 11/06/95 RPR F/E/E/N/L/M 2.5 CM/< 31968 11/06/95 Internal Medicine Assmt/Plan - Assessment Assessment: SSESSMENT AND PLAN: Leukocytosis of unclear etiology, anemia, seizure, dysphagia, hypertension, chronic obstructive pulmonary disease, benign prostatic hypertrophy, hypothyroidism, schizoaffective disorder, and low albumin. - Plan Plan: Continue the patient on antiepileptic medication. We will check the patient's level. We will continue on aspiration precaution. We will continue on oxygen bronchodilator treatments. Continue with current care. We will continue to follow with you Dr. Downey. Nutritional Asmnt/Malnutr-PDOC - Dietary Evaluation Malnutrition Findings (Please click <Entered> for more info): Nutritional Asmnt/Malnutrition Start: 09/10/18 14: 01 Text: Status: Complete Freq: Protocol: Document 09/10/18 14:01 LCHENG (Rec: 09/10/18 14:04 HENG [email or web address]) Nutritional Asmnt/Malnutrition Patient General Information Nutritional Screening Low Risk Diagnosis increased agitation, psychosis Pertinent Medical Hx/Surgical Hx seizure, dysphagia, HTN, COPD, previous Gtube removed, BPH, hypothyroidism, psych disorder Subjective Information Pt seen standing in his room, confused, not able to participate in conversation. Per EMR, PO intake 100% Current Diet Order/ Nutrition Support pureed, nectar thick Pertinent Medications synthroid, remeron Pertinent Labs 09/03 Cr 0.6, Glucose 115, Alb 3.6 Nutritional Hx/Data Height 5 ft 10 in Height (Calculated Centimeters) 177.8 Current Weight (lbs) 125 lb Weight (Calculated Kilograms) 56.7 Weight (Calculated Grams) 72718.0 [place] Body Weight 166 Body Mass Index (BMI) 17.9 Weight Status Underweight GI Symptoms GI Symptoms None Last BM 09/07 Difficult in: None Skin Integrity/Comment: intact Current %PO Good (75-100%) Estimated Nutritional Goals BEE in Kcals: Using Current wt Calories/Kcals/Kg 27-32 Kcals Calculated 2446-8875 Protein: Using Current wt Protein g/k-1.2 Protein Calculated 67-80 Fluid: ml 1809-2144ml (1ml/kcal) Nutritional Problem No current Nutrition Prob Problem N/A Malnutrition Alert Is there a minimum of two criteria No selected? Query Text:Check all the applicable criteria. A minimum of two criteria are recommended for diagnosis of either severe or non-severe malnutrition. Malnutrition Related to Morbid Obesity Malnutrition related to morbid obesity No Intervention/Recommendation Comments 1. Continue with pureed, nectar thick liquid diet as ordered. 2. Monitor PO intake, wt, labs and skin integrity 3. F/U as low risk in 7 days Expected Outcomes/Goals Expected Outcomes/Goals 1. PO intake to meet at least 75% of nutritional needs. 2. Wt stability, skin to remain intact, labs to approach WNL.
[2018-09-15] MEDS ORDERED: Haloperidol Lactate 5 mg/mL 1mL Vial IM PRN (16:15)
--- NOTE | 2018-09-15 20:15 | Progress Notes ---
DATE: 09/15/2018 PSYCHIATRIC PROGRESS NOTE SUBJECTIVE: Staff was spoken to. The patient is interviewed. Mood is noted to be irritable. Affect is constricted. The patient, however, could be redirected today. Insight and judgment are noted to be still impaired. Impulse control is noted to be limited. The patient has been having difficult time to cope with the stress. ASSESSMENT: The patient at this time is being closely monitored, provided with the supportive therapy. PLAN: To continue the patient with the current medications and followup. [facility]# [id number]
[2018-09-15] MEDS: Levetiracetam 500 mg/5mL 5mL UDSyr *for ORAL USE ONLY PO SCH (20:17)
[2018-09-16] MEDS: Levothyroxine 0.05 Mg Tab PO SCH (06:48)
[2018-09-16] MEDS: POLYETHYLENE GLYCOL 3350 17 GM PACK PO SCH ×2 (08:38→16:27)
[2018-09-16] MEDS: Albuterol/Ipratropium Neb 3 ML AERS HHN SCH ×2 (12:58→19:33)
--- NOTE | 2018-09-16 13:15 | Internal Medicine Prog Note ---
Internal Medicine Subjective - Subjective Service Date: 09/16/18 Patient is:: awake, verbal, interactive, paul chair, denies any new complaints Per staff patient has:: no adverse event, no episodes of fall, poor appetite, tolerating meds Internal Medicine Objective - Results Result Diagrams: 09/03/18 21:54 09/03/18 21:54 Recent Labs: Laboratory Last Values WBC 13.0 Th/cmm (4.8-10.8) H 09/03/18 21:54 RBC 3.93 Mil/cmm (4.30-5.70) L 09/03/18 21:54 Hgb 12.5 gm/dL (12-16) 09/03/18 21:54 Hct 37.8 % (41.0-60) L 09/03/18 21:54 MCV 96.1 fl (80-99) 09/03/18 21:54 MCH 31.7 pg (26.0-30.0) H 09/03/18 21:54 MCHC Differential 33.0 pg (28.0-36.0) 09/03/18 21:54 RDW 13.5 % (11.5-20.0) 09/03/18 21:54 Plt Count 332 Th/cmm (150-400) 09/03/18 21:54 MPV 6.7 fl 09/03/18 21:54 Neutrophils % 76.1 % (40.0-80.0) 09/03/18 21:54 Lymphocytes % 15.3 % (20.0-50.0) L 09/03/18 21:54 Monocytes % 5.8 % (2.0-10.0) 09/03/18 21:54 Eosinophils % 2.6 % (0.0-5.0) 09/03/18 21:54 Basophils % 0.2 % (0.0-2.0) 09/03/18 21:54 Sodium 136 mEq/L (136-145) 09/03/18 21:54 Potassium 3.9 mEq/L (3.5-5.1) 09/03/18 21:54 Chloride 103 mEq/L (98-107) 09/03/18 21:54 Carbon Dioxide 25.9 mEq/L (21.0-31.0) 09/03/18 21:54 Anion Gap 11.0 (7.0-16.0) 09/03/18 21:54 BUN 14 mg/dL (7-25) 09/03/18 21:54 Creatinine 0.6 mg/dL (0.7-1.3) L 09/03/18 21:54 Est GFR ( Amer) > 60.0 ml/min (>90) 09/03/18 21:54 Est GFR (Non-Af Amer) > 60.0 ml/min 09/03/18 21:54 BUN/Creatinine Ratio 23.3 09/03/18 21:54 Glucose 115 mg/dL (70-105) H 09/03/18 21:54 Calcium 10.5 mg/dL (8.6-10.3) H 09/03/18 21:54 Total Bilirubin 0.2 mg/dL (0.3-1.0) L 09/03/18 21:54 AST 29 U/L (13-39) 09/03/18 21:54 ALT 40 U/L (7-52) 09/03/18 21:54 Alkaline Phosphatase 66 U/L (34-104) 09/03/18 21:54 Total Protein 6.8 gm/dL (6.0-8.3) 09/03/18 21:54 Albumin 3.6 gm/dL (4.2-5.5) L 09/03/18 21:54 Globulin 3.2 gm/dL 09/03/18 21:54 Albumin/Globulin Ratio 1.1 (1.0-1.8) 09/03/18 21:54 Triglycerides 113 mg/dL (<150) 09/04/18 02:57 Cholesterol 139 mg/dL (<200) 09/04/18 02:57 LDL Cholesterol Direct 81 mg/dL (75-193) 09/04/18 02:57 HDL Cholesterol 53 mg/dL (23-92) 09/04/18 02:57 - Physical Exam Vitals and I&O: Vital Signs Temp 97.8 F 09/16/18 06:16 Pulse 118 09/16/18 12:59 Resp 18 09/16/18 12:59 BP 119/64 09/16/18 06:16 Pulse Ox 92 09/16/18 12:59 Intake & Output 09/15/18 09/16/18 09/16/18 18:59 06:59 18:59 Intake Total 840 240 Output Total 1 2 Balance 839 238 Intake: Oral 720 240 Other 120 Output: Stool 1 Urine/Stool Mix 2 Other: # Voids 3 1 # Bowel Movements 1 Active Medications: Current Medications Acetaminophen (Tylenol) 650 mg PO Q4HR PRN PRN Reason: Mild Pain / Temp above 100 Stop: 11/02/18 23:14 Last Admin: 09/11/18 08:21 Dose: 650 mg Acetaminophen (Tylenol 650mg/20.3ml Suspension) 650 mg PO Q4H PRN PRN Reason: Pain Or Fever above 101 Stop: 11/03/18 11:44 Albuterol/Ipratropium (Duoneb Neb) 3 ml HHN [id number] [facility] Stop: 11/08/18 12:59 Last Admin: 09/16/18 12:58 Dose: 3 ml Bisacodyl (Dulcolax 10 Mg Supp) 10 mg RC DAILY PRN PRN Reason: IF MOM INEFFECTIVE Stop: 11/03/18 11:44 Finasteride (Proscar) 5 mg PO DAILY [facility]; Protocol Stop: 11/04/18 08:59 Last Admin: 09/16/18 08:38 Dose: 5 mg Glycopyrrolate (Robinul) 2 mg PO TID [facility] Stop: 11/03/18 13:59 Last Admin: 09/16/18 08:36 Dose: 2 mg Guaifenesin (Robitussin) 200 mg PO Q4HR PRN PRN Reason: Cough or Congestion Stop: 11/03/18 11:44 Levetiracetam (Keppra) 750 mg PO HS [facility] Stop: 11/03/18 20:59 Last Admin: 09/15/18 20:17 Dose: 750 mg Levothyroxine Sodium (Synthroid) 0.05 mg PO QDAC [facility] Stop: 11/04/18 07:29 Last Admin: 09/16/18 06:48 Dose: 0.05 mg Lorazepam (Ativan) 0.5 mg PO Q4HR PRN; Protocol PRN Reason: Anxiety Stop: 10/03/18 23:14 Last Admin: 09/16/18 10:52 Dose: 0.5 mg Magnesium Hydroxide (Milk Of Magnesia) 30 ml PO DAILY PRN PRN Reason: Constipation Stop: 11/03/18 11:44 Mirtazapine (Remeron) 15 mg PO HS [facility]; Protocol Stop: 11/03/18 20:59 Last Admin: 09/15/18 20:17 Dose: 15 mg Mupirocin (Bactroban Oint) 1 appl NS BID [facility] Stop: 09/18/18 09:01 Last Admin: 09/16/18 08:37 Dose: 1 appl Olanzapine (Zyprexa) 20 mg PO HS [facility]; Protocol Stop: 11/03/18 20:59 Last Admin: 09/15/18 20:16 Dose: 20 mg Phenobarbital (Phenobarbital) 129.6 mg PO HS [facility] Stop: 11/03/18 20:59 Last Admin: 09/15/18 20:17 Dose: 129.6 mg Polyethylene Glycol (Miralax) 17 gm PO BID [facility] Stop: 11/03/18 16:59 Last Admin: 09/16/18 08:38 Dose: 17 gm Prednisone (Deltasone) 10 mg PO BID [facility] Stop: 11/03/18 16:59 Last Admin: 09/16/18 08:38 Dose: 10 mg Sodium Phosphate (Fleet Enema) 135 ml RC DAILY PRN PRN Reason: IF DULCOLAX INEFFECTIVE Stop: 11/03/18 11:44 Tamsulosin HCl (Flomax) 0.4 mg PO QPM [facility] Stop: 11/03/18 16:59 Last Admin: 09/15/18 17:12 Dose: 0.4 mg Topiramate (Topamax) 200 mg PO BID [facility] Stop: 11/03/18 16:59 Last Admin: 09/16/18 09:00 Dose: 200 mg Topiramate (Topamax) 100 mg PO HS [facility] Stop: 11/03/18 20:59 Last Admin: 09/15/18 21:00 Dose: 100 mg Zolpidem Tartrate (Ambien) 5 mg PO HS PRN PRN Reason: Insomnia Stop: 11/02/18 23:14 Last Admin: 09/15/18 20:17 Dose: 5 mg General: demented, disheveled HEENT: NC/AT, PERRLA, EOMI Neck: Supple, No JVD Lungs: CTAB Cardiovascular: RRR, Normal S1, Normal S2 Abdomen: soft, non-tender, thin, non-distended, positive bowel sound Extremities: excoriation, contracture Neurological: no change - Procedures Procedures: Procedures Procedure Code Date BARIUM SWALLOW 87.61 04/05/95 C.A.T. SCAN OF HEAD 87.03 04/05/95 CLOSURE SKIN & SUBCUTANEOUS NEC 86.59 04/05/95 ELECTROENCEPHALOGRAM 89.14 04/05/95 HEAD SOFT TISS X-RAY NEC 87.09 04/05/95 LINEAR REP LID LACER 08.81 11/06/95 RPR F/E/E/N/L/M 2.5 CM/< 55428 11/06/95 Internal Medicine Assmt/Plan - Assessment Assessment: SSESSMENT AND PLAN: Leukocytosis of unclear etiology, anemia, seizure, dysphagia, hypertension, chronic obstructive pulmonary disease, benign prostatic hypertrophy, hypothyroidism, schizoaffective disorder, and low albumin. - Plan Plan: Continue the patient on antiepileptic medication. We will check the patient's level. We will continue on aspiration precaution. We will continue on oxygen bronchodilator treatments. Continue with current care. We will continue to follow with you Dr. Downey. Nutritional Asmnt/Malnutr-PDOC - Dietary Evaluation Malnutrition Findings (Please click <Entered> for more info): Nutritional Asmnt/Malnutrition Start: 09/10/18 14: 01 Text: Status: Complete Freq: Protocol: Document 09/10/18 14:01 LCHENG (Rec: 09/10/18 14:04 LCHENG [email or web address]) Nutritional Asmnt/Malnutrition Patient General Information Nutritional Screening Low Risk Diagnosis increased agitation, psychosis Pertinent Medical Hx/Surgical Hx seizure, dysphagia, HTN, COPD, previous Gtube removed, BPH, hypothyroidism, psych disorder Subjective Information Pt seen standing in his room, confused, not able to participate in conversation. Per EMR, PO intake 100% Current Diet Order/ Nutrition Support pureed, nectar thick Pertinent Medications synthroid, remeron Pertinent Labs 09/03 Cr 0.6, Glucose 115, Alb 3.6 Nutritional Hx/Data Height 5 ft 10 in Height (Calculated Centimeters) 177.8 Current Weight (lbs) 125 lb Weight (Calculated Kilograms) 56.7 Weight (Calculated Grams) 83035.0 [place] Body Weight 166 Body Mass Index (BMI) 17.9 Weight Status Underweight GI Symptoms GI Symptoms None Last BM 09/07 Difficult in: None Skin Integrity/Comment: intact Current %PO Good (75-100%) Estimated Nutritional Goals BEE in Kcals: Using Current wt Calories/Kcals/Kg 27-32 Kcals Calculated 7106-5485 Protein: Using Current wt Protein g/k-1.2 Protein Calculated 67-80 Fluid: ml 1809-2144ml (1ml/kcal) Nutritional Problem No current Nutrition Prob Problem N/A Malnutrition Alert Is there a minimum of two criteria No selected? Query Text:Check all the applicable criteria. A minimum of two criteria are recommended for diagnosis of either severe or non-severe malnutrition. Malnutrition Related to Morbid Obesity Malnutrition related to morbid obesity No Intervention/Recommendation Comments 1. Continue with pureed, nectar thick liquid diet as ordered. 2. Monitor PO intake, wt, labs and skin integrity 3. F/U as low risk in 7 days Expected Outcomes/Goals Expected Outcomes/Goals 1. PO intake to meet at least 75% of nutritional needs. 2. Wt stability, skin to remain intact, labs to approach WNL.
--- NOTE | 2018-09-16 14:11 | Progress Notes ---
DATE: 09/16/2018 SUBJECTIVE: Staff was spoken to. The patient is interviewed. Mood is noted to be irritable. Affect is constricted. The patient is getting easily frustrated. The patient has to be given a dose of Ativan to calm him down. The patient has no insight into his illness. ASSESSMENT: The patient is still impulsive and awaiting placement. PLAN: To continue the patient with the supportive therapy and followup. [facility]# [id number]
[2018-09-16] MEDS: Levetiracetam 500 mg/5mL 5mL UDSyr *for ORAL USE ONLY PO SCH (21:01)
[2018-09-17] MEDS: Levothyroxine 0.05 Mg Tab PO SCH (06:40)
[2018-09-17] MEDS: Albuterol/Ipratropium Neb 3 ML AERS HHN SCH ×3 (06:47→19:12)
[2018-09-17] MEDS: POLYETHYLENE GLYCOL 3350 17 GM PACK PO SCH ×2 (08:31→16:55)
--- NOTE | 2018-09-17 11:43 | Internal Medicine Prog Note ---
Internal Medicine Subjective - Subjective Patient seen and examined:: with staff, chart reviewed Patient is:: awake, verbal, interactive, paul chair, denies any new complaints Per staff patient has:: no adverse event, no episodes of fall, poor appetite, tolerating meds Internal Medicine Objective - Results Result Diagrams: 09/03/18 21:54 09/03/18 21:54 Recent Labs: Laboratory Last Values WBC 13.0 Th/cmm (4.8-10.8) H 09/03/18 21:54 RBC 3.93 Mil/cmm (4.30-5.70) L 09/03/18 21:54 Hgb 12.5 gm/dL (12-16) 09/03/18 21:54 Hct 37.8 % (41.0-60) L 09/03/18 21:54 MCV 96.1 fl (80-99) 09/03/18 21:54 MCH 31.7 pg (26.0-30.0) H 09/03/18 21:54 MCHC Differential 33.0 pg (28.0-36.0) 09/03/18 21:54 RDW 13.5 % (11.5-20.0) 09/03/18 21:54 Plt Count 332 Th/cmm (150-400) 09/03/18 21:54 MPV 6.7 fl 09/03/18 21:54 Neutrophils % 76.1 % (40.0-80.0) 09/03/18 21:54 Lymphocytes % 15.3 % (20.0-50.0) L 09/03/18 21:54 Monocytes % 5.8 % (2.0-10.0) 09/03/18 21:54 Eosinophils % 2.6 % (0.0-5.0) 09/03/18 21:54 Basophils % 0.2 % (0.0-2.0) 09/03/18 21:54 Sodium 136 mEq/L (136-145) 09/03/18 21:54 Potassium 3.9 mEq/L (3.5-5.1) 09/03/18 21:54 Chloride 103 mEq/L (98-107) 09/03/18 21:54 Carbon Dioxide 25.9 mEq/L (21.0-31.0) 09/03/18 21:54 Anion Gap 11.0 (7.0-16.0) 09/03/18 21:54 BUN 14 mg/dL (7-25) 09/03/18 21:54 Creatinine 0.6 mg/dL (0.7-1.3) L 09/03/18 21:54 Est GFR ( Amer) > 60.0 ml/min (>90) 09/03/18 21:54 Est GFR (Non-Af Amer) > 60.0 ml/min 09/03/18 21:54 BUN/Creatinine Ratio 23.3 09/03/18 21:54 Glucose 115 mg/dL (70-105) H 09/03/18 21:54 Calcium 10.5 mg/dL (8.6-10.3) H 09/03/18 21:54 Total Bilirubin 0.2 mg/dL (0.3-1.0) L 09/03/18 21:54 AST 29 U/L (13-39) 09/03/18 21:54 ALT 40 U/L (7-52) 09/03/18 21:54 Alkaline Phosphatase 66 U/L (34-104) 09/03/18 21:54 Total Protein 6.8 gm/dL (6.0-8.3) 09/03/18 21:54 Albumin 3.6 gm/dL (4.2-5.5) L 09/03/18 21:54 Globulin 3.2 gm/dL 09/03/18 21:54 Albumin/Globulin Ratio 1.1 (1.0-1.8) 09/03/18 21:54 Triglycerides 113 mg/dL (<150) 09/04/18 02:57 Cholesterol 139 mg/dL (<200) 09/04/18 02:57 LDL Cholesterol Direct 81 mg/dL (75-193) 09/04/18 02:57 HDL Cholesterol 53 mg/dL (23-92) 09/04/18 02:57 - Physical Exam Vitals and I&O: Vital Signs Temp 98.0 F 09/17/18 06:12 Pulse 91 09/17/18 06:47 Resp 18 09/17/18 06:47 BP 130/74 09/17/18 06:12 Pulse Ox 93 09/17/18 06:47 Intake & Output 09/16/18 09/17/18 09/17/18 18:59 06:59 18:59 Intake Total 840 300 Balance 840 300 Intake: Oral 840 300 Other: # Voids 3 2 # Bowel Movements 0 0 Active Medications: Current Medications Acetaminophen (Tylenol) 650 mg PO Q4HR PRN PRN Reason: Mild Pain / Temp above 100 Stop: 11/02/18 23:14 Last Admin: 09/11/18 08:21 Dose: 650 mg Acetaminophen (Tylenol 650mg/20.3ml Suspension) 650 mg PO Q4H PRN PRN Reason: Pain Or Fever above 101 Stop: 11/03/18 11:44 Albuterol/Ipratropium (Duoneb Neb) 3 ml HHN [id number] [facility] Stop: 11/08/18 12:59 Last Admin: 09/17/18 06:47 Dose: 3 ml Bisacodyl (Dulcolax 10 Mg Supp) 10 mg RC DAILY PRN PRN Reason: IF MOM INEFFECTIVE Stop: 11/03/18 11:44 Finasteride (Proscar) 5 mg PO DAILY [facility]; Protocol Stop: 11/04/18 08:59 Last Admin: 09/17/18 08:30 Dose: 5 mg Glycopyrrolate (Robinul) 2 mg PO TID [facility] Stop: 11/03/18 13:59 Last Admin: 09/17/18 08:37 Dose: 2 mg Guaifenesin (Robitussin) 200 mg PO Q4HR PRN PRN Reason: Cough or Congestion Stop: 11/03/18 11:44 Levetiracetam (Keppra) 750 mg PO HS [facility] Stop: 11/03/18 20:59 Last Admin: 09/16/18 21:01 Dose: 750 mg Levothyroxine Sodium (Synthroid) 0.05 mg PO QDAC [facility] Stop: 11/04/18 07:29 Last Admin: 09/17/18 06:40 Dose: 0.05 mg Lorazepam (Ativan) 0.5 mg PO Q4HR PRN; Protocol PRN Reason: Anxiety Stop: 10/03/18 23:14 Last Admin: 09/16/18 23:37 Dose: 0.5 mg Magnesium Hydroxide (Milk Of Magnesia) 30 ml PO DAILY PRN PRN Reason: Constipation Stop: 11/03/18 11:44 Mirtazapine (Remeron) 15 mg PO HS [facility]; Protocol Stop: 11/03/18 20:59 Last Admin: 09/16/18 21:02 Dose: 15 mg Mupirocin (Bactroban Oint) 1 appl NS BID [facility] Stop: 09/18/18 09:01 Last Admin: 09/16/18 16:33 Dose: 1 appl Olanzapine (Zyprexa) 20 mg PO HS [facility]; Protocol Stop: 11/03/18 20:59 Last Admin: 09/16/18 21:02 Dose: 20 mg Polyethylene Glycol (Miralax) 17 gm PO BID [facility] Stop: 11/03/18 16:59 Last Admin: 09/17/18 08:31 Dose: 17 gm Prednisone (Deltasone) 10 mg PO BID [facility] Stop: 11/03/18 16:59 Last Admin: 09/17/18 08:31 Dose: 10 mg Sodium Phosphate (Fleet Enema) 135 ml RC DAILY PRN PRN Reason: IF DULCOLAX INEFFECTIVE Stop: 11/03/18 11:44 Tamsulosin HCl (Flomax) 0.4 mg PO QPM [facility] Stop: 11/03/18 16:59 Last Admin: 09/16/18 16:29 Dose: 0.4 mg Topiramate (Topamax) 200 mg PO BID [facility] Stop: 11/03/18 16:59 Last Admin: 09/17/18 08:32 Dose: 200 mg Topiramate (Topamax) 100 mg PO HS [facility] Stop: 11/03/18 20:59 Last Admin: 09/16/18 21:02 Dose: 100 mg Zolpidem Tartrate (Ambien) 5 mg PO HS PRN PRN Reason: Insomnia Stop: 11/02/18 23:14 Last Admin: 09/16/18 21:17 Dose: 5 mg General: demented, disheveled HEENT: NC/AT, PERRLA, EOMI Neck: Supple, No JVD Lungs: CTAB Cardiovascular: RRR, Normal S1, Normal S2 Abdomen: soft, non-tender, thin, non-distended, positive bowel sound Extremities: excoriation, contracture Neurological: no change - Procedures Procedures: Procedures Procedure Code Date BARIUM SWALLOW 87.61 04/05/95 C.A.T. SCAN OF HEAD 87.03 04/05/95 CLOSURE SKIN & SUBCUTANEOUS NEC 86.59 04/05/95 ELECTROENCEPHALOGRAM 89.14 04/05/95 HEAD SOFT TISS X-RAY NEC 87.09 04/05/95 LINEAR REP LID LACER 08.81 11/06/95 RPR F/E/E/N/L/M 2.5 CM/< 97604 11/06/95 Internal Medicine Assmt/Plan - Assessment Assessment: ASSESSMENT AND PLAN: Leukocytosis of unclear etiology, anemia, seizure, dysphagia, hypertension, chronic obstructive pulmonary disease, benign prostatic hypertrophy, hypothyroidism, schizoaffective disorder, and low albumin. - Plan Plan: PLAN: Continue the patient on antiepileptic medication. We will check the patient's level. We will continue on aspiration precaution. We will continue on oxygen bronchodilator treatments. Continue with current care. We will continue to follow with you Dr. Downey. Nutritional Asmnt/Malnutr-PDOC - Dietary Evaluation Malnutrition Findings (Please click <Entered> for more info): Nutritional Asmnt/Malnutrition Start: 09/10/18 14: 01 Text: Status: Complete Freq: Protocol: Document 09/10/18 14:01 HEN (Rec: 09/10/18 14:04 [facility] [email or web address]) Nutritional Asmnt/Malnutrition Patient General Information Nutritional Screening Low Risk Diagnosis increased agitation, psychosis Pertinent Medical Hx/Surgical Hx seizure, dysphagia, HTN, COPD, previous Gtube removed, BPH, hypothyroidism, psych disorder Subjective Information Pt seen standing in his room, confused, not able to participate in conversation. Per EMR, PO intake 100% Current Diet Order/ Nutrition Support pureed, nectar thick Pertinent Medications synthroid, remeron Pertinent Labs 09/03 Cr 0.6, Glucose 115, Alb 3.6 Nutritional Hx/Data Height 1.78 m Height (Calculated Centimeters) 177.8 Current Weight (lbs) 56.699 kg Weight (Calculated Kilograms) 56.7 Weight (Calculated Grams) 89906.0 [place] Body Weight 166 Body Mass Index (BMI) 17.9 Weight Status Underweight GI Symptoms GI Symptoms None Last BM 09/07 Difficult in: None Skin Integrity/Comment: intact Current %PO Good (75-100%) Estimated Nutritional Goals BEE in Kcals: Using Current wt Calories/Kcals/Kg 27-32 Kcals Calculated 8866-8299 Protein: Using Current wt Protein g/k-1.2 Protein Calculated 67-80 Fluid: ml 1809-2144ml (1ml/kcal) Nutritional Problem No current Nutrition Prob Problem N/A Malnutrition Alert Is there a minimum of two criteria No selected? Query Text:Check all the applicable criteria. A minimum of two criteria are recommended for diagnosis of either severe or non-severe malnutrition. Malnutrition Related to Morbid Obesity Malnutrition related to morbid obesity No Intervention/Recommendation Comments 1. Continue with pureed, nectar thick liquid diet as ordered. 2. Monitor PO intake, wt, labs and skin integrity 3. F/U as low risk in 7 days Expected Outcomes/Goals Expected Outcomes/Goals 1. PO intake to meet at least 75% of nutritional needs. 2. Wt stability, skin to remain intact, labs to approach WNL.
[2018-09-17] MEDS: Levetiracetam 500 mg/5mL 5mL UDSyr *for ORAL USE ONLY PO SCH (20:51)
[2018-09-17] MEDS ORDERED: Haloperidol Lactate 5 mg/mL 1mL Vial IM PRN (22:09)
--- NOTE | 2018-09-18 04:26 | Progress Notes ---
DATE: 09/17/2018 PSYCHIATRIC PROGRESS NOTE SUBJECTIVE: Staff was spoken to. The patient is interviewed. Mood is noted to be irritable. Affect is constricted. The patient needs to be redirected. The patient has been banging his hands on the GD chair. The patient's coping skills are noted to be poor. The patient needs to be redirected. ASSESSMENT: The patient is still impulsive and is awaiting placement. PLAN: To continue the patient with the supportive therapy and I encourage the patient to verbalize the concerns rather than to act out. JOB# [id number]
[2018-09-18] MEDS: Levothyroxine 0.05 Mg Tab PO SCH (06:33)
[2018-09-18] MEDS: Albuterol/Ipratropium Neb 3 ML AERS HHN SCH ×3 (06:58→19:09)
[2018-09-18] MEDS: POLYETHYLENE GLYCOL 3350 17 GM PACK PO SCH ×2 (09:17→16:42)
--- NOTE | 2018-09-18 12:00 | Internal Medicine Prog Note ---
Internal Medicine Subjective - Subjective Patient seen and examined:: with staff, chart reviewed Patient is:: awake, verbal, interactive, paul chair, denies any new complaints Per staff patient has:: no adverse event, no episodes of fall, poor appetite, tolerating meds Internal Medicine Objective - Results Result Diagrams: 09/03/18 21:54 09/03/18 21:54 Recent Labs: Laboratory Last Values WBC 13.0 Th/cmm (4.8-10.8) H 09/03/18 21:54 RBC 3.93 Mil/cmm (4.30-5.70) L 09/03/18 21:54 Hgb 12.5 gm/dL (12-16) 09/03/18 21:54 Hct 37.8 % (41.0-60) L 09/03/18 21:54 MCV 96.1 fl (80-99) 09/03/18 21:54 MCH 31.7 pg (26.0-30.0) H 09/03/18 21:54 MCHC Differential 33.0 pg (28.0-36.0) 09/03/18 21:54 RDW 13.5 % (11.5-20.0) 09/03/18 21:54 Plt Count 332 Th/cmm (150-400) 09/03/18 21:54 MPV 6.7 fl 09/03/18 21:54 Neutrophils % 76.1 % (40.0-80.0) 09/03/18 21:54 Lymphocytes % 15.3 % (20.0-50.0) L 09/03/18 21:54 Monocytes % 5.8 % (2.0-10.0) 09/03/18 21:54 Eosinophils % 2.6 % (0.0-5.0) 09/03/18 21:54 Basophils % 0.2 % (0.0-2.0) 09/03/18 21:54 Sodium 136 mEq/L (136-145) 09/03/18 21:54 Potassium 3.9 mEq/L (3.5-5.1) 09/03/18 21:54 Chloride 103 mEq/L (98-107) 09/03/18 21:54 Carbon Dioxide 25.9 mEq/L (21.0-31.0) 09/03/18 21:54 Anion Gap 11.0 (7.0-16.0) 09/03/18 21:54 BUN 14 mg/dL (7-25) 09/03/18 21:54 Creatinine 0.6 mg/dL (0.7-1.3) L 09/03/18 21:54 Est GFR ( Amer) > 60.0 ml/min (>90) 09/03/18 21:54 Est GFR (Non-Af Amer) > 60.0 ml/min 09/03/18 21:54 BUN/Creatinine Ratio 23.3 09/03/18 21:54 Glucose 115 mg/dL (70-105) H 09/03/18 21:54 Calcium 10.5 mg/dL (8.6-10.3) H 09/03/18 21:54 Total Bilirubin 0.2 mg/dL (0.3-1.0) L 09/03/18 21:54 AST 29 U/L (13-39) 09/03/18 21:54 ALT 40 U/L (7-52) 09/03/18 21:54 Alkaline Phosphatase 66 U/L (34-104) 09/03/18 21:54 Total Protein 6.8 gm/dL (6.0-8.3) 09/03/18 21:54 Albumin 3.6 gm/dL (4.2-5.5) L 09/03/18 21:54 Globulin 3.2 gm/dL 09/03/18 21:54 Albumin/Globulin Ratio 1.1 (1.0-1.8) 09/03/18 21:54 Triglycerides 113 mg/dL (<150) 09/04/18 02:57 Cholesterol 139 mg/dL (<200) 09/04/18 02:57 LDL Cholesterol Direct 81 mg/dL (75-193) 09/04/18 02:57 HDL Cholesterol 53 mg/dL (23-92) 09/04/18 02:57 - Physical Exam Vitals and I&O: Vital Signs Temp 99.2 F 09/18/18 06:14 Pulse 101 09/18/18 06:58 Resp 16 09/18/18 06:58 BP 109/51 09/18/18 06:14 Pulse Ox 95 09/18/18 06:58 Intake & Output 09/17/18 09/18/18 09/18/18 18:59 06:59 18:59 Intake Total 1800 360 Balance 1800 360 Intake: Oral 1800 360 Other: # Voids 4 1 # Bowel Movements 1 0 Active Medications: Current Medications Acetaminophen (Tylenol 650mg/20.3ml Suspension) 650 mg PO Q4H PRN PRN Reason: Pain Or Fever above 101 Stop: 11/03/18 11:44 Last Admin: 09/17/18 14:29 Dose: 650 mg Albuterol/Ipratropium (Duoneb Neb) 3 ml HHN [id number] [facility] Stop: 11/08/18 12:59 Last Admin: 09/18/18 06:58 Dose: 3 ml Bisacodyl (Dulcolax 10 Mg Supp) 10 mg RC DAILY PRN PRN Reason: IF MOM INEFFECTIVE Stop: 11/03/18 11:44 Finasteride (Proscar) 5 mg PO DAILY [facility]; Protocol Stop: 11/04/18 08:59 Last Admin: 09/18/18 09:16 Dose: 5 mg Glycopyrrolate (Robinul) 2 mg PO TID [facility] Stop: 11/03/18 13:59 Last Admin: 09/17/18 20:50 Dose: 2 mg Guaifenesin (Robitussin) 200 mg PO Q4HR PRN PRN Reason: Cough or Congestion Stop: 11/03/18 11:44 Haloperidol Lactate (Haldol) 5 mg IM NOW PRN PRN Reason: Agitation Stop: 11/16/18 22:08 Last Admin: 09/17/18 22:35 Dose: 5 mg Levetiracetam (Keppra) 750 mg PO HS [facility] Stop: 11/03/18 20:59 Last Admin: 09/17/18 20:51 Dose: 750 mg Levothyroxine Sodium (Synthroid) 0.05 mg PO QDAC [facility] Stop: 11/04/18 07:29 Last Admin: 09/18/18 06:33 Dose: 0.05 mg Lorazepam (Ativan) 0.5 mg PO Q4HR PRN; Protocol PRN Reason: Anxiety Stop: 10/03/18 23:14 Last Admin: 09/18/18 09:16 Dose: 0.5 mg Magnesium Hydroxide (Milk Of Magnesia) 30 ml PO DAILY PRN PRN Reason: Constipation Stop: 11/03/18 11:44 Mirtazapine (Remeron) 15 mg PO HS [facility]; Protocol Stop: 11/03/18 20:59 Last Admin: 09/17/18 20:50 Dose: 15 mg Olanzapine (Zyprexa) 20 mg PO HS [facility]; Protocol Stop: 11/03/18 20:59 Last Admin: 09/17/18 20:51 Dose: 20 mg Polyethylene Glycol (Miralax) 17 gm PO BID [facility] Stop: 11/03/18 16:59 Last Admin: 09/18/18 09:17 Dose: 17 gm Prednisone (Deltasone) 10 mg PO BID [facility] Stop: 11/03/18 16:59 Last Admin: 09/18/18 09:17 Dose: 10 mg Sodium Phosphate (Fleet Enema) 135 ml RC DAILY PRN PRN Reason: IF DULCOLAX INEFFECTIVE Stop: 11/03/18 11:44 Tamsulosin HCl (Flomax) 0.4 mg PO QPM [facility] Stop: 11/03/18 16:59 Last Admin: 09/17/18 16:55 Dose: 0.4 mg Topiramate (Topamax) 200 mg PO BID [facility] Stop: 11/03/18 16:59 Last Admin: 09/18/18 09:16 Dose: 200 mg Topiramate (Topamax) 100 mg PO HS [facility] Stop: 11/03/18 20:59 Last Admin: 09/17/18 20:50 Dose: 100 mg Zolpidem Tartrate (Ambien) 5 mg PO HS PRN PRN Reason: Insomnia Stop: 11/02/18 23:14 Last Admin: 09/17/18 20:51 Dose: 5 mg General: demented, disheveled HEENT: NC/AT, PERRLA, EOMI Neck: Supple, No JVD Lungs: CTAB Cardiovascular: RRR, Normal S1, Normal S2 Abdomen: soft, non-tender, thin, non-distended, positive bowel sound Extremities: excoriation, contracture Neurological: no change - Procedures Procedures: Procedures Procedure Code Date BARIUM SWALLOW 87.61 04/05/95 C.A.T. SCAN OF HEAD 87.03 04/05/95 CLOSURE SKIN & SUBCUTANEOUS NEC 86.59 04/05/95 ELECTROENCEPHALOGRAM 89.14 04/05/95 HEAD SOFT TISS X-RAY NEC 87.09 04/05/95 LINEAR REP LID LACER 08.81 11/06/95 RPR F/E/E/N/L/M 2.5 CM/< 91430 11/06/95 Internal Medicine Assmt/Plan - Assessment Assessment: ASSESSMENT AND PLAN: Leukocytosis of unclear etiology, anemia, seizure, dysphagia, hypertension, chronic obstructive pulmonary disease, benign prostatic hypertrophy, hypothyroidism, schizoaffective disorder, and low albumin. - Plan Plan: PLAN: Continue the patient on antiepileptic medication. We will check the patient's level. We will continue on aspiration precaution. We will continue on oxygen bronchodilator treatments. Continue with current care. We will continue to follow with you Dr. Downey. Nutritional Asmnt/Malnutr-PDOC - Dietary Evaluation Malnutrition Findings (Please click <Entered> for more info): Nutritional Asmnt/Malnutrition Start: 09/10/18 14: 01 Text: Status: Complete Freq: Protocol: Document 09/10/18 14:01 LCHENG (Rec: 09/10/18 14:04 [email or web address]) Nutritional Asmnt/Malnutrition Patient General Information Nutritional Screening Low Risk Diagnosis increased agitation, psychosis Pertinent Medical Hx/Surgical Hx seizure, dysphagia, HTN, COPD, previous Gtube removed, BPH, hypothyroidism, psych disorder Subjective Information Pt seen standing in his room, confused, not able to participate in conversation. Per EMR, PO intake 100% Current Diet Order/ Nutrition Support pureed, nectar thick Pertinent Medications synthroid, remeron Pertinent Labs 09/03 Cr 0.6, Glucose 115, Alb 3.6 Nutritional Hx/Data Height 1.78 m Height (Calculated Centimeters) 177.8 Current Weight (lbs) 56.699 kg Weight (Calculated Kilograms) 56.7 Weight (Calculated Grams) 19947.0 [place] Body Weight 166 Body Mass Index (BMI) 17.9 Weight Status Underweight GI Symptoms GI Symptoms None Last BM 09/07 Difficult in: None Skin Integrity/Comment: intact Current %PO Good (75-100%) Estimated Nutritional Goals BEE in Kcals: Using Current wt Calories/Kcals/Kg 27-32 Kcals Calculated 1686-4041 Protein: Using Current wt Protein g/k-1.2 Protein Calculated 67-80 Fluid: ml 1809-2144ml (1ml/kcal) Nutritional Problem No current Nutrition Prob Problem N/A Malnutrition Alert Is there a minimum of two criteria No selected? Query Text:Check all the applicable criteria. A minimum of two criteria are recommended for diagnosis of either severe or non-severe malnutrition. Malnutrition Related to Morbid Obesity Malnutrition related to morbid obesity No Intervention/Recommendation Comments 1. Continue with pureed, nectar thick liquid diet as ordered. 2. Monitor PO intake, wt, labs and skin integrity 3. F/U as low risk in 7 days Expected Outcomes/Goals Expected Outcomes/Goals 1. PO intake to meet at least 75% of nutritional needs. 2. Wt stability, skin to remain intact, labs to approach WNL.
[2018-09-18] MEDS: Levetiracetam 500 mg/5mL 5mL UDSyr *for ORAL USE ONLY PO SCH (20:59)
[2018-09-19] MEDS: Levothyroxine 0.05 Mg Tab PO SCH (06:32)
[2018-09-19] MEDS: Albuterol/Ipratropium Neb 3 ML AERS HHN SCH ×3 (06:53→19:52)
--- NOTE | 2018-09-19 07:16 | Progress Notes ---
DATE: 09/18/2018 SUBJECTIVE: Staff was spoken to. The patient is interviewed. Chart is reviewed. The patient is a social science research assistant, has been spoken to and is reported that they have been trying to coordinate the care with the [facility]. So far, the placement is not available. The patient continues to be irritable and angry, but could be redirectable at this time. Insight and judgment at this time are noted to be still impaired. The patient tends to scream and yell when he does not get his way. Coping skills at this time are noted to be still poor. ASSESSMENT: The patient is still paranoid and awaiting placement. PLAN: To continue the patient with the supportive therapy and followup. JOB# [id number]
[2018-09-19] MEDS: POLYETHYLENE GLYCOL 3350 17 GM PACK PO SCH ×2 (08:58→17:12)
--- NOTE | 2018-09-19 12:20 | Internal Medicine Prog Note ---
Internal Medicine Subjective - Subjective Patient seen and examined:: with staff, chart reviewed Patient is:: awake, verbal, interactive, paul chair, denies any new complaints Per staff patient has:: no adverse event, no episodes of fall, poor appetite, tolerating meds Internal Medicine Objective - Results Result Diagrams: 09/03/18 21:54 09/03/18 21:54 Recent Labs: Laboratory Last Values WBC 13.0 Th/cmm (4.8-10.8) H 09/03/18 21:54 RBC 3.93 Mil/cmm (4.30-5.70) L 09/03/18 21:54 Hgb 12.5 gm/dL (12-16) 09/03/18 21:54 Hct 37.8 % (41.0-60) L 09/03/18 21:54 MCV 96.1 fl (80-99) 09/03/18 21:54 MCH 31.7 pg (26.0-30.0) H 09/03/18 21:54 MCHC Differential 33.0 pg (28.0-36.0) 09/03/18 21:54 RDW 13.5 % (11.5-20.0) 09/03/18 21:54 Plt Count 332 Th/cmm (150-400) 09/03/18 21:54 MPV 6.7 fl 09/03/18 21:54 Neutrophils % 76.1 % (40.0-80.0) 09/03/18 21:54 Lymphocytes % 15.3 % (20.0-50.0) L 09/03/18 21:54 Monocytes % 5.8 % (2.0-10.0) 09/03/18 21:54 Eosinophils % 2.6 % (0.0-5.0) 09/03/18 21:54 Basophils % 0.2 % (0.0-2.0) 09/03/18 21:54 Sodium 136 mEq/L (136-145) 09/03/18 21:54 Potassium 3.9 mEq/L (3.5-5.1) 09/03/18 21:54 Chloride 103 mEq/L (98-107) 09/03/18 21:54 Carbon Dioxide 25.9 mEq/L (21.0-31.0) 09/03/18 21:54 Anion Gap 11.0 (7.0-16.0) 09/03/18 21:54 BUN 14 mg/dL (7-25) 09/03/18 21:54 Creatinine 0.6 mg/dL (0.7-1.3) L 09/03/18 21:54 Est GFR ( Amer) > 60.0 ml/min (>90) 09/03/18 21:54 Est GFR (Non-Af Amer) > 60.0 ml/min 09/03/18 21:54 BUN/Creatinine Ratio 23.3 09/03/18 21:54 Glucose 115 mg/dL (70-105) H 09/03/18 21:54 Calcium 10.5 mg/dL (8.6-10.3) H 09/03/18 21:54 Total Bilirubin 0.2 mg/dL (0.3-1.0) L 09/03/18 21:54 AST 29 U/L (13-39) 09/03/18 21:54 ALT 40 U/L (7-52) 09/03/18 21:54 Alkaline Phosphatase 66 U/L (34-104) 09/03/18 21:54 Total Protein 6.8 gm/dL (6.0-8.3) 09/03/18 21:54 Albumin 3.6 gm/dL (4.2-5.5) L 09/03/18 21:54 Globulin 3.2 gm/dL 09/03/18 21:54 Albumin/Globulin Ratio 1.1 (1.0-1.8) 09/03/18 21:54 Triglycerides 113 mg/dL (<150) 09/04/18 02:57 Cholesterol 139 mg/dL (<200) 09/04/18 02:57 LDL Cholesterol Direct 81 mg/dL (75-193) 09/04/18 02:57 HDL Cholesterol 53 mg/dL (23-92) 09/04/18 02:57 - Physical Exam Vitals and I&O: Vital Signs Temp 98 F 09/19/18 06:08 Pulse 72 09/19/18 06:54 Resp 18 09/19/18 08:00 BP 123/76 09/19/18 06:08 Pulse Ox 96 09/19/18 06:54 Intake & Output 09/18/18 09/19/18 09/19/18 18:59 06:59 18:59 Intake Total 2200 300 Balance 2200 300 Intake: Oral 2200 300 Other: # Voids 4 1 # Bowel Movements 1 1 Stool Characteristics Soft Soft Active Medications: Current Medications Acetaminophen (Tylenol 650mg/20.3ml Suspension) 650 mg PO Q4H PRN PRN Reason: Pain Or Fever above 101 Stop: 11/03/18 11:44 Last Admin: 09/17/18 14:29 Dose: 650 mg Albuterol/Ipratropium (Duoneb Neb) 3 ml HHN [id number] [facility] Stop: 11/08/18 12:59 Last Admin: 09/19/18 06:53 Dose: 3 ml Bisacodyl (Dulcolax 10 Mg Supp) 10 mg RC DAILY PRN PRN Reason: IF MOM INEFFECTIVE Stop: 11/03/18 11:44 Finasteride (Proscar) 5 mg PO DAILY [facility]; Protocol Stop: 11/04/18 08:59 Last Admin: 09/19/18 08:57 Dose: 5 mg Glycopyrrolate (Robinul) 2 mg PO TID [facility] Stop: 11/03/18 13:59 Last Admin: 09/19/18 09:05 Dose: 2 mg Guaifenesin (Robitussin) 200 mg PO Q4HR PRN PRN Reason: Cough or Congestion Stop: 11/03/18 11:44 Haloperidol Lactate (Haldol) 5 mg IM NOW PRN PRN Reason: Agitation Stop: 11/16/18 22:08 Last Admin: 09/17/18 22:35 Dose: 5 mg Levetiracetam (Keppra) 750 mg PO HS [facility] Stop: 11/03/18 20:59 Last Admin: 09/18/18 20:59 Dose: 750 mg Levothyroxine Sodium (Synthroid) 0.05 mg PO QDAC [facility] Stop: 11/04/18 07:29 Last Admin: 09/19/18 06:32 Dose: 0.05 mg Lorazepam (Ativan) 0.5 mg PO Q4HR PRN; Protocol PRN Reason: Anxiety Stop: 10/03/18 23:14 Last Admin: 09/18/18 20:59 Dose: 0.5 mg Magnesium Hydroxide (Milk Of Magnesia) 30 ml PO DAILY PRN PRN Reason: Constipation Stop: 11/03/18 11:44 Mirtazapine (Remeron) 15 mg PO HS [facility]; Protocol Stop: 11/03/18 20:59 Last Admin: 09/18/18 20:58 Dose: 15 mg Olanzapine (Zyprexa) 20 mg PO HS [facility]; Protocol Stop: 11/03/18 20:59 Last Admin: 09/18/18 20:59 Dose: 20 mg Polyethylene Glycol (Miralax) 17 gm PO BID [facility] Stop: 11/03/18 16:59 Last Admin: 09/19/18 08:58 Dose: 17 gm Prednisone (Deltasone) 10 mg PO BID [facility] Stop: 11/03/18 16:59 Last Admin: 09/19/18 08:58 Dose: 10 mg Sodium Phosphate (Fleet Enema) 135 ml RC DAILY PRN PRN Reason: IF DULCOLAX INEFFECTIVE Stop: 11/03/18 11:44 Tamsulosin HCl (Flomax) 0.4 mg PO QPM [facility] Stop: 11/03/18 16:59 Last Admin: 09/18/18 16:44 Dose: 0.4 mg Topiramate (Topamax) 200 mg PO BID [facility] Stop: 11/03/18 16:59 Last Admin: 09/19/18 08:57 Dose: 200 mg Topiramate (Topamax) 100 mg PO HS [facility] Stop: 11/03/18 20:59 Last Admin: 09/18/18 20:59 Dose: 100 mg Zolpidem Tartrate (Ambien) 5 mg PO HS PRN PRN Reason: Insomnia Stop: 11/02/18 23:14 Last Admin: 09/18/18 21:53 Dose: 5 mg General: demented, disheveled HEENT: NC/AT, PERRLA, EOMI Neck: Supple, No JVD Lungs: CTAB Cardiovascular: RRR, Normal S1, Normal S2 Abdomen: soft, non-tender, thin, non-distended, positive bowel sound Extremities: excoriation, contracture Neurological: no change - Procedures Procedures: Procedures Procedure Code Date BARIUM SWALLOW 87.61 04/05/95 C.A.T. SCAN OF HEAD 87.03 04/05/95 CLOSURE SKIN & SUBCUTANEOUS NEC 86.59 04/05/95 ELECTROENCEPHALOGRAM 89.14 04/05/95 HEAD SOFT TISS X-RAY NEC 87.09 04/05/95 LINEAR REP LID LACER 08.81 11/06/95 RPR F/E/E/N/L/M 2.5 CM/< 18009 11/06/95 Internal Medicine Assmt/Plan - Assessment Assessment: ASSESSMENT AND PLAN: Leukocytosis of unclear etiology, anemia, seizure, dysphagia, hypertension, chronic obstructive pulmonary disease, benign prostatic hypertrophy, hypothyroidism, schizoaffective disorder, and low albumin. - Plan Plan: PLAN: Continue the patient on antiepileptic medication. We will check the patient's level. We will continue on aspiration precaution. We will continue on oxygen bronchodilator treatments. Continue with current care. We will continue to follow with you Dr. Downey. Nutritional Asmnt/Malnutr-PDOC - Dietary Evaluation Malnutrition Findings (Please click <Entered> for more info): Nutritional Asmnt/Malnutrition Start: 09/10/18 14: 01 Text: Status: Complete Freq: Protocol: Document 09/10/18 14:01 LCHENG (Rec: 09/10/18 14:04 [email or web address]) Nutritional Asmnt/Malnutrition Patient General Information Nutritional Screening Low Risk Diagnosis increased agitation, psychosis Pertinent Medical Hx/Surgical Hx seizure, dysphagia, HTN, COPD, previous Gtube removed, BPH, hypothyroidism, psych disorder Subjective Information Pt seen standing in his room, confused, not able to participate in conversation. Per EMR, PO intake 100% Current Diet Order/ Nutrition Support pureed, nectar thick Pertinent Medications synthroid, remeron Pertinent Labs 09/03 Cr 0.6, Glucose 115, Alb 3.6 Nutritional Hx/Data Height 1.78 m Height (Calculated Centimeters) 177.8 Current Weight (lbs) 56.699 kg Weight (Calculated Kilograms) 56.7 Weight (Calculated Grams) 97079.0 [place] Body Weight 166 Body Mass Index (BMI) 17.9 Weight Status Underweight GI Symptoms GI Symptoms None Last BM 09/07 Difficult in: None Skin Integrity/Comment: intact Current %PO Good (75-100%) Estimated Nutritional Goals BEE in Kcals: Using Current wt Calories/Kcals/Kg 27-32 Kcals Calculated 3801-7911 Protein: Using Current wt Protein g/k-1.2 Protein Calculated 67-80 Fluid: ml 1809-2144ml (1ml/kcal) Nutritional Problem No current Nutrition Prob Problem N/A Malnutrition Alert Is there a minimum of two criteria No selected? Query Text:Check all the applicable criteria. A minimum of two criteria are recommended for diagnosis of either severe or non-severe malnutrition. Malnutrition Related to Morbid Obesity Malnutrition related to morbid obesity No Intervention/Recommendation Comments 1. Continue with pureed, nectar thick liquid diet as ordered. 2. Monitor PO intake, wt, labs and skin integrity 3. F/U as low risk in 7 days Expected Outcomes/Goals Expected Outcomes/Goals 1. PO intake to meet at least 75% of nutritional needs. 2. Wt stability, skin to remain intact, labs to approach WNL.
[2018-09-19] MEDS: Levetiracetam 500 mg/5mL 5mL UDSyr *for ORAL USE ONLY PO SCH (21:16)
--- NOTE | 2018-09-20 05:36 | Progress Notes ---
DATE: 09/19/2018 SUBJECTIVE: Staff was spoken to. The patient is interviewed. Mood is noted to be less irritable. Affect is appropriate. The patient has paranoia, but tends to be disruptive, and needs to be redirected. The patient; however, is not presenting with any threats to harm self or others. The patient is currently awaiting placement through the [facility] JOB# [id number]
[2018-09-20] MEDS: Albuterol/Ipratropium Neb 3 ML AERS HHN SCH ×3 (06:41→21:33)
[2018-09-20] MEDS: Levothyroxine 0.05 Mg Tab PO SCH (06:45)
[2018-09-20] MEDS: POLYETHYLENE GLYCOL 3350 17 GM PACK PO SCH ×2 (09:34→17:17)
--- NOTE | 2018-09-20 11:59 | Internal Medicine Prog Note ---
Internal Medicine Subjective - Subjective Patient seen and examined:: with staff, chart reviewed Patient is:: awake, verbal, interactive, paul chair, denies any new complaints Per staff patient has:: no adverse event, no episodes of fall, poor appetite, tolerating meds Internal Medicine Objective - Results Result Diagrams: 09/03/18 21:54 09/03/18 21:54 Recent Labs: Laboratory Last Values WBC 13.0 Th/cmm (4.8-10.8) H 09/03/18 21:54 RBC 3.93 Mil/cmm (4.30-5.70) L 09/03/18 21:54 Hgb 12.5 gm/dL (12-16) 09/03/18 21:54 Hct 37.8 % (41.0-60) L 09/03/18 21:54 MCV 96.1 fl (80-99) 09/03/18 21:54 MCH 31.7 pg (26.0-30.0) H 09/03/18 21:54 MCHC Differential 33.0 pg (28.0-36.0) 09/03/18 21:54 RDW 13.5 % (11.5-20.0) 09/03/18 21:54 Plt Count 332 Th/cmm (150-400) 09/03/18 21:54 MPV 6.7 fl 09/03/18 21:54 Neutrophils % 76.1 % (40.0-80.0) 09/03/18 21:54 Lymphocytes % 15.3 % (20.0-50.0) L 09/03/18 21:54 Monocytes % 5.8 % (2.0-10.0) 09/03/18 21:54 Eosinophils % 2.6 % (0.0-5.0) 09/03/18 21:54 Basophils % 0.2 % (0.0-2.0) 09/03/18 21:54 Sodium 136 mEq/L (136-145) 09/03/18 21:54 Potassium 3.9 mEq/L (3.5-5.1) 09/03/18 21:54 Chloride 103 mEq/L (98-107) 09/03/18 21:54 Carbon Dioxide 25.9 mEq/L (21.0-31.0) 09/03/18 21:54 Anion Gap 11.0 (7.0-16.0) 09/03/18 21:54 BUN 14 mg/dL (7-25) 09/03/18 21:54 Creatinine 0.6 mg/dL (0.7-1.3) L 09/03/18 21:54 Est GFR ( Amer) > 60.0 ml/min (>90) 09/03/18 21:54 Est GFR (Non-Af Amer) > 60.0 ml/min 09/03/18 21:54 BUN/Creatinine Ratio 23.3 09/03/18 21:54 Glucose 115 mg/dL (70-105) H 09/03/18 21:54 Calcium 10.5 mg/dL (8.6-10.3) H 09/03/18 21:54 Total Bilirubin 0.2 mg/dL (0.3-1.0) L 09/03/18 21:54 AST 29 U/L (13-39) 09/03/18 21:54 ALT 40 U/L (7-52) 09/03/18 21:54 Alkaline Phosphatase 66 U/L (34-104) 09/03/18 21:54 Total Protein 6.8 gm/dL (6.0-8.3) 09/03/18 21:54 Albumin 3.6 gm/dL (4.2-5.5) L 09/03/18 21:54 Globulin 3.2 gm/dL 09/03/18 21:54 Albumin/Globulin Ratio 1.1 (1.0-1.8) 09/03/18 21:54 Triglycerides 113 mg/dL (<150) 09/04/18 02:57 Cholesterol 139 mg/dL (<200) 09/04/18 02:57 LDL Cholesterol Direct 81 mg/dL (75-193) 09/04/18 02:57 HDL Cholesterol 53 mg/dL (23-92) 09/04/18 02:57 - Physical Exam Vitals and I&O: Vital Signs Temp 97.6 F 09/20/18 06:12 Pulse 98 09/20/18 06:42 Resp 20 09/20/18 06:42 BP 109/69 09/20/18 06:12 Pulse Ox 96 09/20/18 06:42 Intake & Output 09/19/18 09/20/18 09/20/18 18:59 06:59 18:59 Intake Total 1450 120 Balance 1450 120 Intake: Oral 1450 120 Other: # Voids 3 3 # Bowel Movements 0 Stool Characteristics Soft Active Medications: Current Medications Acetaminophen (Tylenol 650mg/20.3ml Suspension) 650 mg PO Q4H PRN PRN Reason: Pain Or Fever above 101 Stop: 11/03/18 11:44 Last Admin: 09/17/18 14:29 Dose: 650 mg Albuterol/Ipratropium (Duoneb Neb) 3 ml HHN [id number] [facility] Stop: 11/08/18 12:59 Last Admin: 09/20/18 06:41 Dose: 3 ml Bisacodyl (Dulcolax 10 Mg Supp) 10 mg RC DAILY PRN PRN Reason: IF MOM INEFFECTIVE Stop: 11/03/18 11:44 Finasteride (Proscar) 5 mg PO DAILY [facility]; Protocol Stop: 11/04/18 08:59 Last Admin: 09/20/18 09:33 Dose: 5 mg Glycopyrrolate (Robinul) 2 mg PO TID [facility] Stop: 11/03/18 13:59 Last Admin: 09/20/18 09:34 Dose: 2 mg Guaifenesin (Robitussin) 200 mg PO Q4HR PRN PRN Reason: Cough or Congestion Stop: 11/03/18 11:44 Haloperidol Lactate (Haldol) 5 mg IM NOW PRN PRN Reason: Agitation Stop: 11/16/18 22:08 Last Admin: 09/17/18 22:35 Dose: 5 mg Levetiracetam (Keppra) 750 mg PO HS [facility] Stop: 11/03/18 20:59 Last Admin: 09/19/18 21:16 Dose: 750 mg Levothyroxine Sodium (Synthroid) 0.05 mg PO QDAC [facility] Stop: 11/04/18 07:29 Last Admin: 09/20/18 06:45 Dose: 0.05 mg Lorazepam (Ativan) 0.5 mg PO Q4HR PRN; Protocol PRN Reason: Anxiety Stop: 10/03/18 23:14 Last Admin: 09/18/18 20:59 Dose: 0.5 mg Magnesium Hydroxide (Milk Of Magnesia) 30 ml PO DAILY PRN PRN Reason: Constipation Stop: 11/03/18 11:44 Mirtazapine (Remeron) 15 mg PO HS [facility]; Protocol Stop: 11/03/18 20:59 Last Admin: 09/19/18 21:16 Dose: 15 mg Olanzapine (Zyprexa) 20 mg PO HS [facility]; Protocol Stop: 11/03/18 20:59 Last Admin: 09/19/18 21:17 Dose: 20 mg Polyethylene Glycol (Miralax) 17 gm PO BID [facility] Stop: 11/03/18 16:59 Last Admin: 09/20/18 09:34 Dose: 17 gm Prednisone (Deltasone) 10 mg PO BID [facility] Stop: 11/03/18 16:59 Last Admin: 09/20/18 09:33 Dose: 10 mg Sodium Phosphate (Fleet Enema) 135 ml RC DAILY PRN PRN Reason: IF DULCOLAX INEFFECTIVE Stop: 11/03/18 11:44 Tamsulosin HCl (Flomax) 0.4 mg PO QPM [facility] Stop: 11/03/18 16:59 Last Admin: 09/19/18 17:13 Dose: 0.4 mg Topiramate (Topamax) 200 mg PO BID [facility] Stop: 11/03/18 16:59 Last Admin: 09/20/18 09:35 Dose: 200 mg Topiramate (Topamax) 100 mg PO HS [facility] Stop: 11/03/18 20:59 Last Admin: 09/19/18 21:17 Dose: 100 mg Zolpidem Tartrate (Ambien) 5 mg PO HS PRN PRN Reason: Insomnia Stop: 11/02/18 23:14 Last Admin: 09/19/18 21:17 Dose: 5 mg General: demented, disheveled HEENT: NC/AT, PERRLA, EOMI Neck: Supple, No JVD Lungs: CTAB Cardiovascular: RRR, Normal S1, Normal S2 Abdomen: soft, non-tender, thin, non-distended, positive bowel sound Extremities: excoriation, contracture Neurological: no change - Procedures Procedures: Procedures Procedure Code Date BARIUM SWALLOW 87.61 04/05/95 C.A.T. SCAN OF HEAD 87.03 04/05/95 CLOSURE SKIN & SUBCUTANEOUS NEC 86.59 04/05/95 ELECTROENCEPHALOGRAM 89.14 04/05/95 HEAD SOFT TISS X-RAY NEC 87.09 04/05/95 LINEAR REP LID LACER 08.81 11/06/95 RPR F/E/E/N/L/M 2.5 CM/< 07859 11/06/95 Internal Medicine Assmt/Plan - Assessment Assessment: ASSESSMENT AND PLAN: Leukocytosis of unclear etiology, anemia, seizure, dysphagia, hypertension, chronic obstructive pulmonary disease, benign prostatic hypertrophy, hypothyroidism, schizoaffective disorder, and low albumin. - Plan Plan: PLAN: Continue the patient on antiepileptic medication. We will check the patient's level. We will continue on aspiration precaution. We will continue on oxygen bronchodilator treatments. Continue with current care. We will continue to follow with you Dr. Downey. Nutritional Asmnt/Malnutr-PDOC - Dietary Evaluation Malnutrition Findings (Please click <Entered> for more info): Nutritional Asmnt/Malnutrition Start: 09/10/18 14: 01 Text: Status: Complete Freq: Protocol: Document 09/10/18 14:01 LCHENG (Rec: 09/10/18 14:04 [email or web address]) Nutritional Asmnt/Malnutrition Patient General Information Nutritional Screening Low Risk Diagnosis increased agitation, psychosis Pertinent Medical Hx/Surgical Hx seizure, dysphagia, HTN, COPD, previous Gtube removed, BPH, hypothyroidism, psych disorder Subjective Information Pt seen standing in his room, confused, not able to participate in conversation. Per EMR, PO intake 100% Current Diet Order/ Nutrition Support pureed, nectar thick Pertinent Medications synthroid, remeron Pertinent Labs 09/03 Cr 0.6, Glucose 115, Alb 3.6 Nutritional Hx/Data Height 1.78 m Height (Calculated Centimeters) 177.8 Current Weight (lbs) 56.699 kg Weight (Calculated Kilograms) 56.7 Weight (Calculated Grams) 34544.0 [place] Body Weight 166 Body Mass Index (BMI) 17.9 Weight Status Underweight GI Symptoms GI Symptoms None Last BM 09/07 Difficult in: None Skin Integrity/Comment: intact Current %PO Good (75-100%) Estimated Nutritional Goals BEE in Kcals: Using Current wt Calories/Kcals/Kg 27-32 Kcals Calculated 3347-7440 Protein: Using Current wt Protein g/k-1.2 Protein Calculated 67-80 Fluid: ml 1809-2144ml (1ml/kcal) Nutritional Problem No current Nutrition Prob Problem N/A Malnutrition Alert Is there a minimum of two criteria No selected? Query Text:Check all the applicable criteria. A minimum of two criteria are recommended for diagnosis of either severe or non-severe malnutrition. Malnutrition Related to Morbid Obesity Malnutrition related to morbid obesity No Intervention/Recommendation Comments 1. Continue with pureed, nectar thick liquid diet as ordered. 2. Monitor PO intake, wt, labs and skin integrity 3. F/U as low risk in 7 days Expected Outcomes/Goals Expected Outcomes/Goals 1. PO intake to meet at least 75% of nutritional needs. 2. Wt stability, skin to remain intact, labs to approach WNL.
[2018-09-20] MEDS: Levetiracetam 500 mg/5mL 5mL UDSyr *for ORAL USE ONLY PO SCH (21:25)
--- NOTE | 2018-09-21 02:37 | Progress Notes ---
DATE: 09/20/2018 PSYCHIATRIC PROGRESS NOTE SUBJECTIVE: Staff was spoken to. The patient is interviewed. Mood is noted to be irritable. Affect is constricted. That the patient was supposed to be discharged yesterday, but the placement fell through and the patient is being in here ____ placement. Coping skills at this time are noted to be still poor. No side effects to the medications are noted. ASSESSMENT: The patient is awaiting placement. PLAN: To continue the patient with the supportive therapy and follow up. [facility]# [id number]
[2018-09-21] MEDS: Levothyroxine 0.05 Mg Tab PO SCH (06:49)
[2018-09-21] MEDS: Albuterol/Ipratropium Neb 3 ML AERS HHN SCH (07:14)
[2018-09-21] MEDS: POLYETHYLENE GLYCOL 3350 17 GM PACK PO SCH (09:14)
--- NOTE | 2018-09-21 12:37 | Internal Medicine Prog Note ---
Internal Medicine Subjective - Subjective Patient seen and examined:: with staff, chart reviewed Patient is:: awake, verbal, interactive, paul chair, denies any new complaints Per staff patient has:: no adverse event, no episodes of fall, poor appetite, tolerating meds Internal Medicine Objective - Results Result Diagrams: 09/03/18 21:54 09/03/18 21:54 Recent Labs: Laboratory Last Values WBC 13.0 Th/cmm (4.8-10.8) H 09/03/18 21:54 RBC 3.93 Mil/cmm (4.30-5.70) L 09/03/18 21:54 Hgb 12.5 gm/dL (12-16) 09/03/18 21:54 Hct 37.8 % (41.0-60) L 09/03/18 21:54 MCV 96.1 fl (80-99) 09/03/18 21:54 MCH 31.7 pg (26.0-30.0) H 09/03/18 21:54 MCHC Differential 33.0 pg (28.0-36.0) 09/03/18 21:54 RDW 13.5 % (11.5-20.0) 09/03/18 21:54 Plt Count 332 Th/cmm (150-400) 09/03/18 21:54 MPV 6.7 fl 09/03/18 21:54 Neutrophils % 76.1 % (40.0-80.0) 09/03/18 21:54 Lymphocytes % 15.3 % (20.0-50.0) L 09/03/18 21:54 Monocytes % 5.8 % (2.0-10.0) 09/03/18 21:54 Eosinophils % 2.6 % (0.0-5.0) 09/03/18 21:54 Basophils % 0.2 % (0.0-2.0) 09/03/18 21:54 Sodium 136 mEq/L (136-145) 09/03/18 21:54 Potassium 3.9 mEq/L (3.5-5.1) 09/03/18 21:54 Chloride 103 mEq/L (98-107) 09/03/18 21:54 Carbon Dioxide 25.9 mEq/L (21.0-31.0) 09/03/18 21:54 Anion Gap 11.0 (7.0-16.0) 09/03/18 21:54 BUN 14 mg/dL (7-25) 09/03/18 21:54 Creatinine 0.6 mg/dL (0.7-1.3) L 09/03/18 21:54 Est GFR ( Amer) > 60.0 ml/min (>90) 09/03/18 21:54 Est GFR (Non-Af Amer) > 60.0 ml/min 09/03/18 21:54 BUN/Creatinine Ratio 23.3 09/03/18 21:54 Glucose 115 mg/dL (70-105) H 09/03/18 21:54 Calcium 10.5 mg/dL (8.6-10.3) H 09/03/18 21:54 Total Bilirubin 0.2 mg/dL (0.3-1.0) L 09/03/18 21:54 AST 29 U/L (13-39) 09/03/18 21:54 ALT 40 U/L (7-52) 09/03/18 21:54 Alkaline Phosphatase 66 U/L (34-104) 09/03/18 21:54 Total Protein 6.8 gm/dL (6.0-8.3) 09/03/18 21:54 Albumin 3.6 gm/dL (4.2-5.5) L 09/03/18 21:54 Globulin 3.2 gm/dL 09/03/18 21:54 Albumin/Globulin Ratio 1.1 (1.0-1.8) 09/03/18 21:54 Triglycerides 113 mg/dL (<150) 09/04/18 02:57 Cholesterol 139 mg/dL (<200) 09/04/18 02:57 LDL Cholesterol Direct 81 mg/dL (75-193) 09/04/18 02:57 HDL Cholesterol 53 mg/dL (23-92) 09/04/18 02:57 - Physical Exam Vitals and I&O: Vital Signs Temp 98.1 F 09/21/18 09:40 Pulse 80 09/21/18 09:40 Resp 19 09/21/18 09:40 BP 119/76 09/21/18 09:40 Pulse Ox 97 09/21/18 09:40 Intake & Output 09/20/18 09/21/18 09/21/18 18:59 06:59 18:59 Intake Total 1000 240 Balance 1000 240 Intake: Oral 1000 240 Other: # Voids 4 1 # Bowel Movements 1 1 Active Medications: Current Medications Acetaminophen (Tylenol 650mg/20.3ml Suspension) 650 mg PO Q4H PRN PRN Reason: Pain Or Fever above 101 Stop: 11/03/18 11:44 Last Admin: 09/17/18 14:29 Dose: 650 mg Albuterol/Ipratropium (Duoneb Neb) 3 ml HHN [id number] [facility] Stop: 11/08/18 12:59 Last Admin: 09/21/18 07:14 Dose: 3 ml Bisacodyl (Dulcolax 10 Mg Supp) 10 mg RC DAILY PRN PRN Reason: IF MOM INEFFECTIVE Stop: 11/03/18 11:44 Finasteride (Proscar) 5 mg PO DAILY [facility]; Protocol Stop: 11/04/18 08:59 Last Admin: 09/21/18 09:14 Dose: 5 mg Glycopyrrolate (Robinul) 2 mg PO TID [facility] Stop: 11/03/18 13:59 Last Admin: 09/21/18 09:15 Dose: 2 mg Guaifenesin (Robitussin) 200 mg PO Q4HR PRN PRN Reason: Cough or Congestion Stop: 11/03/18 11:44 Haloperidol Lactate (Haldol) 5 mg IM NOW PRN PRN Reason: Agitation Stop: 11/16/18 22:08 Last Admin: 09/17/18 22:35 Dose: 5 mg Levetiracetam (Keppra) 750 mg PO HS [facility] Stop: 11/03/18 20:59 Last Admin: 09/20/18 21:25 Dose: 750 mg Levothyroxine Sodium (Synthroid) 0.05 mg PO QDAC [facility] Stop: 11/04/18 07:29 Last Admin: 09/21/18 06:49 Dose: 0.05 mg Lorazepam (Ativan) 0.5 mg PO Q4HR PRN; Protocol PRN Reason: Anxiety Stop: 10/03/18 23:14 Last Admin: 09/21/18 03:24 Dose: 0.5 mg Magnesium Hydroxide (Milk Of Magnesia) 30 ml PO DAILY PRN PRN Reason: Constipation Stop: 11/03/18 11:44 Mirtazapine (Remeron) 15 mg PO HS [facility]; Protocol Stop: 11/03/18 20:59 Last Admin: 09/20/18 21:26 Dose: 15 mg Olanzapine (Zyprexa) 20 mg PO HS [facility]; Protocol Stop: 11/03/18 20:59 Last Admin: 09/20/18 21:26 Dose: 20 mg Polyethylene Glycol (Miralax) 17 gm PO BID [facility] Stop: 11/03/18 16:59 Last Admin: 09/21/18 09:14 Dose: 17 gm Prednisone (Deltasone) 10 mg PO BID GUILLERMO Stop: 11/03/18 16:59 Last Admin: 09/21/18 09:14 Dose: 10 mg Sodium Phosphate (Fleet Enema) 135 ml RC DAILY PRN PRN Reason: IF DULCOLAX INEFFECTIVE Stop: 11/03/18 11:44 Tamsulosin HCl (Flomax) 0.4 mg PO QPM [facility] Stop: 11/03/18 16:59 Last Admin: 09/20/18 17:18 Dose: 0.4 mg Topiramate (Topamax) 200 mg PO BID [facility] Stop: 11/03/18 16:59 Last Admin: 09/21/18 09:14 Dose: 200 mg Topiramate (Topamax) 100 mg PO HS [facility] Stop: 11/03/18 20:59 Last Admin: 09/20/18 21:27 Dose: 100 mg Zolpidem Tartrate (Ambien) 5 mg PO HS PRN PRN Reason: Insomnia Stop: 11/02/18 23:14 Last Admin: 09/20/18 21:29 Dose: 5 mg General: demented, disheveled HEENT: NC/AT, PERRLA, EOMI Neck: Supple, No JVD Lungs: CTAB Cardiovascular: RRR, Normal S1, Normal S2 Abdomen: soft, non-tender, thin, non-distended, positive bowel sound Extremities: excoriation, contracture Neurological: no change - Procedures Procedures: Procedures Procedure Code Date BARIUM SWALLOW 87.61 04/05/95 C.A.T. SCAN OF HEAD 87.03 04/05/95 CLOSURE SKIN & SUBCUTANEOUS NEC 86.59 04/05/95 ELECTROENCEPHALOGRAM 89.14 04/05/95 HEAD SOFT TISS X-RAY NEC 87.09 04/05/95 LINEAR REP LID LACER 08.81 11/06/95 RPR F/E/E/N/L/M 2.5 CM/< 90252 11/06/95 Internal Medicine Assmt/Plan - Assessment Assessment: ASSESSMENT AND PLAN: Leukocytosis of unclear etiology, anemia, seizure, dysphagia, hypertension, chronic obstructive pulmonary disease, benign prostatic hypertrophy, hypothyroidism, schizoaffective disorder, and low albumin. - Plan Plan: PLAN: Continue the patient on antiepileptic medication. We will check the patient's level. We will continue on aspiration precaution. We will continue on oxygen bronchodilator treatments. Continue with current care. We will continue to follow with you Dr. Downey. Nutritional Asmnt/Malnutr-PDOC - Dietary Evaluation Malnutrition Findings (Please click <Entered> for more info): Nutritional Asmnt/Malnutrition Start: 09/10/18 14: 01 Text: Status: Complete Freq: Protocol: Document 09/10/18 14:01 LCHENG (Rec: 09/10/18 14:04 [email or web address] [id number]) Nutritional Asmnt/Malnutrition Patient General Information Nutritional Screening Low Risk Diagnosis increased agitation, psychosis Pertinent Medical Hx/Surgical Hx seizure, dysphagia, HTN, COPD, previous Gtube removed, BPH, hypothyroidism, psych disorder Subjective Information Pt seen standing in his room, confused, not able to participate in conversation. Per EMR, PO intake 100% Current Diet Order/ Nutrition Support pureed, nectar thick Pertinent Medications synthroid, remeron Pertinent Labs 09/03 Cr 0.6, Glucose 115, Alb 3.6 Nutritional Hx/Data Height 1.78 m Height (Calculated Centimeters) 177.8 Current Weight (lbs) 56.699 kg Weight (Calculated Kilograms) 56.7 Weight (Calculated Grams) 83639.0 [place] Body Weight 166 Body Mass Index (BMI) 17.9 Weight Status Underweight GI Symptoms GI Symptoms None Last BM 09/07 Difficult in: None Skin Integrity/Comment: intact Current %PO Good (75-100%) Estimated Nutritional Goals BEE in Kcals: Using Current wt Calories/Kcals/Kg 27-32 Kcals Calculated 9157-2421 Protein: Using Current wt Protein g/k-1.2 Protein Calculated 67-80 Fluid: ml 1809-2144ml (1ml/kcal) Nutritional Problem No current Nutrition Prob Problem N/A Malnutrition Alert Is there a minimum of two criteria No selected? Query Text:Check all the applicable criteria. A minimum of two criteria are recommended for diagnosis of either severe or non-severe malnutrition. Malnutrition Related to Morbid Obesity Malnutrition related to morbid obesity No Intervention/Recommendation Comments 1. Continue with pureed, nectar thick liquid diet as ordered. 2. Monitor PO intake, wt, labs and skin integrity 3. F/U as low risk in 7 days Expected Outcomes/Goals Expected Outcomes/Goals 1. PO intake to meet at least 75% of nutritional needs. 2. Wt stability, skin to remain intact, labs to approach WNL.
--- NOTE | 2018-09-22 15:32 | Progress Notes ---
DATE: 09/21/2018 SUBJECTIVE: Staff was spoken to. The patient is interviewed. Mood is noted to be anxious. Affect is appropriate. Not suicidal or homicidal. Insight and judgment at this time are noted to be improving. Impulse control is noted to be some effects to the medications are noted. The patient has been able to verbalize the concerns rather than to act out. ASSESSMENT: The patient is stabilizing. PLAN: To discharge the patient today for followup on outpatient basis. JOB# [id number]
--- NOTE | 2018-09-22 23:11 | Discharge Summary ---
DATE OF DISCHARGE: 09/21/2018 PSYCHIATRIC DISCHARGE SUMMARY IDENTIFYING DATA: The patient is a 63-year-old male, resident of [facility]. Information obtained by directly interviewing the patient as well as reviewing the admission papers. JUSTIFICATION OF HOSPITALIZATION: The patient is admitted here on a voluntary basis in view of his acute agitation and aggressive behavior. DIAGNOSES AT THE TIME OF ADMISSION: AXIS I: Psychotic disorder, not otherwise specified. AXIS II: Borderline intelligence range. AXIS III: As per Dr. Nelson. HISTORY OF PRESENT ILLNESS: For detailed history of history of present illness, please refer to 09/04/2018 dictation done by me. HOSPITAL COURSE AND RESPONSE TO TREATMENT: The patient has been observed on the inpatient unit, provided with supportive psychotherapy. The patient has been closely monitored. The patient has been very irritable, angry, and has been banging on the plank of the [place] Chair constantly. The patient has to be redirected. The patient has to be medicated and placement became a problem and the patient has to be observed on the inpatient unit. The patient has been given lorazepam and Haldol on a p.r.n. basis. The patient is also placed on buspirone for his anxiety. The patient has been given Topamax for his seizure disorder. In view of psychosis, the patient has been placed on olanzapine, which was gradually increased up to 20 mg and the patient has been given 15 mg of mirtazapine at nighttime. The patient also has been treated with phenobarbital for seizures. The patient has not presented with any seizure activity and ____ seems to be under control. The patient started to stabilize and the patient was finally discharged on 09/21/2018 to [facility] for the patient to be followed up. MENTAL STATUS EXAMINATION AT THE TIME OF DISCHARGE: The patient's mood is noted to be less irritable. Affect is appropriate. Not suicidal or homicidal. Insight and judgment are noted to be improving. Impulse control is noted to be fair. No side effects to the medications are noted at the time of the discharge. CONDITION AT THE TIME OF DISCHARGE: Noted to be stable. PROGNOSIS AT THE TIME OF DISCHARGE: Noted to be guarded. JOB# [id number]
== END 2018-09-21 12:45 | disposition home or self-care (01) | DRG 885 ==
LOC: ER 20:37 → GERO2 22:37 → GERO 09-06 17:46
DX: F29 Unspecified psychosis not due to a substance or known physiological condition (principal); K94.23 Gastrostomy malfunction; D64.9 Anemia, unspecified; R13.10 Dysphagia, unspecified; J44.9 Chronic obstructive pulmonary disease, unspecified; N40.0 Benign prostatic hyperplasia without lower urinary tract symptoms; E03.9 Hypothyroidism, unspecified; E88.09 Other disorders of plasma-protein metabolism, not elsewhere classified; I10 Essential (primary) hypertension; F41.9 Anxiety disorder, unspecified; F03.90 Unspecified dementia, unspecified severity, without behavioral disturbance, psychotic disturbance, mood disturbance, and anxiety; Y83.3 Surgical operation with formation of external stoma as the cause of abnormal reaction of the patient, or of later complication, without mention of misadventure at the time of the procedure; Y92.89 Other specified places as the place of occurrence of the external cause; F20.9 Schizophrenia, unspecified; D72.829 Elevated white blood cell count, unspecified; G40.909 Epilepsy, unspecified, not intractable, without status epilepticus; F63.9 Impulse disorder, unspecified
CPT/HCPCS: 36415-UA; 80053-TC; 80061-TC; 83036-90; 85025-TC; 94640; 94760; J1200; J1630; J2060; J7051; Z7610